=== PATIENT | female | born 1950 | race Caucasian/White ===

== ENCOUNTER 2020-04-15 15:25 | Inpatient (IN) | payer MEDICARE, BC ==
[2020-04-15] MEDS ORDERED: ALBUTEROL HFA INHALER INHALATION STA (15:51)
[2020-04-15 16:54] LABS: Basophils % (A) 0 %; Eosinophils # (A) 0.2 k/uL (0-0.7); Eosinophils % (A) 1 %; HCT 35.6 % (34.0-46.0); HGB 11.3 gm/dL (11.4-16.0); Lymphocytes % (A) 7 %; MCH 32.8 pg (25.0-35.0); MCHC 31.8 g/dL (31.0-37.0); MCV 103.4 fL (80.0-100.0); Macrocytosis Slight; Mean Platelet Volume 8.4; Monocytes # (A) 1.4 k/uL (0-1.0); Monocytes % (A) 9 %; Neutrophils # (A) 12.1 k/uL (1.3-7.7); Neutrophils % (A) 81 %; Platelet Count 324 k/uL (150-450); RBC 3.44 m/uL (3.80-5.40); RDW 13.5 % (11.5-15.5); WBC 14.9 k/uL (3.8-10.6)
--- NOTE | 2020-04-15 16:56 | ED ---
General Adult HPI - General Chief complaint: Shortness of Breath Stated complaint: SOB Time Seen by Provider: 04/15/20 15:41 Source: patient, EMS, RN notes reviewed Mode of arrival: EMS Limitations: no limitations - History of Present Illness Initial comments: Patient is a pleasant 69-year-old female presenting to the emergency department with difficulty breathing. Onset of symptoms was a week or so ago. Symptoms do worsen with exertion. No history of similar symptoms previously. 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 Occasional mild cough. No fevers. No chest pain. Patient does have right foot erythema and swelling. No calf pain or swelling. - Related Data Allergies Allergy/AdvReac Type Severity Reaction Status Date / Time codeine Allergy Unknown Verified 04/15/20 15:53 Review of Systems ROS Statement: Those systems with pertinent positive or pertinent negative responses have been documented in the HPI. ROS Other: All systems not noted in ROS Statement are negative. Constitutional: Denies: fever, chills Eyes: Denies: eye pain ENT: Denies: ear pain Respiratory: Reports: as per HPI, dyspnea Cardiovascular: Denies: chest pain Endocrine: Denies: fatigue Gastrointestinal: Denies: abdominal pain Genitourinary: Denies: dysuria Musculoskeletal: Denies: back pain Skin: Reports: as per HPI, rash Neurological: Denies: weakness Past Medical History Past Medical History: Diabetes Mellitus, Hyperlipidemia, Hypertension History of Any Multi-Drug Resistant Organisms: None Reported Past Surgical History: Cholecystectomy, Coronary Bypass/CABG, Heart Catheterization With Stent Past Psychological History: Anxiety Smoking Status: Never smoker Past Alcohol Use History: None Reported Past Drug Use History: None Reported General Exam Limitations: no limitations General appearance: alert, in no apparent distress Head exam: Present: normocephalic Eye exam: Present: normal appearance Neck exam: Present: normal inspection Respiratory exam: Present: normal lung sounds bilaterally Cardiovascular Exam: Present: regular rate, normal rhythm GI/Abdominal exam: Present: soft. Absent: tenderness Extremities exam: Present: other (Right dorsal foot with erythema and swelling and mild tenderness). Absent: calf tenderness Neurological exam: Present: alert Psychiatric exam: Present: normal affect, normal mood Skin exam: Present: erythema (Right dorsal foot) Course Vital Signs 04/15/20 04/15/20 04/15/20 15:53 15:55 18:00 Temperature 98.4 F Pulse Rate 81 78 Respiratory 22 20 Rate Blood Pressure 124/84 119/58 O2 Sat by Pulse 89 L 98 97 Oximetry EKG Findings - EKG Comments: EKG Findings:: Normal sinus rhythm 77. NC 164. QRS 92. QT 396. QTc 440. Normal axis. Normal QRS. No acute ST change. Medical Decision Making - Medical Decision Making Patient reevaluated. Patient updated on results and plan. Case was discussed with Dr. Figueredo, who will admit covering Dr. Richmond - Lab Data Result diagrams: 04/15/20 16:20 04/15/20 16:20 Lab Results 04/15/20 04/15/20 04/15/20 Range/Units 16:14 16:20 16:20 WBC 14.9 H (3.8-10.6) k/uL RBC 3.44 L (3.80-5.40) m/uL Hgb 11.3 L (11.4-16.0) gm/dL Hct 35.6 (34.0-46.0) % MCV 103.4 H (80.0-100.0) fL MCH 32.8 (25.0-35.0) pg MCHC 31.8 (31.0-37.0) g/dL RDW 13.5 (11.5-15.5) % Plt Count 324 (150-450) k/uL MPV 8.4 Neutrophils % 81 % Lymphocytes % 7 % Monocytes % 9 % Eosinophils % 1 % Basophils % 0 % Neutrophils # 12.1 H (1.3-7.7) k/uL Lymphocytes # 1.0 (1.0-4.8) k/uL Monocytes # 1.4 H (0-1.0) k/uL Eosinophils # 0.2 (0-0.7) k/uL Basophils # 0.0 (0-0.2) k/uL Macrocytosis Slight PT 9.5 (9.0-12.0) sec INR 0.9 (<1.2) APTT 26.0 (22.0-30.0) sec D-Dimer 1.61 H (<0.60) mg/L FEU Sodium (137-145) mmol/L Potassium (3.5-5.1) mmol/L Chloride (98-107) mmol/L Carbon Dioxide (22-30) mmol/L Anion Gap mmol/L BUN (7-17) mg/dL Creatinine (0.52-1.04) mg/dL Est GFR (CKD-EPI)AfAm (>60 ml/min/1.73 sqM) Est GFR (CKD-EPI)NonAf (>60 ml/min/1.73 sqM) Glucose (74-99) mg/dL Plasma Lactic Acid Jordy (0.7-2.0) mmol/L Calcium (8.4-10.2) mg/dL Total Bilirubin (0.2-1.3) mg/dL AST (14-36) U/L ALT (4-34) U/L Alkaline Phosphatase (38-126) U/L Troponin I (0.000-0.034) ng/mL NT-Pro-B Natriuret Pep pg/mL Total Protein (6.3-8.2) g/dL Albumin (3.5-5.0) g/dL Coronavirus (PCR) Not Detected (Not Detectd) 04/15/20 04/15/20 04/15/20 Range/Units 16:20 16:20 16:20 WBC (3.8-10.6) k/uL RBC (3.80-5.40) m/uL Hgb (11.4-16.0) gm/dL Hct (34.0-46.0) % MCV (80.0-100.0) fL MCH (25.0-35.0) pg MCHC (31.0-37.0) g/dL RDW (11.5-15.5) % Plt Count (150-450) k/uL MPV Neutrophils % % Lymphocytes % % Monocytes % % Eosinophils % % Basophils % % Neutrophils # (1.3-7.7) k/uL Lymphocytes # (1.0-4.8) k/uL Monocytes # (0-1.0) k/uL Eosinophils # (0-0.7) k/uL Basophils # (0-0.2) k/uL Macrocytosis PT (9.0-12.0) sec INR (<1.2) APTT (22.0-30.0) sec D-Dimer (<0.60) mg/L FEU Sodium 128 L (137-145) mmol/L Potassium 5.8 H (3.5-5.1) mmol/L Chloride 94 L (98-107) mmol/L Carbon Dioxide 25 (22-30) mmol/L Anion Gap 9 mmol/L BUN 31 H (7-17) mg/dL Creatinine 1.27 H (0.52-1.04) mg/dL Est GFR (CKD-EPI)AfAm 50 (>60 ml/min/1.73 sqM) Est GFR (CKD-EPI)NonAf 43 (>60 ml/min/1.73 sqM) Glucose 127 H (74-99) mg/dL Plasma Lactic Acid Jordy 2.1 H* (0.7-2.0) mmol/L Calcium 9.1 (8.4-10.2) mg/dL Total Bilirubin 0.4 (0.2-1.3) mg/dL AST 37 H (14-36) U/L ALT 32 (4-34) U/L Alkaline Phosphatase 68 (38-126) U/L Troponin I 0.094 H* (0.000-0.034) ng/mL NT-Pro-B Natriuret Pep pg/mL Total Protein 7.1 (6.3-8.2) g/dL Albumin 3.9 (3.5-5.0) g/dL Coronavirus (PCR) (Not Detectd) 04/15/20 Range/Units 16:20 WBC (3.8-10.6) k/uL RBC (3.80-5.40) m/uL Hgb (11.4-16.0) gm/dL Hct (34.0-46.0) % MCV (80.0-100.0) fL MCH (25.0-35.0) pg MCHC (31.0-37.0) g/dL RDW (11.5-15.5) % Plt Count (150-450) k/uL MPV Neutrophils % % Lymphocytes % % Monocytes % % Eosinophils % % Basophils % % Neutrophils # (1.3-7.7) k/uL Lymphocytes # (1.0-4.8) k/uL Monocytes # (0-1.0) k/uL Eosinophils # (0-0.7) k/uL Basophils # (0-0.2) k/uL Macrocytosis PT (9.0-12.0) sec INR (<1.2) APTT (22.0-30.0) sec D-Dimer (<0.60) mg/L FEU Sodium (137-145) mmol/L Potassium (3.5-5.1) mmol/L Chloride (98-107) mmol/L Carbon Dioxide (22-30) mmol/L Anion Gap mmol/L BUN (7-17) mg/dL Creatinine (0.52-1.04) mg/dL Est GFR (CKD-EPI)AfAm (>60 ml/min/1.73 sqM) Est GFR (CKD-EPI)NonAf (>60 ml/min/1.73 sqM) Glucose (74-99) mg/dL Plasma Lactic Acid Jordy (0.7-2.0) mmol/L Calcium (8.4-10.2) mg/dL Total Bilirubin (0.2-1.3) mg/dL AST (14-36) U/L ALT (4-34) U/L Alkaline Phosphatase (38-126) U/L Troponin I (0.000-0.034) ng/mL NT-Pro-B Natriuret Pep 1950 pg/mL Total Protein (6.3-8.2) g/dL Albumin (3.5-5.0) g/dL Coronavirus (PCR) (Not Detectd) - Radiology Data Radiology results: report reviewed (Computed tomography scan of the chest shows no pulmonary embolism. Bilateral hazy opacity, likely pulmonary edema. No airspace opacity or consolidation.), image reviewed (Chest x-ray shows c ardiomegaly and concern for CHF. X-ray of the right foot shows chronic changes. No Ostermann myelitis. Probable Projectional changes.) Disposition Clinical Impression: Congestive heart failure Disposition: ADMITTED IP TO THIS HOSP Condition: Serious Is patient prescribed a controlled substance at d/c from ED?: No Referrals: Everardo Richmond MD [Primary Care Provider] - 1-2 days Decision Time: 19:02
--- NOTE | 2020-04-15 17:11 | XR ---
EXAMINATION TYPE: XR chest 2V DATE OF EXAM: 04/15/2020 COMPARISON: 04/24/2019 HISTORY: Shortness of breath. TECHNIQUE: Frontal and lateral views of the chest are obtained. FINDINGS: There is moderate interstitial edema with superimposed hazy opacities. No significant pleu ral effusion or pneumothorax. Cardiomegaly and CABG is noted. The osseous structures are intact. IMPRESSION: Moderate CHF.
--- NOTE | 2020-04-15 17:16 | XR ---
Result: History: Pain. Comparison: None available. Technique: 3 views of the right foot. Findings: The bone mineralization is appropriate for age. There is no acute fracture or dislocation. There is medial deviation of the MTP joints, most notable of the first and second. 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 No radiographic evidence for osteomyelitis. There are scattered mild degenerative changes. There is soft tissue lucency about the lateral aspect of the hindfoot. Impression: No acute osseous abnormality or radiographic evidence for osteomyelitis. Soft tissue lucency about the lateral aspect of the hindfoot, appears to be projectional. However rec ommended clinical correlation. If there is continued clinical concern, consider contrast enhanced microcomputer support specialist ss-sectional imaging for further evaluation. Chronic findings as above. No acute osseous abnormality.
[2020-04-15 17:30] LABS: INR 0.9 (<1.2); Prothrombin Time 9.5 sec (9.0-12.0)
[2020-04-15 17:32] LABS: Albumin 3.9 g/dL (3.5-5.0); Calcium 9.1 mg/dL (8.4-10.2); Potassium 5.8 mmol/L (3.5-5.1); Total Bilirubin 0.4 mg/dL (0.2-1.3); Total Protein 7.1 g/dL (6.3-8.2)
[2020-04-15 17:37] LABS: D-Dimer 1.61 mg/L FEU (<0.60)
--- NOTE | 2020-04-15 18:58 | CT ---
EXAMINATION TYPE: CT angio chest DATE OF EXAM: 04/15/2020 6:45 PM COMPARISON: Same day radiographs. HISTORY: Shortness of breath. CT DLP: 672.8 mGycm Automated exposure control for dose reduction was used. CONTRAST: CTA scan of the thorax is performed following intravenous contrast adminstration per pulmonary emboli sm protocol. MIP images are created and reviewed. FINDINGS: LUNGS: There is bilateral moderate hazy opacity, most compatible with pulmonary edema. Otherwise no s ignificant consolidation, pleural effusion or pneumothorax. No suspicious pulmonary nodules. MEDIASTINUM: There is satisfactory enhancement of the pulmonary artery and its branches, there is no CT evidence for pulmonary embolism. There are no greater than 1 cm hilar or mediastinal lymph nodes. No megaly is noted. No pericardial effusion is seen. OTHER: No additional significant abnormality is seen. IMPRESSION: NO EVIDENCE OF PULMONARY EMBOLUS. BILATERAL HAZY OPACITY, MOST COMPATIBLE WITH PULMONARY EDEMA. NO SIGNIFICANT PATCHY AIRSPACE OPACITY OR CONSOLIDATION SEEN.
[2020-04-15] MEDS ORDERED: ASPIRIN 325 MG TAB PO STA (19:03)
[2020-04-15] MEDS ORDERED: HEPARIN SODIUM,PORCINE 5,000 UNIT/ML 1 ML VIAL IV PRN (19:05)
[2020-04-15] MEDS ORDERED: HEPARIN SODIUM,PORCINE 5,000 UNIT/ML 1 ML VIAL IV ONE (19:05)
[2020-04-15] MEDS ORDERED: AMPICILLIN-SULBACTAM 1.5 GM in SODIUM CHLORIDE 0.9% 50 ML IVPB ONE (19:15)
--- NOTE | 2020-04-15 19:29 | US ---
EXAMINATION TYPE: US venous doppler duplex LE RT DATE OF EXAM: 04/15/2020 7:13 PM COMPARISON: NONE CLINICAL HISTORY: swelling. Swelling right leg x 1 week. No hx of DVT. Patient takes aspirin. SIDE PERFORMED: Right TECHNIQUE: The lower extremity deep venous system is examined utilizing real time linear array sonog klaudia with graded compression, doppler sonography and color-flow sonography. VESSELS IMAGED: Common Femoral Vein Deep Femoral Vein Greater Saphenous Vein * Femoral Vein Popliteal Vein Small Saphenous Vein * Proximal Calf Veins (* superficial vessels) Right Leg: Limited due to patient body habitus and swelling. No evidence of DVT in veins imaged at this time from popliteal vein to CFV/GSV. Limited visibility of prox calf veins. IMPRESSION: No evidence of DVT in the right lower extremity.
[2020-04-15] MEDS: AMPICILLIN-SULBACTAM 1.5 GM in SODIUM CHLORIDE 0.9% 50 ML IVPB SCH (20:42)
[2020-04-15] MEDS: HEPARIN SOD,PORK IN 0.45% NACL 25,000 UNIT in 0.45% NACL 1 250ML.BAG IV SCH (20:43)
[2020-04-15] MEDS ORDERED: NITROGLYCERIN SL TABS 0.4 MG TAB SUBLINGUAL PRN (20:59)
[2020-04-15 22:47] LABS: Glucose,Whole Blood 199 mg/dL (75-99)
[2020-04-15] MEDS: INSULIN DETEMIR (LEVEMIR) 100 UNIT/ML SYR SQ SCH (22:55)
[2020-04-15] MEDS: ASCORBIC ACID 500 MG TAB PO SCH (22:55)
[2020-04-15] MEDS: BACLOFEN 10 MG TAB PO SCH (22:55)
[2020-04-15] MEDS: METOPROLOL TARTRATE 50 MG TAB PO SCH (22:55)
[2020-04-15] MEDS: RANOLAZINE 500 MG TAB.ER.12H PO SCH (22:56)
[2020-04-15] MEDS: METOCLOPRAMIDE 10 MG TAB PO SCH (22:56)
[2020-04-15] MEDS: PANTOPRAZOLE 40 MG TABLET PO SCH (22:56)
[2020-04-15] MEDS: FUROSEMIDE 10 MG/ML 4 ML VIAL IV SCH (22:56)
[2020-04-15] MEDS: NITROGLYCERIN OINT 1 INCH/GM PACKET TOPICAL SCH (22:56)
[2020-04-16] MEDS: AMPICILLIN-SULBACTAM 1.5 GM in SODIUM CHLORIDE 0.9% 50 ML IVPB SCH ×4 (02:04→22:19)
[2020-04-16 02:46] LABS: Basophils % (A) 0 %; Eosinophils # (A) 0.2 k/uL (0-0.7); Eosinophils % (A) 2 %; HCT 32.8 % (34.0-46.0); HGB 10.5 gm/dL (11.4-16.0); Lymphocytes # (A) 1.3 k/uL (1.0-4.8); Lymphocytes % (A) 12 %; MCH 33.9 pg (25.0-35.0); MCV 105.8 fL (80.0-100.0); Macrocytosis Moderate; Mean Platelet Volume 8.9; Monocytes # (A) 1.2 k/uL (0-1.0); Monocytes % (A) 12 %; Neutrophils # (A) 7.7 k/uL (1.3-7.7); Neutrophils % (A) 73 %; Platelet Count 276 k/uL (150-450); RDW 13.3 % (11.5-15.5); WBC 10.6 k/uL (3.8-10.6)
[2020-04-16 03:00] LABS: INR 0.9 (<1.2); Partial Thromboplastin Time 38.2 sec (22.0-30.0); Prothrombin Time 9.7 sec (9.0-12.0)
[2020-04-16] MEDS: LEVOTHYROXINE 100 MCG TAB PO SCH (06:05)
[2020-04-16 06:46] LABS: Glucose,Whole Blood 152 mg/dL (75-99)
[2020-04-16] MEDS: INSULIN ASPART (NovoLOG) 100 UNIT/ML VIAL SQ SCH ×9 (08:28→20:40)
[2020-04-16 08:53] LABS: Glucose,Whole Blood 139 mg/dL (75-99)
[2020-04-16] MEDS ORDERED: NON FORMULARY DRUG (Niacin [Niacin] 500 MG Tablet) PO SCH (09:00)
[2020-04-16] MEDS ORDERED: ASPIRIN 325 MG TAB PO SCH (09:00)
[2020-04-16] MEDS: ASPIRIN 81 MG PO SCH (09:01)
[2020-04-16] MEDS: EZETIMIBE 10 MG TAB PO SCH (09:01)
[2020-04-16] MEDS: PANTOPRAZOLE 40 MG TABLET PO SCH ×2 (09:01→21:04)
[2020-04-16] MEDS: PRAVASTATIN SODIUM 40 MG TAB PO SCH (09:02)
[2020-04-16] MEDS: CHOLECALCIFEROL 1,000 UNIT TAB PO SCH (09:02)
[2020-04-16] MEDS: NITROGLYCERIN OINT 1 INCH/GM PACKET TOPICAL SCH ×4 (09:02→21:03)
[2020-04-16] MEDS: FUROSEMIDE 10 MG/ML 4 ML VIAL IV SCH ×3 (09:02→22:15)
[2020-04-16] MEDS: RANOLAZINE 500 MG TAB.ER.12H PO SCH ×2 (09:02→21:04)
[2020-04-16] MEDS: METOPROLOL TARTRATE 50 MG TAB PO SCH ×2 (09:02→21:03)
[2020-04-16] MEDS: ASCORBIC ACID 500 MG TAB PO SCH ×2 (09:02→21:04)
[2020-04-16] MEDS: CLOPIDOGREL 75 MG TAB PO SCH (09:02)
[2020-04-16] MEDS: METOCLOPRAMIDE 10 MG TAB PO SCH ×4 (09:03→21:03)
[2020-04-16] MEDS: INSULIN DETEMIR (LEVEMIR) 100 UNIT/ML SYR SQ SCH ×2 (09:03→20:41)
[2020-04-16] MEDS ORDERED: SODIUM POLYSTYRENE SULFONATE 15 GM/60 ML BOTTLE PO STA (09:33)
--- NOTE | 2020-04-16 09:54 | ECHOF ---
Referral Reason:Heart Failure MEASUREMENTS -------- HEIGHT: 152.4 cm WEIGHT: 109.3 kg BP: 144/69 IVSd: 1.3 cm (0.6 - 1.1) LVIDd: 4.2 cm (3.9 - 5.3) LVPWd: 0.9 cm (0.6 - 1.1) IVSs: 1.3 cm LVIDs: 2.8 cm LVPWs: 1.7 cm Ao Diam: 3.0 cm (2.0 - 3.7) AV Cusp: 1.8 cm (1.5 - 2.6) LA Diam: 2.6 cm (2.7 - 3.8) MV EXCURSION: 14.230 mm (> 18.000) MV EF SLOPE: 103 mm/s (70 - 150) EPSS: 1.3 cm MV E Herbie: 0.76 m/s MV DecT: 208 ms MV A Herbie: 0.92 m/s MV E/A Ratio: 0.83 RAP: 5.00 mmHg RVSP: 9.27 mmHg FINDINGS -------- This was a technically difficult study with suboptimal views. The left ventricular size is normal. There is mild concentric left ventricular hypertrophy. Overa ll left ventricular systolic function is normal with, an EF between 55 - 60 %. The RV was not well visualized. The left atrial size is normal. The right atrial size is normal. Lumason used The aortic valve was not well visualized. The mitral valve was not well visualized. There is trace mitral regurgitation. The tricuspid valve was not well visualized. Trace tricuspid regurgitation present. Right ventric ular systolic pressure is normal at < 35 mmHg. The pulmonic valve was not well visualized. The aortic root size is normal. IVC Not well visulized. There is no pericardial effusion. CONCLUSIONS -------- 1. The left ventricular size is normal. 2. There is mild concentric left ventricular hypertrophy. 3. Overall left ventricular systolic function is normal with, an EF between 55 - 60 %. 4. There is trace mitral regurgitation. 5. Trace tricuspid regurgitation present. 6. There is no pericardial effusion. HELPER ELECTRICAL: Kelly Bocanegra RDCS
--- NOTE | 2020-04-16 10:29 | P.CRDCN ---
History of Present Illness History of present illness: HISTORY OF PRESENTING ILLNESS This is a pleasant 69-year-old female past medical history significant for coronary artery disease status post PCI one year ago exact details unavailable, coronary artery bypass grafting, hypertension, diabetes mellitus, dyslipidemia and hypothyroidism. She follows in the office with Dr. Machuca. We have been asked to see in consultation for shortness of breath. She states approximately 10 days ago she was diagnosed with right lower extremity cellulitis and started on oral antibiotics. Then about one week ago she started noticing increasing shortness of breath. Over the previous week concerning getting progressively worse. Yesterday when she called EMS she also noticed tightness in the midsternal region of her chest. The tightness in the chest was associated with breathing. She has orthopnea but no PND. She denies any significant cough. She states she underwent stent placement 04/04/2019 at [facility]. Currently maintained on dual antiplatelet therapy. Echocardiogram obtained reveals preserved LV systolic function with ejection fraction 55-60%. DIAGNOSTICS EKG reveals sinus mechanism, inferior Q wave and T wave inversions in the high lateral leads. Chest xray moderate interstitial edema with superimposed hazy opacity is noted. Venous Doppler is negative for DVT in the right lower extremity. Laboratory reviewed, WBC 10.6 down from 14.9 on admission, hemoglobin 10.5, platelets 276, d-dimer 1.61, sodium 128, potassium 5.8, creatinine 1.27, troponin 0.094, 0.132, 0.164 and NT proBNP 1950. Current cardiac medications include Plavix 75 mg daily, aspirin 81 mg daily, losartan 50 mg daily, Lopressor 100 mg twice a day, pravastatin 40 mg daily, Zetia 10 mg daily, Ranexa 500 mg twice a day and Lasix 40 mg daily. REVIEW OF SYSTEMS At the time of my exam: CONSTITUTIONAL: Denies fever or chills. CARDIOVASCULAR: Complains of shortness of breath and orthopnea. Denies chest pain, PND or palpitations. RESPIRATORY: Denies cough. GASTROINTESTINAL: Denies abdominal pain, diarrhea, constipation, nausea or vo miting. MUSCULOSKELETAL: Denies myalgias. NEUROLOGIC: Denies numbness, tingling or weakness. ENDOCRINE: Denies fatigue, weight change, polydipsia or polyurina. GENITOURINARY: Denies burning, hematuria or urgency with micturation. HEMATOLOGIC: Denies history of anemia or bleeding. PHYSICAL EXAMINATION Blood pressure 145/64 heart rate 74 afebrile and maintaining oxygen saturation on nasal cannula. CONSTITUTIONAL: No apparent distress. Morbidly obese. HEENT: Head is normocephalic. Pupils are equal, round. Sclerae anicteric. Mucous membranes of the mouth are moist. No JVD. No carotid bruit. CHEST EXAMINATION: Bibasilar rales. No chest wall tenderness is noted on palpation or with deep breathing. HEART EXAMINATION: Regular rate and rhythm. S1, S2 heard. No murmurs, gallops or rub. ABDOMEN: Soft, nontender. Positive bowel sounds. EXTREMITIES: 2+ peripheral pulses, right lower extremity erythema and 1+ pitting edema bilaterally. No calf tenderness. NEUROLOGIC EXAMINATION: Patient is awake, alert and oriented x3. ASSESSMENT Acute on chronic diastolic heart failure Elevated troponin, likely secondary to hypoxia. We will check another level to trend. Leukocytosis Cellulitis Hyponatremia Hyperkalemia Coronary artery disease status post PCI one year ago maintained on dual antiplatelet therapy, exact details unavailable with previous bypass grafting Hypertension Dyslipidemia Diabetes mellitus Morbid obesity, BMI 47 PLAN Obtain report from her recent PCI and group marketing vp for review. Continue to diurese with IV lasix. Repeat BMP now and follow daily. Document accurate intake and output along with daily weights. Repeat troponin level. Resume aspirin, Plavix, losartan, Lopressor, pravastatin, Zetia and Ranexa as previously ordered. NPO after midnight and further decision will be made regarding possible catheterization. Further recommendations to follow based on clinical course. Thank you kindly for this consultation. Nurse Practitioner note has been reviewed, I agree with a documented findings and plan of care. Patient was seen and examined. Past Medical History Past Medical History: Coronary Artery Disease (CAD), Diabetes Mellitus, Hyperlipidemia, Hypertension Additional Past Medical History / Comment(s): left paralyzed diaphram History of Any Multi-Drug Resistant Organisms: None Reported Past Surgical History: Cholecystectomy, Coronary Bypass/CABG, Heart Catheterization With Stent Additional Past Surgical History / Comment(s): Double bypass October 1999, 2 stents Date of Last Stent Placement:: 03/2019 Past Psychological History: Anxiety Smoking Status: Never smoker Past Alcohol Use History: None Reported Past Drug Use History: None Reported - Past Family History Father Family Medical History: Cancer Mother Family Medical History: Coronary Artery Disease (CAD) Medications and Allergies Home Medications Medication Instructions Recorded Confirmed Type Ascorbic Acid [Vitamin C] 1,000 mg PO BID 04/15/20 04/15/20 History Aspirin EC [Ecotrin Low Dose] 81 mg PO DAILY 04/15/20 04/15/20 History Baclofen [Lioresal] 20 mg PO HS 04/15/20 04/15/20 History Cholecalciferol [Vitamin D3 (25 5,000 unit PO DAILY 04/15/20 04/15/20 History Mcg = 1000 Iu)] Clopidogrel Bisulfate [Plavix] 75 mg PO DAILY 04/15/20 04/15/20 History Ezetimibe [Zetia] 10 mg PO DAILY 04/15/20 04/15/20 History Fish Oil/Dha/Epa [Fish Oil 1,200 1 cap PO HS 04/15/20 04/15/20 History mg Fish Oil] Fluticasone Nasal [place] [Flonase 1 spray EA NOSTRIL DAILY PRN 04/15/20 04/15/20 History Nasal [place]] Furosemide [Lasix] 40 mg PO DAILY 04/15/20 04/15/20 History Glucosam/Chond/Hyalu/Cf Borate 1 tab PO BID 04/15/20 04/15/20 History [Move Free Joint Health Tablet] Insulin Glargine [Lantus] 66 unit SQ BID 04/15/20 04/15/20 History Insulin Lispro [humaLOG] 30 units SQ TID 04/15/20 04/15/20 History Lansoprazole [Prevacid] 30 mg PO BID 04/15/20 04/15/20 History Levothyroxine Sodium [Synthroid] 100 mcg PO DAILY 04/15/20 04/15/20 History Losartan [Cozaar] 50 mg PO DAILY 04/15/20 04/15/20 History Meloxicam 15 mg PO HS 04/15/20 04/15/20 History Metoclopramide [Reglan] 10 mg PO QID 04/15/20 04/15/20 History Metoprolol Tartrate [Lopressor] 100 mg PO BID 04/15/20 04/15/20 History Niacin 500 mg PO DAILY 04/15/20 04/15/20 History Nitroglycerin 0.4MG/Hr Patch 1 patch TRANSDERM DAILY 04/15/20 04/15/20 History [Nitro-Dur 0.4MG/Hr Patch] Nitroglycerin Sl Tabs [Nitrostat] 0.4 mg SUBLINGUAL Q5M PRN 04/15/20 04/15/20 History Pravastatin Sodium [Pravachol] 40 mg PO DAILY 04/15/20 04/15/20 History Ranolazine [Ranexa] 500 mg PO BID 04/15/20 04/15/20 History Sulfamethox-Tmp 800-160Mg [Bactrim 1 tab PO BID 04/15/20 04/15/20 History DS 800-160 mg] rOPINIRole HCL [Requip] 0.5 mg PO HS 04/15/20 04/15/20 History Allergies Allergy/AdvReac Type Severity Reaction Status Date / Time codeine Allergy Unknown Verified 04/15/20 20:02 Physical Exam Vitals: Vital Signs Temp Pulse Pulse Resp BP BP Pulse Ox 04/16/20 08:52 98.2 F 74 22 145/64 96 04/16/20 04:00 98.2 F 76 22 144/69 97 04/16/20 00:00 98.2 F 90 22 131/45 96 04/15/20 20:45 84 20 155/63 98 04/15/20 18:00 78 20 119/58 97 04/15/20 15:55 98 04/15/20 15:53 98.4 F 81 22 124/84 89 L Intake and Output 04/15/20 04/16/20 04/16/20 22:59 06:59 14:59 Intake Total 311.667 260 Output Total 600 700 Balance -288.333 -440 Intake: IV 20 Invasive Line 1 10 Invasive Line 2 10 Intake, IV Titration 71.667 Amount Heparin Sod,Pork in 0.45% 71.667 NaCl 25,000 unit In 0.45 % NaCl 1 250ml.bag @ 9. 302 UNITS/KG/HR 10 mls/hr IV .Q24H [facility] Rx#: [id number] Oral 240 240 Output: Urine 600 700 Other: Weight 107.501 kg 109.5 kg Results 04/16/20 02:30 04/16/20 09:37 Cardiac Enzymes 04/15/20 04/15/20 04/15/20 Range/Units 16:20 16:20 19:30 AST 37 H (14-36) U/L Troponin I 0.094 H* 0.132 H* (0.000-0.034) ng/mL 04/15/20 Range/Units 23:09 AST (14-36) U/L Troponin I 0.164 H* (0.000-0.034) ng/mL Coagulation 04/15/20 04/16/20 Range/Units 16:20 02:30 PT 9.5 9.7 (9.0-12.0) sec APTT 26.0 38.2 H (22.0-30.0) sec CBC 04/15/20 04/16/20 Range/Units 16:20 02:30 WBC 14.9 H 10.6 (3.8-10.6) k/uL RBC 3.44 L 3.10 L (3.80-5.40) m/uL Hgb 11.3 L 10.5 L (11.4-16.0) gm/dL Hct 35.6 32.8 L (34.0-46.0) % Plt Count 324 276 (150-450) k/uL Comprehensive Metabolic Panel 04/15/20 Range/Units 16:20 Sodium 128 L (137-145) mmol/L Potassium 5.8 H (3.5-5.1) mmol/L Chloride 94 L (98-107) mmol/L Carbon Dioxide 25 (22-30) mmol/L BUN 31 H (7-17) mg/dL Creatinine 1.27 H (0.52-1.04) mg/dL Glucose 127 H (74-99) mg/dL Calcium 9.1 (8.4-10.2) mg/dL AST 37 H (14-36) U/L ALT 32 (4-34) U/L Alkaline Phosphatase 68 (38-126) U/L Total Protein 7.1 (6.3-8.2) g/dL Albumin 3.9 (3.5-5.0) g/dL Current Medications Generic Name Dose Route Start Last Admin Trade Name Freq PRN Reason Stop Dose Admin Ascorbic Acid 1,000 mg 04/15/20 21:00 04/16/20 09:02 Ascorbic Acid 500 Mg Tab PO 1,000 mg BID [facility] Administration Aspirin 81 mg 04/16/20 09:00 04/16/20 09:01 Aspirin 81 Mg PO 81 mg DAILY [facility] Administration Baclofen 20 mg 04/15/20 21:00 04/15/20 22:55 Baclofen 10 Mg Tab PO 20 mg HS [facility] Administration Cholecalciferol 5,000 unit 04/16/20 09:00 04/16/20 09:02 Cholecalciferol 1,000 Unit Tab PO 5,000 unit DAILY [facility] Administration Clopidogrel Bisulfate 75 mg 04/16/20 09:00 04/16/20 09:02 Clopidogrel 75 Mg Tab PO 75 mg DAILY [facility] Administration Ezetimibe 10 mg 04/16/20 09:00 04/16/20 09:01 Ezetimibe 10 Mg Tab PO 10 mg DAILY [facility] Administration Furosemide 40 mg 04/16/20 00:00 04/16/20 09:02 Furosemide 10 Mg/Ml 4 Ml Vial IV 40 mg Q8HR [facility] Administration Heparin Sodium (Porcine) 0 unit 04/15/20 19:05 Heparin Sodium,Porcine 5,000 Unit/Ml 1 Ml Vial IV PER PROTOCOL PRN Low PTT Protocol Heparin Sodium/Sodium Chloride 250 mls @ 10 mls/hr 04/15/20 19:15 04/16/20 03:53 25,000 unit/ Sodium Chloride IV 11.302 units/kg/hr .Q24H [facility] 12.15 mls/hr Titration Protocol 9.302 UNITS/KG/HR Ampicillin Sodium/Sulbactam 50 mls @ 100 mls/hr 04/16/20 02:00 04/16/20 02:04 Sodium 1.5 gm/ Sodium Chloride IVPB 100 mls/hr Q6H [facility] Administration Insulin Aspart 20 unit 04/16/20 07:30 04/16/20 09:11 Insulin Aspart (Novolog) 100 Unit/Ml Vial SQ 20 unit AC-TID [facility] Administration Insulin Aspart 0 unit 04/16/20 07:30 04/16/20 09:01 Insulin Aspart (Novolog) 100 Unit/Ml Vial SQ 1 unit ACHS [facility] Administration Protocol Insulin Detemir 50 unit 04/15/20 21:00 04/16/20 09:03 Insulin Detemir (Levemir) 100 Unit/Ml Syr SQ 50 unit BID [facility] Administration Levothyroxine Sodium 100 mcg 04/16/20 06:30 04/16/20 06:05 Levothyroxine 100 Mcg Tab PO 100 mcg DAILY@0630 [facility] Administration Metoclopramide HCl 10 mg 04/15/20 22:00 04/16/20 09:03 Metoclopramide 10 Mg Tab PO 10 mg QID [facility] Administration Metoprolol Tartrate 100 mg 04/15/20 21:00 04/16/20 09:02 Metoprolol Tartrate 50 Mg Tab PO 100 mg BID [facility] Administration Nitroglycerin 1 inch 04/15/20 22:00 04/16/20 09:02 Nitroglycerin Oint 1 Inch/Gm Packet TOPICAL 1 inch QID [facility] Administration Nitroglycerin 0.4 mg 04/15/20 20:59 Nitroglycerin Sl Tabs 0.4 Mg Tab SUBLINGUAL Q5M PRN Chest Pain Pantoprazole Sodium 40 mg 04/15/20 21:00 04/16/20 09:01 Pantoprazole 40 Mg Tablet PO 40 mg BID [facility] Administration Pravastatin Sodium 40 mg 04/16/20 09:00 04/16/20 09:02 Pravastatin Sodium 40 Mg Tab PO 40 mg DAILY [facility] Administration Ranolazine 500 mg 04/15/20 21:00 04/16/20 09:02 Ranolazine 500 Mg Tab.Er.12h PO 500 mg BID [facility]AN[facility] Administration Ropinirole HCl 0.5 mg 04/15/20 21:00 04/15/20 22:56 Ropinirole Hcl 0.25 Mg Tab PO 0.5 mg HS [facility] Administration Sodium Chloride 10 ml 04/15/20 21:00 04/16/20 09:03 Sodium Chloride 0.9% Flush 10 Ml Syringe IV 10 ml BID [facility]AN[facility] Administration Intake and Output 04/15/20 04/16/20 04/16/20 22:59 06:59 14:59 Intake Total 311.667 260 Output Total 600 700 Balance -288.333 -440 Intake: IV 20 Invasive Line 1 10 Invasive Line 2 10 Intake, IV Titration 71.667 Amount Heparin Sod,Pork in 0.45% 71.667 NaCl 25,000 unit In 0.45 % NaCl 1 250ml.bag @ 9. 302 UNITS/KG/HR 10 mls/hr IV .Q24H [facility] Rx#: [id number] Oral 240 240 Output: Urine 600 700 Other: Weight 107.501 kg 109.5 kg 04/16/20 02:30 04/15/20 16:20
[2020-04-16 10:42] LABS: Calcium 8.9 mg/dL (8.4-10.2); Potassium 5.9 mmol/L (3.5-5.1); Total Bilirubin 0.6 mg/dL (0.2-1.3); Total Protein 7.1 g/dL (6.3-8.2)
[2020-04-16] MEDS ORDERED: SODIUM BICARB 8.4% 50 ML SYR (1 MEQ/ML) IV STA (10:48)
[2020-04-16] MEDS ORDERED: CALCIUM GLUCONATE 1 GM in SODIUM CHLORIDE 0.9% 100 ML IVPB ONE (11:00)
[2020-04-16 11:50] LABS: Glucose,Whole Blood 159 mg/dL (75-99)
[2020-04-16 14:20] VITALS: BMI 47.1
[2020-04-16] MEDS: HEPARIN SOD,PORK IN 0.45% NACL 25,000 UNIT in 0.45% NACL 1 250ML.BAG IV SCH (16:31)
[2020-04-16 16:39] LABS: Glucose,Whole Blood 118 mg/dL (75-99)
--- NOTE | 2020-04-16 20:12 | P.HPIM ---
History of Present Illness H&P Date: 04/16/20 Chief Complaint: Short of breath History of presenting complaint: This is a pleasant 69-year-old patient of Dr. Everardo Richmond. Chronic stable medical conditions include coronary artery disease with stent and bypass in October 1999, diabetes, hypertension, hyperlipidemia, left paralyzed diaphragm. Patient presents with 5 days of increasing shortness of breath. Slight cough. No sputum. No fever no chills. Some decrease in appetite. No edema. Bowels are okay. Patient the baseline uses a walker. Review of systems: GEN.: Tired EYES: None HEENT: None NECK: None RESPIRATORY: [As above CARDIOVASCULAR: No chest pain GASTROINTESTINAL: None GENITOURINARY: None MUSCULOSKELETAL: Some joint pains LYMPHATICS: None HEMATOLOGICAL: None PSYCHIATRY: None NEUROLOGICAL: None Past medical history to include: Coronary artery disease with bypass and stent in 1999, diabetes, hypertension, hyperlipidemia, left paralyzed diaphragm, primary osteoarthritis, restless leg syndrome, hypothyroid Social history: Lives with daughter, no smoking or alcohol. Does use a walker. Physical examination: VITAL SIGNS: 98.4, 81, 22, 1 24 x 84, 89% on room air GENERAL: BMI 47.1, sitting up, slightly short of breath. EYES: Pupils equal. Conjunctiva normal. HEENT: External appearance of nose and ears normal, oral cavity grossly normal. NECK: JVD possibly raised masses not palpable. HEART: First and second heart sounds are normal; no edema. LUNGS: Respiratory rate increased; some basal fine crackles. ABDOMEN: Soft, nontender, liver spleen not palpable, no masses palpable. PSYCH: Alert and oriented x3; mood and affect aracelis MUSCULAR skeletal: Evidence of OA l. NEUROLOGICAL: Cranial nerves grossly intact; no facial asymmetry, power and sensation grossly intact. LYMPHATICS: No lymph nodes palpable in the axilla and neck INVESTIGATIONS, reviewed in the clinical context: White count 14.9 hemoglobin 11.3 platelets 324 sodium 128 potassium 5.8 bun 31 and creatinine 1.27 Lactic acid 2.1 Troponin I 0.094, 0.132 ProBNP 1950 COVID 19 PCR not detected EKG tracing personally reviewed by me-no sinus rhythm Chest x-ray film personally reviewed by me-cardiomegaly, interstitial edema CTA due to chest-bilateral moderate hazy obesity suggestive of pulmonary edema Doppler ultrasound negative for DVT in the right leg 2-D echocardiogram EF 55-60% Assessment: -Acute congestive heart exacerbation from diastolic dysfunction EF 55-60% -Coronary artery disease by history of stent and bypass in 1999, -Troponin leak likely due to underlying CHF -Diabetes mellitus type 2 -Essential hypertension -Hyperlipidemia -Paralyzed left diaphragm -Morbid obesity BMI 47.1 -Hypothyroid -Primary osteoarthritis -Restless leg syndrome Plan: Home medications resumed including patient started IV Lasix. Also on IV heparin. Accu-Cheks to be followed with sliding scale insulin. Cardiology was consulted. Past Medical History Past Medical History: Coronary Artery Disease (CAD), Diabetes Mellitus, Hyperlipidemia, Hypertension Additional Past Medical History / Comment(s): left paralyzed diaphram History of Any Multi-Drug Resistant Organisms: None Reported Past Surgical History: Cholecystectomy, Coronary Bypass/CABG, Heart Catheterization With Stent Additional Past Surgical History / Comment(s): Double bypass October 1999, 2 stents Date of Last Stent Placement:: 03/2019 Past Psychological History: Anxiety Smoking Status: Never smoker Past Alcohol Use History: None Reported Past Drug Use History: None Reported - Past Family History Father Family Medical History: Cancer Mother Family Medical History: Coronary Artery Disease (CAD) Medications and Allergies Home Medications Medication Instructions Recorded Confirmed Type Ascorbic Acid [Vitamin C] 1,000 mg PO BID 04/15/20 04/15/20 History Aspirin EC [Ecotrin Low Dose] 81 mg PO DAILY 04/15/20 04/15/20 History Baclofen [Lioresal] 20 mg PO HS 04/15/20 04/15/20 History Cholecalciferol [Vitamin D3 (25 5,000 unit PO DAILY 04/15/20 04/15/20 History Mcg = 1000 Iu)] Clopidogrel Bisulfate [Plavix] 75 mg PO DAILY 04/15/20 04/15/20 History Ezetimibe [Zetia] 10 mg PO DAILY 04/15/20 04/15/20 History Fish Oil/Dha/Epa [Fish Oil 1,200 1 cap PO HS 04/15/20 04/15/20 History mg Fish Oil] Fluticasone Nasal [place] [Flonase 1 spray EA NOSTRIL DAILY PRN 04/15/20 04/15/20 History Nasal [place]] Furosemide [Lasix] 40 mg PO DAILY 04/15/20 04/15/20 History Glucosam/Chond/Hyalu/Cf Borate 1 tab PO BID 04/15/20 04/15/20 History [Move Free Joint Health Tablet] Insulin Glargine [Lantus] 66 unit SQ BID 04/15/20 04/15/20 History Insulin Lispro [humaLOG] 30 units SQ TID 04/15/20 04/15/20 History Lansoprazole [Prevacid] 30 mg PO BID 04/15/20 04/15/20 History Levothyroxine Sodium [Synthroid] 100 mcg PO DAILY 04/15/20 04/15/20 History Losartan [Cozaar] 50 mg PO DAILY 04/15/20 04/15/20 History Meloxicam 15 mg PO HS 04/15/20 04/15/20 History Metoclopramide [Reglan] 10 mg PO QID 04/15/20 04/15/20 History Metoprolol Tartrate [Lopressor] 100 mg PO BID 04/15/20 04/15/20 History Niacin 500 mg PO DAILY 04/15/20 04/15/20 History Nitroglycerin 0.4MG/Hr Patch 1 patch TRANSDERM DAILY 04/15/20 04/15/20 History [Nitro-Dur 0.4MG/Hr Patch] Nitroglycerin Sl Tabs [Nitrostat] 0.4 mg SUBLINGUAL Q5M PRN 04/15/20 04/15/20 History Pravastatin Sodium [Pravachol] 40 mg PO DAILY 04/15/20 04/15/20 History Ranolazine [Ranexa] 500 mg PO BID 04/15/20 04/15/20 History Sulfamethox-Tmp 800-160Mg [Bactrim 1 tab PO BID 04/15/20 04/15/20 History DS 800-160 mg] rOPINIRole HCL [Requip] 0.5 mg PO HS 04/15/20 04/15/20 History Allergies Allergy/AdvReac Type Severity Reaction Status Date / Time codeine Allergy Unknown Verified 04/15/20 20:02 Physical Exam Vitals: Vital Signs Temp Pulse Pulse Resp BP BP Pulse Ox 04/16/20 08:52 98.2 F 74 22 145/64 96 04/16/20 04:00 98.2 F 76 22 144/69 97 04/16/20 00:00 98.2 F 90 22 131/45 96 11/16/20 20:45 84 20 155/63 98 04/15/20 18:00 78 20 119/58 97 04/15/20 15:55 98 04/15/20 15:53 98.4 F 81 22 124/84 89 L Intake and Output 04/15/20 04/16/20 04/16/20 22:59 06:59 14:59 Intake Total 311.667 20 Output Total 600 700 Balance -288.333 -680 Intake: IV 20 Invasive Line 1 10 Invasive Line 2 10 Intake, IV Titration 71.667 Amount Heparin Sod,Pork in 0.45% 71.667 NaCl 25,000 unit In 0.45 % NaCl 1 250ml.bag @ 9. 302 UNITS/KG/HR 10 mls/hr IV .Q24H [facility] Rx#: [id number] Oral 240 Output: Urine 600 700 Other: Weight 107.501 kg 109.5 kg Results CBC & Chem 7: 04/16/20 02:30 04/16/20 15:12 Labs: Abnormal Lab Results - Last 24 Hours (Table) 04/15/20 04/15/20 04/15/20 Range/Units 16:20 16:20 16:20 WBC 14.9 H (3.8-10.6) k/uL RBC 3.44 L (3.80-5.40) m/uL Hgb 11.3 L (11.4-16.0) gm/dL Hct (34.0-46.0) % MCV 103.4 H (80.0-100.0) fL Neutrophils # 12.1 H (1.3-7.7) k/uL Monocytes # 1.4 H (0-1.0) k/uL APTT (22.0-30.0) sec D-Dimer 1.61 H (<0.60) mg/L FEU Sodium 128 L (137-145) mmol/L Potassium 5.8 H (3.5-5.1) mmol/L Chloride 94 L (98-107) mmol/L BUN 31 H (7-17) mg/dL Creatinine 1.27 H (0.52-1.04) mg/dL Glucose 127 H (74-99) mg/dL POC Glucose (mg/dL) (75-99) mg/dL Plasma Lactic Acid Jordy (0.7-2.0) mmol/L AST 37 H (14-36) U/L Troponin I (0.000-0.034) ng/mL 04/15/20 04/15/20 04/15/20 Range/Units 16:20 16:20 19:30 WBC (3.8-10.6) k/uL RBC (3.80-5.40) m/uL Hgb (11.4-16.0) gm/dL Hct (34.0-46.0) % MCV (80.0-100.0) fL Neutrophils # (1.3-7.7) k/uL Monocytes # (0-1.0) k/uL APTT (22.0-30.0) sec D-Dimer (<0.60) mg/L FEU Sodium (137-145) mmol/L Potassium (3.5-5.1) mmol/L Chloride (98-107) mmol/L BUN (7-17) mg/dL Creatinine (0.52-1.04) mg/dL Glucose (74-99) mg/dL POC Glucose (mg/dL) (75-99) mg/dL Plasma Lactic Acid Jordy 2.1 H* (0.7-2.0) mmol/L AST (14-36) U/L Troponin I 0.094 H* 0.132 H* (0.000-0.034) ng/mL 04/15/20 04/15/20 04/16/20 Range/Units 22:46 23:09 02:30 WBC (3.8-10.6) k/uL RBC (3.80-5.40) m/uL Hgb (11.4-16.0) gm/dL Hct (34.0-46.0) % MCV (80.0-100.0) fL Neutrophils # (1.3-7.7) k/uL Monocytes # (0-1.0) k/uL APTT 38.2 H (22.0-30.0) sec D-Dimer (<0.60) mg/L FEU Sodium (137-145) mmol/L Potassium (3.5-5.1) mmol/L Chloride (98-107) mmol/L BUN (7-17) mg/dL Creatinine (0.52-1.04) mg/dL Glucose (74-99) mg/dL POC Glucose (mg/dL) 199 H (75-99) mg/dL Plasma Lactic Acid Jordy (0.7-2.0) mmol/L AST (14-36) U/L Troponin I 0.164 H* (0.000-0.034) ng/mL 04/16/20 04/16/20 04/16/20 Range/Units 02:30 06:44 08:49 WBC (3.8-10.6) k/uL RBC 3.10 L (3.80-5.40) m/uL Hgb 10.5 L (11.4-16.0) gm/dL Hct 32.8 L (34.0-46.0) % MCV 105.8 H (80.0-100.0) fL Neutrophils # (1.3-7.7) k/uL Monocytes # 1.2 H (0-1.0) k/uL APTT (22.0-30.0) sec D-Dimer (<0.60) mg/L FEU Sodium (137-145) mmol/L Potassium (3.5-5.1) mmol/L Chloride (98-107) mmol/L BUN (7-17) mg/dL Creatinine (0.52-1.04) mg/dL Glucose (74-99) mg/dL POC Glucose (mg/dL) 152 H 139 H (75-99) mg/dL Plasma Lactic Acid Jordy (0.7-2.0) mmol/L AST (14-36) U/L Troponin I (0.000-0.034) ng/mL Thrombosis Risk Factor Assmnt - Choose All That Apply Each Factor Represents 1 point: Obesity (BMI >25) Each Risk Factor Represents 2 Points: Age 61-74 years Thrombosis Risk Factor Assessment Total Risk Factor Score: 3 Thrombosis Risk Factor Assessment Level: Moderate Risk
[2020-04-16 20:17] LABS: Glucose,Whole Blood 73 mg/dL (75-99)
[2020-04-16] MEDS: BACLOFEN 10 MG TAB PO SCH (21:04)
[2020-04-17] MEDS: LEVOTHYROXINE 100 MCG TAB PO SCH (06:04)
[2020-04-17] MEDS: INSULIN ASPART (NovoLOG) 100 UNIT/ML VIAL SQ SCH ×7 (06:22→21:41)
[2020-04-17 06:23] LABS: Glucose,Whole Blood 75 mg/dL (75-99)
[2020-04-17 08:11] LABS: Basophils # (A) 0.1 k/uL (0-0.2); Basophils % (A) 1 %; Eosinophils # (A) 0.2 k/uL (0-0.7); Eosinophils % (A) 2 %; HCT 35.2 % (34.0-46.0); HGB 11.2 gm/dL (11.4-16.0); Lymphocytes # (A) 1.8 k/uL (1.0-4.8); Lymphocytes % (A) 16 %; MCH 33.3 pg (25.0-35.0); MCHC 31.7 g/dL (31.0-37.0); MCV 104.9 fL (80.0-100.0); Macrocytosis Slight; Monocytes # (A) 1.4 k/uL (0-1.0); Monocytes % (A) 12 %; Neutrophils # (A) 7.7 k/uL (1.3-7.7); Neutrophils % (A) 67 %; Platelet Count 306 k/uL (150-450); RBC 3.35 m/uL (3.80-5.40); RDW 13.2 % (11.5-15.5); WBC 11.5 k/uL (3.8-10.6)
[2020-04-17] MEDS: PRAVASTATIN SODIUM 40 MG TAB PO SCH (08:21)
[2020-04-17] MEDS: ASPIRIN 81 MG PO SCH (08:21)
[2020-04-17] MEDS: METOCLOPRAMIDE 10 MG TAB PO SCH ×4 (08:21→21:40)
[2020-04-17] MEDS: PANTOPRAZOLE 40 MG TABLET PO SCH ×2 (08:21→21:41)
[2020-04-17] MEDS: METOPROLOL TARTRATE 50 MG TAB PO SCH ×2 (08:21→21:40)
[2020-04-17] MEDS: RANOLAZINE 500 MG TAB.ER.12H PO SCH ×2 (08:21→21:40)
[2020-04-17] MEDS: CHOLECALCIFEROL 1,000 UNIT TAB PO SCH (08:21)
[2020-04-17] MEDS: NITROGLYCERIN OINT 1 INCH/GM PACKET TOPICAL SCH ×3 (08:21→18:17)
[2020-04-17] MEDS: CLOPIDOGREL 75 MG TAB PO SCH (08:21)
[2020-04-17] MEDS: ASCORBIC ACID 500 MG TAB PO SCH ×2 (08:21→21:39)
[2020-04-17] MEDS: EZETIMIBE 10 MG TAB PO SCH (08:22)
[2020-04-17] MEDS: FUROSEMIDE 10 MG/ML 4 ML VIAL IV SCH ×2 (08:22→21:40)
[2020-04-17 08:23] LABS: INR 0.9 (<1.2); Prothrombin Time 9.6 sec (9.0-12.0)
[2020-04-17 08:47] LABS: Calcium 8.5 mg/dL (8.4-10.2); Potassium 5.3 mmol/L (3.5-5.1)
--- NOTE | 2020-04-17 09:43 | XR ---
EXAMINATION TYPE: XR chest 2V DATE OF EXAM: 04/17/2020 COMPARISON: 04/15/2020 INDICATION: Short of breath TECHNIQUE: Frontal and lateral views of the chest are obtained. FINDINGS: The heart size is mildly prominent but stable. The pulmonary vasculature is normal. Sternotomy wires are in the midline. There is improving infiltrates. Continued monitoring is recommended.. IMPRESSION: 1. Improving lung infiltrates. Continued follow-up is recommended.
[2020-04-17] MEDS ORDERED: ALPRAZolam 0.5 MG TAB PO PRN (09:57)
--- NOTE | 2020-04-17 10:32 | P.PN ---
Subjective HISTORY OF PRESENTING ILLNESS This is a pleasant 69-year-old female past medical history significant for coronary artery disease status post PCI one year ago exact details unavailable, coronary artery bypass grafting, hypertension, diabetes mellitus, dyslipidemia and hypothyroidism. She follows in the office with Dr. Machuca. Records were received from her previous cardiac catheterization 04/06/2019. At that time ejection fraction was estimated to be 45%, left main was patent with no significant disease, LAD had a prior proximal stent with a long 60-70% in-stent restenosis at [place] anastomosis with competitive flow, first diagonal branch with mild diffuse disease, circumflex moderate to severe disease in the ostial portion approximately 50% proximally to that 80%, first OM with a mid vessel occlusion and a patent mid SVG anastomosis, mid vessel lesion is approximately 100%, second OM very small with no significant disease, RCA moderate diffuse disease with a proximal lesion of 60%, FERGUSON to LAD is patent, SVG to OM is patent. At that time she underwent PCI at the distal anastomosis of the FERGUSON to the mid LAD. Echocardiogram reveals preserved LV systolic function with ejection fraction 55-60%. Laboratory data reviewed, WBC 11.5, hemoglobin 11.2, platelets 306, sodium 133, potassium 5.3, creatinine 1.86. Repeat chest x-ray this morning reveals improving lung infiltrates. 24 hour output indicates a positive fluid balance. Currently maintained on Lasix IV 3 times a day. She is seen and examined sitting up in bed in mild respiratory distress. She states she was up all night and did not get any rest secondary to shortness of breath. She is coughing but not bringing up any significant sputum. She denies any s ymptoms of chest discomfort. Overall she does not feel much improvement since admission. PHYSICAL EXAMINATION CONSTITUTIONAL: No apparent distress. Morbidly obese. HEENT: Head is normocephalic. Pupils are equal, round. Sclerae anicteric. Mucous membranes of the mouth are moist. No JVD. No carotid bruit. CHEST EXAMINATION: Clear to auscultation bilaterally. No chest wall tenderness is noted on palpation or with deep breathing. HEART EXAMINATION: Regular rate and rhythm. S1, S2 heard. No murmurs, gallops or rub. EXTREMITIES: 2+ peripheral pulses, right lower extremity erythema and 1+ pitting edema bilaterally. No calf tenderness. ASSESSMENT Acute on chronic diastolic heart failure Elevated troponin, likely secondary to hypoxia. We will check another level to trend. Leukocytosis Cellulitis Hyponatremia, improved Hyperkalemia Coronary artery disease status post PCI one year ago maintained on dual antiplatelet therapy, exact details unavailable with previous bypass grafting Hypertension Dyslipidemia Diabetes mellitus Morbid obesity, BMI 47 PLAN Decrease IV lasix to BID secondary to worsening renal function. Her lungs don't sound congested and she did have a white count on admission. Consider possible underlying pulmonary etiology for her ongoing worsening shortness of breath. We will postpone her heart cath for today and tentatively plan for tomorrow if her breathing status has improved. Repeat BMP in the morning. Further recommendations to follow based on clinical course. Nurse Practitioner note has been reviewed, I agree with a documented findings and plan of care. Patient was seen and examined. Objective - Vital Signs Vital signs: Vital Signs Temp 97.8 F 04/17/20 08:00 Pulse 71 04/17/20 08:00 Resp 24 04/17/20 08:00 BP 126/59 04/17/20 08:00 Pulse Ox 91 L 04/17/20 08:00 Intake & Output 04/16/20 04/17/20 04/17/20 18:59 06:59 18:59 Intake Total 1282.597 81.49 Output Total 700 Balance 582.597 81.49 Weight 109.5 kg Intake: IV 60 20 Invasive Line 1 30 10 Invasive Line 2 30 10 Intake, IV Titration 162.597 61.49 Amount Heparin Sod,Pork in 0.45% 162.597 61.49 NaCl 25,000 unit In 0.45 % NaCl 1 250ml.bag @ 9. 302 UNITS/KG/HR 10 mls/hr IV .Q24H [facility] Rx#: [id number] Oral 1060 Output: Urine 700 Other: # Voids 1 - Labs CBC & Chem 7: 04/17/20 07:37 04/17/20 07:37 Labs: Abnormal Lab Results - Last 24 Hours (Table) 04/16/20 04/16/20 04/16/20 Range/Units 09:37 09:37 09:37 WBC (3.8-10.6) k/uL RBC (3.80-5.40) m/uL Hgb (11.4-16.0) gm/dL MCV (80.0-100.0) fL Monocytes # (0-1.0) k/uL APTT 40.1 H (22.0-30.0) sec Sodium 130 L (137-145) mmol/L Potassium 5.9 H (3.5-5.1) mmol/L Chloride 97 L (98-107) mmol/L Carbon Dioxide (22-30) mmol/L BUN 35 H (7-17) mg/dL Creatinine 1.50 H (0.52-1.04) mg/dL Glucose 137 H (74-99) mg/dL POC Glucose (mg/dL) (75-99) mg/dL AST 37 H (14-36) U/L Troponin I 0.146 H* (0.000-0.034) ng/mL 04/16/20 04/16/20 04/16/20 Range/Units 11:49 16:38 18:43 WBC (3.8-10.6) k/uL RBC (3.80-5.40) m/uL Hgb (11.4-16.0) gm/dL MCV (80.0-100.0) fL Monocytes # (0-1.0) k/uL APTT 68.6 H (22.0-30.0) sec Sodium (137-145) mmol/L Potassium (3.5-5.1) mmol/L Chloride (98-107) mmol/L Carbon Dioxide (22-30) mmol/L BUN (7-17) mg/dL Creatinine (0.52-1.04) mg/dL Glucose (74-99) mg/dL POC Glucose (mg/dL) 159 H 118 H (75-99) mg/dL AST (14-36) U/L Troponin I (0.000-0.034) ng/mL 04/16/20 04/17/20 04/17/20 Range/Units 20:16 01:36 07:37 WBC 11.5 H (3.8-10.6) k/uL RBC 3.35 L (3.80-5.40) m/uL Hgb 11.2 L (11.4-16.0) gm/dL MCV 104.9 H (80.0-100.0) fL Monocytes # 1.4 H (0-1.0) k/uL APTT 46.5 H (22.0-30.0) sec Sodium (137-145) mmol/L Potassium (3.5-5.1) mmol/L Chloride (98-107) mmol/L Carbon Dioxide (22-30) mmol/L BUN (7-17) mg/dL Creatinine (0.52-1.04) mg/dL Glucose (74-99) mg/dL POC Glucose (mg/dL) 73 L (75-99) mg/dL AST (14-36) U/L Troponin I (0.000-0.034) ng/mL 04/17/20 Range/Units 07:37 WBC (3.8-10.6) k/uL RBC (3.80-5.40) m/uL Hgb (11.4-16.0) gm/dL MCV (80.0-100.0) fL Monocytes # (0-1.0) k/uL APTT (22.0-30.0) sec Sodium 133 L (137-145) mmol/L Potassium 5.3 H (3.5-5.1) mmol/L Chloride 92 L (98-107) mmol/L Carbon Dioxide 32 H (22-30) mmol/L BUN 46 H (7-17) mg/dL Creatinine 1.86 H (0.52-1.04) mg/dL Glucose 62 L (74-99) mg/dL POC Glucose (mg/dL) (75-99) mg/dL AST (14-36) U/L Troponin I (0.000-0.034) ng/mL Microbiology - Last 24 Hours (Table) 04/15/20 16:20 Blood Culture - Preliminary Blood No Growth after 24 hours
[2020-04-17 11:40] LABS: Glucose,Whole Blood 241 mg/dL (75-99)
[2020-04-17] MEDS: AMPICILLIN-SULBACTAM 1.5 GM in SODIUM CHLORIDE 0.9% 50 ML IVPB SCH (12:12)
[2020-04-17] MEDS: INSULIN DETEMIR (LEVEMIR) 100 UNIT/ML SYR SQ SCH ×2 (12:13→21:46)
[2020-04-17 16:52] LABS: Glucose,Whole Blood 131 mg/dL (75-99)
[2020-04-17] MEDS: HEPARIN SOD,PORK IN 0.45% NACL 25,000 UNIT in 0.45% NACL 1 250ML.BAG IV SCH (16:55)
--- NOTE | 2020-04-17 18:37 | P.CNPUL ---
History of Present Illness Consult date: 04/17/20 Reason for consult: dyspnea History of present illness: 6 this is a 69-year-old female patient with known history of coronary artery disease, previous bypass surgery in addition to history of hypertension diabetes mellitus and hyperlipidemia and hypothyroidism. The patient came into the hospital on 04/15/2020 for worsening shortness of breath. Apparently she was being treated for right lower extremity cellulitis and she was being given out patient antibiotics for the past 10 days. Around a week ago, she started having increased shortness of breath. Pulmonary of admission, she also noticed some chest tightness in the midsternal area for that reason the patient contacted EMS and she was brought into the hospital. She has orthopnea. No paroxysmal nocturnal dyspnea. No significant cough or sputum production. Her last cardiac intervention was done on 04/04/2019 at [facility] in [place] and the patient had a coronary stent placed back then. She has been maintained on dual antiplatelet agents. Her echocardiogram showed a preserved LV function with an ejection fraction of 55-60%. During this current admission, the patient had an EKG that showed some inferior Q waves, the chest x-ray showed interstitial edema and the Doppler of the lower extremity was essentially negative. White cell count is at 10.6 with a hemoglobin of 10.5. The d-dimer was at 1.6. Initial creatinine was 1.27 with a troponin of 0.09 and a proBNP level of 1950. The patient was diagnosed having CHF with diastolic heart failure. The patient also had some elevated troponins that was attributed to underlying hypoxemia. CT angios done that was done on 04/15/2020 showed no evidence of any pulmonary embolism and there was hazy pulmonary infiltrates consistent with pulmonary edema. The hawkins virus Covid 19 screening was negative. The patient was placed on IV heparin. The patient was placed on IV Lasix 40 mg every 12 hours. The patient was also placed on IV Unasyn is a empiric antibiotic coverage. She is on a combination of aspirin. She is also on Plavix. She is taking Ranexa. She is on Levemir insulin 50 units twice a day regarding her blood sugar control in addition to 20 units of NovoLog with meals. At this point in time, the patient is on 6 L of oxygen by nasal cannula with a pulse ox of 97%. Review of Systems CONSTITUTIONAL: Denies fever or chills. CARDIOVASCULAR: Complains of shortness of breath and orthopnea. Denies chest pain, PND or palpitations. RESPIRATORY: Denies cough. There is increased shortness of breath GASTROINTESTINAL: Denies abdominal pain, diarrhea, constipation, nausea or vomiting. MUSCULOSKELETAL: Denies myalgias. NEUROLOGIC: Denies numbness, tingling or weakness. ENDOCRINE: Denies fatigue, weight change, polydipsia or polyurina. GENITOURINARY: Denies burning, hematuria or urgency with micturation. HEMATOLOGIC: Denies history of anemia or bleeding. Past Medical History Past Medical History: Coronary Artery Disease (CAD), Diabetes Mellitus, Hyperlipidemia, Hypertension Additional Past Medical History / Comment(s): Obesity, coronary artery disease, previous PCI and coronary stenting, hypertension, hyperlipidemia, diabetes mellitus, history of cellulitis of the lower extremity, diastolic heart failure, left paralyzed diaphram, KIM History of Any Multi-Drug Resistant Organisms: None Reported Past Surgical History: Cholecystectomy, Coronary Bypass/CABG, Heart Catheterization With Stent Additional Past Surgical History / Comment(s): Double bypass October 1999, 2 stents Date of Last Stent Placement:: 03/2019 Past Psychological History: Anxiety Smoking Status: Never smoker Past Alcohol Use History: None Reported Past Drug Use History: None Reported - Past Family History Father Family Medical History: Cancer Mother Family Medical History: Coronary Artery Disease (CAD) Medications and Allergies Home Medications Medication Instructions Recorded Confirmed Type Ascorbic Acid [Vitamin C] 1,000 mg PO BID 04/15/20 04/15/20 History Aspirin EC [Ecotrin Low Dose] 81 mg PO DAILY 04/15/20 04/15/20 History Baclofen [Lioresal] 20 mg PO HS 04/15/20 04/15/20 History Cholecalciferol [Vitamin D3 (25 5,000 unit PO DAILY 04/15/20 04/15/20 History Mcg = 1000 Iu)] Clopidogrel Bisulfate [Plavix] 75 mg PO DAILY 04/15/20 04/15/20 History Ezetimibe [Zetia] 10 mg PO DAILY 04/15/20 04/15/20 History Fish Oil/Dha/Epa [Fish Oil 1,200 1 cap PO HS 04/15/20 04/15/20 History mg Fish Oil] Fluticasone Nasal [place] [Flonase 1 spray EA NOSTRIL DAILY PRN 04/15/20 04/15/20 History Nasal [place]] Furosemide [Lasix] 40 mg PO DAILY 04/15/20 04/15/20 History Glucosam/Chond/Hyalu/Cf Borate 1 tab PO BID 04/15/20 04/15/20 History [Move Free Joint Health Tablet] Insulin Glargine [Lantus] 66 unit SQ BID 04/15/20 04/15/20 History Insulin Lispro [humaLOG] 30 units SQ TID 04/15/20 04/15/20 History Lansoprazole [Prevacid] 30 mg PO BID 04/15/20 04/15/20 History Levothyroxine Sodium [Synthroid] 100 mcg PO DAILY 04/15/20 04/15/20 History Losartan [Cozaar] 50 mg PO DAILY 04/15/20 04/15/20 History Meloxicam 15 mg PO HS 04/15/20 04/15/20 History Metoclopramide [Reglan] 10 mg PO QID 04/15/20 04/15/20 History Metoprolol Tartrate [Lopressor] 100 mg PO BID 04/15/20 04/15/20 History Niacin 500 mg PO DAILY 04/15/20 04/15/20 History Nitroglycerin 0.4MG/Hr Patch 1 patch TRANSDERM DAILY 04/15/20 04/15/20 History [Nitro-Dur 0.4MG/Hr Patch] Nitroglycerin Sl Tabs [Nitrostat] 0.4 mg SUBLINGUAL Q5M PRN 04/15/20 04/15/20 History Pravastatin Sodium [Pravachol] 40 mg PO DAILY 04/15/20 04/15/20 History Ranolazine [Ranexa] 500 mg PO BID 04/15/20 04/15/20 History Sulfamethox-Tmp 800-160Mg [Bactrim 1 tab PO BID 04/15/20 04/15/20 History DS 800-160 mg] rOPINIRole HCL [Requip] 0.5 mg PO HS 04/15/20 04/15/20 History Allergies Allergy/AdvReac Type Severity Reaction Status Date / Time codeine Allergy Unknown Verified 04/15/20 20:02 Physical Exam Vitals: Vital Signs Temp Pulse Resp BP Pulse Ox Pulse Ox Pulse Ox 04/17/20 15:46 97.8 F 68 20 179/79 97 04/17/20 11:29 96.9 F L 67 20 172/84 98 04/17/20 10:45 99 99 04/17/20 08:00 97.8 F 71 24 126/59 91 L 04/17/20 03:19 98.2 F 75 20 158/86 97 04/17/20 03:18 68 20 04/17/20 00:00 68 20 166/84 98 04/16/20 20:00 98.4 F 75 21 189/90 99 Intake and Output 04/17/20 04/17/20 04/17/20 06:59 14:59 22:59 Intake Total 608.51 184.4 Balance 608.51 184.4 Intake: IV 94.4 Heparin Sod,Pork in 0.45% 94.4 NaCl 25,000 unit In 0.45 % NaCl 1 250ml.bag @ 9. 302 UNITS/KG/HR 10 mls/hr IV .Q24H [facility] Rx#: [id number] Intake, IV Titration 188.51 90 Amount Ampicillin-Sulbactam 1.5 50 gm In Sodium Chloride 0.9 % 50 ml @ 100 mls/hr IVPB Q12H [facility] Rx#:[id number] Heparin Sod,Pork in 0.45% 188.51 NaCl 25,000 unit In 0.45 % NaCl 1 250ml.bag @ 9. 302 UNITS/KG/HR 10 mls/hr IV .Q24H [facility] Rx#: [id number] Sodium Chloride 0.9% 1, 40 000 ml In Empty Bag 1 bag @ 50 mls/hr IV .Q20H [facility] Rx#:[id number] Oral 420 Other: # Voids 2 2 Gen. appearance the patient's, comfortable and currently is in 60s of oxygen by nasal cannula CONSTITUTIONAL: No apparent distress. Morbidly obese. Head exam was generally normal. There was no scleral icterus or corneal arcus. Mucous membranes were moist. HEENT: Head is normocephalic. Pupils are equal, round. Sclerae anicteric. Mucous membranes of the mouth are moist. No JVD. No carotid bruit. CHEST EXAMINATION: Bibasilar rales. No chest wall tenderness is noted on palpation or with deep breathing. HEART EXAMINATION: Regular rate and rhythm. S1, S2 heard. No murmurs, gallops or rub. ABDOMEN: Soft, nontender. Positive bowel sounds. EXTREMITIES: 2+ peripheral pulses, right lower extremity erythema and 1+ pitting edema bilaterally. No calf tenderness. NEUROLOGIC EXAMINATION: Patient is awake, alert and oriented x3. Results - Laboratory Findings CBC and BMP: 04/17/20 07:37 04/17/20 07:37 PT/INR, D-dimer PT 9.6 sec (9.0-12.0) 04/17/20 07:37 INR 0.9 (<1.2) 04/17/20 07:37 D-Dimer 1.61 mg/L FEU (<0.60) H 04/15/20 16:20 Abnormal lab findings: Abnormal Labs 04/15/20 04/15/20 04/15/20 16:20 16:20 16:20 WBC 14.9 H RBC 3.44 L Hgb 11.3 L Hct MCV 103.4 H Neutrophils # 12.1 H Monocytes # 1.4 H APTT D-Dimer 1.61 H Sodium 128 L Potassium 5.8 H Chloride 94 L Carbon Dioxide BUN 31 H Creatinine 1.27 H Glucose 127 H POC Glucose (mg/dL) Plasma Lactic Acid Jordy AST 37 H Troponin I 04/15/20 04/15/20 04/15/20 16:20 16:20 19:30 WBC RBC Hgb Hct MCV Neutrophils # Monocytes # APTT D-Dimer Sodium Potassium Chloride Carbon Dioxide BUN Creatinine Glucose POC Glucose (mg/dL) Plasma Lactic Acid Jordy 2.1 H* AST Troponin I 0.094 H* 0.132 H* 04/15/20 04/15/20 04/16/20 22:46 23:09 02:30 WBC RBC Hgb Hct MCV Neutrophils # Monocytes # APTT 38.2 H D-Dimer Sodium Potassium Chloride Carbon Dioxide BUN Creatinine Glucose POC Glucose (mg/dL) 199 H Plasma Lactic Acid Jordy AST Troponin I 0.164 H* 04/16/20 04/16/20 04/16/20 02:30 06:44 08:49 WBC RBC 3.10 L Hgb 10.5 L Hct 32.8 L MCV 105.8 H Neutrophils # Monocytes # 1.2 H APTT D-Dimer Sodium Potassium Chloride Carbon Dioxide BUN Creatinine Glucose POC Glucose (mg/dL) 152 H 139 H Plasma Lactic Acid Jordy AST Troponin I 04/16/20 04/16/20 04/16/20 09:37 09:37 09:37 WBC RBC Hgb Hct MCV Neutrophils # Monocytes # APTT 40.1 H D-Dimer Sodium 130 L Potassium 5.9 H Chloride 97 L Carbon Dioxide BUN 35 H Creatinine 1.50 H Glucose 137 H POC Glucose (mg/dL) Plasma Lactic Acid Jordy AST 37 H Troponin I 0.146 H* 04/16/20 04/16/20 04/16/20 11:49 16:38 18:43 WBC RBC Hgb Hct MCV Neutrophils # Monocytes # APTT 68.6 H D-Dimer Sodium Potassium Chloride Carbon Dioxide BUN Creatinine Glucose POC Glucose (mg/dL) 159 H 118 H Plasma Lactic Acid Jordy AST Troponin I 04/16/20 04/17/20 04/17/20 20:16 01:36 07:37 WBC 11.5 H RBC 3.35 L Hgb 11.2 L Hct MCV 104.9 H Neutrophils # Monocytes # 1.4 H APTT 46.5 H D-Dimer Sodium Potassium Chloride Carbon Dioxide BUN Creatinine Glucose POC Glucose (mg/dL) 73 L Plasma Lactic Acid Jordy AST Troponin I 04/17/20 04/17/20 04/17/20 07:37 11:37 16:51 WBC RBC Hgb Hct MCV Neutrophils # Monocytes # APTT D-Dimer Sodium 133 L Potassium 5.3 H Chloride 92 L Carbon Dioxide 32 H BUN 46 H Creatinine 1.86 H Glucose 62 L POC Glucose (mg/dL) 241 H 131 H Plasma Lactic Acid Jordy AST Troponin I - Diagnostic Findings Chest x-ray: image reviewed CT scan - chest: image reviewed Assessment and Plan Plan: 1 acute on chronic diastolic heart failure with secondary pulmonary edema. CT angiogram of the chest was reviewed and the patient has interstitial edema most likely secondary to CHF. Hawkins virus Covid 19 testing was negative. No clear evidence of any acute pneumonia at this point in time.. The patient is a preserved LV function with an ejection fraction of 55-60% 2 acute kidney injury, rule out contrast nephropathy 3 coronary artery disease with previous two-vessel bypass surgery. The patient is also undergone previous PCI and stenting 4 troponin leak, considering an acute non-STEMI Versus secondary to hypoxemia 5 cellulitis of the right lower extremity currently on IV Unasyn, improving clinically 6 hypertension 7 hyperlipidemia 8 diabetes mellitus 9 morbid obesity with a BMI of 47 8 hypothyroidism 10 obstructive sleep apnea maintained on CPAP therapy on outpatient basis 11 chronic left hemidiaphragmatic elevation, possible pleurodesis post-bypass surgery plan Chest x-rays revealing improvement infiltration Wean down FiO2 to maintain a saturation above 90% Monitor renal function May need to discontinue the diuretics and there is any further worsening the renal function Cardiac catheterization at a later stage once the renal function is quite stabil ized. asked the patient to bring it on CPAP machine from home Started patient on DuoNeb nebulized treatments around the clock as the patient was found to be somewhat bronchospastic and wheezy.
[2020-04-17] MEDS ORDERED: IPRATROPIUM-ALBUTEROL 3 ML NEB INHALATION PRN (18:53)
[2020-04-17 20:13] LABS: Glucose,Whole Blood 171 mg/dL (75-99)
[2020-04-17] MEDS: IPRATROPIUM-ALBUTEROL 3 ML NEB INHALATION SCH (20:23)
--- NOTE | 2020-04-17 20:23 | P.PN ---
Progress Note - Text Progress Note Date: 04/17/20 Chief Complaint: Short of breath History of presenting complaint: This is a pleasant 69-year-old patient of Dr. Everardo Richmond. Chronic stable medical conditions include coronary artery disease with stent and bypass in October 1999, diabetes, hypertension, hyperlipidemia, left paralyzed diaphragm. Patient presents with 5 days of increasing shortness of breath. Slight cough. No sputum. No fever no chills. Some decrease in appetite. No edema. Bowels are okay. baseline uses a walker. Admitted with CHF exacerbation from diastolic dysfunction. Patient IV heparin. Troponin leak felt to be from CHF. Today-patient short of breath. Has not brought her CPAP from home. Has been on IV Lasix. Renal function worsening. Review of systems: Was done for constitutional, cardiovascular, GI, pulmonary. relevant finding as above Active Medications Albuterol/Ipratropium (Ipratropium-Albuterol 3 Ml Neb) 3 ml INHALATION RT-QID [facility] Albuterol/Ipratropium (Ipratropium-Albuterol 3 Ml Neb) 3 ml INHALATION RT-Q1H PRN PRN Reason: Shortness Of Breath Or Wheezing Alprazolam (Alprazolam 0.25 Mg Tab) 0.25 mg PO Q6HR PRN PRN Reason: Mild Anxiety Alprazolam (Alprazolam 0.5 Mg Tab) 0.5 mg PO Q6HR PRN PRN Reason: Moderate Anxiety Ascorbic Acid (Ascorbic Acid 500 Mg Tab) 1,000 mg PO BID [facility] Last Admin: 04/17/20 08:21 Dose: 1,000 mg Documented by: Aspirin (Aspirin 81 Mg) 81 mg PO DAILY [facility] Last Admin: 04/17/20 08:21 Dose: 81 mg Documented by: Aspirin (Aspirin 325 Mg Tab) 325 mg PO ONCE ONE Stop: 04/18/20 09:01 Baclofen (Baclofen 10 Mg Tab) 20 mg PO HS [facility] Last Admin: 04/16/20 21:04 Dose: 20 mg Documented by: Cholecalciferol (Cholecalciferol 1,000 Unit Tab) 5,000 unit PO DAILY [facility] Last Admin: 04/17/20 08:21 Dose: 5,000 unit Documented by: Clopidogrel Bisulfate (Clopidogrel 75 Mg Tab) 75 mg PO DAILY [facility] Last Admin: 04/17/20 08:21 Dose: 75 mg Documented by: Ezetimibe (Ezetimibe 10 Mg Tab) 10 mg PO DAILY [facility] Last Admin: 04/17/20 08:22 Dose: 10 mg Documented by: Furosemide (Furosemide 10 Mg/Ml 4 Ml Vial) 40 mg IV Q12HR [facility] Heparin Sodium (Porcine) (Heparin Sodium,Porcine 5,000 Unit/Ml 1 Ml Vial) 0 unit IV PER PROTOCOL PRN; Protocol PRN Reason: Low PTT Last Admin: 04/16/20 12:24 Dose: 2,737.5 unit Documented by: Heparin Sodium/Sodium Chloride (25,000 unit/ Sodium Chloride) 250 mls @ 10 mls/hr IV .Q24H [facility]; Protocol Last Admin: 04/17/20 16:55 Dose: 11 units/kg/hr, 11.825 mls/hr Documented by: Ampicillin Sodium/Sulbactam (Sodium 1.5 gm/ Sodium Chloride) 50 mls @ 100 mls/hr IVPB Q12H [facility] Last Admin: 04/17/20 12:12 Dose: 100 mls/hr Documented by: Sodium Chloride 1,000 ml/ IV (Solution) 1,000 mls @ 50 mls/hr IV .Q20H [facility] Stop: 04/19/20 01:59 Insulin Aspart (Insulin Aspart (Novolog) 100 Unit/Ml Vial) 20 unit SQ AC-TID [facility] Last Admin: 04/17/20 17:58 Dose: 20 unit Documented by: Insulin Aspart (Insulin Aspart (Novolog) 100 Unit/Ml Vial) 0 unit SQ ACHS [facility]; Protocol Last Admin: 04/17/20 17:59 Dose: 1 unit Documented by: Insulin Detemir (Insulin Detemir (Levemir) 100 Unit/Ml Syr) 50 unit SQ BID [facility] Last Admin: 04/17/20 12:13 Dose: Not Given Documented by: Levothyroxine Sodium (Levothyroxine 100 Mcg Tab) 100 mcg PO DAILY@0630 [facility] Last Admin: 04/17/20 06:04 Dose: Not Given Documented by: Metoclopramide HCl (Metoclopramide 10 Mg Tab) 10 mg PO QID [facility] Last Admin: 04/17/20 18:17 Dose: 10 mg Documented by: Metoprolol Tartrate (Metoprolol Tartrate 50 Mg Tab) 100 mg PO BID [facility] Last Admin: 04/17/20 08:21 Dose: 100 mg Documented by: Nitroglycerin (Nitroglycerin Oint 1 Inch/Gm Packet) 1 inch TOPICAL QID [facility] Last Admin: 04/17/20 18:17 Dose: 1 inch Documented by: Nitroglycerin (Nitroglycerin Sl Tabs 0.4 Mg Tab) 0.4 mg SUBLINGUAL Q5M PRN PRN Reason: Chest Pain Pantoprazole Sodium (Pantoprazole 40 Mg Tablet) 40 mg PO BID [facility] Last Admin: 04/17/20 08:21 Dose: 40 mg Documented by: Pravastatin Sodium (Pravastatin Sodium 40 Mg Tab) 40 mg PO DAILY [facility] Last Admin: 04/17/20 08:21 Dose: 40 mg Documented by: Ranolazine (Ranolazine 500 Mg Tab.Er.12h) 500 mg PO BID [facility] Last Admin: 04/17/20 08:21 Dose: 500 mg Documented by: Ropinirole HCl (Ropinirole Hcl 0.25 Mg Tab) 0.5 mg PO HS [facility] Last Admin: 04/16/20 21:04 Dose: 0.5 mg Documented by: Sodium Chloride (Sodium Chloride 0.9% Flush 10 Ml Syringe) 10 ml IV BID [facility] Last Admin: 04/17/20 09:00 Dose: 10 ml Documented by: Physical examination: VITAL SIGNS: 96.9, 67, 20, 172/84, 98% on 6 L GENERAL: Propped up in bed, slightly short of breath. EYES: Pupils equal. Conjunctiva normal. NECK: JVD possibly raised masses not palpable. HEART: First and second heart sounds are normal; no edema. LUNGS: Respiratory rate increased; some basal fine crackles. ABDOMEN: Soft, nontender, liver spleen not palpable, no masses palpable. PSYCH: Alert and oriented x3; mood and affect aracelis MUSCULAR skeletal: Evidence of OA l. INVESTIGATIONS, reviewed in the clinical context: White count 11.5 hemoglobin 11.2 potassium 5.3 bun 46 creatinine 1.86 Previous testing White count 14.9 hemoglobin 11.3 platelets 324 sodium 128 potassium 5.8 bun 31 and creatinine 1.27 Lactic acid 2.1 Troponin I 0.094, 0.132 ProBNP 1950 COVID 19 PCR not detected EKG tracing personally reviewed by me-no sinus rhythm Chest x-ray film personally reviewed by me-cardiomegaly, interstitial edema CTA due to chest-bilateral moderate hazy obesity suggestive of pulmonary edema Doppler ultrasound negative for DVT in the right leg 2-D echocardiogram EF 55-60% Assessment: -Acute congestive heart exacerbation from diastolic dysfunction EF 55-60%-clinically improved -Acute kidney injury with creatinine going from 1.27 up to 1.86, likely prerenal from diuresis -Shortness of breath at combination of restrictive lung disease and paralyzed left diaphragm, patient is not using her CPAP here -Coronary artery disease by history of stent and bypass in 1999, -Troponin leak likely due to underlying CHF -Diabetes mellitus type 2 -Essential hypertension -Hyperlipidemia -Paralyzed left diaphragm -Morbid obesity BMI 47.1 -Hypothyroid -Primary osteoarthritis -Restless leg syndrome Plan: Patient and nurse informed to have the patient's family bring in the CPAP later today. Diuretics to be backed off. Repeat labs in the morning. Cut back the dose of Levemir as Accu-Cheks running low. Consult pulmonary.
[2020-04-17] MEDS: BACLOFEN 10 MG TAB PO SCH (21:39)
[2020-04-18] MEDS: AMPICILLIN-SULBACTAM 1.5 GM in SODIUM CHLORIDE 0.9% 50 ML IVPB SCH ×2 (01:13→12:02)
[2020-04-18] MEDS ORDERED: SODIUM CHLORIDE 0.9% 1,000 ML in EMPTY BAG 1 BAG IV ONE ×2 (06:00→08:08)
[2020-04-18 06:26] LABS: Glucose,Whole Blood 189 mg/dL (75-99)
[2020-04-18] MEDS: INSULIN DETEMIR (LEVEMIR) 100 UNIT/ML SYR SQ SCH ×2 (06:29→20:20)
[2020-04-18] MEDS: INSULIN ASPART (NovoLOG) 100 UNIT/ML VIAL SQ SCH ×7 (06:29→20:20)
[2020-04-18] MEDS: LEVOTHYROXINE 100 MCG TAB PO SCH (06:29)
[2020-04-18 06:48] LABS: Basophils % (A) 1 %; Eosinophils # (A) 0.2 k/uL (0-0.7); Eosinophils % (A) 2 %; HCT 32.9 % (34.0-46.0); HGB 10.5 gm/dL (11.4-16.0); Lymphocytes # (A) 1.5 k/uL (1.0-4.8); Lymphocytes % (A) 17 %; MCH 33.6 pg (25.0-35.0); MCHC 31.9 g/dL (31.0-37.0); MCV 105.4 fL (80.0-100.0); Macrocytosis Slight; Mean Platelet Volume 8.1; Monocytes # (A) 1.1 k/uL (0-1.0); Monocytes % (A) 12 %; Neutrophils # (A) 5.8 k/uL (1.3-7.7); Neutrophils % (A) 66 %; Platelet Count 274 k/uL (150-450); RBC 3.12 m/uL (3.80-5.40); RDW 12.7 % (11.5-15.5); WBC 8.8 k/uL (3.8-10.6)
[2020-04-18 06:55] LABS: INR 0.9 (<1.2); Partial Thromboplastin Time 44.8 sec (22.0-30.0); Prothrombin Time 9.8 sec (9.0-12.0)
[2020-04-18 07:07] LABS: Potassium 5.2 mmol/L (3.5-5.1)
[2020-04-18] MEDS ORDERED: ALPRAZolam 0.5 MG TAB PO PRN (08:08)
[2020-04-18] MEDS: FUROSEMIDE 10 MG/ML 4 ML VIAL IV SCH (08:08)
[2020-04-18] MEDS ORDERED: ALPRAZolam 0.25 MG TAB PO PRN (08:08)
[2020-04-18] MEDS ORDERED: NITROGLYCERIN SL TABS 0.4 MG TAB SUBLINGUAL PRN (08:08)
[2020-04-18] MEDS: ASPIRIN 81 MG PO SCH (08:08)
[2020-04-18] MEDS: ASCORBIC ACID 500 MG TAB PO SCH ×2 (08:08→20:18)
[2020-04-18] MEDS: CLOPIDOGREL 75 MG TAB PO SCH (08:08)
[2020-04-18] MEDS ORDERED: ASPIRIN 325 MG TAB PO STA (08:08)
[2020-04-18] MEDS: EZETIMIBE 10 MG TAB PO SCH (08:08)
[2020-04-18] MEDS ORDERED: ATORVASTATIN 80 MG TAB PO STA (08:08)
[2020-04-18] MEDS: CHOLECALCIFEROL 1,000 UNIT TAB PO SCH (08:08)
[2020-04-18] MEDS: RANOLAZINE 500 MG TAB.ER.12H PO SCH ×2 (08:12→20:19)
[2020-04-18] MEDS: PRAVASTATIN SODIUM 40 MG TAB PO SCH (08:12)
[2020-04-18] MEDS: METOCLOPRAMIDE 10 MG TAB PO SCH ×4 (08:12→20:19)
[2020-04-18] MEDS: PANTOPRAZOLE 40 MG TABLET PO SCH ×2 (08:12→20:19)
[2020-04-18] MEDS: METOPROLOL TARTRATE 50 MG TAB PO SCH ×2 (08:15→20:19)
[2020-04-18] MEDS: IPRATROPIUM-ALBUTEROL 3 ML NEB INHALATION SCH ×4 (08:33→22:13)
[2020-04-18] MEDS ORDERED: ASPIRIN 325 MG TAB PO ONE (09:00)
--- NOTE | 2020-04-18 10:05 | PN ---
PROGRESS NOTE Ms. Cavanaugh is a 69-year-old female with known history of coronary artery disease who presented with symptoms of progressive dyspnea. No clear symptoms of chest pain. She is feeling better this morning, her breathing is better according to her, although she continued to be dyspneic. She has still difficulty lying supine. She denies any dizziness or palpitation. She has no chest discomfort. She continues to be at this time on aspirin once a day, Plavix 75 mg daily, Zetia 10 mg daily, Lasix 40 mg IV q.12 hours, IV heparin, metoprolol tartrate 100 mg twice a day, and Ranexa 500 mg twice a day. PHYSICAL EXAMINATION: Blood pressure 149/80 with a heart rate in the 60s. LUNGS: With a few crackles at the bases, no wheezes. HEART: Regular rate and rhythm, S1, S2. No S3. No rub. ABDOMEN: Soft, nontender, obese. EXTREMITIES: No edema. LAB DATA: Revealed BUN and creatinine of 48 and 1.58, potassium 5.2, sodium 127, hemoglobin of 10.5. IMPRESSION: 1. Symptoms of congestive heart failure with preserved systolic function. 2. Mild troponin elevation, rule out any ischemic event. 3. History of coronary artery disease and prior percutaneous revascularization. 4. Renal failure, stabilizing. 5. History of hypertension. 6. Diabetes. 7. Hyperlipidemia. 8. Cellulitis of the right lower extremity. 9. Morbid obesity. RECOMMENDATION: I will recommend to switch her to oral diuretic. Will hold on cardiac catheterization for today. Re-evaluate her tomorrow and depending on her progress, further recommendation will be made. MMODL / IJN: [id number] /
[2020-04-18 11:55] LABS: Glucose,Whole Blood 216 mg/dL (75-99)
--- NOTE | 2020-04-18 13:03 | P.NPCON ---
History of Present Illness - Reason for Consult acute renal failure - History of Present Illness Reason for consultation: Acute kidney injury History of present illness: Patient is a 69-year-old female seen in renal consultation for acute kidney injury. Patient came to the hospital in 04/15/2020 with shortness of breath. Her creatinine at that time was 1.27. She was started on IV Lasix 40 mg 3 times daily which was decreased to 40 mg IV twice daily and subsequently to oral Lasix 40 mg twice daily this morning. His creatinine peaked at 1.86 yesterday and is 1.58 today. Patient states her edema has improved. She has been voiding. No hematuria or dysuria. No chest pain or shortness of breath at this time. Chest x-ray from April 17 revealed improving lung infiltrates. No significant vas cular congestion or pulmonary edema noted. Echocardiogram revealed ejection fraction of 55-60% she also received IV contrast dye on April 15 for CTA which revealed no evidence of pulmonary embolus but there was evidence of pulmonary edema. Blood pressure stable. No evidence of hypotension. She does have long-standing history of diabetes mellitus. Denies family history of renal disease. No fever or chills. No cough. Oral intake fair. I do see Bactrim and meloxicam and her home medications but patient is unclear of the medication she was taking. Currently on 6 L nasal cannula. Vital signs are stable. General: The patient appeared well nourished and normally developed. HEENT: Head exam is unremarkable. Neck is without jugular venous distension. LUNGS: Breath sounds decreased. HEART: Rate and Rhythm are regular. ABDOMEN: Soft, nontender. Obese. EXTREMITITES: 1+ edema. Past Medical History Past Medical History: Coronary Artery Disease (CAD), Diabetes Mellitus, Hyperlipidemia, Hypertension Additional Past Medical History / Comment(s): Obesity, coronary artery disease, previous PCI and coronary stenting, hypertension, hyperlipidemia, diabetes mellitus, history of cellulitis of the lower extremity, diastolic heart failure, left paralyzed diaphram, KIM History of Any Multi-Drug Resistant Organisms: None Reported Past Surgical History: Cholecystectomy, Coronary Bypass/CABG, Heart Catheterization With Stent Additional Past Surgical History / Comment(s): Double bypass October 1999, 2 stents Date of Last Stent Placement:: 03/2019 Past Psychological History: Anxiety Smoking Status: Never smoker Past Alcohol Use History: None Reported Past Drug Use History: None Reported - Past Family History Father Family Medical History: Cancer Mother Family Medical History: Coronary Artery Disease (CAD) Medications and Allergies Home Medications Medication Instructions Recorded Confirmed Type Ascorbic Acid [Vitamin C] 1,000 mg PO BID 04/15/20 04/15/20 History Aspirin EC [Ecotrin Low Dose] 81 mg PO DAILY 04/15/20 04/15/20 History Baclofen [Lioresal] 20 mg PO HS 04/15/20 04/15/20 History Cholecalciferol [Vitamin D3 (25 5,000 unit PO DAILY 04/15/20 04/15/20 History Mcg = 1000 Iu)] Clopidogrel Bisulfate [Plavix] 75 mg PO DAILY 04/15/20 04/15/20 History Ezetimibe [Zetia] 10 mg PO DAILY 04/15/20 04/15/20 History Fish Oil/Dha/Epa [Fish Oil 1,200 1 cap PO HS 04/15/20 04/15/20 History mg Fish Oil] Fluticasone Nasal [place] [Flonase 1 spray EA NOSTRIL DAILY PRN 04/15/20 04/15/20 History Nasal [place]] Furosemide [Lasix] 40 mg PO DAILY 04/15/20 04/15/20 History Glucosam/Chond/Hyalu/Cf Borate 1 tab PO BID 04/15/20 04/15/20 History [Move Free Joint Health Tablet] Insulin Glargine [Lantus] 66 unit SQ BID 04/15/20 04/15/20 History Insulin Lispro [humaLOG] 30 units SQ TID 04/15/20 04/15/20 History Lansoprazole [Prevacid] 30 mg PO BID 04/15/20 04/15/20 History Levothyroxine Sodium [Synthroid] 100 mcg PO DAILY 04/15/20 04/15/20 History Losartan [Cozaar] 50 mg PO DAILY 04/15/20 04/15/20 History Meloxicam 15 mg PO HS 04/15/20 04/15/20 History Metoclopramide [Reglan] 10 mg PO QID 04/15/20 04/15/20 History Metoprolol Tartrate [Lopressor] 100 mg PO BID 04/15/20 04/15/20 History Niacin 500 mg PO DAILY 04/15/20 04/15/20 History Nitroglycerin 0.4MG/Hr Patch 1 patch TRANSDERM DAILY 04/15/20 04/15/20 History [Nitro-Dur 0.4MG/Hr Patch] Nitroglycerin Sl Tabs [Nitrostat] 0.4 mg SUBLINGUAL Q5M PRN 04/15/20 04/15/20 History Pravastatin Sodium [Pravachol] 40 mg PO DAILY 04/15/20 04/15/20 History Ranolazine [Ranexa] 500 mg PO BID 04/15/20 04/15/20 History Sulfamethox-Tmp 800-160Mg [Bactrim 1 tab PO BID 04/15/20 04/15/20 History DS 800-160 mg] rOPINIRole HCL [Requip] 0.5 mg PO HS 04/15/20 04/15/20 History Allergies Allergy/AdvReac Type Severity Reaction Status Date / Time codeine Allergy Unknown Verified 04/15/20 20:02 Physical Exam Vitals: Vital Signs Temp Pulse Pulse Resp BP Pulse Ox 04/18/20 12:45 64 04/18/20 12:37 63 04/18/20 11:39 98.2 F 71 24 166/83 97 04/18/20 08:43 72 04/18/20 08:35 70 04/18/20 08:00 98 F 69 20 149/83 97 04/18/20 04:00 98.2 F 58 L 20 155/88 95 04/18/20 00:00 98.1 F 70 20 142/70 97 04/17/20 23:58 74 20 04/17/20 20:36 72 04/17/20 20:25 98.4 F 74 20 149/75 04/17/20 20:24 70 04/17/20 20:00 74 20 04/17/20 15:46 97.8 F 68 20 179/79 97 Intake and Output 04/17/20 04/18/20 04/18/20 22:59 06:59 14:59 Intake Total 364.4 420 Balance 364.4 420 Intake: IV 94.4 Heparin Sod,Pork in 0.45% 94.4 NaCl 25,000 unit In 0.45 % NaCl 1 250ml.bag @ 9. 302 UNITS/KG/HR 10 mls/hr IV .Q24H [facility] Rx#: [id number] Intake, IV Titration 90 Amount Ampicillin-Sulbactam 1.5 50 gm In Sodium Chloride 0.9 % 50 ml @ 100 mls/hr IVPB Q12H [facility] Rx#:[id number] Sodium Chloride 0.9% 1, 40 000 ml In Empty Bag 1 bag @ 50 mls/hr IV .Q20H [facility] Rx#:[id number] Oral 180 420 Other: # Voids 2 Weight 110.8 kg Results - Lab Results Most recent lab results Calcium 8.0 mg/dL (8.4-10.2) L 04/18/20 06:13 04/18/20 06:13 04/18/20 06:13 Assessment and Plan Plan: Assessment: 1. Acute kidney injury mostly prerenal secondary to cardiorenal syndrome as well as component of contrast-induced acute kidney injury. Patient received IV contrast on April 15. Creatinine peaked at 1.86 this admission and is 1.58 today. Unknown baseline renal function. 2. Hypervolemic hyponatremia. 3. Acute on chronic diastolic CHF. 4. Insulin-dependent diabetes mellitus. 5. History of coronary artery disease. 6. Elevated troponin. Cardiology following. Currently on heparin drip. Cardiac catheterization being considered. 7. Volume overload. Improved with diuresis. Plan: Maintain oral Lasix 40 mg twice daily. 1200 mL fluid restriction. Encourage oral intake, particularly protein. Repeat electrolytes in the morning. Would recommend holding diuretics the night before cardiac catheterization along with gentle IV hydration. Avoid aggressive hydration in the setting of CHF. Continue to monitor renal function and urine output. Check urinalysis. Check renal ultrasound. Thank you for the consultation. I will continue to follow the patient with you during her hospital stay.
--- NOTE | 2020-04-18 14:37 | P.PN ---
Subjective Progress Note Date: 04/18/20 Principal diagnosis: This is a 69-year-old female patient with known history of coronary artery disease, previous bypass surgery in addition to history of hypertension diabetes mellitus and hyperlipidemia and hypothyroidism. The patient came into the hospital on 04/15/2020 for worsening shortness of breath. Apparently she was being treated for right lower extremity cellulitis and she was being given outpatient antibiotics for the past 10 days. Around a week ago, she started having increased shortness of breath. Pulmonary of admission, she also noticed some chest tightness in the midsternal area for that reason the patient contacted EMS and she was brought into the hospital. She has orthopnea. No paroxysmal nocturnal dyspnea. No significant cough or sputum production. Her last cardiac intervention was done on 04/04/2019 at [facility] in [place] and the patient had a coronary stent placed back then. She has been maintained on dual antiplatelet agents. Her echocardiogram showed a preserved LV function with an ejection fraction of 55-60%. During this current admission, the patient had an EKG that showed some inferior Q waves, the chest x-ray showed interstitial edema and the Doppler of the lower extremity was essentially negative. White cell count is at 10.6 with a hemoglobin of 10.5. The d-dimer was at 1.6. Initial creatinine was 1.27 with a troponin of 0.09 and a proBNP level of 1950. The patient was diagnosed having CHF with diastolic heart failure. The patient also had some elevated troponins that was attributed to underlying hypoxemia. CT angios done that was done on 04/15/2020 showed no evidence of any pulmonary embolism and there was hazy pulmonary infiltrates consistent with pulmonary edema. The hawkins virus Covid 19 screening was negative. The patient was placed on IV heparin. The patient was placed on IV Lasix 40 mg every 12 hours. The patient was also placed on IV Unasyn is a empiric antibiotic coverage. She is on a combination of aspirin. She is also on Plavix. She is taking Ranexa. She is on Levemir insulin 50 units twice a day regarding her blood sugar control in addition to 20 units of NovoLog with me als. At this point in time, the patient is on 6 L of oxygen by nasal cannula with a pulse ox of 97%. The patient is seen today 04/18/2020 and follow-up on the selective care unit. She is currently sitting up in bed. Awake and alert in no acute distress. She is breathing a bit easier today compared to yesterday. Still with crackles in the posterior bases. Still with some end expiratory wheeze bilaterally. Currently maintaining O2 saturations in the 90s on 6 L high flow nasal cannula. She's afebrile. Blood cultures reveal no growth. White count 8.8. Hemoglobin 10.5. INR 0.9. Sodium 127. Potassium 5.2. Bicarb 31. BUN 48. Creatinine 1.58. She remains on oral diuretics. Remains on bronchodilators. Antibiotics in the form of Unasyn. Remains on a heparin drip. Objective - Vital Signs Vital signs: Vital Signs Temp 98.2 F 04/18/20 11:39 Pulse 64 04/18/20 12:45 Resp 24 04/18/20 11:39 BP 166/83 04/18/20 11:39 Pulse Ox 97 04/18/20 11:39 Intake & Output 04/17/20 04/18/20 04/18/20 18:59 06:59 18:59 Intake Total 972.91 600 Balance 972.91 600 Weight 110.8 kg Intake: IV 94.4 Heparin Sod,Pork in 0.45% 94.4 NaCl 25,000 unit In 0.45 % NaCl 1 250ml.bag @ 9. 302 UNITS/KG/HR 10 mls/hr IV .Q24H [facility] Rx#: [id number] Intake, IV Titration 278.51 Amount Ampicillin-Sulbactam 1.5 50 gm In Sodium Chloride 0.9 % 50 ml @ 100 mls/hr IVPB Q12H [facility] Rx#:[id number] Heparin Sod,Pork in 0.45% 188.51 NaCl 25,000 unit In 0.45 % NaCl 1 250ml.bag @ 9. 302 UNITS/KG/HR 10 mls/hr IV .Q24H [facility] Rx#: [id number] Sodium Chloride 0.9% 1, 40 000 ml In Empty Bag 1 bag @ 50 mls/hr IV .Q20H [facility] Rx#:[id number] Oral 600 600 Other: # Voids 2 - Exam Gen. appearance this is a very pleasant 69-year-old female patient, on 6 L nasal cannula, comfortable in no acute distress CONSTITUTIONAL: No apparent distress. Morbidly obese. Head exam was generally normal. There was no scleral icterus or corneal arcus. Mucous membranes were moist. HEENT: Head is normocephalic. Pupils are equal, round. Sclerae anicteric. Mucous membranes of the mouth are moist. No JVD. No carotid bruit. CHEST EXAMINATION: Bibasilar rales. No chest wall tenderness is noted on palpation or with deep breathing. HEART EXAMINATION: Regular rate and rhythm. S1, S2 heard. No murmurs, gallops or rub. ABDOMEN: Soft, nontender. Positive bowel sounds. EXTREMITIES: 2+ peripheral pulses, right lower extremity erythema and 1+ pitting edema bilaterally. No calf tenderness. NEUROLOGIC EXAMINATION: Patient is awake, alert and oriented x3. - Labs CBC & Chem 7: 04/18/20 06:13 04/18/20 06:13 Labs: Abnormal Lab Results - Last 24 Hours (Table) 04/17/20 04/17/20 04/18/20 Range/Units 16:51 20:06 06:13 RBC 3.12 L (3.80-5.40) m/uL Hgb 10.5 L (11.4-16.0) gm/dL Hct 32.9 L (34.0-46.0) % MCV 105.4 H (80.0-100.0) fL Monocytes # 1.1 H (0-1.0) k/uL APTT (22.0-30.0) sec Sodium (137-145) mmol/L Potassium (3.5-5.1) mmol/L Chloride (98-107) mmol/L Carbon Dioxide (22-30) mmol/L BUN (7-17) mg/dL Creatinine (0.52-1.04) mg/dL Glucose (74-99) mg/dL POC Glucose (mg/dL) 131 H 171 H (75-99) mg/dL Calcium (8.4-10.2) mg/dL 04/18/20 04/18/20 04/18/20 Range/Units 06:13 06:13 06:23 RBC (3.80-5.40) m/uL Hgb (11.4-16.0) gm/dL Hct (34.0-46.0) % MCV (80.0-100.0) fL Monocytes # (0-1.0) k/uL APTT 44.8 H (22.0-30.0) sec Sodium 127 L (137-145) mmol/L Potassium 5.2 H (3.5-5.1) mmol/L Chloride 89 L (98-107) mmol/L Carbon Dioxide 31 H (22-30) mmol/L BUN 48 H (7-17) mg/dL Creatinine 1.58 H (0.52-1.04) mg/dL Glucose 149 H (74-99) mg/dL POC Glucose (mg/dL) 189 H (75-99) mg/dL Calcium 8.0 L (8.4-10.2) mg/dL 04/18/20 Range/Units 11:53 RBC (3.80-5.40) m/uL Hgb (11.4-16.0) gm/dL Hct (34.0-46.0) % MCV (80.0-100.0) fL Monocytes # (0-1.0) k/uL APTT (22.0-30.0) sec Sodium (137-145) mmol/L Potassium (3.5-5.1) mmol/L Chloride (98-107) mmol/L Carbon Dioxide (22-30) mmol/L BUN (7-17) mg/dL Creatinine (0.52-1.04) mg/dL Glucose (74-99) mg/dL POC Glucose (mg/dL) 216 H (75-99) mg/dL Calcium (8.4-10.2) mg/dL Microbiology - Last 24 Hours (Table) 04/15/20 16:20 Blood Culture - Preliminary Blood No Growth after 48 hours Assessment and Plan Assessment: 1 acute on chronic diastolic heart failure with secondary pulmonary edema. CT angiogram of the chest was reviewed and the patient has interstitial edema most likely secondary to CHF. Hawkins virus Covid 19 testing was negative. No clear evidence of any acute pneumonia at this point in time.. The patient is a preserved LV function with an ejection fraction of 55-60% 2 acute kidney injury, rule out contrast nephropathy 3 coronary artery disease with previous two-vessel bypass surgery. The patient is also undergone previous PCI and stenting 4 troponin leak, considering an acute non-STEMI Versus secondary to hypoxemia 5 cellulitis of the right lower extremity currently on IV Unasyn, improving clinically 6 hypertension 7 hyperlipidemia 8 diabetes mellitus 9 morbid obesity with a BMI of 47 8 hypothyroidism 10 obstructive sleep apnea maintained on CPAP therapy on outpatient basis 11 chronic left hemidiaphragmatic elevation, possible pleurodesis post-bypass surgery plan The patient was seen and evaluated by Dr. Downs She is improved today compared to yesterday. Still somewhat bronchospastic and wheezy Continue bronchodilators Continue diuretics Titrate down the FiO2 as tolerated Remains on Unasyn for lower extremity cellulitis We'll continue to follow I, the cosigning physician, performed a history & physical examination of the patient. Lungs sounds with basilar rales. Maintaining good O2 saturations in the 90s on 6 L high flow nasal cannula. I discussed the assessment and plan of care with my nurse practitioner, Torie Shi. I attest to the above note as dic tated by her.
--- NOTE | 2020-04-18 15:27 | US ---
EXAMINATION TYPE: US kidneys/renal and bladder DATE OF EXAM: 04/18/2020 COMPARISON: NONE CLINICAL HISTORY: delia. DELIA, exam done portable. EXAM MEASUREMENTS: Right Kidney: 10.9 x 4.7 x 4.4 cm Left Kidney: 11.0 x 5.7 x 4.9 cm Difficult and limited study due to morbidly obese patient sitting up during exam. Right Kidney: no hydronephrosis or masses seen Left Kidney: no hydronephrosis or masses seen Bladder: not imaged due to above limitations IMPRESSION: 1. Limited exam. 2. Visualized kidneys appear unremarkable
[2020-04-18 16:48] LABS: Glucose,Whole Blood 261 mg/dL (75-99)
[2020-04-18] MEDS: FUROSEMIDE 40 MG TAB PO SCH (16:56)
[2020-04-18 17:59] LABS: Appearance,Urine Clear (Clear); Bilirubin,Urine Negative (Negative); Blood,Urine Negative (Negative); Color,Urine Yellow; Glucose,Urine (UA) Negative (Negative); Ketones,Urine Negative (Negative); Leukocyte Esterase,Urine Negative (Negative); Nitrite,Urine Negative (Negative); Protein,Urine Negative (Negative); Specific Gravity,Urine 1.013 (1.001-1.035); Urobilinogen,Urine <2.0 mg/dL (<2.0)
--- NOTE | 2020-04-18 20:04 | P.PN ---
Progress Note - Text Progress Note Date: 04/18/20 Chief Complaint: Short of breath History of presenting complaint: This is a pleasant 69-year-old patient of Dr. Everardo Richmond. Chronic stable medical conditions include coronary artery disease with stent and bypass in October 1999, diabetes, hypertension, hyperlipidemia, left paralyzed diaphragm. Patient presents with 5 days of increasing shortness of breath. Slight cough. No sputum. No fever no chills. Some decrease in appetite. No edema. Bowels are okay. baseline uses a walker. Admitted with CHF exacerbation from diastolic dysfunction. Patient IV heparin. Troponin leak felt to be from CHF. Acute kidney injury from diuresis. Today-patient short of breath. Patient scored a CPAP from home but not started using it. IV Lasix held. Cardiac catheterization postponed because of renal function. Review of systems: Was done for constitutional, cardiovascular, GI, pulmonary. relevant finding as above Active Medications Albuterol/Ipratropium (Ipratropium-Albuterol 3 Ml Neb) 3 ml INHALATION RT-QID [facility] Last Admin: 04/18/20 17:06 Dose: Not Given Documented by: Albuterol/Ipratropium (Ipratropium-Albuterol 3 Ml Neb) 3 ml INHALATION RT-Q1H PRN PRN Reason: Shortness Of Breath Or Wheezing Alprazolam (Alprazolam 0.25 Mg Tab) 0.25 mg PO Q6HR PRN PRN Reason: Mild Anxiety Alprazolam (Alprazolam 0.5 Mg Tab) 0.5 mg PO Q6HR PRN PRN Reason: Moderate Anxiety Ascorbic Acid (Ascorbic Acid 500 Mg Tab) 1,000 mg PO BID [facility] Last Admin: 04/18/20 08:08 Dose: 1,000 mg Documented by: Aspirin (Aspirin 81 Mg) 81 mg PO DAILY [facility] Last Admin: 04/18/20 08:08 Dose: Not Given Documented by: Baclofen (Baclofen 10 Mg Tab) 20 mg PO HS [facility] Last Admin: 04/17/20 21:39 Dose: 20 mg Documented by: Cholecalciferol (Cholecalciferol 1,000 Unit Tab) 5,000 unit PO DAILY [facility] Last Admin: 04/18/20 08:08 Dose: 5,000 unit Documented by: Clopidogrel Bisulfate (Clopidogrel 75 Mg Tab) 75 mg PO DAILY [facility] Last Admin: 04/18/20 08:08 Dose: 75 mg Documented by: Ezetimibe (Ezetimibe 10 Mg Tab) 10 mg PO DAILY [facility] Last Admin: 04/18/20 08:08 Dose: 10 mg Documented by: Furosemide (Furosemide 40 Mg Tab) 40 mg PO BID@0900,1600 [facility] Last Admin: 04/18/20 16:56 Dose: 40 mg Documented by: Heparin Sodium (Porcine) (Heparin Sodium,Porcine 5,000 Unit/Ml 1 Ml Vial) 0 unit IV PER PROTOCOL PRN; Protocol PRN Reason: Low PTT Last Admin: 04/16/20 12:24 Dose: 2,737.5 unit Documented by: Heparin Sodium/Sodium Chloride (25,000 unit/ Sodium Chloride) 250 mls @ 10 mls/hr IV .Q24H [facility]; Protocol Last Admin: 04/17/20 16:55 Dose: 11 units/kg/hr, 11.825 mls/hr Documented by: Ampicillin Sodium/Sulbactam (Sodium 1.5 gm/ Sodium Chloride) 50 mls @ 100 mls/hr IVPB Q12H [facility] Last Admin: 04/18/20 12:02 Dose: 100 mls/hr Documented by: Sodium Chloride 1,000 ml/ IV (Solution) 1,000 mls @ 50 mls/hr IV .Q20H ONE Stop: 04/19/20 01:59 Insulin Aspart (Insulin Aspart (Novolog) 100 Unit/Ml Vial) 20 unit SQ AC-TID [facility] Last Admin: 04/18/20 16:56 Dose: 20 unit Documented by: Insulin Aspart (Insulin Aspart (Novolog) 100 Unit/Ml Vial) 0 unit SQ ACHS [facility]; Protocol Last Admin: 04/18/20 16:57 Dose: 6 unit Documented by: Insulin Detemir (Insulin Detemir (Levemir) 100 Unit/Ml Syr) 45 unit SQ BID@0700,2100 [facility] Last Admin: 04/18/20 06:29 Dose: Not Given Documented by: Levothyroxine Sodium (Levothyroxine 100 Mcg Tab) 100 mcg PO DAILY@0630 [facility] Last Admin: 04/18/20 06:29 Dose: Not Given Documented by: Metoclopramide HCl (Metoclopramide 10 Mg Tab) 10 mg PO QID [facility] Last Admin: 04/18/20 16:56 Dose: 10 mg Documented by: Metoprolol Tartrate (Metoprolol Tartrate 50 Mg Tab) 100 mg PO BID [facility] Last Admin: 04/18/20 08:15 Dose: 100 mg Documented by: Nitroglycerin (Nitroglycerin Sl Tabs 0.4 Mg Tab) 0.4 mg SUBLINGUAL Q5M PRN PRN Reason: Chest Pain Nitroglycerin (Nitroglycerin Sl Tabs 0.4 Mg Tab) 0.4 mg SUBLINGUAL Q5M PRN PRN Reason: Chest Pain Pantoprazole Sodium (Pantoprazole 40 Mg Tablet) 40 mg PO BID [facility] Last Admin: 04/18/20 08:12 Dose: 40 mg Documented by: Pravastatin Sodium (Pravastatin Sodium 40 Mg Tab) 40 mg PO DAILY [facility] Last Admin: 04/18/20 08:12 Dose: 40 mg Documented by: Ranolazine (Ranolazine 500 Mg Tab.Er.12h) 500 mg PO BID [facility] Last Admin: 04/18/20 08:12 Dose: 500 mg Documented by: Ropinirole HCl (Ropinirole Hcl 0.25 Mg Tab) 0.5 mg PO HS [facility] Last Admin: 04/17/20 21:41 Dose: 0.5 mg Documented by: Sodium Chloride (Sodium Chloride 0.9% Flush 10 Ml Syringe) 10 ml IV BID [facility] Last Admin: 04/18/20 08:15 Dose: Not Given Documented by: Physical examination: VITAL SIGNS: 98.2, 71, 24, 166/83, 97% on 6 L GENERAL: Propped up in bed, slightly short of breath. EYES: Pupils equal. Conjunctiva normal. NECK: JVD possibly raised masses not palpable. HEART: First and second heart sounds are normal; no edema. LUNGS: Respiratory rate increased; some basal fine crackles. ABDOMEN: Soft, nontender, liver spleen not palpable, no masses palpable. PSYCH: Alert and oriented x3; mood and affect aracelis MUSCULAR skeletal: Evidence of OA l. Evidence of cellulitis on the right foot dorsum. INVESTIGATIONS, reviewed in the clinical context: White count 8.8 hemoglobin 10.5 potassium 5.2 sodium 127 bun 48 creatinine 1.58 Previous testing White count 14.9 hemoglobin 11.3 platelets 324 sodium 128 potassium 5.8 bun 31 and creatinine 1.27 Lactic acid 2.1 Troponin I 0.094, 0.132 ProBNP 1950 COVID 19 PCR not detected EKG tracing personally reviewed by me-no sinus rhythm Chest x-ray film personally reviewed by me-cardiomegaly, interstitial edema CTA due to chest-bilateral moderate hazy obesity suggestive of pulmonary edema Doppler ultrasound negative for DVT in the right leg 2-D echocardiogram EF 55-60% Assessment: -Acute congestive heart exacerbation from diastolic dysfunction EF 55-60%-clinically improved -Acute kidney injury with creatinine going from 1.27 up to 1.86, likely prerenal from diuresis-IV Lasix discontinued today -Shortness of breath at combination of restrictive lung disease and paralyzed left diaphragm, patient is not using her CPAP here -Coronary artery disease by history of stent and bypass in 1999, -Troponin leak likely due to underlying CHF -Diabetes mellitus type 2 -Essential hypertension -Hyperlipidemia -Paralyzed left diaphragm -Morbid obesity BMI 47.1 -Hypothyroid -Primary osteoarthritis -Restless leg syndrome -Acute cellulitis right foot-IV Unasyn Plan: Lab respiratory therapy helped the patient set up a CPAP. Patient swished over to by mouth Lasix. Other medications to continue. Cardiac catheterization postponed for now. Patient started on normal saline 50 mL an hour by cardiology. No evidence of pneumonia.
[2020-04-18 20:13] LABS: Glucose,Whole Blood 199 mg/dL (75-99)
[2020-04-18] MEDS: BACLOFEN 10 MG TAB PO SCH (20:19)
[2020-04-18] MEDS: HEPARIN SOD,PORK IN 0.45% NACL 25,000 UNIT in 0.45% NACL 1 250ML.BAG IV SCH (20:24)
[2020-04-19] MEDS: AMPICILLIN-SULBACTAM 1.5 GM in SODIUM CHLORIDE 0.9% 50 ML IVPB SCH ×2 (01:04→13:35)
[2020-04-19 06:24] LABS: Glucose,Whole Blood 152 mg/dL (75-99)
[2020-04-19] MEDS: INSULIN DETEMIR (LEVEMIR) 100 UNIT/ML SYR SQ SCH ×2 (06:35→21:32)
[2020-04-19] MEDS: INSULIN ASPART (NovoLOG) 100 UNIT/ML VIAL SQ SCH ×7 (06:35→21:32)
[2020-04-19] MEDS: RANOLAZINE 500 MG TAB.ER.12H PO SCH ×2 (06:41→21:31)
[2020-04-19] MEDS: ASCORBIC ACID 500 MG TAB PO SCH ×2 (06:41→21:31)
[2020-04-19] MEDS: METOCLOPRAMIDE 10 MG TAB PO SCH ×4 (06:41→21:30)
[2020-04-19] MEDS: CLOPIDOGREL 75 MG TAB PO SCH (06:41)
[2020-04-19] MEDS: EZETIMIBE 10 MG TAB PO SCH (06:42)
[2020-04-19] MEDS: CHOLECALCIFEROL 1,000 UNIT TAB PO SCH (06:42)
[2020-04-19] MEDS: METOPROLOL TARTRATE 50 MG TAB PO SCH ×2 (06:42→21:31)
[2020-04-19] MEDS: PANTOPRAZOLE 40 MG TABLET PO SCH ×2 (06:42→21:31)
[2020-04-19] MEDS: ASPIRIN 81 MG PO SCH (06:42)
[2020-04-19] MEDS: PRAVASTATIN SODIUM 40 MG TAB PO SCH (06:42)
[2020-04-19] MEDS: FUROSEMIDE 40 MG TAB PO SCH (06:42)
[2020-04-19] MEDS: LEVOTHYROXINE 100 MCG TAB PO SCH (06:42)
[2020-04-19 07:20] LABS: Calcium 8.3 mg/dL (8.4-10.2); Potassium 5.9 mmol/L (3.5-5.1)
[2020-04-19] MEDS: IPRATROPIUM-ALBUTEROL 3 ML NEB INHALATION SCH ×4 (08:52→20:09)
[2020-04-19] MEDS ORDERED: hydrALAZINE HCL 25 MG TAB PO SCH (09:45)
--- NOTE | 2020-04-19 09:55 | PN ---
PROGRESS NOTE Mrs. Cavanaugh is a 69-year-old female with known history of coronary artery disease, status post coronary artery bypass grafting, history of percutaneous revascularization, who presented predominantly with symptoms of progressive dyspnea as well as worsening peripheral edema. She is more dyspneic this morning. She has difficulty lying flat. She denies any chest pain. She denies any dizziness or palpitation. She denies any nausea. She has no discomfort in the chest. She was scheduled to undergo cardiac catheterization today to evaluate her status. She continues to be on aspirin once a day, Plavix 75 mg daily, Zetia 10 mg daily, furosemide 40 mg orally twice a day, IV heparin, insulin, metoprolol 100 mg twice a day, Ranexa 500 mg twice a day, pravastatin 40 mg daily, Protonix. PHYSICAL EXAMINATION: Blood pressure running in the 130s to 160s with a heart rate in 70s. LUNGS: With scattered rhonchi and wheezes noted bilaterally. HEART: Regular rate and rhythm, S1, S2. No S3 with a systolic murmur no diastolic murmur. ABDOMEN: Soft and nontender, obese. EXTREMITIES: +1 edema. Her echocardiogram revealed a preserved systolic function. . LAB DATA: Today revealed BUN and creatinine 41 and 1.39. Her potassium is 5.9. Her sodium is 128. IMPRESSION: 1. Symptoms of progressive dyspnea with evidence consistent with congestive heart failure with preserved systolic function. 2. Mild troponin elevation that could be related to her congestive heart failure. 3. History of coronary artery disease status post coronary bypass grafting and percutaneous revascularization. 4. Renal failure. 5. Hypertension. 6. Diabetes. 7. Hyperlipidemia. 8. Cellulitis of right lower extremity. 9. Obesity. RECOMMENDATION: In view of her progressive dyspnea, I will hold cardiac catheterization today. Will switch her back to intravenous diuretics. I will adjust her antihypertensive regimen. Will continue observation, stabilize her and if needed cardiac catheterization can be done as an outpatient. MMODL / IJN: [id number] /
[2020-04-19] MEDS ORDERED: INSULIN REGULAR 100 UNIT/ML VIAL IV ONE (12:13)
[2020-04-19] MEDS ORDERED: DEXTROSE 50% SYRINGE 50 ML IVP STA (12:13)
[2020-04-19 12:18] LABS: Glucose,Whole Blood 209 mg/dL (75-99)
[2020-04-19] MEDS: FUROSEMIDE 10 MG/ML 4 ML VIAL IV SCH ×2 (13:16→21:32)
--- NOTE | 2020-04-19 13:18 | P.PN ---
Subjective Patient is seen in follow-up for acute kidney injury. Patient was more short of breath this morning and IV Lasix was resumed. Cardiac catheterization is currently on hold. She is currently having lunch. No active chest pain or shortness of breath. She is on 4 L nasal cannula. Urine output over 600 mL overnight. Vital signs are stable. General: The patient appeared well nourished and normally developed. HEENT: Head exam is unremarkable. Neck is without jugular venous distension. LUNGS: Breath sounds decreased. HEART: Rate and Rhythm are regular. ABDOMEN: Soft, nontender. Obese. EXTREMITITES: 1+ edema. Objective - Vital Signs Vital signs: Vital Signs Temp 97.6 F 04/19/20 07:58 Pulse 70 04/19/20 11:50 Resp 20 04/19/20 07:58 BP 160/66 04/19/20 07:58 Pulse Ox 98 04/19/20 07:58 Intake & Output 04/18/20 04/19/20 04/19/20 18:59 06:59 18:59 Intake Total 1274.4 Output Total 300 640 Balance 974.4 -640 Weight 112.4 kg Intake: IV 94.4 Heparin Sod,Pork in 0.45% 94.4 NaCl 25,000 unit In 0.45 % NaCl 1 250ml.bag @ 9. 302 UNITS/KG/HR 10 mls/hr IV .Q24H [facility] Rx#: [id number] Intake, IV Titration 340 Amount Ampicillin-Sulbactam 1.5 50 gm In Sodium Chloride 0.9 % 50 ml @ 100 mls/hr IVPB Q12H [facility] Rx#:[id number] Heparin Sod,Pork in 0.45% 250 NaCl 25,000 unit In 0.45 % NaCl 1 250ml.bag @ 9. 302 UNITS/KG/HR 10 mls/hr IV .Q24H [facility] Rx#: [id number] Sodium Chloride 0.9% 1, 40 000 ml In Empty Bag 1 bag @ 1 ML/KG/HR 110.8 mls/ hr IV .Q9H2M [facility] Rx#: [id number] Oral 840 Output: Urine 300 640 Other: # Voids 850 # Bowel Movements 1 - Labs CBC & Chem 7: 04/18/20 06:13 04/19/20 06:08 Labs: Abnormal Lab Results - Last 24 Hours (Table) 04/18/20 04/18/20 04/19/20 Range/Units 16:46 20:12 06:08 APTT (22.0-30.0) sec Sodium 128 L (137-145) mmol/L Potassium 5.9 H (3.5-5.1) mmol/L Chloride 88 L (98-107) mmol/L Carbon Dioxide 37 H (22-30) mmol/L BUN 41 H (7-17) mg/dL Creatinine 1.39 H (0.52-1.04) mg/dL Glucose 148 H (74-99) mg/dL POC Glucose (mg/dL) 261 H 199 H (75-99) mg/dL Calcium 8.3 L (8.4-10.2) mg/dL 04/19/20 04/19/20 04/19/20 Range/Units 06:08 06:23 12:05 APTT 42.7 H (22.0-30.0) sec Sodium (137-145) mmol/L Potassium (3.5-5.1) mmol/L Chloride (98-107) mmol/L Carbon Dioxide (22-30) mmol/L BUN (7-17) mg/dL Creatinine (0.52-1.04) mg/dL Glucose (74-99) mg/dL POC Glucose (mg/dL) 152 H 209 H (75-99) mg/dL Calcium (8.4-10.2) mg/dL Microbiology - Last 24 Hours (Table) 04/15/20 16:20 Blood Culture - Preliminary Blood No Growth after 72 hours Assessment and Plan Plan: Assessment: 1. Acute kidney injury mostly prerenal secondary to cardiorenal syndrome as well as component of contrast-induced acute kidney injury. Patient received IV contrast on April 15. Creatinine peaked at 1.86 this admission and is 1.39 today. Unknown baseline renal function. UA benign. No hydronephrosis noted on kidney ultrasound. 2. Hypervolemic hyponatremia. 3. Acute on chronic diastolic CHF. 4. Insulin-dependent diabetes mellitus. 5. History of coronary artery disease. 6. Elevated troponin. Cardiology following. Currently on heparin drip. Cardiac catheterization pending. 7. Volume overload. 8. Hyperkalemia secondary to acute kidney injury no evidence of metabolic acidosis or significant hyperglycemia.. Plan: Maintain IV Lasix 40 mg twice daily. 10 units IV insulin with an amp of D50 now. Repeat potassium level this evening. 1200 mL fluid restriction. Encourage oral intake, particularly protein. Repeat electrolytes in the morning. Would recommend holding diuretics the night before cardiac catheterization. Avoid aggressive IV hydration in the setting of CHF. Continue to monitor renal function and urine output.
[2020-04-19] MEDS: hydrALAZINE HCL 25 MG TAB PO SCH ×2 (13:35→21:31)
--- NOTE | 2020-04-19 14:35 | P.PN ---
Subjective Progress Note Date: 04/19/20 Principal diagnosis: This is a 69-year-old female patient with known history of coronary artery disease, previous bypass surgery in addition to history of hypertension diabetes mellitus and hyperlipidemia and hypothyroidism. The patient came into the hospital on 04/15/2020 for worsening shortness of breath. Apparently she was being treated for right lower extremity cellulitis and she was being given outpatient antibiotics for the past 10 days. Around a week ago, she started having increased shortness of breath. Pulmonary of admission, she also noticed some chest tightness in the midsternal area for that reason the patient contacted EMS and she was brought into the hospital. She has orthopnea. No paroxysmal nocturnal dyspnea. No significant cough or sputum production. Her last cardiac intervention was done on 04/04/2019 at [facility] in [place] and the patient had a coronary stent placed back then. She has been maintained on dual antiplatelet agents. Her echocardiogram showed a preserved LV function with an ejection fraction of 55-60%. During this current admission, the patient had an EKG that showed some inferior Q waves, the chest x-ray showed interstitial edema and the Doppler of the lower extremity was essentially negative. White cell count is at 10.6 with a hemoglobin of 10.5. The d-dimer was at 1.6. Initial creatinine was 1.27 with a troponin of 0.09 and a proBNP level of 1950. The patient was diagnosed having CHF with diastolic heart failure. The patient also had some elevated troponins that was attributed to underlying hypoxemia. CT angios done that was done on 04/15/2020 showed no evidence of any pulmonary embolism and there was hazy pulmonary infiltrates consistent with pulmonary edema. The hawkins virus Covid 19 screening was negative. The patient was placed on IV heparin. The patient was placed on IV Lasix 40 mg every 12 hours. The patient was also placed on IV Unasyn is a empiric antibiotic coverage. She is on a combination of aspirin. She is also on Plavix. She is taking Ranexa. She is on Levemir insulin 50 units twice a day regarding her blood sugar control in addition to 20 units of NovoLog with me als. At this point in time, the patient is on 6 L of oxygen by nasal cannula with a pulse ox of 97%. The patient is seen today 04/18/2020 and follow-up on the selective care unit. She is currently sitting up in bed. Awake and alert in no acute distress. She is breathing a bit easier today compared to yesterday. Still with crackles in the posterior bases. Still with some end expiratory wheeze bilaterally. Currently maintaining O2 saturations in the 90s on 6 L high flow nasal cannula. She's afebrile. Blood cultures reveal no growth. White count 8.8. Hemoglobin 10.5. INR 0.9. Sodium 127. Potassium 5.2. Bicarb 31. BUN 48. Creatinine 1.58. She remains on oral diuretics. Remains on bronchodilators. Antibiotics in the form of Unasyn. Remains on a heparin drip. The patient is seen today 04/19/2020 follow-up selective care unit. She is currently sitting up in a chair at the bedside. Awake and alert in no acute distress. Still quite is still quite short of breath with minimal exertion. Some end expiratory wheeze continues. Cardiac catheterization canceled for today. Blood culture reveals no growth. Sodium 128. Potassium 5.9. Chloride 88. Bicarb 37. Creatinine 1.39. She remains on DuoNeb inhalations. Lasix 40 mg IV every 12 hours. Antibiotics in the form of Unasyn for her lower extremity cellulitis. Objective - Vital Signs Vital signs: Vital Signs Temp 97.6 F 04/19/20 07:58 Pulse 70 04/19/20 11:50 Resp 20 04/19/20 07:58 BP 160/66 04/19/20 07:58 Pulse Ox 98 04/19/20 07:58 Intake & Output 04/18/20 04/19/20 04/19/20 18:59 06:59 18:59 Intake Total 1274.4 Output Total 300 640 Balance 974.4 -640 Weight 112.4 kg Intake: IV 94.4 Heparin Sod,Pork in 0.45% 94.4 NaCl 25,000 unit In 0.45 % NaCl 1 250ml.bag @ 9. 302 UNITS/KG/HR 10 mls/hr IV .Q24H [facility] Rx#: [id number] Intake, IV Titration 340 Amount Ampicillin-Sulbactam 1.5 50 gm In Sodium Chloride 0.9 % 50 ml @ 100 mls/hr IVPB Q12H [facility] Rx#:[id number] Heparin Sod,Pork in 0.45% 250 NaCl 25,000 unit In 0.45 % NaCl 1 250ml.bag @ 9. 302 UNITS/KG/HR 10 mls/hr IV .Q24H [facility] Rx#: [id number] Sodium Chloride 0.9% 1, 40 000 ml In Empty Bag 1 bag @ 1 ML/KG/HR 110.8 mls/ hr IV .Q9H2M [facility] Rx#: [id number] Oral 840 Output: Urine 300 640 Other: # Voids 850 # Bowel Movements 1 - Exam Gen. appearance this is a very pleasant obese 69-year-old female patient, on 4 L nasal cannula, comfortable in no acute distress CONSTITUTIONAL: No apparent distress. Morbidly obese. Head exam was generally normal. There was no scleral icterus or corneal arcus. Mucous membranes were moist. HEENT: Head is normocephalic. Pupils are equal, round. Sclerae anicteric. Mucous membranes of the mouth are moist. No JVD. No carotid bruit. CHEST EXAMINATION: Bibasilar rales. End expiratory wheeze. No chest wall tenderness is noted on palpation or with deep breathing. HEART EXAMINATION: Regular rate and rhythm. S1, S2 heard. No murmurs, gallops or rub. ABDOMEN: Soft, nontender. Positive bowel sounds. EXTREMITIES: 2+ peripheral pulses, right lower extremity erythema and 1+ pitting edema bilaterally. No calf tenderness. NEUROLOGIC EXAMINATION: Patient is awake, alert and oriented x3. - Labs CBC & Chem 7: 04/18/20 06:13 04/19/20 06:08 Labs: Abnormal Lab Results - Last 24 Hours (Table) 04/18/20 04/18/20 04/19/20 Range/Units 16:46 20:12 06:08 APTT (22.0-30.0) sec Sodium 128 L (137-145) mmol/L Potassium 5.9 H (3.5-5.1) mmol/L Chloride 88 L (98-107) mmol/L Carbon Dioxide 37 H (22-30) mmol/L BUN 41 H (7-17) mg/dL Creatinine 1.39 H (0.52-1.04) mg/dL Glucose 148 H (74-99) mg/dL POC Glucose (mg/dL) 261 H 199 H (75-99) mg/dL Calcium 8.3 L (8.4-10.2) mg/dL 04/19/20 04/19/20 04/19/20 Range/Units 06:08 06:23 12:05 APTT 42.7 H (22.0-30.0) sec Sodium (137-145) mmol/L Potassium (3.5-5.1) mmol/L Chloride (98-107) mmol/L Carbon Dioxide (22-30) mmol/L BUN (7-17) mg/dL Creatinine (0.52-1.04) mg/dL Glucose (74-99) mg/dL POC Glucose (mg/dL) 152 H 209 H (75-99) mg/dL Calcium (8.4-10.2) mg/dL Microbiology - Last 24 Hours (Table) 04/15/20 16:20 Blood Culture - Preliminary Blood No Growth after 72 hours Assessment and Plan Assessment: 1 acute on chronic hypoxemic respiratory failure secondary to acute on chronic diastolic heart failure with secondary pulmonary edema. CT angiogram of the chest was reviewed and the patient has interstitial edema most likely secondary to CHF. Hawkins virus Covid 19 testing was negative. No clear evidence of any acute pneumonia at this point in time. The patient is a preserved LV function with an ejection fraction of 55-60% 2 acute kidney injury, rule out contrast nephropathy 3 coronary artery disease with previous two-vessel bypass surgery. The patient has also undergone previous PCI and stenting 4 troponin leak, considering an acute non-STEMI Versus secondary to hypoxemia 5 cellulitis of the right lower extremity currently on IV Unasyn, improving clinically 6 hypertension 7 hyperlipidemia 8 diabetes mellitus 9 morbid obesity with a BMI of 47 8 hypothyroidism 10 obstructive sleep apnea maintained on CPAP therapy on outpatient basis 11 chronic left hemidiaphragmatic elevation, possible pleurodesis post-bypass surgery plan The patient was seen and evaluated by Dr. Downs Still somewhat bronchospastic and wheezy Cardiac catheterization on hold Continue bronchodilators Continue diuretics Titrate down the FiO2 as tolerated Remains on Unasyn for lower extremity cellulitis We'll continue to follow I, the cosigning physician, performed a history & physical examination of the patient. Lungs sounds with basilar rales faint end expiratory wheeze. Maintaining good O2 saturations in the 90s on 4 L high flow nasal cannula. I discussed the assessment and plan of care with my nurse practitioner, Torie Shi. I attest to the above note as dictated by her.
[2020-04-19 17:22] LABS: Glucose,Whole Blood 178 mg/dL (75-99)
[2020-04-19] MEDS ORDERED: SODIUM POLYSTYRENE SULFONATE 15 GM/60 ML BOTTLE PO STA (18:47)
--- NOTE | 2020-04-19 18:47 | P.PN ---
Progress Note - Text Progress Note Date: 04/19/20 Chief Complaint: Short of breath History of presenting complaint: This is a pleasant 69-year-old patient of Dr. Everardo Richmond. Chronic stable medical conditions include coronary artery disease with stent and bypass in October 1999, diabetes, hypertension, hyperlipidemia, left paralyzed diaphragm. Patient presents with 5 days of increasing shortness of breath. Slight cough. No sputum. No fever no chills. Some decrease in appetite. No edema. Bowels are okay. baseline uses a walker. Admitted with CHF exacerbation from diastolic dysfunction. Patient IV heparin. Troponin leak felt to be from CHF. Acute kidney injury from diuresis. Today-some shortness of breath present. CPAP from home has been a right but not been set up. Nurse was informed yesterday. Cardiology has put the patient back on IV Lasix. Review of systems: Was done for constitutional, cardiovascular, GI, pulmonary. relevant finding as above Active Medications Albuterol/Ipratropium (Ipratropium-Albuterol 3 Ml Neb) 3 ml INHALATION RT-QID [facility] Last Admin: 04/19/20 15:31 Dose: 3 ml Documented by: Albuterol/Ipratropium (Ipratropium-Albuterol 3 Ml Neb) 3 ml INHALATION RT-Q1H PRN PRN Reason: Shortness Of Breath Or Wheezing Alprazolam (Alprazolam 0.25 Mg Tab) 0.25 mg PO Q6HR PRN PRN Reason: Mild Anxiety Alprazolam (Alprazolam 0.5 Mg Tab) 0.5 mg PO Q6HR PRN PRN Reason: Moderate Anxiety Ascorbic Acid (Ascorbic Acid 500 Mg Tab) 1,000 mg PO BID [facility] Last Admin: 04/19/20 06:41 Dose: 1,000 mg Documented by: Aspirin (Aspirin 81 Mg) 81 mg PO DAILY [facility] Last Admin: 04/19/20 06:42 Dose: 81 mg Documented by: Baclofen (Baclofen 10 Mg Tab) 20 mg PO HS [facility] Last Admin: 04/18/20 20:19 Dose: 20 mg Documented by: Cholecalciferol (Cholecalciferol 1,000 Unit Tab) 5,000 unit PO DAILY [facility] Last Admin: 04/19/20 06:42 Dose: 5,000 unit Documented by: Clopidogrel Bisulfate (Clopidogrel 75 Mg Tab) 75 mg PO DAILY [facility] Last Admin: 04/19/20 06:41 Dose: 75 mg Documented by: Ezetimibe (Ezetimibe 10 Mg Tab) 10 mg PO DAILY [facility] Last Admin: 04/19/20 06:42 Dose: 10 mg Documented by: Furosemide (Furosemide 10 Mg/Ml 4 Ml Vial) 40 mg IV Q12HR [facility] Last Admin: 04/19/20 13:16 Dose: 40 mg Documented by: Hydralazine HCl (Hydralazine Hcl 25 Mg Tab) 25 mg PO TID [facility] Last Admin: 04/19/20 13:35 Dose: 25 mg Documented by: Ampicillin Sodium/Sulbactam (Sodium 1.5 gm/ Sodium Chloride) 50 mls @ 100 mls/hr IVPB Q12H [facility] Last Admin: 04/19/20 13:35 Dose: 100 mls/hr Documented by: Insulin Aspart (Insulin Aspart (Novolog) 100 Unit/Ml Vial) 20 unit SQ AC-TID [facility] Last Admin: 04/19/20 17:26 Dose: 20 unit Documented by: Insulin Aspart (Insulin Aspart (Novolog) 100 Unit/Ml Vial) 0 unit SQ ACHS [facility]; Protocol Last Admin: 04/19/20 17:26 Dose: 2 unit Documented by: Insulin Detemir (Insulin Detemir (Levemir) 100 Unit/Ml Syr) 45 unit SQ BID@0700,2100 [facility] Last Admin: 04/19/20 06:35 Dose: Not Given Documented by: Levothyroxine Sodium (Levothyroxine 100 Mcg Tab) 100 mcg PO DAILY@0630 [facility] Last Admin: 04/19/20 06:42 Dose: 100 mcg Documented by: Metoclopramide HCl (Metoclopramide 10 Mg Tab) 10 mg PO QID [facility] Last Admin: 04/19/20 17:26 Dose: 10 mg Documented by: Metoprolol Tartrate (Metoprolol Tartrate 50 Mg Tab) 100 mg PO BID [facility] Last Admin: 04/19/20 06:42 Dose: 100 mg Documented by: Nitroglycerin (Nitroglycerin Sl Tabs 0.4 Mg Tab) 0.4 mg SUBLINGUAL Q5M PRN PRN Reason: Chest Pain Pantoprazole Sodium (Pantoprazole 40 Mg Tablet) 40 mg PO BID [facility] Last Admin: 04/19/20 06:42 Dose: 40 mg Documented by: Pravastatin Sodium (Pravastatin Sodium 40 Mg Tab) 40 mg PO DAILY [facility] Last Admin: 04/19/20 06:42 Dose: 40 mg Documented by: Ranolazine (Ranolazine 500 Mg Tab.Er.12h) 500 mg PO BID [facility] Last Admin: 04/19/20 06:41 Dose: 500 mg Documented by: Ropinirole HCl (Ropinirole Hcl 0.25 Mg Tab) 0.5 mg PO HS [facility] Last Admin: 04/18/20 20:19 Dose: 0.5 mg Documented by: Sodium Chloride (Sodium Chloride 0.9% Flush 10 Ml Syringe) 10 ml IV BID [facility] Last Admin: 04/19/20 13:55 Dose: Not Given Documented by: Physical examination: VITAL SIGNS: 98, 66, 18, 150/65, 97% on 4 L GENERAL: Propped up in bed, slightly short of breath. EYES: Pupils equal. Conjunctiva normal. NECK: JVD possibly raised masses not palpable. HEART: First and second heart sounds are normal; no edema. LUNGS: Respiratory rate increased; mild wheezing. ABDOMEN: Soft, nontender, liver spleen not palpable, no masses palpable. PSYCH: Alert and oriented x3; mood and affect aracelis MUSCULAR skeletal: Evidence of OA l. Evidence of cellulitis on the right foot dorsum. INVESTIGATIONS, reviewed in the clinical context: Sodium 128 potassium 5.9 bun 41 and creatinine 1.39 Previous testing White count 14.9 hemoglobin 11.3 platelets 324 sodium 128 potassium 5.8 bun 31 and creatinine 1.27 Lactic acid 2.1 Troponin I 0.094, 0.132 ProBNP 1950 COVID 19 PCR not detected EKG tracing personally reviewed by me-no sinus rhythm Chest x-ray film personally reviewed by me-cardiomegaly, interstitial edema CTA due to chest-bilateral moderate hazy obesity suggestive of pulmonary edema Doppler ultrasound negative for DVT in the right leg 2-D echocardiogram EF 55-60% Assessment: -Acute congestive heart exacerbation from diastolic dysfunction EF 55-60%-clinically improved-IV Lasix resumed by cartilage each day -Acute kidney injury with creatinine going from 1.27 up to 1.86, likely prerenal from diuresis- -Shortness of breath at combination of restrictive lung disease and paralyzed left diaphragm, patient is not using her CPAP as yet -Coronary artery disease by history of stent and bypass in 1999, -Troponin leak likely due to underlying CHF -Diabetes mellitus type 2 -Essential hypertension -Hyperlipidemia -Paralyzed left diaphragm -Morbid obesity BMI 47.1 -Hypothyroid -Primary osteoarthritis -Restless leg syndrome -Acute cellulitis right foot-IV Unasyn Plan: Nursing informed again to resume patient's CPAP. Follow electrolytes. Other medications to continue. Discussed with patient.
[2020-04-19 19:39] LABS: Potassium 5.6 mmol/L (3.5-5.1)
[2020-04-19 20:33] LABS: Glucose,Whole Blood 176 mg/dL (75-99)
[2020-04-19] MEDS: BACLOFEN 10 MG TAB PO SCH (21:31)
[2020-04-20] MEDS: AMPICILLIN-SULBACTAM 1.5 GM in SODIUM CHLORIDE 0.9% 50 ML IVPB SCH ×2 (01:25→12:25)
[2020-04-20] MEDS: ALPRAZolam 0.25 MG TAB PO PRN ×2 (01:28→09:22)
[2020-04-20] MEDS: LEVOTHYROXINE 100 MCG TAB PO SCH (06:28)
[2020-04-20 06:33] LABS: Glucose,Whole Blood 148 mg/dL (75-99)
[2020-04-20 06:56] LABS: Glucose,Whole Blood 156 mg/dL (75-99)
[2020-04-20] MEDS: INSULIN ASPART (NovoLOG) 100 UNIT/ML VIAL SQ SCH ×7 (07:01→23:04)
[2020-04-20] MEDS: INSULIN DETEMIR (LEVEMIR) 100 UNIT/ML SYR SQ SCH ×2 (07:01→21:08)
[2020-04-20] MEDS: IPRATROPIUM-ALBUTEROL 3 ML NEB INHALATION SCH ×4 (08:04→19:37)
[2020-04-20 08:11] LABS: Calcium 8.5 mg/dL (8.4-10.2); Magnesium 1.7 mg/dL (1.6-2.3); Potassium 4.8 mmol/L (3.5-5.1)
[2020-04-20] MEDS: ASPIRIN 81 MG PO SCH (09:22)
[2020-04-20] MEDS: CHOLECALCIFEROL 1,000 UNIT TAB PO SCH (09:22)
[2020-04-20] MEDS: PRAVASTATIN SODIUM 40 MG TAB PO SCH (09:22)
[2020-04-20] MEDS: CLOPIDOGREL 75 MG TAB PO SCH (09:22)
[2020-04-20] MEDS: RANOLAZINE 500 MG TAB.ER.12H PO SCH ×2 (09:22→21:07)
[2020-04-20] MEDS: hydrALAZINE HCL 25 MG TAB PO SCH ×3 (09:22→21:07)
[2020-04-20] MEDS: PANTOPRAZOLE 40 MG TABLET PO SCH ×2 (09:22→21:07)
[2020-04-20] MEDS: METOCLOPRAMIDE 10 MG TAB PO SCH ×4 (09:22→21:07)
[2020-04-20] MEDS: EZETIMIBE 10 MG TAB PO SCH (09:22)
[2020-04-20] MEDS: METOPROLOL TARTRATE 50 MG TAB PO SCH ×2 (09:23→21:07)
[2020-04-20] MEDS: ASCORBIC ACID 500 MG TAB PO SCH ×2 (09:23→21:07)
[2020-04-20] MEDS: FUROSEMIDE 10 MG/ML 4 ML VIAL IV SCH ×2 (09:23→21:06)
[2020-04-20 12:05] LABS: Glucose,Whole Blood 215 mg/dL (75-99)
--- NOTE | 2020-04-20 12:36 | P.PN ---
Subjective HISTORY OF PRESENTING ILLNESS This is a pleasant 69-year-old female past medical history significant for coronary artery disease status post PCI one year ago exact details unavailable, coronary artery bypass grafting, hypertension, diabetes mellitus, dyslipidemia and hypothyroidism. She follows in the office with Dr. Machuca. She is seen and examined resting comfortably in bed in no acute distress. She feels like her breathing is improving, but not back to normal. She is coughing and complaining of difficulty swallowing liquids. They cause her to cough and she feels they are getting caught in her throat. Blood pressure 138/70 heart rate 69 afebrile maintaining oxygen saturation on nasal cannula. Laboratory data reviewed, sodium 1:30, potassium 4.8, creatinine 1.18 and magnesium 1.7. Currently maintained on aspirin 81 mg daily, Plavix 75 mg daily, Zetia 10 mg daily, Lasix 40 mg IV twice a day, hydralazine 25 mg 3 times a day, pravastatin 40 mg daily and Ranexa 500 mg twice a day. PHYSICAL EXAMINATION CONSTITUTIONAL: No apparent distress. Morbidly obese. HEENT: Head is normocephalic. Pupils are equal, round. Sclerae anicteric. Mucous membranes of the mouth are moist. No JVD. No carotid bruit. CHEST EXAMINATION: Expiratory wheezes. No rales or rhonchi. No chest wall tenderness is noted on palpation or with deep breathing. HEART EXAMINATION: Regular rate and rhythm. S1, S2 heard. No murmurs, gallops or rub. EXTREMITIES: 2+ peripheral pulses, right lower extremity erythema and no edema bilaterally. No calf tenderness. ASSESSMENT Acute on chronic diastolic heart failure Elevated troponin, likely secondary to hypoxia. We will check another level to trend. Leukocytosis Cellulitis Hyponatremia, improved Hyperkalemia Coronary artery disease status post PCI one year ago maintained on dual antiplatelet therapy, exact details unavailable with previous bypass grafting Hypertension Dyslipidemia Diabetes mellitus Morbid obesity, BMI 47 PLAN Continue IV diuresis. Repeat BMP in the morning. Bedside swallow evaluation. Further recommendations to follow based on clinical course. Nurse Practitioner note has been reviewed, I agree with a documented findings and plan of care. Patient was seen and examined. Objective - Vital Signs Vital signs: Vital Signs Temp 97.8 F 04/20/20 08:30 Pulse 69 04/20/20 08:30 Resp 18 04/20/20 08:30 BP 138/70 04/20/20 08:30 Pulse Ox 97 04/20/20 08:30 Intake & Output 04/19/20 04/20/20 04/20/20 18:59 06:59 18:59 Intake Total 490 240 Output Total 1600 Balance -1110 240 Weight 105.7 kg Intake: Oral 490 240 Output: Urine 1600 Other: # Voids 850 # Bowel Movements 1 - Labs CBC & Chem 7: 04/18/20 06:13 04/20/20 07:28 Labs: Abnormal Lab Results - Last 24 Hours (Table) 04/19/20 04/19/20 04/19/20 Range/Units 17:20 17:54 17:58 Sodium 127 L (137-145) mmol/L Potassium 5.6 H 5.6 H (3.5-5.1) mmol/L Chloride 87 L (98-107) mmol/L Carbon Dioxide 31 H (22-30) mmol/L BUN 42 H (7-17) mg/dL Creatinine 1.36 H (0.52-1.04) mg/dL Glucose 170 H (74-99) mg/dL POC Glucose (mg/dL) 178 H (75-99) mg/dL 04/19/20 04/19/20 04/20/20 Range/Units 20:32 23:53 06:22 Sodium (137-145) mmol/L Potassium 5.3 H (3.5-5.1) mmol/L Chloride (98-107) mmol/L Carbon Dioxide (22-30) mmol/L BUN (7-17) mg/dL Creatinine (0.52-1.04) mg/dL Glucose (74-99) mg/dL POC Glucose (mg/dL) 176 H 148 H (75-99) mg/dL 04/20/20 04/20/20 04/20/20 Range/Units 06:53 07:28 12:04 Sodium 130 L (137-145) mmol/L Potassium (3.5-5.1) mmol/L Chloride 88 L (98-107) mmol/L Carbon Dioxide 35 H (22-30) mmol/L BUN 36 H (7-17) mg/dL Creatinine 1.18 H (0.52-1.04) mg/dL Glucose 184 H (74-99) mg/dL POC Glucose (mg/dL) 156 H 215 H (75-99) mg/dL Microbiology - Last 24 Hours (Table) 04/15/20 16:20 Blood Culture - Preliminary Blood No Growth after 96 hours
--- NOTE | 2020-04-20 14:19 | P.PN ---
Subjective Patient is seen in follow-up for acute kidney injury. Feels better today. No active chest pain or shortness or breath. Cardiac catheterization is currently on hold. Nonoliguric. Maintaned on IV lasix. Vital signs are stable. General: The patient appeared well nourished and normally developed. HEENT: Head exam is unremarkable. Neck is without jugular venous distension. LUNGS: Breath sounds decreased. HEART: Rate and Rhythm are regular. ABDOMEN: Soft, nontender. Obese. EXTREMITITES: 1+ edema. Objective - Vital Signs Vital signs: Vital Signs Temp 97.8 F 04/20/20 08:30 Pulse 69 04/20/20 08:30 Resp 18 04/20/20 08:30 BP 138/70 04/20/20 08:30 Pulse Ox 97 04/20/20 08:30 Intake & Output 04/19/20 04/20/20 04/20/20 18:59 06:59 18:59 Intake Total 490 240 Output Total 1600 Balance -1110 240 Weight 105.7 kg Intake: Oral 490 240 Output: Urine 1600 Other: Voiding Method Incontinent # Voids 850 # Bowel Movements 1 - Labs CBC & Chem 7: 04/18/20 06:13 04/20/20 07:28 Labs: Abnormal Lab Results - Last 24 Hours (Table) 04/19/20 04/19/20 04/19/20 Range/Units 17:20 17:54 17:58 Sodium 127 L (137-145) mmol/L Potassium 5.6 H 5.6 H (3.5-5.1) mmol/L Chloride 87 L (98-107) mmol/L Carbon Dioxide 31 H (22-30) mmol/L BUN 42 H (7-17) mg/dL Creatinine 1.36 H (0.52-1.04) mg/dL Glucose 170 H (74-99) mg/dL POC Glucose (mg/dL) 178 H (75-99) mg/dL 04/19/20 04/19/20 04/20/20 Range/Units 20:32 23:53 06:22 Sodium (137-145) mmol/L Potassium 5.3 H (3.5-5.1) mmol/L Chloride (98-107) mmol/L Carbon Dioxide (22-30) mmol/L BUN (7-17) mg/dL Creatinine (0.52-1.04) mg/dL Glucose (74-99) mg/dL POC Glucose (mg/dL) 176 H 148 H (75-99) mg/dL 04/20/20 04/20/20 04/20/20 Range/Units 06:53 07:28 12:04 Sodium 130 L (137-145) mmol/L Potassium (3.5-5.1) mmol/L Chloride 88 L (98-107) mmol/L Carbon Dioxide 35 H (22-30) mmol/L BUN 36 H (7-17) mg/dL Creatinine 1.18 H (0.52-1.04) mg/dL Glucose 184 H (74-99) mg/dL POC Glucose (mg/dL) 156 H 215 H (75-99) mg/dL Microbiology - Last 24 Hours (Table) 04/15/20 16:20 Blood Culture - Preliminary Blood No Growth after 96 hours Assessment and Plan Plan: Assessment: 1. Acute kidney injury mostly prerenal secondary to cardiorenal syndrome as well as component of contrast-induced acute kidney injury. Patient received IV contrast on April 15. Creatinine peaked at 1.86 this admission and is 1.18 today. Unknown baseline renal function. UA benign. No hydronephrosis noted on kidney ultrasound. 2. Hypervolemic hyponatremia. Better. 3. Acute on chronic diastolic CHF. 4. Insulin-dependent diabetes mellitus. 5. History of coronary artery disease. 6. Elevated troponin. Cardiology following. s/p heparin drip. Cardiac catheterization pending. 7. Volume overload. 8. Hyperkalemia secondary to acute kidney injury no evidence of metabolic acidosis or significant hyperglycemia. Better with medical management. Plan: Maintain IV Lasix 40 mg twice daily. 1200 mL fluid restriction. Encourage oral intake, particularly protein. Continue to monitor renal function and urine output.
--- NOTE | 2020-04-20 14:29 | P.PN ---
Subjective Progress Note Date: 04/20/20 Principal diagnosis: This is a 69-year-old female patient with known history of coronary artery disease, previous bypass surgery in addition to history of hypertension diabetes mellitus and hyperlipidemia and hypothyroidism. The patient came into the hospital on 04/15/2020 for worsening shortness of breath. Apparently she was being treated for right lower extremity cellulitis and she was being given outpatient antibiotics for the past 10 days. Around a week ago, she started having increased shortness of breath. Pulmonary of admission, she also noticed some chest tightness in the midsternal area for that reason the patient contacted EMS and she was brought into the hospital. She has orthopnea. No paroxysmal nocturnal dyspnea. No significant cough or sputum production. Her last cardiac intervention was done on 04/04/2019 at [facility] in [place] and the patient had a coronary stent placed back then. She has been maintained on dual antiplatelet agents. Her echocardiogram showed a preserved LV function with an ejection fraction of 55-60%. During this current admission, the patient had an EKG that showed some inferior Q waves, the chest x-ray showed interstitial edema and the Doppler of the lower extremity was essentially negative. White cell count is at 10.6 with a hemoglobin of 10.5. The d-dimer was at 1.6. Initial creatinine was 1.27 with a troponin of 0.09 and a proBNP level of 1950. The patient was diagnosed having CHF with diastolic heart failure. The patient also had some elevated troponins that was attributed to underlying hypoxemia. CT angios done that was done on 04/15/2020 showed no evidence of any pulmonary embolism and there was hazy pulmonary infiltrates consistent with pulmonary edema. The hawkins virus Covid 19 screening was negative. The patient was placed on IV heparin. The patient was placed on IV Lasix 40 mg every 12 hours. The patient was also placed on IV Unasyn is a empiric antibiotic coverage. She is on a combination of aspirin. She is also on Plavix. She is taking Ranexa. She is on Levemir insulin 50 units twice a day regarding her blood sugar control in addition to 20 units of NovoLog with me als. At this point in time, the patient is on 6 L of oxygen by nasal cannula with a pulse ox of 97%. The patient is seen today 04/18/2020 and follow-up on the selective care unit. She is currently sitting up in bed. Awake and alert in no acute distress. She is breathing a bit easier today compared to yesterday. Still with crackles in the posterior bases. Still with some end expiratory wheeze bilaterally. Currently maintaining O2 saturations in the 90s on 6 L high flow nasal cannula. She's afebrile. Blood cultures reveal no growth. White count 8.8. Hemoglobin 10.5. INR 0.9. Sodium 127. Potassium 5.2. Bicarb 31. BUN 48. Creatinine 1.58. She remains on oral diuretics. Remains on bronchodilators. Antibiotics in the form of Unasyn. Remains on a heparin drip. The patient is seen today 04/19/2020 follow-up selective care unit. She is currently sitting up in a chair at the bedside. Awake and alert in no acute distress. Still quite is still quite short of breath with minimal exertion. Some end expiratory wheeze continues. Cardiac catheterization canceled for today. Blood culture reveals no growth. Sodium 128. Potassium 5.9. Chloride 88. Bicarb 37. Creatinine 1.39. She remains on DuoNeb inhalations. Lasix 40 mg IV every 12 hours. Antibiotics in the form of Unasyn for her lower extremity cellulitis. Patient is seen today 04/20/2020 in follow-up on the selective care unit. She is currently resting quite flat in bed. She is on 2 L/m per nasal cannula. She is using her home CPAP at 10 cm of water. She's been quite compliant. No worsening shortness of breath, cough or congestion. She's been afebrile. Sodium 130. Potassium 4.8. Creatinine 1.18. She remains on Lasix 40 mg IV every 12 hours. Continued on bronchodilators. Less bronchospastic and wheezy today. Objective - Vital Signs Vital signs: Vital Signs Temp 97.8 F 04/20/20 08:30 Pulse 69 04/20/20 08:30 Resp 18 04/20/20 08:30 BP 138/70 04/20/20 08:30 Pulse Ox 97 04/20/20 08:30 Intake & Output 04/19/20 04/20/20 04/20/20 18:59 06:59 18:59 Intake Total 490 240 Output Total 1600 Balance -1110 240 Weight 105.7 kg Intake: Oral 490 240 Output: Urine 1600 Other: Voiding Method Incontinent # Voids 850 # Bowel Movements 1 - Exam Gen. appearance this is a very pleasant obese 69-year-old female patient, resting flat in bed, on 2 L nasal cannula, comfortable in no acute distress CONSTITUTIONAL: No apparent distress. Morbidly obese. Head exam was generally normal. There was no scleral icterus or corneal arcus. Mucous membranes were moist. HEENT: Head is normocephalic. Pupils are equal, round. Sclerae anicteric. Mucous membranes of the mouth are moist. No JVD. No carotid bruit. CHEST EXAMINATION: Bibasilar rales. End expiratory wheeze. No chest wall tenderness is noted on palpation or with deep breathing. HEART EXAMINATION: Regular rate and rhythm. S1, S2 heard. No murmurs, gallops or rub. ABDOMEN: Soft, nontender. Positive bowel sounds. EXTREMITIES: 2+ peripheral pulses, right lower extremity erythema and 1+ pitting edema bilaterally. No calf tenderness. NEUROLOGIC EXAMINATION: Patient is awake, alert and oriented x3. - Labs CBC & Chem 7: 04/18/20 06:13 04/20/20 07:28 Labs: Abnormal Lab Results - Last 24 Hours (Table) 04/19/20 04/19/20 04/19/20 Range/Units 17:20 17:54 17:58 Sodium 127 L (137-145) mmol/L Potassium 5.6 H 5.6 H (3.5-5.1) mmol/L Chloride 87 L (98-107) mmol/L Carbon Dioxide 31 H (22-30) mmol/L BUN 42 H (7-17) mg/dL Creatinine 1.36 H (0.52-1.04) mg/dL Glucose 170 H (74-99) mg/dL POC Glucose (mg/dL) 178 H (75-99) mg/dL 04/19/20 04/19/20 04/20/20 Range/Units 20:32 23:53 06:22 Sodium (137-145) mmol/L Potassium 5.3 H (3.5-5.1) mmol/L Chloride (98-107) mmol/L Carbon Dioxide (22-30) mmol/L BUN (7-17) mg/dL Creatinine (0.52-1.04) mg/dL Glucose (74-99) mg/dL POC Glucose (mg/dL) 176 H 148 H (75-99) mg/dL 04/20/20 04/20/20 04/20/20 Range/Units 06:53 07:28 12:04 Sodium 130 L (137-145) mmol/L Potassium (3.5-5.1) mmol/L Chloride 88 L (98-107) mmol/L Carbon Dioxide 35 H (22-30) mmol/L BUN 36 H (7-17) mg/dL Creatinine 1.18 H (0.52-1.04) mg/dL Glucose 184 H (74-99) mg/dL POC Glucose (mg/dL) 156 H 215 H (75-99) mg/dL Microbiology - Last 24 Hours (Table) 04/15/20 16:20 Blood Culture - Preliminary Blood No Growth after 96 hours Assessment and Plan Assessment: 1 acute on chronic hypoxemic respiratory failure secondary to acute on chronic diastolic heart failure with secondary pulmonary edema. CT angiogram of the chest was reviewed and the patient has interstitial edema most likely secondary to CHF. Hawkins virus Covid 19 testing was negative. No clear evidence of any acute pneumonia at this point in time. The patient is a preserved LV function with an ejection fraction of 55-60% 2 acute kidney injury, rule out contrast nephropathy 3 coronary artery disease with previous two-vessel bypass surgery. The patient has also undergone previous PCI and stenting 4 troponin leak, considering an acute non-STEMI Versus secondary to hypoxemia 5 cellulitis of the right lower extremity currently on IV Unasyn, improving clinically 6 hypertension 7 hyperlipidemia 8 diabetes mellitus 9 morbid obesity with a BMI of 47 8 hypothyroidism 10 obstructive sleep apnea maintained on CPAP therapy on outpatient basis 11 chronic left hemidiaphragmatic elevation, possible pleurodesis post-bypass surgery plan The patient was seen and evaluated by Dr. Downs Less short of breath today Down to 2 L nasal cannula Continued on IV diuretics Continue bronchodilators Titrate down the FiO2 as tolerated Remains on Unasyn for lower extremity cellulitis We'll continue to follow I, the cosigning physician, performed a history & physical examination of the patient. Lungs sounds with bibasilar rales. Maintaining good O2 saturations in the 90s on 2 L high flow nasal cannula. I discussed the assessment and plan of care with my nurse practitioner, Torie Shi. I attest to the above note as dictated by her.
[2020-04-20 17:03] LABS: Glucose,Whole Blood 134 mg/dL (75-99)
--- NOTE | 2020-04-20 20:13 | P.PN ---
Progress Note - Text Progress Note Date: 04/20/20 Chief Complaint: Short of breath History of presenting complaint: This is a pleasant 69-year-old patient of Dr. Everardo Richmond. Chronic stable medical conditions include coronary artery disease with stent and bypass in October 1999, diabetes, hypertension, hyperlipidemia, left paralyzed diaphragm. Patient presents with 5 days of increasing shortness of breath. Slight cough. No sputum. No fever no chills. Some decrease in appetite. No edema. Bowels are okay. baseline uses a walker. Admitted with CHF exacerbation from diastolic dysfunction. Patient IV heparin. Troponin leak felt to be from CHF. Acute kidney injury from diuresis.- Temperature discontinued. Creatinine improved. Today-breathing better. Oral intake fair. Has been on IV Lasix.. Review of systems: Was done for constitutional, cardiovascular, GI, pulmonary. relevant finding as above Active Medications Acetaminophen (Acetaminophen Tab 500 Mg Tab) 500 mg PO Q4HR PRN PRN Reason: Fever and/ or Pain Albuterol/Ipratropium (Ipratropium-Albuterol 3 Ml Neb) 3 ml INHALATION RT-QID [facility] Last Admin: 04/20/20 19:37 Dose: 3 ml Documented by: Albuterol/Ipratropium (Ipratropium-Albuterol 3 Ml Neb) 3 ml INHALATION RT-Q1H PRN PRN Reason: Shortness Of Breath Or Wheezing Alprazolam (Alprazolam 0.25 Mg Tab) 0.25 mg PO Q6HR PRN PRN Reason: Mild Anxiety Last Admin: 04/20/20 09:22 Dose: 0.25 mg Documented by: Alprazolam (Alprazolam 0.5 Mg Tab) 0.5 mg PO Q6HR PRN PRN Reason: Moderate Anxiety Ascorbic Acid (Ascorbic Acid 500 Mg Tab) 1,000 mg PO BID [facility] Last Admin: 04/20/20 09:23 Dose: 1,000 mg Documented by: Aspirin (Aspirin 81 Mg) 81 mg PO DAILY [facility] Last Admin: 04/20/20 09:22 Dose: 81 mg Documented by: Baclofen (Baclofen 10 Mg Tab) 20 mg PO HS [facility] Last Admin: 04/19/20 21:31 Dose: 20 mg Documented by: Cholecalciferol (Cholecalciferol 1,000 Unit Tab) 5,000 unit PO DAILY [facility] Last Admin: 04/20/20 09:22 Dose: 5,000 unit Documented by: Clopidogrel Bisulfate (Clopidogrel 75 Mg Tab) 75 mg PO DAILY [facility] Last Admin: 04/20/20 09:22 Dose: 75 mg Documented by: Ezetimibe (Ezetimibe 10 Mg Tab) 10 mg PO DAILY [facility] Last Admin: 04/20/20 09:22 Dose: 10 mg Documented by: Furosemide (Furosemide 10 Mg/Ml 4 Ml Vial) 40 mg IV Q12HR [facility] Last Admin: 04/20/20 09:23 Dose: 40 mg Documented by: Hydralazine HCl (Hydralazine Hcl 25 Mg Tab) 25 mg PO TID [facility] Last Admin: 04/20/20 17:01 Dose: 25 mg Documented by: Ampicillin Sodium/Sulbactam (Sodium 1.5 gm/ Sodium Chloride) 50 mls @ 100 mls/hr IVPB Q6HR [facility] Insulin Aspart (Insulin Aspart (Novolog) 100 Unit/Ml Vial) 20 unit SQ AC-TID [facility] Last Admin: 04/20/20 17:01 Dose: 20 unit Documented by: Insulin Aspart (Insulin Aspart (Novolog) 100 Unit/Ml Vial) 0 unit SQ ACHS [facility]; Protocol Last Admin: 04/20/20 17:02 Dose: 1 unit Documented by: Insulin Detemir (Insulin Detemir (Levemir) 100 Unit/Ml Syr) 45 unit SQ BID@0700,2100 [facility] Last Admin: 04/20/20 07:01 Dose: 45 unit Documented by: Levothyroxine Sodium (Levothyroxine 100 Mcg Tab) 100 mcg PO DAILY@0630 [facility] Last Admin: 04/20/20 06:28 Dose: 100 mcg Documented by: Metoclopramide HCl (Metoclopramide 10 Mg Tab) 10 mg PO QID [facility] Last Admin: 04/20/20 17:01 Dose: 10 mg Documented by: Metoprolol Tartrate (Metoprolol Tartrate 50 Mg Tab) 100 mg PO BID [facility] Last Admin: 04/20/20 09:23 Dose: 100 mg Documented by: Nitroglycerin (Nitroglycerin Sl Tabs 0.4 Mg Tab) 0.4 mg SUBLINGUAL Q5M PRN PRN Reason: Chest Pain Pantoprazole Sodium (Pantoprazole 40 Mg Tablet) 40 mg PO BID [facility] Last Admin: 04/20/20 09:22 Dose: 40 mg Documented by: Pravastatin Sodium (Pravastatin Sodium 40 Mg Tab) 40 mg PO DAILY [facility] Last Admin: 04/20/20 09:22 Dose: 40 mg Documented by: Ranolazine (Ranolazine 500 Mg Tab.Er.12h) 500 mg PO BID [facility] Last Admin: 04/20/20 09:22 Dose: 500 mg Documented by: Ropinirole HCl (Ropinirole Hcl 0.25 Mg Tab) 0.5 mg PO HS [facility] Last Admin: 04/19/20 21:30 Dose: 0.5 mg Documented by: Sodium Chloride (Sodium Chloride 0.9% Flush 10 Ml Syringe) 10 ml IV BID [facility] Last Admin: 04/20/20 09:57 Dose: 10 ml Documented by: Physical examination: VITAL SIGNS: 97.8, 69, 18, 138/70, 97% on 2 L GENERAL: Sitting up, less short of breath EYES: Pupils equal. Conjunctiva normal. NECK: JVD possibly raised masses not palpable. HEART: First and second heart sounds are normal; no edema. LUNGS: Respiratory rate increased; few basal crackles. ABDOMEN: Soft, nontender, liver spleen not palpable, no masses palpable. PSYCH: Alert and oriented x3; mood and affect normal MUSCULAR skeletal: Evidence of OA Evidence of cellulitis on the right foot dorsum. INVESTIGATIONS, reviewed in the clinical context: Sodium 1:30 bun 36 creatinine 1.18 bicarbonate 35 Previous testing White count 14.9 hemoglobin 11.3 platelets 324 sodium 128 potassium 5.8 bun 31 and creatinine 1.27 Lactic acid 2.1 Troponin I 0.094, 0.132 ProBNP 1950 COVID 19 PCR not detected EKG tracing personally reviewed by me-no sinus rhythm Chest x-ray film personally reviewed by me-cardiomegaly, interstitial edema CTA due to chest-bilateral moderate hazy obesity suggestive of pulmonary edema Doppler ultrasound negative for DVT in the right leg 2-D echocardiogram EF 55-60% Assessment: -Acute congestive heart exacerbation from diastolic dysfunction EF 55-60%-slowly improving -Acute kidney injury with creatinine going from 1.27 up to 1.86, likely prerenal from diuresis-temporarily held. Creatinine now down to 1.18 -Shortness of breath at combination of restrictive lung disease and paralyzed left diaphragm, -Coronary artery disease by history of stent and bypass in 1999, -Troponin leak likely due to underlying CHF -Diabetes mellitus type 2 -Essential hypertension -Hyperlipidemia -Paralyzed left diaphragm -Morbid obesity BMI 47.1 -Hypothyroid -Primary osteoarthritis -Restless leg syndrome -Acute cellulitis right foot-IV Unasyn Plan: Continue patient IV Lasix. IV Unasyn. Other medications to continue. Close eye on the electrolytes
[2020-04-20 20:24] LABS: Glucose,Whole Blood 100 mg/dL (75-99)
[2020-04-20] MEDS: BACLOFEN 10 MG TAB PO SCH (21:07)
[2020-04-21] MEDS: ALPRAZolam 0.25 MG TAB PO PRN ×2 (00:01→21:58)
[2020-04-21] MEDS: AMPICILLIN-SULBACTAM 1.5 GM in SODIUM CHLORIDE 0.9% 50 ML IVPB SCH ×4 (00:01→17:17)
[2020-04-21] MEDS: ACETAMINOPHEN TAB 500 MG TAB PO PRN ×2 (04:05→21:59)
[2020-04-21] MEDS: LEVOTHYROXINE 100 MCG TAB PO SCH (06:02)
[2020-04-21 07:05] LABS: Glucose,Whole Blood 132 mg/dL (75-99)
[2020-04-21] MEDS: METOPROLOL TARTRATE 50 MG TAB PO SCH ×2 (07:47→22:00)
[2020-04-21] MEDS: PANTOPRAZOLE 40 MG TABLET PO SCH ×2 (07:47→22:00)
[2020-04-21] MEDS: CHOLECALCIFEROL 1,000 UNIT TAB PO SCH (07:47)
[2020-04-21] MEDS: EZETIMIBE 10 MG TAB PO SCH (07:48)
[2020-04-21] MEDS: PRAVASTATIN SODIUM 40 MG TAB PO SCH (07:48)
[2020-04-21] MEDS: ASPIRIN 81 MG PO SCH (07:48)
[2020-04-21] MEDS: hydrALAZINE HCL 25 MG TAB PO SCH ×3 (07:48→21:59)
[2020-04-21] MEDS: RANOLAZINE 500 MG TAB.ER.12H PO SCH ×2 (07:48→21:59)
[2020-04-21] MEDS: CLOPIDOGREL 75 MG TAB PO SCH (07:48)
[2020-04-21] MEDS: METOCLOPRAMIDE 10 MG TAB PO SCH ×4 (07:48→22:00)
[2020-04-21] MEDS: ASCORBIC ACID 500 MG TAB PO SCH ×2 (07:49→21:59)
[2020-04-21] MEDS: INSULIN ASPART (NovoLOG) 100 UNIT/ML VIAL SQ SCH ×7 (07:49→21:58)
[2020-04-21] MEDS: INSULIN DETEMIR (LEVEMIR) 100 UNIT/ML SYR SQ SCH ×2 (07:49→21:58)
[2020-04-21 08:00] LABS: Calcium 8.7 mg/dL (8.4-10.2); Magnesium 1.8 mg/dL (1.6-2.3)
[2020-04-21] MEDS: IPRATROPIUM-ALBUTEROL 3 ML NEB INHALATION SCH ×4 (08:44→19:54)
[2020-04-21] MEDS: FUROSEMIDE 10 MG/ML 4 ML VIAL IV SCH (10:54)
--- NOTE | 2020-04-21 11:47 | P.PN ---
Subjective HISTORY OF PRESENTING ILLNESS This is a pleasant 69-year-old female past medical history significant for coronary artery disease status post PCI one year ago exact details unavailable, coronary artery bypass grafting, hypertension, diabetes mellitus, dyslipidemia and hypothyroidism. She follows in the office with Dr. Machuca. She is seen and examined sleeping comfortably in bed. She states her breathing is improving, but not entirely back to baseline. She denies chest pain, dizziness or palpitations. Blood pressure 177/71 heart rate 82 afebrile maintaining oxygen saturation on nasal cannula. Laboratory data reviewed, sodium 131, potassium 5.0, creatinine 1.2 and magnesium 1.8. She continues to maintain a negative fluid balance and her weight is down 6 kg since admission. PHYSICAL EXAMINATION CONSTITUTIONAL: No apparent distress. Morbidly obese. HEENT: Head is normocephalic. Pupils are equal, round. Sclerae anicteric. Mucous membranes of the mouth are moist. No JVD. No carotid bruit. CHEST EXAMINATION: Expiratory wheezes. No rales or rhonchi. No chest wall tenderness is noted on palpation or with deep breathing. HEART EXAMINATION: Regular rate and rhythm. S1, S2 heard. No murmurs, gallops or rub. EXTREMITIES: 2+ peripheral pulses, right lower extremity erythema and no edema bilaterally. No calf tenderness. ASSESSMENT Acute on chronic diastolic heart failure Elevated troponin, likely secondary to hypoxia. We will check another level to trend. Leukocytosis Cellulitis Hyponatremia, improved Hyperkalemia Coronary artery disease status post PCI one year ago maintained on dual antiplatelet therapy, exact details unavailable with previous bypass grafting Hypertension Dyslipidemia Diabetes mellitus Morbid obesity, BMI 47 PLAN Transition to oral diuretics, lasix 40 mg in the morning and 20 mg in the aftern oon. We recommend outpatient cardiac catheterization with either Dr. Machuca or here in town with Dr. Prieto, whichever the patient would prefer. Nurse Practitioner note has been reviewed, I agree with a documented findings and plan of care. Patient was seen and examined. Objective - Vital Signs Vital signs: Vital Signs Temp 97.8 F 04/21/20 08:00 Pulse 82 04/21/20 08:54 Resp 18 04/21/20 08:00 BP 177/71 04/21/20 08:00 Pulse Ox 99 04/21/20 08:00 Intake & Output 04/20/20 04/21/20 04/21/20 18:59 06:59 18:59 Intake Total 720 360 Output Total 900 1450 200 Balance -180 -1450 160 Weight 103.6 kg Intake: Oral 720 360 Output: Urine 900 1450 200 Other: Voiding Method Diaper Incontinent # Voids 2 - Labs CBC & Chem 7: 04/18/20 06:13 04/21/20 07:08 Labs: Abnormal Lab Results - Last 24 Hours (Table) 04/20/20 04/20/20 04/20/20 Range/Units 12:04 16:58 20:22 Sodium (137-145) mmol/L Chloride (98-107) mmol/L Carbon Dioxide (22-30) mmol/L BUN (7-17) mg/dL Creatinine (0.52-1.04) mg/dL Glucose (74-99) mg/dL POC Glucose (mg/dL) 215 H 134 H 100 H (75-99) mg/dL 04/21/20 04/21/20 Range/Units 07:04 07:08 Sodium 131 L (137-145) mmol/L Chloride 88 L (98-107) mmol/L Carbon Dioxide 37 H (22-30) mmol/L BUN 38 H (7-17) mg/dL Creatinine 1.20 H (0.52-1.04) mg/dL Glucose 132 H (74-99) mg/dL POC Glucose (mg/dL) 132 H (75-99) mg/dL Microbiology - Last 24 Hours (Table) 04/15/20 16:20 Blood Culture - Preliminary Blood No Growth after 120 hours
[2020-04-21 11:56] LABS: Glucose,Whole Blood 186 mg/dL (75-99)
--- NOTE | 2020-04-21 12:58 | P.PN ---
Subjective Patient is seen in follow-up for acute kidney injury. Doing well. No active chest pain or shortness or breath. Cardiac catheterization is currently on hold. Nonoliguric. Maintaned on IV lasix. Vital signs are stable. General: The patient appeared well nourished and normally developed. HEENT: Head exam is unremarkable. Neck is without jugular venous distension. LUNGS: Breath sounds decreased. HEART: Rate and Rhythm are regular. ABDOMEN: Soft, nontender. Obese. EXTREMITITES: 1+ edema. Objective - Vital Signs Vital signs: Vital Signs Temp 97.8 F 04/21/20 08:00 Pulse 82 04/21/20 08:54 Resp 18 04/21/20 08:00 BP 177/71 04/21/20 08:00 Pulse Ox 99 04/21/20 08:00 Intake & Output 04/20/20 04/21/20 04/21/20 18:59 06:59 18:59 Intake Total 720 360 Output Total 900 1450 200 Balance -180 -1450 160 Weight 103.6 kg Intake: Oral 720 360 Output: Urine 900 1450 200 Other: Voiding Method Diaper Incontinent # Voids 2 - Labs CBC & Chem 7: 04/18/20 06:13 04/21/20 07:08 Labs: Abnormal Lab Results - Last 24 Hours (Table) 04/20/20 04/20/20 04/21/20 Range/Units 16:58 20:22 07:04 Sodium (137-145) mmol/L Chloride (98-107) mmol/L Carbon Dioxide (22-30) mmol/L BUN (7-17) mg/dL Creatinine (0.52-1.04) mg/dL Glucose (74-99) mg/dL POC Glucose (mg/dL) 134 H 100 H 132 H (75-99) mg/dL 04/21/20 04/21/20 Range/Units 07:08 11:55 Sodium 131 L (137-145) mmol/L Chloride 88 L (98-107) mmol/L Carbon Dioxide 37 H (22-30) mmol/L BUN 38 H (7-17) mg/dL Creatinine 1.20 H (0.52-1.04) mg/dL Glucose 132 H (74-99) mg/dL POC Glucose (mg/dL) 186 H (75-99) mg/dL Microbiology - Last 24 Hours (Table) 04/15/20 16:20 Blood Culture - Preliminary Blood No Growth after 120 hours Assessment and Plan Plan: Assessment: 1. Acute kidney injury mostly prerenal secondary to cardiorenal syndrome as well as component of contrast-induced acute kidney injury. Patient received IV contrast on April 15. Creatinine peaked at 1.86 this admission and is 1.2 today. Unknown baseline renal function. UA benign. No hydronephrosis noted on kidney ultrasound. 2. Hypervolemic hyponatremia. Better. 3. Acute on chronic diastolic CHF. 4. Insulin-dependent diabetes mellitus. 5. History of coronary artery disease. 6. Elevated troponin. Cardiology following. s/p heparin drip. Cardiac catheterization pending. 7. Volume overload. Improving with diuresis. 8. Hyperkalemia secondary to acute kidney injury; no evidence of metabolic acidosis or significant hyperglycemia. Better with medical management. Plan: Patient changed over to oral Lasix this morning. I advised patient to maintain a fluid restriction of less than 40 ounces per day. Encourage oral intake, particularly protein. Continue to monitor renal function and urine output.
[2020-04-21] MEDS: FUROSEMIDE 20 MG TAB PO SCH (14:08)
[2020-04-21] MEDS: DICLOFENAC SODIUM GEL 100 GM TUBE TOPICAL SCH ×3 (14:09→22:06)
--- NOTE | 2020-04-21 14:18 | P.PN ---
Subjective Progress Note Date: 04/21/20 Principal diagnosis: This is a 69-year-old female patient with known history of coronary artery disease, previous bypass surgery in addition to history of hypertension diabetes mellitus and hyperlipidemia and hypothyroidism. The patient came into the hospital on 04/15/2020 for worsening shortness of breath. Apparently she was being treated for right lower extremity cellulitis and she was being given outpatient antibiotics for the past 10 days. Around a week ago, she started having increased shortness of breath. Pulmonary of admission, she also noticed some chest tightness in the midsternal area for that reason the patient contacted EMS and she was brought into the hospital. She has orthopnea. No paroxysmal nocturnal dyspnea. No significant cough or sputum production. Her last cardiac intervention was done on 04/04/2019 at [facility] in [place] and the patient had a coronary stent placed back then. She has been maintained on dual antiplatelet agents. Her echocardiogram showed a preserved LV function with an ejection fraction of 55-60%. During this current admission, the patient had an EKG that showed some inferior Q waves, the chest x-ray showed interstitial edema and the Doppler of the lower extremity was essentially negative. White cell count is at 10.6 with a hemoglobin of 10.5. The d-dimer was at 1.6. Initial creatinine was 1.27 with a troponin of 0.09 and a proBNP level of 1950. The patient was diagnosed having CHF with diastolic heart failure. The patient also had some elevated troponins that was attributed to underlying hypoxemia. CT angios done that was done on 04/15/2020 showed no evidence of any pulmonary embolism and there was hazy pulmonary infiltrates consistent with pulmonary edema. The hawkins virus Covid 19 screening was negative. The patient was placed on IV heparin. The patient was placed on IV Lasix 40 mg every 12 hours. The patient was also placed on IV Unasyn is a empiric antibiotic coverage. She is on a combination of aspirin. She is also on Plavix. She is taking Ranexa. She is on Levemir insulin 50 units twice a day regarding her blood sugar control in addition to 20 units of NovoLog with me als. At this point in time, the patient is on 6 L of oxygen by nasal cannula with a pulse ox of 97%. The patient is seen today 04/18/2020 and follow-up on the selective care unit. She is currently sitting up in bed. Awake and alert in no acute distress. She is breathing a bit easier today compared to yesterday. Still with crackles in the posterior bases. Still with some end expiratory wheeze bilaterally. Currently maintaining O2 saturations in the 90s on 6 L high flow nasal cannula. She's afebrile. Blood cultures reveal no growth. White count 8.8. Hemoglobin 10.5. INR 0.9. Sodium 127. Potassium 5.2. Bicarb 31. BUN 48. Creatinine 1.58. She remains on oral diuretics. Remains on bronchodilators. Antibiotics in the form of Unasyn. Remains on a heparin drip. The patient is seen today 04/19/2020 follow-up selective care unit. She is currently sitting up in a chair at the bedside. Awake and alert in no acute distress. Still quite is still quite short of breath with minimal exertion. Some end expiratory wheeze continues. Cardiac catheterization canceled for today. Blood culture reveals no growth. Sodium 128. Potassium 5.9. Chloride 88. Bicarb 37. Creatinine 1.39. She remains on DuoNeb inhalations. Lasix 40 mg IV every 12 hours. Antibiotics in the form of Unasyn for her lower extremity cellulitis. Patient is seen today 04/20/2020 in follow-up on the selective care unit. She is currently resting quite flat in bed. She is on 2 L/m per nasal cannula. She is using her home CPAP at 10 cm of water. She's been quite compliant. No worsening shortness of breath, cough or congestion. She's been afebrile. Sodium 130. Potassium 4.8. Creatinine 1.18. She remains on Lasix 40 mg IV every 12 hours. Continued on bronchodilators. Less bronchospastic and wheezy today. The patient is seen today 04/21/2020 in follow-up on the selective care unit. She is currently resting comfortably in bed. Awake and alert in no acute distress. Less wheezing today. Maintaining O2 saturation in the high 90s on 2 L/m per nasal cannula. She's afebrile. Sodium 131. Potassium 5.0. Creatinine 1.20. Continued on Unasyn. Remains on bronchodilators. Converted to oral Lasix. Objective - Vital Signs Vital signs: Vital Signs Temp 97.8 F 04/21/20 08:00 Pulse 68 04/21/20 12:00 Resp 18 04/21/20 12:00 BP 135/73 04/21/20 12:00 Pulse Ox 96 04/21/20 12:00 Intake & Output 04/20/20 04/21/20 04/21/20 18:59 06:59 18:59 Intake Total 720 360 Output Total 900 1450 200 Balance -180 -1450 160 Weight 103.6 kg Intake: Oral 720 360 Output: Urine 900 1450 200 Other: Voiding Method Diaper Incontinent # Voids 2 - Exam Gen. appearance: this is a very pleasant obese 69-year-old female patient, resting in bed, on 2 L nasal cannula, comfortable in no acute distress CONSTITUTIONAL: No apparent distress. Morbidly obese. Head exam was generally normal. There was no scleral icterus or corneal arcus. Mucous membranes were moist. HEENT: Head is normocephalic. Pupils are equal, round. Sclerae anicteric. Mucous membranes of the mouth are moist. No JVD. No carotid bruit. CHEST EXAMINATION: Bibasilar rales. End expiratory wheeze. No chest wall tenderness is noted on palpation or with deep breathing. HEART EXAMINATION: Regular rate and rhythm. S1, S2 heard. No murmurs, gallops or rub. ABDOMEN: Soft, nontender. Positive bowel sounds. EXTREMITIES: 2+ peripheral pulses, right lower extremity erythema and 1+ pitting edema bilaterally. No calf tenderness. NEUROLOGIC EXAMINATION: Patient is awake, alert and oriented x3. - Labs CBC & Chem 7: 04/18/20 06:13 04/21/20 07:08 Labs: Abnormal Lab Results - Last 24 Hours (Table) 04/20/20 04/20/20 04/21/20 Range/Units 16:58 20:22 07:04 Sodium (137-145) mmol/L Chloride (98-107) mmol/L Carbon Dioxide (22-30) mmol/L BUN (7-17) mg/dL Creatinine (0.52-1.04) mg/dL Glucose (74-99) mg/dL POC Glucose (mg/dL) 134 H 100 H 132 H (75-99) mg/dL 04/21/20 04/21/20 Range/Units 07:08 11:55 Sodium 131 L (137-145) mmol/L Chloride 88 L (98-107) mmol/L Carbon Dioxide 37 H (22-30) mmol/L BUN 38 H (7-17) mg/dL Creatinine 1.20 H (0.52-1.04) mg/dL Glucose 132 H (74-99) mg/dL POC Glucose (mg/dL) 186 H (75-99) mg/dL Microbiology - Last 24 Hours (Table) 04/15/20 16:20 Blood Culture - Preliminary Blood No Growth after 120 hours Assessment and Plan Assessment: 1 acute on chronic hypoxemic respiratory failure secondary to acute on chronic diastolic heart failure with secondary pulmonary edema. CT angiogram of the chest was reviewed and the patient has interstitial edema most likely secondary to CHF. Hawkins virus Covid 19 testing was negative. No clear evidence of any acute pneumonia at this point in time. The patient is a preserved LV function with an ejection fraction of 55-60% 2 acute kidney injury, rule out contrast nephropathy 3 coronary artery disease with previous two-vessel bypass surgery. The patient has also undergone previous PCI and stenting 4 troponin leak, considering an acute non-STEMI Versus secondary to hypoxemia 5 cellulitis of the right lower extremity currently on IV Unasyn, improving clinically 6 hypertension 7 hyperlipidemia 8 diabetes mellitus 9 morbid obesity with a BMI of 47 8 hypothyroidism 10 obstructive sleep apnea maintained on CPAP therapy on outpatient basis 11 chronic left hemidiaphragmatic elevation, possible pleurodesis post-bypass surgery plan The patient was seen and evaluated by Dr. Yareli Mckeon from the pulmonary standpoint Titrate down the FiO2 as tolerated Remains on Unasyn for lower extremity cellulitis We will see as needed I, the cosigning physician, performed a history & physical examination of the patient. Lungs sounds with bibasilar rales. Maintaining good O2 saturations in the 90s on 2 L high flow nasal cannula. I discussed the assessment and plan of care with my nurse practitioner, Torie Shi. I attest to the above note as dictated by her.
[2020-04-21 17:05] LABS: Glucose,Whole Blood 145 mg/dL (75-99)
--- NOTE | 2020-04-21 19:04 | P.PN ---
Progress Note - Text Progress Note Date: 04/21/20 Chief Complaint: Short of breath History of presenting complaint: This is a pleasant 69-year-old patient of Dr. Everardo Richmond. Chronic stable medical conditions include coronary artery disease with stent and bypass in October 1999, diabetes, hypertension, hyperlipidemia, left paralyzed diaphragm. Patient presents with 5 days of increasing shortness of breath. Slight cough. No sputum. No fever no chills. Some decrease in appetite. No edema. Bowels are okay. baseline uses a walker. Admitted with CHF exacerbation from diastolic dysfunction. Patient IV heparin. Troponin leak felt to be from CHF. Acute kidney injury from diuresis.- Temperature discontinued. Creatinine improved. Today-some shortness of breath. On nasal cannula. Oral intake fair. Changed over to oral Lasix. Placed on fluid restriction. Having some pain in the cellulitic area in the right foot. Review of systems: Was done for constitutional, cardiovascular, GI, pulmonary. relevant finding as above Active Medications Acetaminophen (Acetaminophen Tab 500 Mg Tab) 500 mg PO Q4HR PRN PRN Reason: Fever and/ or Pain Last Admin: 04/21/20 04:05 Dose: 500 mg Documented by: Albuterol/Ipratropium (Ipratropium-Albuterol 3 Ml Neb) 3 ml INHALATION RT-QID S Last Admin: 04/21/20 16:10 Dose: 3 ml Documented by: Albuterol/Ipratropium (Ipratropium-Albuterol 3 Ml Neb) 3 ml INHALATION RT-Q1H PRN PRN Reason: Shortness Of Breath Or Wheezing Alprazolam (Alprazolam 0.25 Mg Tab) 0.25 mg PO Q6HR PRN PRN Reason: Mild Anxiety Last Admin: 04/21/20 00:01 Dose: 0.25 mg Documented by: Alprazolam (Alprazolam 0.5 Mg Tab) 0.5 mg PO Q6HR PRN PRN Reason: Moderate Anxiety Ascorbic Acid (Ascorbic Acid 500 Mg Tab) 1,000 mg PO BID [facility] Last Admin: 04/21/20 07:49 Dose: 1,000 mg Documented by: Aspirin (Aspirin 81 Mg) 81 mg PO DAILY [facility] Last Admin: 04/21/20 07:48 Dose: 81 mg Documented by: Baclofen (Baclofen 10 Mg Tab) 20 mg PO HS [facility] Last Admin: 04/20/20 21:07 Dose: 20 mg Documented by: Cholecalciferol (Cholecalciferol 1,000 Unit Tab) 5,000 unit PO DAILY [facility] Last Admin: 04/21/20 07:47 Dose: 5,000 unit Documented by: Clopidogrel Bisulfate (Clopidogrel 75 Mg Tab) 75 mg PO DAILY [facility] Last Admin: 04/21/20 07:48 Dose: 75 mg Documented by: Diclofenac Sodium (Diclofenac Sodium Gel 100 Gm Tube) 4 gm TOPICAL QID [facility] Last Admin: 04/21/20 17:18 Dose: 4 gm Documented by: Ezetimibe (Ezetimibe 10 Mg Tab) 10 mg PO DAILY [facility] Last Admin: 04/21/20 07:48 Dose: 10 mg Documented by: Furosemide (Furosemide 40 Mg Tab) 40 mg PO DAILY [facility] Furosemide (Furosemide 20 Mg Tab) 20 mg PO 1600 [facility] Last Admin: 04/21/20 14:08 Dose: 20 mg Documented by: Hydralazine HCl (Hydralazine Hcl 25 Mg Tab) 25 mg PO TID [facility] Last Admin: 04/21/20 17:17 Dose: 25 mg Documented by: Ampicillin Sodium/Sulbactam (Sodium 1.5 gm/ Sodium Chloride) 50 mls @ 100 mls/hr IVPB Q6HR [facility] Last Admin: 04/21/20 17:17 Dose: 100 mls/hr Documented by: Insulin Aspart (Insulin Aspart (Novolog) 100 Unit/Ml Vial) 20 unit SQ AC-TID [facility] Last Admin: 04/21/20 17:17 Dose: 20 unit Documented by: Insulin Aspart (Insulin Aspart (Novolog) 100 Unit/Ml Vial) 0 unit SQ ACHS [facility]; Protocol Last Admin: 04/21/20 17:18 Dose: 1 unit Documented by: Insulin Detemir (Insulin Detemir (Levemir) 100 Unit/Ml Syr) 45 unit SQ BID@0700,2100 [facility] Last Admin: 04/21/20 07:49 Dose: 45 unit Documented by: Levothyroxine Sodium (Levothyroxine 100 Mcg Tab) 100 mcg PO DAILY@0630 [facility] Last Admin: 04/21/20 06:02 Dose: 100 mcg Documented by: Metoclopramide HCl (Metoclopramide 10 Mg Tab) 10 mg PO QID [facility] Last Admin: 04/21/20 17:17 Dose: 10 mg Documented by: Metoprolol Tartrate (Metoprolol Tartrate 50 Mg Tab) 100 mg PO BID [facility] Last Admin: 04/21/20 07:47 Dose: 100 mg Documented by: Nitroglycerin (Nitroglycerin Sl Tabs 0.4 Mg Tab) 0.4 mg SUBLINGUAL Q5M PRN PRN Reason: Chest Pain Pantoprazole Sodium (Pantoprazole 40 Mg Tablet) 40 mg PO BID [facility] Last Admin: 04/21/20 07:47 Dose: 40 mg Documented by: Pravastatin Sodium (Pravastatin Sodium 40 Mg Tab) 40 mg PO DAILY [facility] Last Admin: 04/21/20 07:48 Dose: 40 mg Documented by: Ranolazine (Ranolazine 500 Mg Tab.Er.12h) 500 mg PO BID [facility] Last Admin: 04/21/20 07:48 Dose: 500 mg Documented by: Ropinirole HCl (Ropinirole Hcl 0.25 Mg Tab) 0.5 mg PO HS [facility] Last Admin: 04/20/20 21:07 Dose: 0.5 mg Documented by: Sodium Chloride (Sodium Chloride 0.9% Flush 10 Ml Syringe) 10 ml IV BID [facility] Last Admin: 04/21/20 10:54 Dose: Not Given Documented by: Physical examination: VITAL SIGNS: Afebrile, 68, 18, 135/73, 96% 2 L GENERAL: Sitting up, breathing better EYES: Pupils equal. Conjunctiva normal. NECK: JVD possibly raised masses not palpable. HEART: First and second heart sounds are normal; no edema. LUNGS: Respiratory rate increased; decreased breath sounds ABDOMEN: Soft, nontender, liver spleen not palpable, no masses palpable. PSYCH: Alert and oriented x3; mood and affect normal MUSCULAR skeletal: Evidence of OA Evidence of cellulitis on the right foot dorsum. INVESTIGATIONS, reviewed in the clinical context: Potassium 5 bun 38 creatinine 1.20 Previous testing White count 14.9 hemoglobin 11.3 platelets 324 sodium 128 potassium 5.8 bun 31 and creatinine 1.27 Lactic acid 2.1 Troponin I 0.094, 0.132 ProBNP 1950 COVID 19 PCR not detected EKG tracing personally reviewed by me-no sinus rhythm Chest x-ray film personally reviewed by me-cardiomegaly, interstitial edema CTA due to chest-bilateral moderate hazy obesity suggestive of pulmonary edema Doppler ultrasound negative for DVT in the right leg 2-D echocardiogram EF 55-60% Assessment: -Acute congestive heart exacerbation from diastolic dysfunction EF 55-60%-slowly improving -Acute kidney injury with creatinine going from 1.27 up to 1.86, likely prerenal from diuresis-temporarily held. Creatinine now down to 1.18 -Shortness of breath at combination of restrictive lung disease and paralyzed left diaphragm, -Coronary artery disease by history of stent and bypass in 1999, -Troponin leak likely due to underlying CHF -Diabetes mellitus type 2 -Essential hypertension -Hyperlipidemia -Paralyzed left diaphragm -Morbid obesity BMI 47.1 -Hypothyroid -Primary osteoarthritis -Restless leg syndrome -Acute cellulitis right foot-IV Unasyn Plan: Patient's initial to oral Lasix. Prescribed topical Voltaren gel right dorsal foot. Changed to oral Keflex. DC tomorrow.
[2020-04-21 20:02] LABS: Glucose,Whole Blood 174 mg/dL (75-99)
[2020-04-21] MEDS ORDERED: FUROSEMIDE 20 MG TAB PO SCH (21:00)
[2020-04-21] MEDS: BACLOFEN 10 MG TAB PO SCH (21:59)
[2020-04-21] MEDS: CEPHALEXIN 250 MG CAP PO SCH (22:06)
[2020-04-22 07:03] LABS: Glucose,Whole Blood 113 mg/dL (75-99)
[2020-04-22] MEDS: INSULIN ASPART (NovoLOG) 100 UNIT/ML VIAL SQ SCH ×7 (07:07→20:48)
[2020-04-22] MEDS: INSULIN DETEMIR (LEVEMIR) 100 UNIT/ML SYR SQ SCH ×2 (07:07→20:48)
[2020-04-22] MEDS: LEVOTHYROXINE 100 MCG TAB PO SCH (07:07)
[2020-04-22] MEDS: IPRATROPIUM-ALBUTEROL 3 ML NEB INHALATION SCH ×4 (08:47→21:47)
[2020-04-22] MEDS: ASCORBIC ACID 500 MG TAB PO SCH ×2 (09:50→20:47)
[2020-04-22] MEDS: RANOLAZINE 500 MG TAB.ER.12H PO SCH ×2 (09:50→20:47)
[2020-04-22] MEDS: FUROSEMIDE 40 MG TAB PO SCH (09:50)
[2020-04-22] MEDS: hydrALAZINE HCL 25 MG TAB PO SCH ×3 (09:50→20:47)
[2020-04-22] MEDS: METOPROLOL TARTRATE 50 MG TAB PO SCH ×2 (09:50→20:47)
[2020-04-22] MEDS: ASPIRIN 81 MG PO SCH (09:50)
[2020-04-22] MEDS: CLOPIDOGREL 75 MG TAB PO SCH (09:50)
[2020-04-22] MEDS: METOCLOPRAMIDE 10 MG TAB PO SCH ×4 (09:50→20:47)
[2020-04-22] MEDS: CEPHALEXIN 250 MG CAP PO SCH ×3 (09:50→20:48)
[2020-04-22] MEDS: PRAVASTATIN SODIUM 40 MG TAB PO SCH (09:51)
[2020-04-22] MEDS: EZETIMIBE 10 MG TAB PO SCH (09:51)
[2020-04-22] MEDS: PANTOPRAZOLE 40 MG TABLET PO SCH ×2 (09:51→20:47)
[2020-04-22] MEDS: CHOLECALCIFEROL 1,000 UNIT TAB PO SCH (09:51)
[2020-04-22] MEDS: DICLOFENAC SODIUM GEL 100 GM TUBE TOPICAL SCH ×4 (09:51→23:46)
[2020-04-22] MEDS: ACETAMINOPHEN TAB 500 MG TAB PO PRN ×3 (10:02→23:46)
[2020-04-22 10:46] LABS: Calcium 8.8 mg/dL (8.4-10.2); Magnesium 1.8 mg/dL (1.6-2.3); Potassium 4.7 mmol/L (3.5-5.1)
--- NOTE | 2020-04-22 12:06 | P.PN ---
Subjective HISTORY OF PRESENTING ILLNESS This is a pleasant 69-year-old female past medical history significant for coronary artery disease status post PCI one year ago exact details unavailable, coronary artery bypass grafting, hypertension, diabetes mellitus, dyslipidemia and hypothyroidism. She follows in the office with Dr. Machuca. She is seen and examined laying flat sleeping in bed in no acute distress. She denies chest pain, shortness of breath, dizziness or palpitations. Blood pressure 150/61 heart rate 72 afebrile and maintaining oxygen saturation on nasal cannula. She is complaining of burning pain of the right ankle. Redness on going to the anterior aspect of the foot, but not longer seen on the leg itself. PHYSICAL EXAMINATION CONSTITUTIONAL: No apparent distress. Morbidly obese. HEENT: Head is normocephalic. Pupils are equal, round. Sclerae anicteric. Mucous membranes of the mouth are moist. No JVD. No carotid bruit. CHEST EXAMINATION: Clear to auscultation bilaterally. No wheezes, rales or rhonchi. No chest wall tenderness is noted on palpation or with deep breathing. HEART EXAMINATION: Regular rate and rhythm. S1, S2 heard. No murmurs, gallops or rub. EXTREMITIES: 2+ peripheral pulses, right foot and ankle erythema and no edema bilaterally. No calf tenderness. ASSESSMENT Acute on chronic diastolic heart failure Elevated troponin, likely secondary to hypoxia. We will check another level to trend. Leukocytosis Cellulitis Hyponatremia, improved Hyperkalemia Coronary artery disease status post PCI one year ago maintained on dual antiplatelet therapy, exact details unavailable with previous bypass grafting Hypertension Dyslipidemia Diabetes mellitus Morbid obesity, BMI 47 PLAN Stable on current medical regimen. Can be discharged from a cardiac perspective. We recommend outpatient cardiac catheterization with either Dr. Machuca or here in town with Dr. Prieto, whichever the patient would prefer. Nurse Practitioner note has been reviewed, I agree with a documented findings and plan of care. Patient was seen and examined. Objective - Vital Signs Vital signs: Vital Signs Temp 98.6 F 04/21/20 20:00 Pulse 72 04/22/20 08:48 Resp 18 04/22/20 04:00 BP 157/75 04/22/20 04:00 Pulse Ox 97 04/22/20 04:00 Intake & Output 04/21/20 04/22/20 04/22/20 18:59 06:59 18:59 Intake Total 720 100 360 Output Total 200 900 350 Balance 520 -800 10 Weight 104.6 kg Intake: Oral 720 100 360 Output: Urine 200 900 350 Other: Voiding Method Toilet Bedside Commode # Voids 1 - Labs CBC & Chem 7: 04/18/20 06:13 04/22/20 08:06 Labs: Abnormal Lab Results - Last 24 Hours (Table) 04/21/20 04/21/20 04/21/20 Range/Units 11:55 17:04 20:01 Sodium (137-145) mmol/L Chloride (98-107) mmol/L Carbon Dioxide (22-30) mmol/L BUN (7-17) mg/dL Creatinine (0.52-1.04) mg/dL Glucose (74-99) mg/dL POC Glucose (mg/dL) 186 H 145 H 174 H (75-99) mg/dL 04/22/20 04/22/20 Range/Units 06:59 08:06 Sodium 132 L (137-145) mmol/L Chloride 91 L (98-107) mmol/L Carbon Dioxide 36 H (22-30) mmol/L BUN 32 H (7-17) mg/dL Creatinine 1.05 H (0.52-1.04) mg/dL Glucose 138 H (74-99) mg/dL POC Glucose (mg/dL) 113 H (75-99) mg/dL Microbiology - Last 24 Hours (Table) 04/15/20 16:20 Blood Culture - Final Blood No Growth after 144 hours
--- NOTE | 2020-04-22 12:18 | P.PN ---
Subjective Patient is seen in follow-up for acute kidney injury. Doing well. No active chest pain or shortness or breath. Cardiac catheterization is currently on hold. Nonoliguric. Now on oral Lasix. Renal function improving. Vital signs are stable. General: The patient appeared well nourished and normally developed. HEENT: Head exam is unremarkable. Neck is without jugular venous distension. LUNGS: Breath sounds decreased. HEART: Rate and Rhythm are regular. ABDOMEN: Soft, nontender. Obese. EXTREMITITES: Trace edema. Objective - Vital Signs Vital signs: Vital Signs Temp 97.9 F 04/22/20 08:00 Pulse 72 04/22/20 08:48 Resp 20 04/22/20 08:00 BP 150/61 04/22/20 08:00 Pulse Ox 90 L 04/22/20 08:00 Intake & Output 04/21/20 04/22/20 04/22/20 18:59 06:59 18:59 Intake Total 720 100 360 Output Total 200 900 350 Balance 520 -800 10 Weight 104.6 kg Intake: Oral 720 100 360 Output: Urine 200 900 350 Other: Voiding Method Toilet Bedside Commode # Voids 1 - Labs CBC & Chem 7: 04/18/20 06:13 04/22/20 08:06 Labs: Abnormal Lab Results - Last 24 Hours (Table) 04/21/20 04/21/20 04/22/20 Range/Units 17:04 20:01 06:59 Sodium (137-145) mmol/L Chloride (98-107) mmol/L Carbon Dioxide (22-30) mmol/L BUN (7-17) mg/dL Creatinine (0.52-1.04) mg/dL Glucose (74-99) mg/dL POC Glucose (mg/dL) 145 H 174 H 113 H (75-99) mg/dL 04/22/20 Range/Units 08:06 Sodium 132 L (137-145) mmol/L Chloride 91 L (98-107) mmol/L Carbon Dioxide 36 H (22-30) mmol/L BUN 32 H (7-17) mg/dL Creatinine 1.05 H (0.52-1.04) mg/dL Glucose 138 H (74-99) mg/dL POC Glucose (mg/dL) (75-99) mg/dL Microbiology - Last 24 Hours (Table) 04/15/20 16:20 Blood Culture - Final Blood No Growth after 144 hours Assessment and Plan Plan: Assessment: 1. Acute kidney injury mostly prerenal secondary to cardiorenal syndrome as well as component of contrast-induced acute kidney injury. Patient received IV contrast on April 15. Creatinine peaked at 1.86 this admission and is 1.05 today. Unknown baseline renal function. UA benign. No hydronephrosis noted on kidney ultrasound. 2. Hypervolemic hyponatremia. Better. 3. Acute on chronic diastolic CHF. 4. Insulin-dependent diabetes mellitus. 5. History of coronary artery disease. 6. Elevated troponin. Cardiology following. s/p heparin drip. Cardiac catheterization pending. 7. Volume overload. Improving with diuresis. 8. Hyperkalemia secondary to acute kidney injury; no evidence of metabolic acidosis or significant hyperglycemia. Better with medical management. Plan: Maintain oral Lasix. I advised patient to maintain a fluid restriction of less than 40 ounces per day. Encourage oral intake, particularly protein. Continue to monitor renal function and urine output. She is also advised to monitor her weight closely and to call if edema worsens or gains more than 2-3 pounds.
[2020-04-22 12:24] LABS: Glucose,Whole Blood 230 mg/dL (75-99)
[2020-04-22] MEDS: FUROSEMIDE 20 MG TAB PO SCH (15:49)
[2020-04-22 17:00] LABS: Glucose,Whole Blood 258 mg/dL (75-99)
[2020-04-22 20:13] LABS: Glucose,Whole Blood 183 mg/dL (75-99)
[2020-04-22] MEDS: BACLOFEN 10 MG TAB PO SCH (20:47)
[2020-04-22] MEDS: ALPRAZolam 0.25 MG TAB PO PRN (20:52)
--- NOTE | 2020-04-22 22:51 | P.PN ---
Progress Note - Text Progress Note Date: 04/22/20 Chief Complaint: Short of breath History of presenting complaint: This is a pleasant 69-year-old patient of Dr. Everardo Richmond. Chronic stable medical conditions include coronary artery disease with stent and bypass in October 1999, diabetes, hypertension, hyperlipidemia, left paralyzed diaphragm. Patient presents with 5 days of increasing shortness of breath. Slight cough. No sputum. No fever no chills. Some decrease in appetite. No edema. Bowels are okay. baseline uses a walker. Admitted with CHF exacerbation from diastolic dysfunction. Patient IV heparin. Troponin leak felt to be from CHF. Acute kidney injury from diuresis.-Lasix discontinued. Creatinine improved.also treated for right foot cellulitis on the dorsum the foot. With IV Unasyn. Also added Voltarene gel. Today-breathing better. Oral intake fair. On nasal cannula. Plan is to go home. Review of systems: Was done for constitutional, cardiovascular, GI, pulmonary. relevant finding as above Active Medications Acetaminophen (Acetaminophen Tab 500 Mg Tab) 500 mg PO Q4HR PRN PRN Reason: Fever and/ or Pain Last Admin: 04/22/20 17:37 Dose: 500 mg Documented by: Albuterol/Ipratropium (Ipratropium-Albuterol 3 Ml Neb) 3 ml INHALATION RT-QID [facility] Last Admin: 04/22/20 21:47 Dose: 3 ml Documented by: Albuterol/Ipratropium (Ipratropium-Albuterol 3 Ml Neb) 3 ml INHALATION RT-Q1H PRN PRN Reason: Shortness Of Breath Or Wheezing Alprazolam (Alprazolam 0.25 Mg Tab) 0.25 mg PO Q6HR PRN PRN Reason: Mild Anxiety Last Admin: 04/22/20 20:52 Dose: 0.25 mg Documented by: Alprazolam (Alprazolam 0.5 Mg Tab) 0.5 mg PO Q6HR PRN PRN Reason: Moderate Anxiety Ascorbic Acid (Ascorbic Acid 500 Mg Tab) 1,000 mg PO BID [facility] Last Admin: 04/22/20 20:47 Dose: 1,000 mg Documented by: Aspirin (Aspirin 81 Mg) 81 mg PO DAILY [facility] Last Admin: 04/22/20 09:50 Dose: 81 mg Documented by: Baclofen (Baclofen 10 Mg Tab) 20 mg PO HS [facility] Last Admin: 04/22/20 20:47 Dose: 20 mg Documented by: Cephalexin (Cephalexin 250 Mg Cap) 250 mg PO TID [facility] Last Admin: 04/22/20 20:48 Dose: 250 mg Documented by: Cholecalciferol (Cholecalciferol 1,000 Unit Tab) 5,000 unit PO DAILY [facility] Last Admin: 04/22/20 09:51 Dose: 5,000 unit Documented by: Clopidogrel Bisulfate (Clopidogrel 75 Mg Tab) 75 mg PO DAILY [facility] Last Admin: 04/22/20 09:50 Dose: 75 mg Documented by: Diclofenac Sodium (Diclofenac Sodium Gel 100 Gm Tube) 4 gm TOPICAL QID [facility] Last Admin: 04/22/20 17:37 Dose: 4 gm Documented by: Ezetimibe (Ezetimibe 10 Mg Tab) 10 mg PO DAILY [facility] Last Admin: 04/22/20 09:51 Dose: 10 mg Documented by: Furosemide (Furosemide 40 Mg Tab) 40 mg PO DAILY [facility] Last Admin: 04/22/20 09:50 Dose: 40 mg Documented by: Furosemide (Furosemide 20 Mg Tab) 20 mg PO 1600 [facility] Last Admin: 04/22/20 15:49 Dose: 20 mg Documented by: Hydralazine HCl (Hydralazine Hcl 25 Mg Tab) 25 mg PO TID [facility] Last Admin: 04/22/20 20:47 Dose: 25 mg Documented by: Insulin Aspart (Insulin Aspart (Novolog) 100 Unit/Ml Vial) 20 unit SQ AC-TID [facility] Last Admin: 04/22/20 17:28 Dose: 20 unit Documented by: Insulin Aspart (Insulin Aspart (Novolog) 100 Unit/Ml Vial) 0 unit SQ ACHS [facility]; Protocol Last Admin: 04/22/20 20:48 Dose: 3 unit Documented by: Insulin Detemir (Insulin Detemir (Levemir) 100 Unit/Ml Syr) 45 unit SQ BID@0700,2100 [facility] Last Admin: 04/22/20 20:48 Dose: 45 unit Documented by: Levothyroxine Sodium (Levothyroxine 100 Mcg Tab) 100 mcg PO DAILY@0630 [facility] Last Admin: 04/22/20 07:07 Dose: 100 mcg Documented by: Metoclopramide HCl (Metoclopramide 10 Mg Tab) 10 mg PO QID [facility] Last Admin: 04/22/20 20:47 Dose: 10 mg Documented by: Metoprolol Tartrate (Metoprolol Tartrate 50 Mg Tab) 100 mg PO BID [facility] Last Admin: 04/22/20 20:47 Dose: 100 mg Documented by: Nitroglycerin (Nitroglycerin Sl Tabs 0.4 Mg Tab) 0.4 mg SUBLINGUAL Q5M PRN PRN Reason: Chest Pain Pantoprazole Sodium (Pantoprazole 40 Mg Tablet) 40 mg PO BID [facility] Last Admin: 04/22/20 20:47 Dose: 40 mg Documented by: Pravastatin Sodium (Pravastatin Sodium 40 Mg Tab) 40 mg PO DAILY [facility] Last Admin: 04/22/20 09:51 Dose: 40 mg Documented by: Ranolazine (Ranolazine 500 Mg Tab.Er.12h) 500 mg PO BID [facility] Last Admin: 04/22/20 20:47 Dose: 500 mg Documented by: Ropinirole HCl (Ropinirole Hcl 0.25 Mg Tab) 0.5 mg PO HS [facility] Last Admin: 04/22/20 20:48 Dose: 0.5 mg Documented by: Sodium Chloride (Sodium Chloride 0.9% Flush 10 Ml Syringe) 10 ml IV BID [facility] Last Admin: 04/22/20 09:51 Dose: 10 ml Documented by: Physical examination: VITAL SIGNS: 97.9, 73, 20, 150 with 61, 97% on 2 L GENERAL: Sitting up, comfortable EYES: Pupils equal. Conjunctiva normal. NECK: JVD possibly raised masses not palpable. HEART: First and second heart sounds are normal; no edema. LUNGS: Respiratory rate increased; decreased breath sounds ABDOMEN: Soft, nontender, liver spleen not palpable, no masses palpable. PSYCH: Alert and oriented x3; mood and affect normal MUSCULAR skeletal: Evidence of OA Evidence of cellulitis on the right foot dorsum. INVESTIGATIONS, reviewed in the clinical context: potassium 4.7 creatinine 1.05 Previous testing White count 14.9 hemoglobin 11.3 platelets 324 sodium 128 potassium 5.8 bun 31 and creatinine 1.27 Lactic acid 2.1 Troponin I 0.094, 0.132 ProBNP 1950 COVID 19 PCR not detected EKG tracing personally reviewed by me-no sinus rhythm Chest x-ray film personally reviewed by me-cardiomegaly, interstitial edema CTA due to chest-bilateral moderate hazy obesity suggestive of pulmonary edema Doppler ultrasound negative for DVT in the right leg 2-D echocardiogram EF 55-60% Assessment: -Acute congestive heart exacerbation from diastolic dysfunction EF 55-60%-improved -Acute kidney injury with creatinine going from 1.27 up to 1.86, likely prerenal from diuresis-temporarily held. Creatinine now down to 1.05 -Shortness of breath at combination of restrictive lung disease and paralyzed left diaphragm, CHF -Coronary artery disease by history of stent and bypass in 1999, -Troponin leak likely due to underlying CHF -Diabetes mellitus type 2 -Essential hypertension -Hyperlipidemia -Paralyzed left diaphragm -Morbid obesity BMI 47.1 -Hypothyroid -Primary osteoarthritis -Restless leg syndrome -Acute cellulitis right foot-IV Unasyn-changed to to Keflex -Patient does use a CPAP machine at home Plan: plan was to let the patient go home today. Patient stating the bathroom is not ready,as per the daughter. And she cannot go home today.postpone discharged tomorrow.
[2020-04-23 01:13] VITALS: RESP 18
[2020-04-23] MEDS: LEVOTHYROXINE 100 MCG TAB PO SCH (06:30)
[2020-04-23 07:00] LABS: Glucose,Whole Blood 185 mg/dL (75-99)
[2020-04-23] MEDS: CHOLECALCIFEROL 1,000 UNIT TAB PO SCH (08:46)
[2020-04-23] MEDS: RANOLAZINE 500 MG TAB.ER.12H PO SCH (08:46)
[2020-04-23] MEDS: ASPIRIN 81 MG PO SCH (08:46)
[2020-04-23] MEDS: FUROSEMIDE 40 MG TAB PO SCH (08:47)
[2020-04-23] MEDS: hydrALAZINE HCL 25 MG TAB PO SCH ×2 (08:47→17:03)
[2020-04-23] MEDS: PANTOPRAZOLE 40 MG TABLET PO SCH (08:47)
[2020-04-23] MEDS: CLOPIDOGREL 75 MG TAB PO SCH (08:47)
[2020-04-23] MEDS: METOPROLOL TARTRATE 50 MG TAB PO SCH (08:47)
[2020-04-23] MEDS: DICLOFENAC SODIUM GEL 100 GM TUBE TOPICAL SCH ×2 (08:48→12:49)
[2020-04-23] MEDS: IPRATROPIUM-ALBUTEROL 3 ML NEB INHALATION SCH ×3 (09:28→16:05)
[2020-04-23] MEDS: METOCLOPRAMIDE 10 MG TAB PO SCH ×3 (09:28→17:28)
[2020-04-23] MEDS: ASCORBIC ACID 500 MG TAB PO SCH (09:28)
[2020-04-23] MEDS: CEPHALEXIN 250 MG CAP PO SCH ×2 (09:28→17:02)
[2020-04-23] MEDS: EZETIMIBE 10 MG TAB PO SCH (09:29)
[2020-04-23] MEDS: INSULIN ASPART (NovoLOG) 100 UNIT/ML VIAL SQ SCH ×4 (09:29→12:55)
[2020-04-23] MEDS: INSULIN DETEMIR (LEVEMIR) 100 UNIT/ML SYR SQ SCH (09:29)
[2020-04-23] MEDS: PRAVASTATIN SODIUM 40 MG TAB PO SCH (09:30)
--- NOTE | 2020-04-23 10:57 | P.PN ---
Subjective Patient is seen in follow-up for acute kidney injury. Doing well. No active chest pain or shortness or breath. Cardiac catheterization is currently on hold. Nonoliguric. Now on oral Lasix. Renal function improved. Underwent barium swallow eval this morning. No active complaints. Vital signs are stable. General: The patient appeared well nourished and normally developed. HEENT: Head exam is unremarkable. Neck is without jugular venous distension. LUNGS: Breath sounds decreased. HEART: Rate and Rhythm are regular. ABDOMEN: Soft, nontender. Obese. EXTREMITITES: Trace edema. Objective - Vital Signs Vital signs: Vital Signs Temp 98.3 F 04/22/20 20:40 Pulse 70 04/23/20 10:49 Resp 18 04/23/20 00:00 BP 149/77 04/22/20 23:20 Pulse Ox 85 L 04/23/20 10:49 Intake & Output 04/22/20 04/23/20 04/23/20 18:59 06:59 18:59 Intake Total 1160 100 240 Output Total 550 1300 Balance 610 -1200 240 Weight 108.5 kg Intake: Oral 1160 100 240 Output: Urine 550 1300 Other: Voiding Method Toilet Bedside Commode # Voids 2 2 - Labs CBC & Chem 7: 04/18/20 06:13 04/22/20 08:06 Labs: Abnormal Lab Results - Last 24 Hours (Table) 04/22/20 04/22/20 04/22/20 Range/Units 12:00 16:45 20:11 POC Glucose (mg/dL) 230 H 258 H 183 H (75-99) mg/dL 04/23/20 Range/Units 06:59 POC Glucose (mg/dL) 185 H (75-99) mg/dL Assessment and Plan Plan: Assessment: 1. Acute kidney injury mostly prerenal secondary to cardiorenal syndrome as well as component of contrast-induced acute kidney injury. Patient received IV contrast on April 15. Creatinine peaked at 1.86 this admission and down to 1.05 as of yesterday. Unknown baseline renal function. UA benign. No hydr onephrosis noted on kidney ultrasound. 2. Hypervolemic hyponatremia. Improved. 3. Acute on chronic diastolic CHF. 4. Insulin-dependent diabetes mellitus. 5. History of coronary artery disease. 6. Elevated troponin. Cardiology following. s/p heparin drip. Cardiac catheterization pending. 7. Volume overload. Improving with diuresis. 8. Hyperkalemia secondary to acute kidney injury; no evidence of metabolic acidosis or significant hyperglycemia. Better with medical management. Plan: Maintain oral Lasix. I advised patient to maintain a fluid restriction of less than 40 ounces per day. Encourage oral intake, particularly protein. Continue to monitor renal function and urine output. She is also advised to monitor her weight closely upon discharge and to call if edema worsens or gains more than 2-3 pounds.
[2020-04-23] MEDS ORDERED: COLCHICINE 0.6 MG EACH PO SCH (11:30)
[2020-04-23 11:34] LABS: Glucose,Whole Blood 247 mg/dL (75-99)
--- NOTE | 2020-04-23 11:34 | CDI ---
Documentation Clarification Form Date: 04/23/2020 10:43:48 AM From: Cori Castillo RN, CCDS Admit Date: 04/15/2020 07:03:00 PM Patient Name: Kathi Cavanaugh Visit Number: [id number] Discharge Date: ATTENTION: The Clinical Documentation Specialists (CDI) and [facility] Coding Staff appreciate your assistance in clarifying documentation. Please respond to the clarification below the line at the bottom and electronically sign. The CDI & [facility] Coding staff will review the response and follow-up if needed. Please note: Queries are made part of the Legal Health Record. If you have any questions, please contact the author of this message via ITS. Dr. Moses Roldan The patient presented 04/15 with difficulty breathing, worse with exertion. 04/20 and subsequent progress note has elevated troponin, likely secondary to hypoxia. Can you please further clarify elevated troponin, likely secondary to hypoxia? 04/16-04/22 attending: Troponin leak likely due to underlying CHF 04/17-04/22 Pulmonary: "she also noticed some chest tightness in the medsternal area. She has orthopenia". Troponin leak, considering an acute non-STEMI versus secondary to hypoxemia History/Risk Factors: Coronary artery disease, Hypertension, Diabetes mellitus, Paralyzed diaphragm Clinical Indicators: 69-year-old female who present with difficulty breathing. Labs on admission showing elevated troponin. She was ruled in for acute on chronic diastolic heart failure. 04/15 EKG: Normal sinus rhythm vent rate 77 bpm 04/15 Lab findings: Troponin 0.132, 0.164, 04/16 Troponin 0.146 04/15 BNP 1950 04/15 Chest x-ray: Moderate CHF 04/16 ECHO: Left ventricular size is normal. There is mild concentric left ventricular hypertrophy. EF 55-60 % 04/15 Vital Signs on admission: 124/84 81 22 98.4 89 % ra, 98 % 2/L NC Treatment: Monitor and wean down FIO2 to maintain saturation above 90 % Monitor renal function DuoNeb nebulized treatment around the clock. Lasix 40 mg IV Q8 HRS Lasix 40 mg IV Q12 hrs change to 40 mg PO BID 04/18; change to 40 mg PO daily 04/22 Lopressor 100 mg PO BID In your professional opinion, can you please further clarify elevated troponin, likely secondary to hypoxia and are you treating? Type II PA due to Hypoxia Demand Ischemia without Type II PA Other, please specify Unable to determine (Last Revision: August 2017) Type 2 PA secondary to hypoxia. MTDD
--- NOTE | 2020-04-23 13:52 | FL ---
Modified barium swallow. HISTORY: Dysphagia. Modified barium swallow was performed with the department of speech pathology. The patient was prese nted with various consistencies of barium. There is no evidence for aspiration or penetration. Full report is to follow from the department of speech pathology. Impression: Normal study.
[2020-04-23 14:29] VITALS: BP 129/65; TEMP 97.4
[2020-04-23 16:16] VITALS: PULSE 70
[2020-04-23] MEDS: FUROSEMIDE 20 MG TAB PO SCH (17:03)
--- NOTE | 2020-04-23 21:14 | P.DS ---
Providers Date of admission: 04/15/20 19:03 Expected date of discharge: 04/23/20 Attending physician: Ashish Figueredo Consults: 04/15/20 19:04 Consult Physician Urgent Consulting Provider: Nicholas Wisdom Consult Reason/Comments: chf, elevated troponin Do you want consulting provider notified?: Yes 04/17/20 12:58 Consult Physician Routine Consulting Provider: Rusty Hui Consult Reason/Comments: tiki Do you want consulting provider notified?: Yes 04/17/20 13:00 Consult Physician Routine Consulting Provider: [place]s Consult Reason/Comments: sob/for BIPAP Do you want consulting provider notified?: Yes Primary care physician: [facility] Course: Chief Complaint: Short of breath History of presenting complaint: This is a pleasant 69-year-old patient of Dr. Everardo Richmond. Chronic stable medical conditions include coronary artery disease with stent and bypass in October 1999, diabetes, hypertension, hyperlipidemia, left paralyzed diaphragm. Patient presents with 5 days of increasing shortness of breath. Slight cough. No sputum. No fever no chills. Some decrease in appetite. No edema. Bowels are okay. baseline uses a walker. Admitted with CHF exacerbation from diastolic dysfunction. Patient IV heparin. Troponin leak felt to be from CHF. Acute kidney injury from diuresis.-Lasix discontinued. Creatinine improved.also treated for right foot cellulitis on the dorsum the foot. With IV Unasyn. Also added Voltarene gel. Creatinine had climbed up to 1.86 did come down to 1.05 Today-breathing stable. Videofluoroscopic swallow done today-normal study. Care was discussed with the patient. Outpatient cardiac catheterization will be considered. Consultation: [facility] Dr. Downs partners from pulmonary Physical examination: VITAL SIGNS: 97.4, 69, 18, 129/65, GENERAL: Sitting up, comfortable EYES: Pupils equal. Conjunctiva normal. NECK: JVD possibly raised masses not palpable. HEART: First and second heart sounds are normal; no edema. LUNGS: Respiratory rate increased; decreased breath sounds ABDOMEN: Soft, nontender, liver spleen not palpable, no masses palpable. PSYCH: Alert and oriented x3; mood and affect normal MUSCULAR skeletal: Evidence of OA Evidence of cellulitis on the right foot dorsum. INVESTIGATIONS, reviewed in the clinical context: potassium 4.7 creatinine 1.05 Previous testing White count 14.9 hemoglobin 11.3 platelets 324 sodium 128 potassium 5.8 bun 31 and creatinine 1.27 Lactic acid 2.1 Troponin I 0.094, 0.132 ProBNP 1950 COVID 19 PCR not detected EKG tracing personally reviewed by me-no sinus rhythm Chest x-ray film personally reviewed by me-cardiomegaly, interstitial edema CTA due to chest-bilateral moderate hazy obesity suggestive of pulmonary edema Doppler ultrasound negative for DVT in the right leg 2-D echocardiogram EF 55-60% Assessment: -Acute congestive heart exacerbation from diastolic dysfunction EF 55-60%-improved -Acute kidney injury with creatinine going from 1.27 up to 1.86, likely prerenal from diuresis-temporarily held. Creatinine now down to 1.05 -Shortness of breath at combination of restrictive lung disease and paralyzed left diaphragm, CHF -Coronary artery disease by history of stent and bypass in 1999, -Troponin leak likely due to underlying CHF -Diabetes mellitus type 2 -Essential hypertension -Hyperlipidemia -Paralyzed left diaphragm -Morbid obesity BMI 47.1 -Hypothyroid -Primary osteoarthritis -Restless leg syndrome -Acute cellulitis right foot-IV Unasyn-changed to to Keflex -Patient does use a CPAP machine at home Disposition: Home with family Patient Condition at Discharge: Stable Plan - Discharge Summary Discharge Rx Participant: Yes New Discharge Prescriptions: New hydrALAZINE HCL [Apresoline] 25 mg PO TID #90 tab Furosemide [Lasix] 20 mg PO 1600 #30 tab Diclofenac Sodium Gel [Voltaren Gel] 4 gm TOPICAL QID #1 tube Ipratropium-Albuterol Nebulize [Duoneb 0.5 mg-3 mg/3 ml Soln] 3 ml INHALATION TID #90 ml Cephalexin [Keflex] 250 mg PO TID #10 cap Continue Glucosam/Chond/Hyalu/Cf Borate [Move Free Joint Health Tablet] 1 tab PO BID Fish Oil/Dha/Epa [Fish Oil 1,200 mg Fish Oil] 1 cap PO HS Cholecalciferol [Vitamin D3 (25 Mcg = 1000 Iu)] 5,000 unit PO DAILY Ascorbic Acid [Vitamin C] 1,000 mg PO BID Nitroglycerin Sl Tabs [Nitrostat] 0.4 mg SUBLINGUAL Q5M PRN PRN Reason: Chest Pain Nitroglycerin 0.4MG/Hr Patch [Nitro-Dur 0.4MG/Hr Patch] 1 patch TRANSDERM DAILY Furosemide [Lasix] 40 mg PO DAILY Baclofen [Lioresal] 20 mg PO HS Ranolazine [Ranexa] 500 mg PO BID Meloxicam 15 mg PO HS Ezetimibe [Zetia] 10 mg PO DAILY rOPINIRole HCL [Requip] 0.5 mg PO HS Pravastatin Sodium [Pravachol] 40 mg PO DAILY Metoprolol Tartrate [Lopressor] 100 mg PO BID Levothyroxine Sodium [Synthroid] 100 mcg PO DAILY Lansoprazole [Prevacid] 30 mg PO BID Aspirin EC [Ecotrin Low Dose] 81 mg PO DAILY Metoclopramide [Reglan] 10 mg PO QID Clopidogrel Bisulfate [Plavix] 75 mg PO DAILY Changed Insulin Lispro [humaLOG] 24 units SQ TID #0 Insulin Glargine [Lantus] 50 unit SQ BID #0 Discontinued Sulfamethox-Tmp 800-160Mg [Bactrim DS 800-160 mg] 1 tab PO BID Fluticasone Nasal [place] [Flonase Nasal [place]] 1 spray EA NOSTRIL DAILY PRN PRN Reason: Allergy Symptoms Niacin 500 mg PO DAILY Losartan [Cozaar] 50 mg PO DAILY Discharge Medication List Ascorbic Acid [Vitamin C] 1,000 mg PO BID 04/15/20 [History] Aspirin EC [Ecotrin Low Dose] 81 mg PO DAILY 04/15/20 [History] Baclofen [Lioresal] 20 mg PO HS 04/15/20 [History] Cholecalciferol [Vitamin D3 (25 Mcg = 1000 Iu)] 5,000 unit PO DAILY 04/15/20 [History] Clopidogrel Bisulfate [Plavix] 75 mg PO DAILY 04/15/20 [History] Ezetimibe [Zetia] 10 mg PO DAILY 04/15/20 [History] Fish Oil/Dha/Epa [Fish Oil 1,200 mg Fish Oil] 1 cap PO HS 04/15/20 [History] Furosemide [Lasix] 40 mg PO DAILY 04/15/20 [History] Glucosam/Chond/Hyalu/Cf Borate [Move Free Joint Health Tablet] 1 tab PO BID 04/15/20 [History] Lansoprazole [Prevacid] 30 mg PO BID 04/15/20 [History] Levothyroxine Sodium [Synthroid] 100 mcg PO DAILY 04/15/20 [History] Meloxicam 15 mg PO HS 04/15/20 [History] Metoclopramide [Reglan] 10 mg PO QID 04/15/20 [History] Metoprolol Tartrate [Lopressor] 100 mg PO BID 04/15/20 [History] Nitroglycerin 0.4MG/Hr Patch [Nitro-Dur 0.4MG/Hr Patch] 1 patch TRANSDERM DAILY 04/15/20 [History] Nitroglycerin Sl Tabs [Nitrostat] 0.4 mg SUBLINGUAL Q5M PRN 04/15/20 [History] Pravastatin Sodium [Pravachol] 40 mg PO DAILY 04/15/20 [History] Ranolazine [Ranexa] 500 mg PO BID 04/15/20 [History] rOPINIRole HCL [Requip] 0.5 mg PO HS 04/15/20 [History] Cephalexin [Keflex] 250 mg PO TID #10 cap 04/23/20 [Rx] Diclofenac Sodium Gel [Voltaren Gel] 4 gm TOPICAL QID #1 tube 04/23/20 [Rx] Furosemide [Lasix] 20 mg PO 1600 #30 tab 04/23/20 [Rx] Insulin Glargine [Lantus] 50 unit SQ BID #0 04/23/20 [Rx] Insulin Lispro [humaLOG] 24 units SQ TID #0 04/23/20 [Rx] Ipratropium-Albuterol Nebulize [Duoneb 0.5 mg-3 mg/3 ml Soln] 3 ml INHALATION TID #90 ml 04/23/20 [Rx] hydrALAZINE HCL [Apresoline] 25 mg PO TID #90 tab 04/23/20 [Rx] Follow up Appointment(s)/Referral(s): [facility], [NON-STAFF] - Equipment & Supplies,[facility] [NON-STAFF] - (Supplier of Home Oxygen) Nabil Prieto MD [STAFF PHYSICIAN] - 2 Weeks Everardo Richmond MD [Primary Care Provider] - 1-2 days Patient Instructions/Handouts: Heart Failure (DC) Activity/Diet/Wound Care/Special Instructions: bmp - 5 days Discharge Disposition: HOME WITH HOME HEALTH SERVICES
[2020-04-24] MEDS ORDERED: COLCHICINE 0.6 MG EACH PO SCH (09:00)
== END 2020-04-23 18:30 | disposition home health service (06) | DRG 280 ==
LOC: EC 15:25 → 3SCARD 19:03 → 5NMEDONC 04-23 06:50
PROVIDERS: ADMIT Hospitalist; ATTEND Hospitalist
DX: I11.0 Hypertensive heart disease with heart failure (principal); I21.A1 Myocardial infarction type 2; J96.21 Acute and chronic respiratory failure with hypoxia; N17.9 Acute kidney failure, unspecified; Z68.42 Body mass index [BMI] 45.0-49.9, adult; E87.1 Hypo-osmolality and hyponatremia; L03.115 Cellulitis of right lower limb; E03.9 Hypothyroidism, unspecified; E11.22 Type 2 diabetes mellitus with diabetic chronic kidney disease; E78.5 Hyperlipidemia, unspecified; I50.33 Acute on chronic diastolic (congestive) heart failure; E66.01 Morbid (severe) obesity due to excess calories; G25.81 Restless legs syndrome; Z20.828 Contact with and (suspected) exposure to other viral communicable diseases; F41.9 Anxiety disorder, unspecified; M19.91 Primary osteoarthritis, unspecified site; J98.6 Disorders of diaphragm; I25.10 Atherosclerotic heart disease of native coronary artery without angina pectoris; T50.8X5A Adverse effect of diagnostic agents, initial encounter; E87.5 Hyperkalemia; G47.33 Obstructive sleep apnea (adult) (pediatric); R13.10 Dysphagia, unspecified; Z90.49 Acquired absence of other specified parts of digestive tract; Z88.5 Allergy status to narcotic agent; Z95.5 Presence of coronary angioplasty implant and graft; Z95.1 Presence of aortocoronary bypass graft; Z79.4 Long term (current) use of insulin; Z79.82 Long term (current) use of aspirin; Z79.890 Hormone replacement therapy; Z79.02 Long term (current) use of antithrombotics/antiplatelets; Z79.899 Other long term (current) drug therapy; Z82.49 Family history of ischemic heart disease and other diseases of the circulatory system
CPT/HCPCS: 36415; 71046; 71275; 74230; 76770; 80048; 80053; 81003; 83605; 83735; 83880; 84132; 84484; 85025; 85379; 85610; 85730; 87040; 87635; 93005; 93306; 94640; 96365; 96368; 96375; 99285

== ENCOUNTER 2020-06-11 09:39 | Inpatient (IN) | payer MEDICARE, BC ==
--- NOTE | 2020-06-11 14:09 | P.HPIM ---
History of Present Illness H&P Date: 06/11/20 Chief Complaint: Chest Pain Patient is a 69-year-old female with a known history of coronary artery disease status post stent placement, history of CABG 2 vessel in 1999, hypothyroidism, hypertension, diabetes type 2 insulin-dependent hyperlipidemia and obstructive sleep apnea on home oxygen at 2 L via nasal cannula and chronic CHF with diastolic dysfunction and recent history of right lower kidney cellulitis in March 2020 and morbid obesity initially presents to [facility] with the complaints of shortness of breath. Patient was also having mid retrost ernal chest pain with radiation to the right arm associated with shortness of breath. Patient says that she was hypoxic with pulse ox in the 60s while at home. Presents to [facility] on 06/09/2020. No headache or dizziness. Patient was nauseated. Not diaphoretic. Denied any complaints of fever or chills. No cough or sputum production. Patient had chest x-ray showed mild pulmonary vascular congestion and interstitial edema and also elevated left hemidiaphragm. Patient was admitted to MICU. Patient had initial troponin level 0.03 and subsequent troponin elevation at 0.38. Creatinine went up to 1.59, Patient was started on heparin drip and nitro drip. ProBNP was 944. Pat ient was also started on Lasix 40 mg IV push twice a day. Patient was also continued on antibiotics in the form of ceftriaxone and azithromycin. Currently patient denied complaints of chest pain. Still having shortness of breath. Due to elevated troponin level and hypoxic respiratory failure requ iring BiPAP, patient was transferred to [facility] for cardiac evaluation and further management. EKG showed sinus tachycardia. Extract chest x-ray showed pulmonary interstitial mild edema that could relate to acute heart failure. Laboratory data showed WBC 19.62, hemoglobin 9.4, MCV 105.1, RDW 13.5 and platelets 251 BUE and 51 and creatinine 1.77, sodium 1:30, potassium 4.7 and chloride 90, magnesium 1.8, alk phos 48 AST 176 and ALT 46, all given 3.0 Lactic acid level was 8.7 on admission which came down to 3.0 Coordinate this Is negative Past Medical History Past Medical History: Coronary Artery Disease (CAD), Diabetes Mellitus, H yperlipidemia, Hypertension Additional Past Medical History / Comment(s): Obesity, coronary artery disease, previous PCI and coronary stenting, hypertension, hyperlipidemia, diabetes mellitus, history of cellulitis of the lower extremity, diastolic heart failure, left paralyzed diaphram, KIM History of Any Multi-Drug Resistant Organisms: None Reported Past Surgical History: Cholecystectomy, Coronary Bypass/CABG, Heart Cat heterization With Stent Additional Past Surgical History / Comment(s): Double bypass October 1999, 2 stents Date of Last Stent Placement:: 03/2019 Past Psychological History: Anxiety Smoking Status: Never smoker Past Alcohol Use History: None Reported Past Drug Use History: None Reported - Past Family History Father Family Medical History: Cancer Mother Family Medical History: Coronary Artery Disease (CAD) Medications and Allergies Home Medications Medication Instructions Recorded Confirmed Type Ascorbic Acid [Vitamin C] 1,000 mg PO BID 04/15/20 06/11/20 History Aspirin EC [Ecotrin Low Dose] 81 mg PO DAILY 04/15/20 06/11/20 History Baclofen [Lioresal] 20 mg PO HS 04/15/20 06/11/20 History Cholecalciferol [Vitamin D3 (25 5,000 unit PO DAILY 04/15/20 06/11/20 History Mcg = 1000 Iu)] Clopidogrel Bisulfate [Plavix] 75 mg PO DAILY 04/15/20 06/11/20 History Ezetimibe [Zetia] 10 mg PO DAILY 04/15/20 06/11/20 History Fish Oil/Dha/Epa [Fish Oil 1,200 1 cap PO HS 04/15/20 06/11/20 History mg Fish Oil] Furosemide [Lasix] 40 mg PO DAILY 04/15/20 06/11/20 History Glucosam/Chond/Hyalu/Cf Borate 1 tab PO BID 04/15/20 06/11/20 History [Move Free Joint Health Tablet] Lansoprazole [Prevacid] 30 mg PO BID 04/15/20 06/11/20 History Levothyroxine Sodium [Synthroid] 100 mcg PO DAILY 04/15/20 06/11/20 History Meloxicam 15 mg PO HS 04/15/20 06/11/20 History Metoclopramide [Reglan] 10 mg PO QID 04/15/20 06/11/20 History Metoprolol Tartrate [Lopressor] 100 mg PO BID 04/15/20 06/11/20 History Nitroglycerin 0.4MG/Hr Patch 1 patch TRANSDERM DAILY 04/15/20 06/11/20 History [Nitro-Dur 0.4MG/Hr Patch] Nitroglycerin Sl Tabs [Nitrostat] 0.4 mg SUBLINGUAL Q5M PRN 04/15/20 06/11/20 History Pravastatin Sodium [Pravachol] 40 mg PO HS 04/15/20 06/11/20 History Ranolazine [Ranexa] 500 mg PO BID 04/15/20 06/11/20 History rOPINIRole HCL [Requip] 0.5 mg PO DAILY@1300 04/15/20 06/11/20 History Insulin Glargine [Lantus] 50 unit SQ BID #0 04/23/20 06/11/20 Rx Insulin Lispro [humaLOG] 24 units SQ TID #0 04/23/20 06/11/20 Rx hydrALAZINE HCL [Apresoline] 25 mg PO TID #90 tab 04/23/20 06/11/20 Rx Alendronate Sodium [Fosamax] 70 mg PO SA 06/11/20 06/11/20 History Furosemide [Lasix] 20 mg PO DAILY@1600 06/11/20 06/11/20 History Ipratropium-Albuterol Nebulize 3 ml INHALATION RT-TID PRN 06/11/20 06/11/20 History [Duoneb 0.5 mg-3 mg/3 ml Soln] Ondansetron [Zofran] 4 mg PO Q8HR PRN 06/11/20 06/11/20 History Allergies Allergy/AdvReac Type Severity Reaction Status Date / Time codeine Allergy Unknown Verified 06/11/20 14:04 Physical Exam Vitals: Intake and Output 06/10/20 06/11/20 06/11/20 22:59 06:59 14:59 Other: Weight 111 kg PHYSICAL EXAMINATION: Patient is lying in the bed comfortably, no acute distress, awake alert and oriented.morbidly obese.. HEENT: Normocephalic. Neck is supple. Pupils reactive. Nostrils clear. Oral cavity is moist. Ears reveal no drainage. Neck reveals no JVD, carotid bruits, or thyromegaly. CHEST EXAMINATION: Trachea is central. Symmetrical expansion. Bilateral crackles and diminished air entry.. CARDIAC: Normal S1, S2 with no gallops. No murmurs ABDOMEN: Soft. Bowel sounds normal. No organomegaly. No abdominal bruits. Extremities:2+ bilateral pedal edema. No clubbing or cyanosis Neurologically awake, alert, oriented x3 with well-coordinated movements. No focal deficits noted Skin: No rash or skin lesions. Psychiatric: Coperative. Nonsuicidal Musculoskeletal: No joint swelling or deformity. Normal range of motion. Results CBC & Chem 7: 06/12/20 03:27 06/12/20 03:27 Assessment and Plan Assessment: Acute non-ST elevated UT Chest pain secondary to above acute on chronic CHF with diastolic dysfunction Acute hypoxic respiratory failure secondary to CHF requiring BiPAP. Currently on nasal cannula oxygen at 3 L Severe lactic acidosis on admission likely due to hypoxia. Acute kidney injury with creatinine 1.77 with possible underlying CK D stage III Coronary artery disease with history of stent placement Coronary artery bypass graft in the year 1999 diabetes type 2 insulin-dependent with hyperglycemia uncontrolled Hypertension Hyperlipidemia Hypothyroidism Morbid obesity with BMI 47.8 Obstructive sleep apnea on CPAP and also on home oxygen at 2 L via nasal cannula Chronic left diaphragmatic elevation GI and DVT prophylaxis. Plan: Patient will be continued on telemetry monitoring. Continued heparin drip and nitro drip. Continue with aspirin statins and beta blockers. Cardiology was consulted. Continue with IV Lasix and repeat chest x-ray today. Continue with insulin regimen with Levemir 40 units at bedtime and NovoLog 8 units 3 times a day before meals along with insulin sliding scale. Continue with home medications and follow closely. cardiology and pulmonary was consulted. Time with Patient: Greater than 30
[2020-06-11 14:35] LABS: Basophils % (A) 0 %; Eosinophils # (A) 0.3 k/uL (0-0.7); Eosinophils % (A) 2 %; HCT 28.2 % (34.0-46.0); HGB 9.3 gm/dL (11.4-16.0); Lymphocytes # (A) 1.9 k/uL (1.0-4.8); Lymphocytes % (A) 12 %; MCHC 32.8 g/dL (31.0-37.0); MCV 103.8 fL (80.0-100.0); Macrocytosis Slight; Monocytes # (A) 1.8 k/uL (0-1.0); Monocytes % (A) 11 %; Neutrophils # (A) 12.4 k/uL (1.3-7.7); Neutrophils % (A) 74 %; Platelet Count 225 k/uL (150-450); RBC 2.72 m/uL (3.80-5.40); RDW 13.7 % (11.5-15.5); WBC 16.6 k/uL (3.8-10.6)
--- NOTE | 2020-06-11 14:52 | XR ---
EXAMINATION TYPE: XR chest 1V portable DATE OF EXAM: 06/11/2020 COMPARISON: 04/17/2020 HISTORY: Shortness of breath TECHNIQUE: Single frontal view of the chest is obtained. FINDINGS: Diffuse patchy interstitial pattern. Elevated left hemidiaphragm with cardiomegaly and pos toperative change. Left-sided PICC line. No pneumothorax. Tiny bilateral pleural effusions. Hypertrop hic change of the spine. IMPRESSION: 1. Patchy bilateral interstitial infiltrates. Correlate for CHF versus interstitial pneumonia.
[2020-06-11 15:02] LABS: Albumin 3.6 g/dL (3.5-5.0); Calcium 8.8 mg/dL (8.4-10.2); Potassium 4.5 mmol/L (3.5-5.1); Total Bilirubin 0.4 mg/dL (0.2-1.3); Total Protein 6.6 g/dL (6.3-8.2)
[2020-06-11] MEDS ORDERED: HEPARIN SODIUM,PORCINE 5,000 UNIT/ML 1 ML VIAL IV PRN (15:09)
[2020-06-11] MEDS ORDERED: ACETAMINOPHEN TAB 325 MG TAB PO PRN (15:50)
[2020-06-11] MEDS: IPRATROPIUM-ALBUTEROL 3 ML NEB INHALATION PRN ×2 (15:51→19:59)
[2020-06-11] MEDS: HEPARIN SOD,PORK IN 0.45% NACL 25,000 UNIT in 0.45% NACL 1 250ML.BAG IV SCH (15:52)
[2020-06-11 15:53] LABS: INR 0.9 (<1.2); Partial Thromboplastin Time 29.9 sec (22.0-30.0); Prothrombin Time 10.1 sec (9.0-12.0)
[2020-06-11] MEDS: NITROGLYCERIN-D5W PMX 50 MG in DEXTROSE/WATER 1 250ML.BAG IV SCH (15:53)
[2020-06-11] MEDS: PANTOPRAZOLE 40 MG TABLET PO SCH ×2 (15:56→18:15)
[2020-06-11 17:29] LABS: Glucose,Whole Blood 260 mg/dL (75-99)
--- NOTE | 2020-06-11 17:44 | P.CRDCN ---
History of Present Illness History of present illness: HISTORY OF PRESENTING ILLNESS This is a pleasant 69-year-old female past medical history significant for coronary artery disease status post PCI in 03/2019 as well as CABG, hypertension, diabetes mellitus, dyslipidemia, hypothyroidism. She previously followed with Dr Machuca however has since followed up with Dr. Prieto. She was recently seen in March for acute on chronic diastolic heart failure with mildly elevated troponins and was diuresed and sent home. At the time her trop onin elevation was thought likely related to her hypoxia and CAD and therefore heart catheterization was deferred. Unfortunately she has been experiencing increased dyspnea over the past [address] Prieto in approximately 2 weeks ago. He ordered a nuclear stress test, the results of which I do not have available right now which apparently she had performed on Wednesday. She admits to also having intermittent chest pain over the last 5-6 days which feels similar to her prior angina. Usually the chest pain only lasted 5-10 minutes and would resolve with nitroglycerin. On Wednesday however the pain persisted and therefore she went to [facility]. She was found to have elevated troponins and thought to be in heart failure and therefore was transferred to [facility] for possible heart catheterization. She states she did have an echocardiogram performed at the hospital this morning however results are not in the chart. She had been placed on a heparin drip however apparently she had some hematuria however this has since improved and therefore her heparin drip was restarted. She denies any hematochezia or melena. She still does have some orthopnea. She apparently had been getting diuretics with Lasix and admits to good urine output. Her creatinine today is 1.5 with prior creatinines from last admission from 1.1 up to 1.8. She admits she had been having some continued chest pain including this morning however it completely resolved with nitroglycerin drip and morphine. She currently denies any chest pain or pressure, arm pain. DIAGNOSTICS Chest xray patchy bilateral interstitial infiltrates, correlate for CHF versus interstitial pneumonia. Laboratory reviewed, white blood cell count 16.6, hemoglobin 9.3, platelets 225, sodium 129, creatinine 1.5, glucose 249, AST 124, ALT 45, first troponin 15.4, proBNP 7000. Current cardiac medications include aspirin 81 mg daily, Lipitor 20 mg daily, Plavix 75 mg daily, Lasix 40 mg IV twice a day, heparin drip, metoprolol 50 mg twice a day, nitroglycerin drip, Ranexa 500 mg twice a day. REVIEW OF SYSTEMS At the time of my exam: CONSTITUTIONAL: Denies fever or chills. CARDIOVASCULAR: + chest pain, +shortness of breath, +orthopnea, no PND or palpitations. RESPIRATORY: Denies cough. GASTROINTESTINAL: Denies abdominal pain, diarrhea, constipation, nausea or vomiting. MUSCULOSKELETAL: Denies myalgias. NEUROLOGIC: Denies numbness, tingling or weakness. ENDOCRINE: Denies fatigue, weight change, polydipsia or polyurina. GENITOURINARY: Denies burning, hematuria or urgency with micturation. HEMATOLOGIC: Denies history of anemia or bleeding. PHYSICAL EXAMINATION Blood pressure 149/88 heart rate 96 afebrile and maintaining oxygen saturation on room air. CONSTITUTIONAL: No apparent distress, sitting somewhat upright in bed, obese, mild increased respiratory rate. HEENT: Head is normocephalic. Pupils are equal, round. Sclerae anicteric. Mucous membranes of the mouth are moist. No JVD. No carotid bruit. CHEST EXAMINATION: + Increased crackles at the bases, no wheeze HEART EXAMINATION: Regular rate and rhythm. S1, S2 heard. No murmurs, gallops or rub. ABDOMEN: Soft, nontender. Positive bowel sounds. EXTREMITIES: 2+ peripheral pulses, no lower extremity edema and no calf tenderness. NEUROLOGIC EXAMINATION: Patient is awake, alert and oriented x3. ASSESSMENT 1. Non-STEMI 2. History of coronary artery disease status post CABG as well as PCI in March 2019 3. Chronic kidney disease 4. Acute on chronic diastolic heart failure 5. Essential hypertension 6. Hyperlipidemia 7. Diabetes mellitus 8. Anemia with apparently mild decrease at [facility] 9. Chest pain related to non-STEMI, currently chest pain-free 10. Hematuria, improved PLAN Patient with non-STEMI and first troponin since admission at 15. She apparently did have ongoing chest pain this morning however currently is chest pain-free on a nitroglycerin drip. Patient appears to still be in heart failure with inability to currently lie flat. We will continue with diuresis with Lasix 40 mg IV twice a day. If patient is able to lie flat and creatinine appears stable as well as hemoglobin, may consider heart catheterization 06/12/[address] Prieto however patient will likely be at some risk of contrast-induced nephropathy. Risks and benefits explained to patient. Continue dual antiplatelets at this time as well as heparin drip. Further recommendations to follow. Attempt to obtain echocardiogram which was performed at [facility]. Past Medical History Past Medical History: Coronary Artery Disease (CAD), Diabetes Mellitus, Hyperlipidemia, Hypertension Additional Past Medical History / Comment(s): Obesity, coronary artery disease, previous PCI and coronary stenting, hypertension, hyperlipidemia, diabetes mellitus, history of cellulitis of the lower extremity, diastolic heart failure, left paralyzed diaphram, KIM History of Any Multi-Drug Resistant Organisms: None Reported Past Surgical History: Cholecystectomy, Coronary Bypass/CABG, Heart Catheterization With Stent Additional Past Surgical History / Comment(s): Double bypass October 1999, 2 stents Date of Last Stent Placement:: 03/2019 Past Psychological History: Anxiety Smoking Status: Never smoker Past Alcohol Use History: None Reported Past Drug Use History: None Reported - Past Family History Father Family Medical History: Cancer Mother Family Medical History: Coronary Artery Disease (CAD) Medications and Allergies Home Medications Medication Instructions Recorded Confirmed Type Ascorbic Acid [Vitamin C] 1,000 mg PO BID 04/15/20 06/11/20 History Aspirin EC [Ecotrin Low Dose] 81 mg PO DAILY 04/15/20 06/11/20 History Baclofen [Lioresal] 20 mg PO HS 04/15/20 06/11/20 History Cholecalciferol [Vitamin D3 (25 5,000 unit PO DAILY 04/15/20 06/11/20 History Mcg = 1000 Iu)] Clopidogrel Bisulfate [Plavix] 75 mg PO DAILY 04/15/20 06/11/20 History Ezetimibe [Zetia] 10 mg PO DAILY 04/15/20 06/11/20 History Fish Oil/Dha/Epa [Fish Oil 1,200 1 cap PO HS 04/15/20 06/11/20 History mg Fish Oil] Furosemide [Lasix] 40 mg PO DAILY 04/15/20 06/11/20 History Glucosam/Chond/Hyalu/Cf Borate 1 tab PO BID 04/15/20 06/11/20 History [[employer] Tablet] Lansoprazole [Prevacid] 30 mg PO BID 04/15/20 06/11/20 History Levothyroxine Sodium [Synthroid] 100 mcg PO DAILY 04/15/20 06/11/20 History Meloxicam 15 mg PO HS 04/15/20 06/11/20 History Metoclopramide [Reglan] 10 mg PO QID 04/15/20 06/11/20 History Metoprolol Tartrate [Lopressor] 100 mg PO BID 04/15/20 06/11/20 History Nitroglycerin 0.4MG/Hr Patch 1 patch TRANSDERM DAILY 04/15/20 06/11/20 History [Nitro-Dur 0.4MG/Hr Patch] Nitroglycerin Sl Tabs [Nitrostat] 0.4 mg SUBLINGUAL Q5M PRN 04/15/20 06/11/20 History Pravastatin Sodium [Pravachol] 40 mg PO HS 04/15/20 06/11/20 History Ranolazine [Ranexa] 500 mg PO BID 04/15/20 06/11/20 History rOPINIRole HCL [Requip] 0.5 mg PO DAILY@1300 04/15/20 06/11/20 History Insulin Glargine [Lantus] 50 unit SQ BID #0 04/23/20 06/11/20 Rx Insulin Lispro [humaLOG] 24 units SQ TID #0 04/23/20 06/11/20 Rx hydrALAZINE HCL [Apresoline] 25 mg PO TID #90 tab 04/23/20 06/11/20 Rx Alendronate Sodium [Fosamax] 70 mg PO SA 06/11/20 06/11/20 History Furosemide [Lasix] 20 mg PO DAILY@1600 06/11/20 06/11/20 History Ipratropium-Albuterol Nebulize 3 ml INHALATION RT-TID PRN 06/11/20 06/11/20 History [Duoneb 0.5 mg-3 mg/3 ml Soln] Ondansetron [Zofran] 4 mg PO Q8HR PRN 06/11/20 06/11/20 History Allergies Allergy/AdvReac Type Severity Reaction Status Date / Time codeine Allergy Unknown Verified 06/11/20 14:04 Physical Exam Vitals: Vital Signs Temp Pulse Resp BP Pulse Ox 06/11/20 16:02 99 06/11/20 15:53 96 06/11/20 15:00 96 24 149/88 96 06/11/20 14:50 101 H 25 H 149/88 95 06/11/20 14:40 98 25 H 157/76 96 06/11/20 14:30 94 26 H 158/80 96 06/11/20 14:20 96 25 H 158/80 96 06/11/20 14:10 93 26 H 143/72 95 06/11/20 14:00 94 26 H 144/70 96 06/11/20 13:50 98 100 H 144/70 96 06/11/20 13:40 96 28 H 92/77 96 06/11/20 13:30 96 26 H 137/73 96 06/11/20 13:20 95 25 H 137/73 96 06/11/20 13:10 94 25 H 137/66 96 06/11/20 13:00 95 28 H 137/66 96 06/11/20 12:50 97 26 H 137/66 96 06/11/20 12:40 97 35 H 114/74 96 06/11/20 12:30 98.8 F 95 27 H 119/97 95 06/11/20 12:24 100 26 H 95 Intake and Output 06/11/20 06/11/20 06/11/20 06:59 14:59 22:59 Output Total 800 75 Balance -800 -75 Output: Urine 800 75 Other: Weight 111 kg Results 06/11/20 14:21 06/11/20 14:21 Cardiac Enzymes 06/11/20 06/11/20 Range/Units 14:21 14:21 AST 124 H (14-36) U/L Troponin I 15.400 H* (0.000-0.034) ng/mL Coagulation 06/11/20 Range/Units 14:21 PT 10.1 (9.0-12.0) sec APTT 29.9 (22.0-30.0) sec CBC 06/11/20 Range/Units 14:21 WBC 16.6 H (3.8-10.6) k/uL RBC 2.72 L (3.80-5.40) m/uL Hgb 9.3 L (11.4-16.0) gm/dL Hct 28.2 L (34.0-46.0) % Plt Count 225 (150-450) k/uL Comprehensive Metabolic Panel 06/11/20 Range/Units 14:21 Sodium 129 L (137-145) mmol/L Potassium 4.5 (3.5-5.1) mmol/L Chloride 90 L (98-107) mmol/L Carbon Dioxide 31 H (22-30) mmol/L BUN 56 H (7-17) mg/dL Creatinine 1.52 H (0.52-1.04) mg/dL Glucose 249 H (74-99) mg/dL Calcium 8.8 (8.4-10.2) mg/dL AST 124 H (14-36) U/L ALT 45 H (4-34) U/L Alkaline Phosphatase 49 (38-126) U/L Total Protein 6.6 (6.3-8.2) g/dL Albumin 3.6 (3.5-5.0) g/dL Current Medications Generic Name Dose Route Start Last Admin Trade Name Freq PRN Reason Stop Dose Admin Acetaminophen 650 mg 06/11/20 15:50 Acetaminophen Tab 325 Mg Tab PO Q4HR PRN Fever and/ or Mild Pain Albuterol/Ipratropium 3 ml 06/11/20 13:47 06/11/20 15:51 Ipratropium-Albuterol 3 Ml Neb INHALATION 3 ml RT-QID PRN Administration Shortness Of Breath Or Wheezing Ascorbic Acid 1,000 mg 06/11/20 21:00 Ascorbic Acid 500 Mg Tab PO BID COUNT INCLUDES THE [facility] Aspirin 81 mg 06/12/20 09:00 Aspirin 81 Mg PO DAILY COUNT INCLUDES THE [facility] Atorvastatin Calcium 20 mg 06/11/20 21:00 Atorvastatin 20 Mg Tab PO HS COUNT INCLUDES THE [facility] Clopidogrel Bisulfate 75 mg 06/12/20 09:00 Clopidogrel 75 Mg Tab PO DAILY COUNT INCLUDES THE [facility] Furosemide 40 mg 06/11/20 21:00 Furosemide 10 Mg/Ml 4 Ml Vial IV Q12HR COUNT INCLUDES THE [facility] Heparin Sodium (Porcine) 0 unit 06/11/20 15:09 Heparin Sodium,Porcine 5,000 Unit/Ml 1 Ml Vial IV PER PROTOCOL PRN Low PTT Protocol Heparin Sodium/Sodium Chloride 250 mls @ 10 mls/hr 06/11/20 15:15 06/11/20 15:52 25,000 unit/ Sodium Chloride IV 9.009 units/kg/hr .Q24H BLANCA 10 mls/hr Administration Protocol 9.009 UNITS/KG/HR Nitroglycerin/Dextrose 50 mg/ 250 mls @ 0 mls/hr 06/11/20 15:15 06/11/20 15:53 IV Solution IV 40 mcg/min .Q0M BLANCA 12 mls/hr Administration Protocol Titrate Insulin Aspart 0 unit 06/11/20 17:30 Insulin Aspart (Novolog) 100 Unit/Ml Vial SQ AC-TID COUNT INCLUDES THE [facility] Protocol Insulin Aspart 8 unit 06/11/20 17:30 Insulin Aspart (Novolog) 100 Unit/Ml Vial SQ AC-TID COUNT INCLUDES THE [facility] Insulin Detemir 40 unit 06/11/20 21:00 Insulin Detemir (Levemir) 100 Unit/Ml Syr SQ HS COUNT INCLUDES THE [facility] Levothyroxine Sodium 100 mcg 06/12/20 06:30 Levothyroxine 100 Mcg Tab PO DAILY@0630 COUNT INCLUDES THE [facility] Metoprolol Tartrate 50 mg 06/11/20 21:00 Metoprolol Tartrate 50 Mg Tab PO BID COUNT INCLUDES THE [facility] Morphine Sulfate 2 mg 06/11/20 15:49 Morphine Sulfate 2 Mg/Ml Syringe IVP Q4H PRN Moderate Pain/Discomfort Ondansetron HCl 4 mg 06/11/20 13:46 Ondansetron 4 Mg/2 Ml Vial IVP Q6HR PRN Nausea And Vomiting Pantoprazole Sodium 40 mg 06/11/20 14:00 06/11/20 15:56 Pantoprazole 40 Mg Tablet PO 40 mg AC-BID COUNT INCLUDES THE [facility] Administration Ranolazine 500 mg 06/11/20 21:00 Ranolazine 500 Mg Tab.Er.12h PO BID COUNT INCLUDES THE [facility] Ropinirole HCl 0.5 mg 06/11/20 21:00 Ropinirole Hcl 0.25 Mg Tab PO [facility] Intake and Output 06/11/20 06/11/20 06/11/20 06:59 14:59 22:59 Output Total 800 75 Balance -800 -75 Output: Urine 800 75 Other: Weight 111 kg Patient Weight 06/12/20 06:59 Weight 111 kg 06/11/20 14:21 06/11/20 14:21
[2020-06-11] MEDS: METOCLOPRAMIDE 10 MG TAB PO SCH ×2 (18:10→22:24)
[2020-06-11] MEDS: INSULIN ASPART (NovoLOG) 100 UNIT/ML VIAL SQ SCH ×2 (18:15)
[2020-06-11] MEDS: MORPHINE SULFATE 2 MG/ML SYRINGE IVP PRN (18:30)
[2020-06-11] MEDS: FUROSEMIDE 10 MG/ML 4 ML VIAL IV SCH (20:00)
[2020-06-11] MEDS: ASCORBIC ACID 500 MG TAB PO SCH (20:00)
[2020-06-11] MEDS: ATORVASTATIN 20 MG TAB PO SCH (20:00)
[2020-06-11] MEDS: METOPROLOL TARTRATE 50 MG TAB PO SCH (20:00)
[2020-06-11] MEDS: RANOLAZINE 500 MG TAB.ER.12H PO SCH (20:01)
[2020-06-11] MEDS: INSULIN DETEMIR (LEVEMIR) 100 UNIT/ML SYR SQ SCH (20:01)
[2020-06-11 21:31] LABS: Glucose,Whole Blood 267 mg/dL (75-99)
[2020-06-11] MEDS: ONDANSETRON 4 MG/2 ML VIAL IVP PRN (23:05)
[2020-06-11] MEDS: MELATONIN 5 MG TABLET PO PRN (23:05)
[2020-06-11] MEDS: FLUTICASONE 50MCG/SPRAY NASAL 16GM EA NOSTRIL PRN (23:13)
[2020-06-12 04:22] LABS: Basophils # (A) 0.1 k/uL (0-0.2); Basophils % (A) 0 %; Eosinophils # (A) 0.1 k/uL (0-0.7); Eosinophils % (A) 1 %; HCT 26.4 % (34.0-46.0); HGB 8.9 gm/dL (11.4-16.0); Lymphocytes # (A) 1.9 k/uL (1.0-4.8); Lymphocytes % (A) 13 %; MCH 35.4 pg (25.0-35.0); MCHC 33.9 g/dL (31.0-37.0); MCV 104.6 fL (80.0-100.0); Macrocytosis Slight; Mean Platelet Volume 8.9; Monocytes # (A) 1.9 k/uL (0-1.0); Monocytes % (A) 14 %; Neutrophils # (A) 10.2 k/uL (1.3-7.7); Neutrophils % (A) 71 %; Platelet Count 252 k/uL (150-450); RBC 2.52 m/uL (3.80-5.40); RDW 13.8 % (11.5-15.5); WBC 14.4 k/uL (3.8-10.6)
[2020-06-12 04:50] LABS: Albumin 3.6 g/dL (3.5-5.0); Calcium 8.9 mg/dL (8.4-10.2); Potassium 4.8 mmol/L (3.5-5.1); Total Bilirubin 0.7 mg/dL (0.2-1.3); Total Protein 6.5 g/dL (6.3-8.2)
[2020-06-12] MEDS: LEVOTHYROXINE 100 MCG TAB PO SCH (06:26)
[2020-06-12] MEDS: INSULIN ASPART (NovoLOG) 100 UNIT/ML VIAL SQ SCH ×7 (06:50→17:19)
[2020-06-12 06:58] LABS: Glucose,Whole Blood 263 mg/dL (75-99)
[2020-06-12] MEDS: ONDANSETRON 4 MG/2 ML VIAL IVP PRN ×3 (06:58→23:08)
[2020-06-12] MEDS: PANTOPRAZOLE 40 MG TABLET PO SCH ×4 (07:00→17:18)
--- NOTE | 2020-06-12 07:06 | XR ---
EXAMINATION TYPE: XR chest 1V portable DATE OF EXAM: 06/12/2020 CLINICAL HISTORY: Difficulty breathing progress study. TECHNIQUE: Single AP portable upright view of the chest is obtained. COMPARISON: Chest x-ray from one day earlier and older studies. CTA chest April 15, 2020. FINDINGS: New left-sided PICC line terminates in SVC. Persistent elevated left hemidiaphragm. Burrows ing sternal wires and mediastinal clips redemonstrated. Persistent cardiomegaly with central vascular congestion. There is alveolar and interstitial opacities bilaterally. Multiple tiny bilateral pleura l effusions. Surgical clips epigastric region noted. IMPRESSION: Findings consistent with CHF exacerbation are thought present. Cardiomegaly with mild to moderate alveolar and interstitial edema is felt present bilaterally along with small to tiny bilater al pleural effusions. Correlate clinically. No significant change from one day earlier.
[2020-06-12] MEDS: NITROGLYCERIN-D5W PMX 50 MG in DEXTROSE/WATER 1 250ML.BAG IV SCH ×2 (07:12→21:49)
[2020-06-12] MEDS: IPRATROPIUM-ALBUTEROL 3 ML NEB INHALATION PRN ×4 (07:30→20:19)
[2020-06-12] MEDS: ASPIRIN 81 MG PO SCH (08:36)
[2020-06-12] MEDS: RANOLAZINE 500 MG TAB.ER.12H PO SCH ×2 (08:36→20:40)
[2020-06-12] MEDS: METOCLOPRAMIDE 10 MG TAB PO SCH ×3 (08:36→21:49)
[2020-06-12] MEDS: ASCORBIC ACID 500 MG TAB PO SCH ×2 (08:36→20:40)
[2020-06-12] MEDS: METOPROLOL TARTRATE 50 MG TAB PO SCH ×2 (08:37→20:39)
[2020-06-12] MEDS: FUROSEMIDE 10 MG/ML 4 ML VIAL IV SCH ×2 (08:37→20:39)
[2020-06-12] MEDS: CLOPIDOGREL 75 MG TAB PO SCH (08:37)
--- NOTE | 2020-06-12 10:16 | P.CNPUL ---
History of Present Illness Consult date: 06/12/20 Requesting physician: Clarke Holden Reason for consult: other (Critical care management) Chief complaint: Chest pain History of present illness: This is a 69-year-old female patient who follows with Dr. Richmond as her primary care provider. She has a history of coronary artery disease with previous coronary artery bypass grafting in 1999, previous stenting, hyperlipidemia, hypertension, diastolic congestive heart failure, hypothyroidism, cellulitis of the right lower extremity treated here in March 2020, left paralyzed diaphragm, obstructive sleep apnea, morbid obesity. She presented to [facility] on 06/09/2020 with complaints of chest pain, low pulse ox readings at home, shortness of breath. Positive for non-ST segment elevation myocardial infarction. She had been seen and evaluated yesterday by Dr. Downs there and was subsequently transferred here for possible cardiac catheterization. She is seen today in follow-up in the ICU. She is awake and alert in no acute distress. Sitting up in bed. She is dyspneic with minimal exertion. No current chest pain. She is on a heparin drip per weight base protocol. She is on a nitroglycerin drip at 55 mcg/m. No other IV fluids. She is maintaining O2 saturation in the 90s on 3.5 L/m per nasal cannula. Pr eviously on BiPAP. She had been seen and evaluated by cardiology. She may have issues laying flat for procedure today. Chest x-rays consistent with congestive heart failure. Cardiomegaly. Mild to moderate alveolar interstitial edema. Tiny bilateral effusions. White count 14.4. Hemoglobin 8.9. Sodium 127. Potassium 4.8. Creatinine 1.42. Troponin 15.4, 9.74. Currently being diuresed with Lasix 40 mg IV every 12 hours. In a negative balance. Remains on bronchodilators. Review of Systems REVIEW OF SYSTEMS: CONSTITUTIONAL: Denies any recent significant weight loss or weight gain. EYES: Denies change in vision. EARS, NOSE, MOUTH, THROAT: Denies headaches, denies sore throat. CARDIOVASCULAR: Positive for chest pain, palpitations no syncopal episodes. RESPIRATORY: Positive for shortness of breath, cough, congestion no hemoptysis. GASTROINTESTINAL: Denies change in appetite, denies abdominal pain GENITOURINARY: Denies hematuria, denies infections. MUSKULOSKELETAL: Denies pain, denies swelling. INTEGUMENTARY: Denies rash, denies eczema. NEUROLOGICAL: Denies recent memory loss, no recent seizure activity. PSYCHIATRIC: Denies anxiety, denies depression. HEMATOLOGIC/LYMPHATIC: Denies anemia, denies enlarged lymph nodes. Past Medical History Past Medical History: Coronary Artery Disease (CAD), Diabetes Mellitus, Hyperlipidemia, Hypertension Additional Past Medical History / Comment(s): Obesity, coronary artery disease, previous PCI and coronary stenting, hypertension, hyperlipidemia, diabetes mellitus, history of cellulitis of the lower extremity, diastolic heart failure, left paralyzed diaphram, KIM History of Any Multi-Drug Resistant Organisms: None Reported Past Surgical History: Cholecystectomy, Coronary Bypass/CABG, Heart Catheterization With Stent Additional Past Surgical History / Comment(s): Double bypass October 1999, 2 stents Date of Last Stent Placement:: 03/2019 Past Psychological History: Anxiety Smoking Status: Never smoker Past Alcohol Use History: None Reported Past Drug Use History: None Reported - Past Family History Father Family Medical History: Cancer Mother Family Medical History: Coronary Artery Disease (CAD) Medications and Allergies Home Medications Medication Instructions Recorded Confirmed Type Ascorbic Acid [Vitamin C] 1,000 mg PO BID 04/15/20 06/11/20 History Aspirin EC [Ecotrin Low Dose] 81 mg PO DAILY 04/15/20 06/11/20 History Baclofen [Lioresal] 20 mg PO HS 04/15/20 06/11/20 History Cholecalciferol [Vitamin D3 (25 5,000 unit PO DAILY 04/15/20 06/11/20 History Mcg = 1000 Iu)] Clopidogrel Bisulfate [Plavix] 75 mg PO DAILY 04/15/20 06/11/20 History Ezetimibe [Zetia] 10 mg PO DAILY 04/15/20 06/11/20 History Fish Oil/Dha/Epa [Fish Oil 1,200 1 cap PO HS 04/15/20 06/11/20 History mg Fish Oil] Furosemide [Lasix] 40 mg PO DAILY 04/15/20 06/11/20 History Glucosam/Chond/Hyalu/Cf Borate 1 tab PO BID 04/15/20 06/11/20 History [[facility] [employer] Tablet] Lansoprazole [Prevacid] 30 mg PO BID 04/15/20 06/11/20 History Levothyroxine Sodium [Synthroid] 100 mcg PO DAILY 04/15/20 06/11/20 History Meloxicam 15 mg PO HS 04/15/20 06/11/20 History Metoclopramide [Reglan] 10 mg PO QID 04/15/20 06/11/20 History Metoprolol Tartrate [Lopressor] 100 mg PO BID 04/15/20 06/11/20 History Nitroglycerin 0.4MG/Hr Patch 1 patch TRANSDERM DAILY 04/15/20 06/11/20 History [Nitro-Dur 0.4MG/Hr Patch] Nitroglycerin Sl Tabs [Nitrostat] 0.4 mg SUBLINGUAL Q5M PRN 04/15/20 06/11/20 History Pravastatin Sodium [Pravachol] 40 mg PO HS 04/15/20 06/11/20 History Ranolazine [Ranexa] 500 mg PO BID 04/15/20 06/11/20 History rOPINIRole HCL [Requip] 0.5 mg PO DAILY@1300 04/15/20 06/11/20 History Insulin Glargine [Lantus] 50 unit SQ BID #0 04/23/20 06/11/20 Rx Insulin Lispro [humaLOG] 24 units SQ TID #0 04/23/20 06/11/20 Rx hydrALAZINE HCL [Apresoline] 25 mg PO TID #90 tab 04/23/20 06/11/20 Rx Alendronate Sodium [Fosamax] 70 mg PO SA 06/11/20 06/11/20 History Furosemide [Lasix] 20 mg PO DAILY@1600 06/11/20 06/11/20 History Ipratropium-Albuterol Nebulize 3 ml INHALATION RT-TID PRN 06/11/20 06/11/20 History [Duoneb 0.5 mg-3 mg/3 ml Soln] Ondansetron [Zofran] 4 mg PO Q8HR PRN 06/11/20 06/11/20 History Allergies Allergy/AdvReac Type Severity Reaction Status Date / Time codeine Allergy Unknown Verified 06/11/20 14:04 Physical Exam Vitals: Vital Signs Temp Pulse Resp BP Pulse Ox 06/12/20 09:00 107 H 23 139/66 92 L 06/12/20 08:00 100 22 142/69 96 06/12/20 07:36 96 01/13/21 07:30 94 06/12/20 07:00 96 24 139/73 97 06/12/20 06:00 102 H 24 144/75 96 06/12/20 05:00 99 22 143/74 95 06/12/20 04:00 99 F 96 22 143/72 96 06/12/20 03:58 22 06/12/20 03:00 98 22 131/73 95 06/12/20 02:00 109 H 21 127/65 94 L 06/12/20 01:00 108 H 24 138/64 95 06/12/20 00:00 98.4 F 109 H 24 132/71 94 L 06/11/20 23:57 105 H 25 H 94 L 06/11/20 23:00 105 H 25 H 123/78 95 06/11/20 22:00 107 H 26 H 136/84 94 L 06/11/20 21:00 117 H 25 H 147/81 94 L 06/11/20 20:30 108 H 06/11/20 20:00 98.9 F 105 H 31 H 148/86 95 06/11/20 19:00 113 H 35 H 146/77 94 L 06/11/20 18:00 122 H 30 H 148/71 94 L 06/11/20 17:00 97 25 H 140/72 96 06/11/20 16:02 99 06/11/20 16:00 98 31 H 147/70 98 06/11/20 15:53 96 06/11/20 15:00 96 24 149/88 96 06/11/20 14:50 101 H 25 H 149/88 95 06/11/20 14:40 98 25 H 157/76 96 06/11/20 14:30 94 26 H 158/80 96 06/11/20 14:20 96 25 H 158/80 96 06/11/20 14:10 93 26 H 143/72 95 06/11/20 14:00 94 26 H 144/70 96 06/11/20 13:50 98 100 H 144/70 96 06/11/20 13:40 96 28 H 92/77 96 06/11/20 13:30 96 26 H 137/73 96 06/11/20 13:20 95 25 H 137/73 96 06/11/20 13:10 94 25 H 137/66 96 06/11/20 13:00 95 28 H 137/66 96 06/11/20 12:50 97 26 H 137/66 96 06/11/20 12:40 97 35 H 114/74 96 06/11/20 12:30 98.8 F 95 27 H 119/97 95 06/11/20 12:24 100 26 H 95 Intake and Output 06/11/20 06/12/20 06/12/20 22:59 06:59 14:59 Intake Total 301.5 125.667 177.1 Output Total 890 685 50 Balance -588.5 -559.333 127.1 Intake: Intake, IV Titration 61.5 75.667 177.1 Amount Heparin Sod,Pork in 0.45% 75.667 NaCl 25,000 unit In 0.45 % NaCl 1 250ml.bag @ 9. 009 UNITS/KG/HR 10 mls/hr IV .Q24H [facility] Rx#: [id number] Nitroglycerin-D5w Pmx 50 61.5 177.1 mg In Dextrose/Water 1 250ml.bag @ Titrate IV . Q0M [facility] Rx#:[id number] Oral 240 50 Output: Urine 890 685 50 Other: Voiding Method Indwelling Catheter Indwelling Catheter Indwelling Catheter Weight 113 kg GENERAL EXAM: Alert, morbidly obese 69-year-old female patient, on 3.5 L nasal cannula, currently comfortable in no apparent distress. HEAD: Normocephalic. EYES: Normal reaction of pupils, equal size. NOSE: Clear with pink turbinates. THROAT: Crowding of the posterior pharynx. No erythema or exudates. NECK: Short. No masses, no JVD. CHEST: No chest wall deformity. LUNGS: Equal air entry with bibasilar crackles, diminished more so on the left. CVS: S1 and S2 normal with no audible murmur, regular rhythm. ABDOMEN: Morbidly obese unable to appreciate organomegaly, normal bowel sounds, no guarding or rigidity. SPINE: No scoliosis or deformity SKIN: No rashes CENTRAL NERVOUS SYSTEM: No focal deficits, tone is normal in all 4 extremities. EXTREMITIES: Changes of chronic venous stasis. There is 1-2+ peripheral edema. No clubbing, no cyanosis. Peripheral pulses are intact. Results - Laboratory Findings CBC and BMP: 06/12/20 03:27 06/12/20 03:27 PT/INR, D-dimer PT 10.1 sec (9.0-12.0) 06/11/20 14:21 INR 0.9 (<1.2) 06/11/20 14:21 Abnormal lab findings: Abnormal Labs 06/11/20 06/11/20 06/11/20 14:21 14:21 14:21 WBC 16.6 H RBC 2.72 L Hgb 9.3 L Hct 28.2 L MCV 103.8 H MCH Neutrophils # 12.4 H Monocytes # 1.8 H APTT Sodium 129 L Chloride 90 L Carbon Dioxide 31 H BUN 56 H Creatinine 1.52 H Glucose 249 H POC Glucose (mg/dL) AST 124 H ALT 45 H Troponin I 15.400 H* 06/11/20 06/11/20 06/12/20 17:28 21:30 03:27 WBC 14.4 H RBC 2.52 L Hgb 8.9 L Hct 26.4 L MCV 104.6 H MCH 35.4 H Neutrophils # 10.2 H Monocytes # 1.9 H APTT Sodium Chloride Carbon Dioxide BUN Creatinine Glucose POC Glucose (mg/dL) 260 H 267 H AST ALT Troponin I 06/12/20 06/12/20 06/12/20 03:27 03:27 03:27 WBC RBC Hgb Hct MCV MCH Neutrophils # Monocytes # APTT 57.7 H Sodium 127 L Chloride 90 L Carbon Dioxide BUN 56 H Creatinine 1.42 H Glucose 252 H POC Glucose (mg/dL) AST 94 H ALT 42 H Troponin I 9.740 H* 06/12/20 06:46 WBC RBC Hgb Hct MCV MCH Neutrophils # Monocytes # APTT Sodium Chloride Carbon Dioxide BUN Creatinine Glucose POC Glucose (mg/dL) 263 H AST ALT Troponin I - Diagnostic Findings Chest x-ray: image reviewed Assessment and Plan Assessment: 1 Acute non-ST segment elevation myocardial infarction. Remains on heparin drip. Remains on nitroglycerin drip. 2 Acute on chronic hypoxemic respiratory failure secondary to diastolic congestive heart failure. Preserved left ventricular systolic function with ejection fraction 55-60% 3 Morbid obesity with BMI of 48 4 Coronary artery disease with previous coronary artery bypass grafting in 1999 and previous stent placements 5 Acute renal failure 6 Hyponatremia 7 Acute on chronic anemia 8 Previous admission with cellulitis of the right lower extremity 9 Hypertension 10 Hyperlipidemia 11 Hypothyroidism 12 Diabetes mellitus 13 Obstructive sleep apnea maintained on CPAP in the outpatient setting 14 Chronic left hemidiaphragmatic elevation Plan: The patient was seen and evaluated by Dr. Anderson Chest x-ray and labs reviewed Remains on heparin drip, nitroglycerin drip Plan is for cardiac catheterization once more stable from the pulmonary standpoint Continue IV diuretics, bronchodilators Continue BiPAP as needed, titrate FiO2 as tolerated We will continue to follow and make further recommendations based on her clinical status I, the cosigning physician, performed a history & physical examination of the patient. Lungs sounds with bilateral basilar crackles, diminished more so on the left. Maintaining good O2 saturations in the 90s on 3.5 L/m per nasal cannula. I discussed the assessment and plan of care with my nurse practitioner, Torie Shi. I attest to the above consultation as dictated by her.
[2020-06-12 11:45] LABS: Glucose,Whole Blood 252 mg/dL (75-99)
[2020-06-12] MEDS: HEPARIN SOD,PORK IN 0.45% NACL 25,000 UNIT in 0.45% NACL 1 250ML.BAG IV SCH (11:54)
--- NOTE | 2020-06-12 13:43 | P.PN ---
Subjective HISTORY OF PRESENTING ILLNESS This is a pleasant 69-year-old female past medical history significant for coronary artery disease status post PCI in 03/2019 as well as CABG, hypertension, diabetes mellitus, dyslipidemia, hypothyroidism. She previously followed with Dr Machuca however has since followed up with Dr. Prieto. She was recently seen in March for acute on chronic diastolic heart failure with mildly elevated troponins and was diuresed and sent home. At the time her troponin elevation was thought likely related to her hypoxia and CAD and therefore heart catheterization was deferred. Unfortunately she has been experiencing increased dyspnea over the past [address] Prieto in approximately 2 weeks ago. He ordered a nuclear stress test, the results of which I do not have available right now which apparently she had performed on Wednesday. She admits to also having intermittent chest pain over the last 5-6 days which feels similar to her prior angina. Usually the chest pain only lasted 5-10 minutes and would resolve with nitroglycerin. On Wednesday however the pain persisted and therefore she went to [facility]. She was found to have elevated troponins and thought to be in heart failure and therefore was transferred to [facility] for possible heart catheterization. She states she did have an echocardiogram performed at the hospital this morning however results are not in the chart. She had been placed on a heparin drip however apparently she had some hematuria however this has since improved and therefore her heparin drip was restarted. She denies any hematochezia or melena. She still does have some orthopnea. She apparently had been getting diuretics with Lasix and admits to good urine output. Her creatinine today is 1.5 with prior creatinines from last admission from 1.1 up to 1.8. She admits she had been having some continued chest pain including this morning however it completely resolved with nitroglycerin drip and morphine. She currently denies any chest pain or pressure, arm pain. 06/12/20 Patient seen and examined. We did receive echocardiogram from yesterday at [facility] which showed ejection fraction 40-45% with report of g lobal hypokinesis and grade 2 diastolic dysfunction with mild mitral regurgitation. Patient still does have some shortness breath and orthopnea. She cannot lie flat without becoming short of breath. She admits she normally does wear a CPAP for her sleep apnea. She did have a recurrent episode of chest pain which lasted approximately 10-15 minutes and improved with narcotics as well as increasing her nitroglycerin up to 55. She admits to good urine output with the Lasix and her creatinine continues to be stable and mildly improved at 1.4. Her sodium is noted to be somewhat lower at 127 today however her glucose is also 252. REVIEW OF SYSTEMS At the time of my exam: CONSTITUTIONAL: Denies fever or chills. CARDIOVASCULAR: + chest pain, +shortness of breath, +orthopnea, no PND or palpi tations. RESPIRATORY: Denies cough. GASTROINTESTINAL: Denies abdominal pain, diarrhea, constipation, nausea or vomiting. MUSCULOSKELETAL: Denies myalgias. NEUROLOGIC: Denies numbness, tingling or weakness. ENDOCRINE: Denies fatigue, weight change, polydipsia or polyurina. GENITOURINARY: Denies burning, hematuria or urgency with micturation. HEMATOLOGIC: Denies history of anemia or bleeding. PHYSICAL EXAMINATION Blood pressure 135/71 heart rate 93 afebrile and maintaining oxygen saturation on 3.5 L nasal cannula CONSTITUTIONAL: No apparent distress, sitting somewhat upright in bed, obese, m ild increased respiratory rate. HEENT: Head is normocephalic. Pupils are equal, round. Sclerae anicteric. Mucous membranes of the mouth are moist. No JVD. No carotid bruit. CHEST EXAMINATION: + Increased crackles at the bases, no wheeze HEART EXAMINATION: Regular rate and rhythm. S1, S2 heard. No murmurs, gallops or rub. ABDOMEN: Soft, nontender. Positive bowel sounds. EXTREMITIES: 2+ peripheral pulses, no lower extremity edema and no calf tenderness. NEUROLOGIC EXAMINATION: Patient is awake, alert and oriented x3. ASSESSMENT 1. Non-STEMI 2. History of coronary artery disease status post CABG as well as PCI in March 2019 3. Chronic kidney disease 4. Acute on chronic systolic heart failure with ejection fraction 40-45% 5. Essential hypertension 6. Hyperlipidemia 7. Diabetes mellitus 8. Anemia with apparently mild decrease at [facility] 9. Chest pain related to non-STEMI, currently chest pain-free 10. Hematuria, improved PLAN Ideally we would take patient to the catheterization lab however patient still unable lie flat and still in heart failure. Overall she has been fairly well- controlled on the nitroglycerin drip with only brief episodes of chest pain and her troponins are trending down. We would like to continue to try to treat medically with the aspirin, Plavix and heparin drip as well as nitroglycerin and beta roselia. We will continue diuresis and hopeful for heart catheterization tomorrow. She denies any hematochezia or melena and has been tolerating aspirin and Plavix for some time at home. Although she does have anemia, no sign of bleed and I do believe she will be able to tolerate stent placement. If chest pain is persistent or more frequent, may consider taking patient urgently and try to get her through with BiPAP during the procedure. Echocardiogram from [facility] obtained with ejection fraction 40-45%. . Objective - Vital Signs Vital signs: Vital Signs Temp 99 F 06/12/20 04:00 Pulse 100 06/12/20 10:46 Resp 25 H 06/12/20 10:00 BP 135/71 06/12/20 10:00 Pulse Ox 93 L 06/12/20 10:00 Intake & Output 06/11/20 06/12/20 06/12/20 18:59 06:59 18:59 Intake Total 269 158.167 583.156 Output Total 1130 1245 560 Balance -861 -1086.833 23.156 Weight 111 kg 113 kg Intake: Intake, IV Titration 29 108.167 343.156 Amount Heparin Sod,Pork in 0.45% 75.667 166.056 NaCl 25,000 unit In 0.45 % NaCl 1 250ml.bag @ 9. 009 UNITS/KG/HR 10 mls/hr IV .Q24H [facility] Rx#: [id number] Nitroglycerin-D5w Pmx 50 29 32.5 177.1 mg In Dextrose/Water 1 250ml.bag @ Titrate IV . Q0M [facility] Rx#:[id number] Oral 240 50 240 Output: Urine 1130 1245 560 Other: Voiding Method Indwelling Catheter Indwelling Catheter Indwelling Catheter - Labs CBC & Chem 7: 06/12/20 03:27 06/12/20 03:27 Labs: Abnormal Lab Results - Last 24 Hours (Table) 06/11/20 06/11/20 06/11/20 Range/Units 14:21 14:21 14:21 WBC 16.6 H (3.8-10.6) k/uL RBC 2.72 L (3.80-5.40) m/uL Hgb 9.3 L (11.4-16.0) gm/dL Hct 28.2 L (34.0-46.0) % MCV 103.8 H (80.0-100.0) fL MCH (25.0-35.0) pg Neutrophils # 12.4 H (1.3-7.7) k/uL Monocytes # 1.8 H (0-1.0) k/uL APTT (22.0-30.0) sec Sodium 129 L (137-145) mmol/L Chloride 90 L (98-107) mmol/L Carbon Dioxide 31 H (22-30) mmol/L BUN 56 H (7-17) mg/dL Creatinine 1.52 H (0.52-1.04) mg/dL Glucose 249 H (74-99) mg/dL POC Glucose (mg/dL) (75-99) mg/dL AST 124 H (14-36) U/L ALT 45 H (4-34) U/L Troponin I 15.400 H* (0.000-0.034) ng/mL 06/11/20 06/11/20 06/12/20 Range/Units 17:28 21:30 03:27 WBC 14.4 H (3.8-10.6) k/uL RBC 2.52 L (3.80-5.40) m/uL Hgb 8.9 L (11.4-16.0) gm/dL Hct 26.4 L (34.0-46.0) % MCV 104.6 H (80.0-100.0) fL MCH 35.4 H (25.0-35.0) pg Neutrophils # 10.2 H (1.3-7.7) k/uL Monocytes # 1.9 H (0-1.0) k/uL APTT (22.0-30.0) sec Sodium (137-145) mmol/L Chloride (98-107) mmol/L Carbon Dioxide (22-30) mmol/L BUN (7-17) mg/dL Creatinine (0.52-1.04) mg/dL Glucose (74-99) mg/dL POC Glucose (mg/dL) 260 H 267 H (75-99) mg/dL AST (14-36) U/L ALT (4-34) U/L Troponin I (0.000-0.034) ng/mL 06/12/20 06/12/20 06/12/20 Range/Units 03:27 03:27 03:27 WBC (3.8-10.6) k/uL RBC (3.80-5.40) m/uL Hgb (11.4-16.0) gm/dL Hct (34.0-46.0) % MCV (80.0-100.0) fL MCH (25.0-35.0) pg Neutrophils # (1.3-7.7) k/uL Monocytes # (0-1.0) k/uL APTT 57.7 H (22.0-30.0) sec Sodium 127 L (137-145) mmol/L Chloride 90 L (98-107) mmol/L Carbon Dioxide (22-30) mmol/L BUN 56 H (7-17) mg/dL Creatinine 1.42 H (0.52-1.04) mg/dL Glucose 252 H (74-99) mg/dL POC Glucose (mg/dL) (75-99) mg/dL AST 94 H (14-36) U/L ALT 42 H (4-34) U/L Troponin I 9.740 H* (0.000-0.034) ng/mL 06/12/20 06/12/20 Range/Units 06:46 11:44 WBC (3.8-10.6) k/uL RBC (3.80-5.40) m/uL Hgb (11.4-16.0) gm/dL Hct (34.0-46.0) % MCV (80.0-100.0) fL MCH (25.0-35.0) pg Neutrophils # (1.3-7.7) k/uL Monocytes # (0-1.0) k/uL APTT (22.0-30.0) sec Sodium (137-145) mmol/L Chloride (98-107) mmol/L Carbon Dioxide (22-30) mmol/L BUN (7-17) mg/dL Creatinine (0.52-1.04) mg/dL Glucose (74-99) mg/dL POC Glucose (mg/dL) 263 H 252 H (75-99) mg/dL AST (14-36) U/L ALT (4-34) U/L Troponin I (0.000-0.034) ng/mL
[2020-06-12 16:34] LABS: Glucose,Whole Blood 275 mg/dL (75-99)
[2020-06-12 20:37] LABS: Glucose,Whole Blood 218 mg/dL (75-99)
[2020-06-12] MEDS: INSULIN DETEMIR (LEVEMIR) 100 UNIT/ML SYR SQ SCH (20:39)
[2020-06-12] MEDS: ATORVASTATIN 20 MG TAB PO SCH (20:40)
[2020-06-12] MEDS: MORPHINE SULFATE 2 MG/ML SYRINGE IVP PRN (20:59)
[2020-06-12] MEDS ORDERED: INSULIN DETEMIR (LEVEMIR) 100 UNIT/ML SYR SQ STA (21:37)
--- NOTE | 2020-06-12 21:41 | P.PN ---
Subjective Progress Note Date: 06/12/20 Principal diagnosis: Acute non-ST elevated MN Acute on chronic CHF with diastolic function Patient is a 69-year-old female with a known history of coronary artery disease status post stent placement, history of CABG 2 vessel in 1999, hypothyroidism, hypertension, diabetes type 2 insulin-dependent hyperlipidemia and obstructive sleep apnea on home oxygen at 2 L via nasal cannula and chronic CHF with diastolic dysfunction and recent history of right lower kidney cellulitis in March 2020 and morbid obesity initially presents to [facility] with the complaints of shortness of breath. Patient was also having mid retrosternal chest pain with radiation to the right arm associated with shortness of breath. Patient says that she was hypoxic with pulse ox in the 60s while at home. Presents to [facility] on 06/09/2020. No headache or dizziness. Patient was nauseated. Not diaphoretic. Denied any complaints of fever or chills. No cough or sputum production. Patient had chest x-ray showed mild pulmonary vascular congestion and interstitial edema and also elevated left hemidiaphragm. Patient was admitted to MICU. Patient had initial troponin level 0.03 and subsequent troponin elevation at 0.38. Creatinine went up to 1.59, Patient was started on heparin drip and nitro drip. ProBNP was 944. Patient was also started on Lasix 40 mg IV push twice a day. Patient was also continued on antibiotics in the form of ceftriaxone and azithromycin. Currently patient denied complaints of chest pain. Still having shortness of breath. Due to elevated troponin level and hypoxic respiratory failure requiring BiPAP, patient was transferred to [facility] for cardiac evaluation and further management. EKG showed sinus tachycardia. Extract chest x-ray showed pulmonary interstitial mild edema that could relate to acute heart failure. Laboratory data showed WBC 19.62, hemoglobin 9.4, MCV 105.1, RDW 13.5 and platelets 251 BUE and 51 and creatinine 1.77, sodium 1:30, potassium 4.7 and chloride 90, magnesium 1.8, alk phos 48 AST 176 and ALT 46, all given 3.0 Lactic acid level was 8.7 on admission which came down to 3.0 Covid PCR Is negative 06/12/2019 Patient is currently lying in the bed and still short of breath. No complaints of chest pain. Patient is being continued on heparin drip. Also on IV Lasix. Patient is tachycardic and tachypneic. No fever. Currently in oxygen at 3 L via nasal cannula and saturating at 95 to 92%. No nausea vomiting or abdominal pain or diarrhea. Bilateral lower extremity swelling is improving. Laboratory data showed WBC 14.4, hemoglobin 8.9 and MCV 104.6 Sodium 127, chloride 90, BUN 56 and creatinine 1.52 Troponin level 9.7 today. Cardiology is planning for catheterization in the next 24 hours. Current medications reviewed. Objective - Vital Signs Vital signs: Vital Signs Temp 98.4 F 06/12/20 16:00 Pulse 101 H 06/12/20 17:00 Resp 25 H 06/12/20 17:00 BP 123/78 06/12/20 17:00 Pulse Ox 94 L 06/12/20 17:00 Intake & Output 06/11/20 06/12/20 06/12/20 18:59 06:59 18:59 Intake Total 269 753.341 8974.156 Output Total 1130 1245 1335 Balance -861 -1086.833 -151.844 Weight 111 kg 113 kg Intake: Intake, IV Titration 29 108.167 343.156 Amount Heparin Sod,Pork in 0.45% 75.667 166.056 NaCl 25,000 unit In 0.45 % NaCl 1 250ml.bag @ 9. 009 UNITS/KG/HR 10 mls/hr IV .Q24H [facility] Rx#: [id number] Nitroglycerin-D5w Pmx 50 29 32.5 177.1 mg In Dextrose/Water 1 250ml.bag @ Titrate IV . Q0M [facility] Rx#:[id number] Oral 240 50 840 Output: Urine 1130 1245 1335 Other: Voiding Method Indwelling Catheter Indwelling Catheter Indwelling Catheter - Exam PHYSICAL EXAMINATION: Patient is lying in the bed comfortably, no acute distress, awake alert and oriented.morbidly obese.. HEENT: Normocephalic. Neck is supple. Pupils reactive. Nostrils clear. Oral cavity is moist. Ears reveal no drainage. Neck reveals no JVD, carotid bruits, or thyromegaly. CHEST EXAMINATION: Trachea is central. Symmetrical expansion. Bilateral crackles and diminished air entry.. CARDIAC: Normal S1, S2 with no gallops. No murmurs ABDOMEN: Soft. Bowel sounds normal. No organomegaly. No abdominal bruits. Extremities:2+ bilateral pedal edema. No clubbing or cyanosis Neurologically awake, alert, oriented x3 with well-coordinated movements. No focal deficits noted Skin: No rash or skin lesions. Psychiatric: Coperative. Nonsuicidal Musculoskeletal: No joint swelling or deformity. Normal range of motion. - Labs CBC & Chem 7: 06/12/20 03:27 06/12/20 03:27 Labs: Abnormal Lab Results - Last 24 Hours (Table) 06/11/20 06/12/20 06/12/20 Range/Units 21:30 03:27 03:27 WBC 14.4 H (3.8-10.6) k/uL RBC 2.52 L (3.80-5.40) m/uL Hgb 8.9 L (11.4-16.0) gm/dL Hct 26.4 L (34.0-46.0) % MCV 104.6 H (80.0-100.0) fL MCH 35.4 H (25.0-35.0) pg Neutrophils # 10.2 H (1.3-7.7) k/uL Monocytes # 1.9 H (0-1.0) k/uL APTT (22.0-30.0) sec Sodium 127 L (137-145) mmol/L Chloride 90 L (98-107) mmol/L BUN 56 H (7-17) mg/dL Creatinine 1.42 H (0.52-1.04) mg/dL Glucose 252 H (74-99) mg/dL POC Glucose (mg/dL) 267 H (75-99) mg/dL AST 94 H (14-36) U/L ALT 42 H (4-34) U/L Troponin I (0.000-0.034) ng/mL 06/12/20 06/12/20 06/12/20 Range/Units 03:27 03:27 06:46 WBC (3.8-10.6) k/uL RBC (3.80-5.40) m/uL Hgb (11.4-16.0) gm/dL Hct (34.0-46.0) % MCV (80.0-100.0) fL MCH (25.0-35.0) pg Neutrophils # (1.3-7.7) k/uL Monocytes # (0-1.0) k/uL APTT 57.7 H (22.0-30.0) sec Sodium (137-145) mmol/L Chloride (98-107) mmol/L BUN (7-17) mg/dL Creatinine (0.52-1.04) mg/dL Glucose (74-99) mg/dL POC Glucose (mg/dL) 263 H (75-99) mg/dL AST (14-36) U/L ALT (4-34) U/L Troponin I 9.740 H* (0.000-0.034) ng/mL 06/12/20 06/12/20 Range/Units 11:44 16:33 WBC (3.8-10.6) k/uL RBC (3.80-5.40) m/uL Hgb (11.4-16.0) gm/dL Hct (34.0-46.0) % MCV (80.0-100.0) fL MCH (25.0-35.0) pg Neutrophils # (1.3-7.7) k/uL Monocytes # (0-1.0) k/uL APTT (22.0-30.0) sec Sodium (137-145) mmol/L Chloride (98-107) mmol/L BUN (7-17) mg/dL Creatinine (0.52-1.04) mg/dL Glucose (74-99) mg/dL POC Glucose (mg/dL) 252 H 275 H (75-99) mg/dL AST (14-36) U/L ALT (4-34) U/L Troponin I (0.000-0.034) ng/mL Assessment and Plan Assessment: Acute non-ST elevated MN Chest pain secondary to above acute on chronic CHF with diastolic dysfunction Acute hypoxic respiratory failure secondary to CHF requiring BiPAP. Currently on nasal cannula oxygen at 3 L Severe lactic acidosis on admission likely due to hypoxia. Acute kidney injury with creatinine 1.77 with possible underlying CK D stage III Coronary artery disease with history of stent placement Coronary artery bypass graft in the year 1999 diabetes type 2 insulin-dependent with hyperglycemia uncontrolled Hypertension Hyperlipidemia Hypothyroidism Morbid obesity with BMI 47.8 Obstructive sleep apnea on CPAP and also on home oxygen at 2 L via nasal cannula Chronic left diaphragmatic elevation GI and DVT prophylaxis. Plan: Patient will be continued on telemetry monitoring. Continued heparin drip and nitro drip. Continue with aspirin statins and beta blockers. Continue with IV Lasix and repeat chest x-ray. Continue with insulin regimen with Levemir 40-->50 units at bedtime and NovoLog 10 units 3 times a day before meals along with insulin sliding scale. Continue with home medications and follow closely. cardiology and pulmonary is following.. Time with Patient: Greater than 30
[2020-06-12] MEDS: MELATONIN 5 MG TABLET PO PRN (21:49)
[2020-06-13 05:11] LABS: Basophils # (A) 0.1 k/uL (0-0.2); Basophils % (A) 1 %; Eosinophils # (A) 0.3 k/uL (0-0.7); Eosinophils % (A) 2 %; HCT 24.8 % (34.0-46.0); HGB 8.3 gm/dL (11.4-16.0); Lymphocytes # (A) 1.9 k/uL (1.0-4.8); Lymphocytes % (A) 14 %; MCH 34.4 pg (25.0-35.0); MCHC 33.7 g/dL (31.0-37.0); MCV 101.9 fL (80.0-100.0); Macrocytosis Slight; Mean Platelet Volume 8.4; Monocytes # (A) 1.7 k/uL (0-1.0); Monocytes % (A) 12 %; Neutrophils # (A) 9.4 k/uL (1.3-7.7); Neutrophils % (A) 69 %; Platelet Count 192 k/uL (150-450); RBC 2.43 m/uL (3.80-5.40); RDW 13.7 % (11.5-15.5); WBC 13.6 k/uL (3.8-10.6)
[2020-06-13 05:20] LABS: Calcium 8.4 mg/dL (8.4-10.2); Potassium 4.6 mmol/L (3.5-5.1)
[2020-06-13] MEDS: HEPARIN SOD,PORK IN 0.45% NACL 25,000 UNIT in 0.45% NACL 1 250ML.BAG IV SCH (05:27)
[2020-06-13] MEDS: LEVOTHYROXINE 100 MCG TAB PO SCH (06:00)
[2020-06-13] MEDS: ONDANSETRON 4 MG/2 ML VIAL IVP PRN (06:00)
[2020-06-13 06:51] LABS: Glucose,Whole Blood 216 mg/dL (75-99)
[2020-06-13] MEDS: INSULIN ASPART (NovoLOG) 100 UNIT/ML VIAL SQ SCH ×6 (06:56→18:23)
[2020-06-13] MEDS: PANTOPRAZOLE 40 MG TABLET PO SCH ×2 (06:57→18:24)
--- NOTE | 2020-06-13 07:38 | XR ---
EXAMINATION TYPE: XR chest 1V portable DATE OF EXAM: 06/13/2020 CLINICAL HISTORY: Difficulty breathing and CHF progress study. TECHNIQUE: Single AP portable upright view of the chest is obtained. COMPARISON: Chest x-ray from one day earlier and older studies. CT chest April 15, 2020 FINDINGS: Stable left-sided PICC line. Persistent elevated left hemidiaphragm. Overlying sternal wires and mediastinal clips redemonstrated. Persistent cardiomegaly with central vascular congestion. There are alveolar and interstitial opacit ies bilaterally. Tiny bilateral pleural effusions are felt present. Osseous structures are intact. IMPRESSION: Findings consistent with CHF exacerbation are thought present. Cardiomegaly with mild to moderate alveolar and interstitial edema is felt present bilaterally along with tiny bilateral pleura l effusions. Correlate clinically. No significant change from one day earlier. Underlying or developi ng acute infiltrates cannot be excluded.
[2020-06-13] MEDS: ASPIRIN 81 MG PO SCH (07:59)
[2020-06-13] MEDS: ASCORBIC ACID 500 MG TAB PO SCH ×2 (07:59→21:43)
[2020-06-13] MEDS: CLOPIDOGREL 75 MG TAB PO SCH (07:59)
[2020-06-13] MEDS: METOPROLOL TARTRATE 50 MG TAB PO SCH ×2 (07:59→21:22)
[2020-06-13] MEDS: FUROSEMIDE 10 MG/ML 4 ML VIAL IV SCH ×2 (07:59→21:21)
[2020-06-13] MEDS: IPRATROPIUM-ALBUTEROL 3 ML NEB INHALATION PRN ×3 (08:00→15:35)
[2020-06-13] MEDS ORDERED: LORazepam 2 MG/ML INJ IV PRN (08:17)
[2020-06-13] MEDS ORDERED: LIDOCAINE 1% INJ 10MG/ML (20 ML MDV) ONE ×2 (08:29→09:30)
[2020-06-13] MEDS ORDERED: VERAPAMIL 2.5 MG/ML 2 ML AMP ONE (08:29)
--- NOTE | 2020-06-13 08:34 | P.PN ---
Subjective HISTORY OF PRESENTING ILLNESS This is a pleasant 69-year-old female past medical history significant for coronary artery disease status post PCI in 03/2019 as well as CABG, hypertension, diabetes mellitus, dyslipidemia, hypothyroidism. She previously followed with Dr Machuca however has since followed up with Dr. Prieto. She was recently seen in March for acute on chronic diastolic heart failure with mildly elevated troponins and was diuresed and sent home. At the time her troponin elevation was thought likely related to her hypoxia and CAD and therefore heart catheterization was deferred. Unfortunately she has been experiencing increased dyspnea over the past [address] Prieto in approximately 2 weeks ago. He ordered a nuclear stress test, the results of which I do not have available right now which apparently she had performed on Wednesday. She admits to also having intermittent chest pain over the last 5-6 days which feels similar to her prior angina. Usually the chest pain only lasted 5-10 minutes and would resolve with nitroglycerin. On Wednesday however the pain persisted and therefore she went to [facility]. She was found to have elevated troponins and thought to be in heart failure and therefore was transferred to [facility] for possible heart catheterization. She states she did have an echocardiogram performed at the hospital this morning however results are not in the chart. She had been placed on a heparin drip however apparently she had some hematuria however this has since improved and therefore her heparin drip was restarted. She denies any hematochezia or melena. She still does have some orthopnea. She apparently had been getting diuretics with Lasix and admits to good urine output. Her creatinine today is 1.5 with prior creatinines from last admission from 1.1 up to 1.8. She admits she had been having some continued chest pain including this morning however it completely resolved with nitroglycerin drip and morphine. She currently denies any chest pain or pressure, arm pain. 06/13/20 Patient seen and examined. Patient did start to have chest pain approximately 7:00 AM despite increasing doses of nitroglycerin. Patient seen proximally 7:45 and discussed options. Patient agreeable to heart catheterization. She does still have orthopnea and shortness breath. Discussed that heart catheterization may result in patient becoming intubated and we will attempt to help her through with BiPAP. Patient on nitroglycerin drip at 100. States she only had one other episode of approximate 5-10 minutes yesterday of chest pain. REVIEW OF SYSTEMS At the time of my exam: CONSTITUTIONAL: Denies fever or chills. CARDIOVASCULAR: + chest pain, +shortness of breath, +orthopnea, no PND or palpitations. RESPIRATORY: Denies cough. GASTROINTESTINAL: Denies abdominal pain, diarrhea, constipation, nausea or vomiting. MUSCULOSKELETAL: Denies myalgias. NEUROLOGIC: Denies numbness, tingling or weakness. ENDOCRINE: Denies fatigue, weight change, polydipsia or polyurina. GENITOURINARY: Denies burning, hematuria or urgency with micturation. HEMATOLOGIC: Denies history of anemia or bleeding. PHYSICAL EXAMINATION Blood pressure 147/82 heart rate 105 afebrile and maintaining oxygen saturation on 3 L nasal cannula CONSTITUTIONAL: No apparent distress, sitting somewhat upright in bed, obese, mild increased respiratory rate. HEENT: Head is normocephalic. Pupils are equal, round. Sclerae anicteric. Mucous membranes of the mouth are moist. No JVD. No carotid bruit. CHEST EXAMINATION: + Increased crackles at the bases, no wheeze HEART EXAMINATION: Regular rate and rhythm. S1, S2 heard. No murmurs, gallops or rub. ABDOMEN: Soft, nontender. Positive bowel sounds. EXTREMITIES: 2+ peripheral pulses, no lower extremity edema and no calf ten derness. NEUROLOGIC EXAMINATION: Patient is awake, alert and oriented x3. ASSESSMENT 1. Non-STEMI 2. History of coronary artery disease status post CABG as well as PCI in March 2019 3. Chronic kidney disease 4. Acute on chronic systolic heart failure with ejection fraction 40-45% 5. Essential hypertension 6. Hyperlipidemia 7. Diabetes mellitus 8. Anemia with apparently mild decrease at [facility] 9. Chest pain related to non-STEMI, currently chest pain-free 10. Hematuria, improved PLAN Patient with ongoing chest pain and non-STEMI and therefore we recommended heart catheterization. Discussed that this may result in patient becoming intubated and we will attempt to help her through the procedure with BiPAP. Continue nitroglycerin, dual antiplatelets. Operative report not available however recent heart catheterization from 2019 shows only remaining grafts FERGUSON to LAD and SVG to OM. Patient did undergo FERGUSON to LAD stenting at the anastomosis at that time. Repeat troponin this morning noted to be 6.3 however ongoing chest pain. Her hemoglobin appears fairly stable at 8.3 and she has been able to tolerate dual antiplatelets at home. Her hyponatremia has been worsening and we will hopefully perform a right heart catheterization to further assess volume status during heart catheterization. Objective - Vital Signs Vital signs: Vital Signs Temp 98.4 F 06/13/20 04:00 Pulse 103 H 06/13/20 08:10 Resp 26 H 06/13/20 07:00 BP 147/82 06/13/20 07:00 Pulse Ox 93 L 06/13/20 07:00 Intake & Output 06/12/20 06/13/20 06/13/20 18:59 06:59 18:59 Intake Total 1183.156 928.541 34.65 Output Total 1385 1645 60 Balance -201.844 -716.459 -25.35 Weight 112.6 kg Intake: Intake, IV Titration 343.156 628.541 34.65 Amount Heparin Sod,Pork in 0.45% 166.056 233.766 NaCl 25,000 unit In 0.45 % NaCl 1 250ml.bag @ 9. 009 UNITS/KG/HR 10 mls/hr IV .Q24H [facility] Rx#: [id number] Nitroglycerin-D5w Pmx 50 177.1 394.775 34.65 mg In Dextrose/Water 1 250ml.bag @ Titrate IV . Q0M [facility] Rx#:[id number] Oral 840 300 Output: Urine 1385 1645 60 Other: Voiding Method Indwelling Catheter Indwelling Catheter - Labs CBC & Chem 7: 06/13/20 04:37 06/13/20 04:37 Labs: Abnormal Lab Results - Last 24 Hours (Table) 06/12/20 06/12/20 06/12/20 Range/Units 11:44 16:33 20:35 WBC (3.8-10.6) k/uL RBC (3.80-5.40) m/uL Hgb (11.4-16.0) gm/dL Hct (34.0-46.0) % MCV (80.0-100.0) fL Neutrophils # (1.3-7.7) k/uL Monocytes # (0-1.0) k/uL APTT (22.0-30.0) sec Sodium (137-145) mmol/L Chloride (98-107) mmol/L Carbon Dioxide (22-30) mmol/L BUN (7-17) mg/dL Creatinine (0.52-1.04) mg/dL Glucose (74-99) mg/dL POC Glucose (mg/dL) 252 H 275 H 218 H (75-99) mg/dL Troponin I (0.000-0.034) ng/mL 06/13/20 06/13/20 06/13/20 Range/Units 04:37 04:37 04:37 WBC 13.6 H (3.8-10.6) k/uL RBC 2.43 L (3.80-5.40) m/uL Hgb 8.3 L (11.4-16.0) gm/dL Hct 24.8 L (34.0-46.0) % MCV 101.9 H (80.0-100.0) fL Neutrophils # 9.4 H (1.3-7.7) k/uL Monocytes # 1.7 H (0-1.0) k/uL APTT 36.9 H (22.0-30.0) sec Sodium 124 L (137-145) mmol/L Chloride 87 L (98-107) mmol/L Carbon Dioxide 32 H (22-30) mmol/L BUN 50 H (7-17) mg/dL Creatinine 1.45 H (0.52-1.04) mg/dL Glucose 192 H (74-99) mg/dL POC Glucose (mg/dL) (75-99) mg/dL Troponin I (0.000-0.034) ng/mL 06/13/20 06/13/20 Range/Units 04:37 06:48 WBC (3.8-10.6) k/uL RBC (3.80-5.40) m/uL Hgb (11.4-16.0) gm/dL Hct (34.0-46.0) % MCV (80.0-100.0) fL Neutrophils # (1.3-7.7) k/uL Monocytes # (0-1.0) k/uL APTT (22.0-30.0) sec Sodium (137-145) mmol/L Chloride (98-107) mmol/L Carbon Dioxide (22-30) mmol/L BUN (7-17) mg/dL Creatinine (0.52-1.04) mg/dL Glucose (74-99) mg/dL POC Glucose (mg/dL) 216 H (75-99) mg/dL Troponin I 6.320 H* (0.000-0.034) ng/mL
[2020-06-13] MEDS: LIDOCAINE 1% INJ 10MG/ML (20 ML MDV) SQ ONE ×2 (08:48→09:27)
[2020-06-13] MEDS ORDERED: VERAPAMIL SYRINGE (5 MG/10 ML) INTRAARTER ONE (08:50)
[2020-06-13] MEDS: MIDAZOLAM 2 MG/2 ML VIAL IV ONE ×3 (08:50→10:38)
[2020-06-13] MEDS ORDERED: SODIUM CHLORIDE 0.9% 1,000 ML IV ONE (08:59)
[2020-06-13] MEDS ORDERED: HEPARIN SODIUM 1,000 UN/ML (10ML VL) ONE (09:03)
[2020-06-13] MEDS ORDERED: IOPAMIDOL-370 50ML BTL INJ ONE (09:18)
[2020-06-13] MEDS ORDERED: IOPAMIDOL-370 125ML BTL INJ ONE (09:18)
[2020-06-13] MEDS ORDERED: IOPAMIDOL-370 100ML BTL INJ ONE ×2 (09:54→11:00)
--- NOTE | 2020-06-13 10:10 | P.PN ---
Subjective Progress Note Date: 06/13/20 Principal diagnosis: Non-ST segment elevation myocardial infarction This is a pleasant 57-year-old gentleman who follows with Dr. Mcguire as his primary care provider. He has a history of diabetes mellitus, gastroesophageal reflux disease, hyperlipidemia, hypertension, chronic back pain, diabetic neuropathy throat cancer status post surgery, depression, chronic and ongoing tobacco dependence, occasional marijuana use. He presented here to the emergency room yesterday with complaints of chest tightness, shortness of breath, weakness with nausea, vomiting, diarrhea. He had recently been initiated on prednisone for shoulder pain. He also states his insulin pump had been beeping often. He had not taken any insulin for 2 days prior to his arrival. Initial labs revealed white count 33.6. Hemoglobin 17.7. Sodium 133. Potassium 5.4. Bicarb less than 5. Anion gap 22. Creatinine 1.9. Lactic acid 5.4. Acetone positive. Johnson virus not detected. He was admitted to the intensive care unit with diabetic ketoacidosis. He is seen today in consultation in the ICU. He is currently awake and alert in no acute distress. White count 25.9. Hemoglobin 13.1. Sodium 132. Potassium 3.8. Creatinine 0.7. Bicarb 19. He is currently on D5.45 with 20 of KCl at 150 MLS per hour. Insulin drip at 10 units per hour. He is on 2 L/m per nasal cannula. Chest x- ray reveals no acute process. The patient is seen today 06/13/2020 in follow-up in the intensive care unit. She is currently sitting up in bed. Placed on BiPAP 05/04 is 60% FiO2. She remains on a heparin drip per weight-based protocol. Continued on nitroglycerin drip at 100 mcg/m. The plan is for cardiac catheterization today. She remains on Lasix 40 mg IV every 12 hours, bronchodilators. Chest x-rays consistent with congestive heart failure. Cardiomegaly with mild to moderate alveolar and int erstitial edema bilaterally with tiny bilateral pleural effusions. No significant change compared to yesterday. White count 13.6. Hemoglobin 8.3. Sodium 124. Potassium 4.6. Creatinine 1.45. Troponin 6.320. Objective - Vital Signs Vital signs: Vital Signs Temp 98.4 F 06/13/20 04:00 Pulse 101 H 06/13/20 08:20 Resp 19 06/13/20 08:00 BP 150/92 06/13/20 08:00 Pulse Ox 94 L 06/13/20 08:00 Intake & Output 06/12/20 06/13/20 06/13/20 18:59 06:59 18:59 Intake Total 1183.156 928.541 34.65 Output Total 1385 1645 60 Balance -201.844 -716.459 -25.35 Weight 112.6 kg Intake: Intake, IV Titration 343.156 628.541 34.65 Amount Heparin Sod,Pork in 0.45% 166.056 233.766 NaCl 25,000 unit In 0.45 % NaCl 1 250ml.bag @ 9. 009 UNITS/KG/HR 10 mls/hr IV .Q24H [facility] Rx#: [id number] Nitroglycerin-D5w Pmx 50 177.1 394.775 34.65 mg In Dextrose/Water 1 250ml.bag @ Titrate IV . Q0M [facility] Rx#:[id number] Oral 840 300 Output: Urine 1385 1645 60 Other: Voiding Method Indwelling Catheter Indwelling Catheter Indwelling Catheter - Exam GENERAL EXAM: Alert, morbidly obese 69-year-old female patient, on BiPAP 12/5 and 60% FiO2, currently comfortable in no apparent distress. HEAD: Normocephalic. EYES: Normal reaction of pupils, equal size. NOSE: Clear with pink turbinates. THROAT: Crowding of the posterior pharynx. No erythema or exudates. NECK: Short. No masses, no JVD. CHEST: No chest wall deformity. LUNGS: Equal air entry with bibasilar crackles, diminished more so on the left. CVS: S1 and S2 normal with no audible murmur, regular rhythm. ABDOMEN: Morbidly obese unable to appreciate organomegaly, normal bowel sounds, no guarding or rigidity. SPINE: No scoliosis or deformity SKIN: No rashes CENTRAL NERVOUS SYSTEM: No focal deficits, tone is normal in all 4 extremities. EXTREMITIES: Changes of chronic venous stasis. There is 1-2+ peripheral edema. No clubbing, no cyanosis. Peripheral pulses are intact. - Labs CBC & Chem 7: 06/13/20 04:37 06/13/20 04:37 Labs: Abnormal Lab Results - Last 24 Hours (Table) 06/12/20 06/12/20 06/12/20 Range/Units 11:44 16:33 20:35 WBC (3.8-10.6) k/uL RBC (3.80-5.40) m/uL Hgb (11.4-16.0) gm/dL Hct (34.0-46.0) % MCV (80.0-100.0) fL Neutrophils # (1.3-7.7) k/uL Monocytes # (0-1.0) k/uL APTT (22.0-30.0) sec Sodium (137-145) mmol/L Chloride (98-107) mmol/L Carbon Dioxide (22-30) mmol/L BUN (7-17) mg/dL Creatinine (0.52-1.04) mg/dL Glucose (74-99) mg/dL POC Glucose (mg/dL) 252 H 275 H 218 H (75-99) mg/dL Troponin I (0.000-0.034) ng/mL 06/13/20 06/13/20 06/13/20 Range/Units 04:37 04:37 04:37 WBC 13.6 H (3.8-10.6) k/uL RBC 2.43 L (3.80-5.40) m/uL Hgb 8.3 L (11.4-16.0) gm/dL Hct 24.8 L (34.0-46.0) % MCV 101.9 H (80.0-100.0) fL Neutrophils # 9.4 H (1.3-7.7) k/uL Monocytes # 1.7 H (0-1.0) k/uL APTT 36.9 H (22.0-30.0) sec Sodium 124 L (137-145) mmol/L Chloride 87 L (98-107) mmol/L Carbon Dioxide 32 H (22-30) mmol/L BUN 50 H (7-17) mg/dL Creatinine 1.45 H (0.52-1.04) mg/dL Glucose 192 H (74-99) mg/dL POC Glucose (mg/dL) (75-99) mg/dL Troponin I (0.000-0.034) ng/mL 06/13/20 06/13/20 Range/Units 04:37 06:48 WBC (3.8-10.6) k/uL RBC (3.80-5.40) m/uL Hgb (11.4-16.0) gm/dL Hct (34.0-46.0) % MCV (80.0-100.0) fL Neutrophils # (1.3-7.7) k/uL Monocytes # (0-1.0) k/uL APTT (22.0-30.0) sec Sodium (137-145) mmol/L Chloride (98-107) mmol/L Carbon Dioxide (22-30) mmol/L BUN (7-17) mg/dL Creatinine (0.52-1.04) mg/dL Glucose (74-99) mg/dL POC Glucose (mg/dL) 216 H (75-99) mg/dL Troponin I 6.320 H* (0.000-0.034) ng/mL Assessment and Plan Assessment: 1 Acute non-ST segment elevation myocardial infarction. Remains on heparin drip. Remains on nitroglycerin drip. Plan is for cardiac catheterization today. 2 Acute on chronic hypoxemic respiratory failure secondary to diastolic congestive heart failure. Preserved left ventricular systolic function with ejection fraction 55-60% 3 Morbid obesity with BMI of 48 4 Coronary artery disease with previous coronary artery bypass grafting in 1999 and previous stent placements 5 Acute renal failure 6 Hyponatremia 7 Acute on chronic anemia 8 Previous admission with cellulitis of the right lower extremity 9 Hypertension 10 Hyperlipidemia 11 Hypothyroidism 12 Diabetes mellitus 13 Obstructive sleep apnea maintained on CPAP in the outpatient setting 14 Chronic left hemidiaphragmatic elevation Plan: The patient was seen and evaluated by Dr. Anderson Chest x-ray and labs reviewed Continue BiPAP as needed, titrate FiO2 as tolerated, Ativan ordered Continue IV diuretics, bronchodilators Remains on heparin drip, nitroglycerin drip Plan is for cardiac catheterization today We will continue to follow and make further recommendations based on her clinical status I, the cosigning physician, performed a history & physical examination of the patient. Lungs sounds with bilateral basilar crackles, diminished more so on the left. Maintaining good O2 saturations in the 90s on BiPAP 12/5 and 60% FiO2. I discussed the assessment and plan of care with my nurse practitioner, Torie Shi. I attest to the above note as dictated by her.
[2020-06-13 10:32] LABS: Ferritin 121.2 ng/mL (10.0-291.0)
[2020-06-13] MEDS ORDERED: ONDANSETRON 4 MG/2 ML VIAL ONE (10:34)
[2020-06-13] MEDS ORDERED: ONDANSETRON 4 MG/2 ML VIAL IVP ONE (10:35)
[2020-06-13 10:46] LABS: % Iron Saturation 10.03 (12.00-45.00)
[2020-06-13] MEDS: NITROGLYCERIN-D5W PMX 50 MG in DEXTROSE/WATER 1 250ML.BAG IV SCH ×2 (11:07→16:37)
[2020-06-13 11:27] LABS: O2 Sat Blood Gas 61.2 %
[2020-06-13 11:27] LABS: O2 Sat Blood Gas 59.9 %
[2020-06-13] MEDS ORDERED: NITROGLYCERIN SL TABS 0.4 MG TAB SUBLINGUAL PRN (11:30)
[2020-06-13] MEDS ORDERED: MAG HYDROX/AL HYDROX/SIMETH 30 ML CUP PO PRN (11:30)
[2020-06-13] MEDS ORDERED: ZOLPIDEM 5 MG TAB PO PRN (11:30)
[2020-06-13] MEDS ORDERED: SODIUM CHLORIDE 0.9% 1,000 ML IV SCH (11:30)
[2020-06-13] MEDS ORDERED: ATROPINE SULFATE 0.1 MG/ML 10ML SYRINGE IV PRN (11:30)
[2020-06-13] MEDS ORDERED: RX INFO: IV CONTRAST WAS GIVEN 1 EACH MISC MISCELLANE PRN (11:30)
[2020-06-13 11:56] LABS: Glucose,Whole Blood 259 mg/dL (75-99)
[2020-06-13] MEDS: hydrALAZINE HCL 25 MG TAB PO SCH ×2 (12:41→21:43)
[2020-06-13] MEDS: METOCLOPRAMIDE 10 MG TAB PO SCH ×4 (12:42→21:44)
[2020-06-13] MEDS: RANOLAZINE 500 MG TAB.ER.12H PO SCH ×2 (12:42→21:43)
--- NOTE | 2020-06-13 14:18 | CC ---
CARDIAC CATHETERIZATION REPORT Mrs. Cavanaugh is a 69-year-old female with a known history of coronary artery disease, status post coronary artery bypass grafting in 2000, history of percutaneous revascularization in 2019, history of hypertension, hyperlipidemia, diabetes mellitus as well as chronic kidney disease, who presented to [facility] with chest discomfort and was diagnosed with non STEMI as well as congestive heart failure. She was transferred to [facility] and continued to have chest discomfort. She was evaluated by Dr. Roldan and recommendation was made regarding cardiac catheterization. The procedure as well as the risks and the complications were discussed with the patient who is in full understanding and agreement. PROCEDURE: The patient was brought to the ship laborer in a fasting semi-sedated state after receiving fentanyl and Benadryl and achieving moderate conscious sedated state. Using Xylocaine anesthesia and Seldinger technique, a 6-Martiniquais sheath was introduced in the left radial artery. Selective right and left coronary angiography performed using 5-Martiniquais 4 bend right and left Hudson catheter. Multiple views of the carotid including him x-rays obtained, the 5-Martiniquais right Hudson was used to cannulate the FERGUSON to LAD. Images of the grafts were obtained. The aortic valve was crossed and left ventricular end- diastolic pressure was calculated. Multiple attempts to cannulate the saphenous vein graft to the obtuse marginal branch were unsuccessful. The right Hudson catheter was removed and 6-Martiniquais left coronary bypass catheter and an AL2 catheter were introduced that were unsuccessful in cannulating the graft. A 6-Martiniquais tight pigtail catheter was introduced in the ascending aorta and left aortogram was performed that showed the graft, but there was inability to cannulate at that time. Using Xylocaine anesthesia and Seldinger technique, a 6-Martiniquais sheath was introduced in the right femoral vein and a 6-Martiniquais sheath in the right femoral artery. Cannulization of the saphenous vein graft to the obtuse marginal branch was done using the 6-Martiniquais left coronary bypass catheter. Images of the grafts were obtained. Following that, catheter was removed. Images were reviewed. Of note, the patient received 4000 units of intravenous heparin as well as intra-arterial verapamil. FINDINGS: FLUOROSCOPY: There was calcification involving all the coronary arteries. LEFT MAIN: This is a large-sized vessel, bifurcating into left circumflex, left anterior descending artery. Left main coronary artery has a 10% to 20% plaque distally. LEFT ANTERIOR DESCENDING ARTERY: The proximal stented segment of the LAD has an 80% intimal diffuse disease and subsequently gives rise to a small diagonal branch and beyond that the vessel is totally occluded with no significant antegrade flow. LEFT CIRCUMFLEX: This vessel is subtotally occluded proximally with 99% stenosis and the takeoff of the first diagonal branch is totally occluded with no antegrade flow. RIGHT CORONARY ARTERY: This is a large dominant vessel bifurcating distally PDA and posterolateral segment and branches calcified. The proximal right coronary artery has a 95% to 99% stenosis eccentric and the mid distal segment has another area of stenosis of about 90%. The rest of the vessel has diffuse intimal disease without any evidence of high-grade stenosis. FERGUSON to LAD: The distal anastomotic site is patent. The flow into the LAD is brisk. There is no evidence of high-grade stenosis. The stented segment is patent. SAPHENOUS VEIN GRAFT TO THE OBTUSE MARGINAL BRANCH: The proximal and distal anastomotic sites are patent. The flow into the diagonal branch is brisk. AORTOGRAM: Aortogram was performed in the ITALIAN view and revealed a tricuspid aortic valve with no aortic regurgitation. LEFT VENTRICULOGRAM: Left ventriculogram was not performed. HEMODYNAMICS: There was no gradient across the aortic valve. The left ventricular end-diastolic pressure was calculated at 40 to 45 mmHg. CONCLUSION: 1. Chronic occluded LAD and left circumflex. 2. Patent FERGUSON to LAD. 3. Patent saphenous vein graft to the obtuse marginal branch. 4. Critical stenosis in the right coronary artery proximally and in mid distal segment in calcified area. 5. Elevated left ventricular end-diastolic pressure. 6. Normal appearance of the ascending aorta. RECOMMENDATION: In view of finding anatomy, I recommend proceeding with angioplasty and stenting of the right coronary artery. The procedure as well as risks and the complications were discussed with the patient who is in full understanding and agreement. MMODL / IJN: [id number] /
[2020-06-13] MEDS: FLUTICASONE 50MCG/SPRAY NASAL 16GM EA NOSTRIL PRN (14:21)
--- NOTE | 2020-06-13 15:47 | PTCA ---
PERCUTANEOUSTRANS CORORONARY ANGIOGRAPHY DATE OF SERVICE: 06/13/2020 Mrs. Cavanaugh is a 69-year-old female with known history of coronary artery disease who presented with woe-PE-fagvrqu-elevation myocardial infarction and continued chest pain. In view of that, she underwent cardiac catheterization and was found to have critical stenosis involving the right coronary artery. Recommendation was made regarding angioplasty and stenting. The procedure, its risks and complications were discussed with the patient, who was in full understanding and agreement. PROCEDURE DESCRIPTION: A 6-Romanian FR4 guiding catheter was introduced into the system. After stenting the left main, a 0.014 balanced medium weight J-wire with the help of a straight Super Cross was advanced across the lesion and positioned distally. Following that, attempts to advance a 2.5 x 12 mm NC Emerge balloon were unsuccessful. That balloon was removed and a 2.5 x 8 mm Trek balloon was introduced into the system but unable to cross the proximal lesion. That balloon was removed and a Sapphire I, 1.0 x 8 mm, was unsuccessful in crossing the lesion as well. At that point a GuideLiner was introduced into the system, and in spite of the GuideLiner there was inability to advance the balloon. The GuideLiner was removed and a Whisper J-wire was advanced with a SuperCross microcatheter and subsequently exchanged through the microcatheter to another 0.014 balanced medium weight J-wire. After removing the microcatheter, the Sapphire 1.0 x 8 mm balloon was advanced and multiple inflations were done at maximum of 12 atmospheres. Following that, the balloon was removed, and attempts to advance a 2.5 x 12 mm NC balloon were unsuccessful. That balloon was removed and a 2.0 x 8 mm Trek balloon was advanced and inflations were done at the proximal and mid distal segments at maximum of 10 atmospheres. Subsequently the balloon was removed and a 2.5 x 8 mm Trek balloon was advanced, and multiple inflations were done in the proximal and mid segments. Subsequently the 2.5 x 12 mm NC Emerge balloon was advanced and inflations were done proximally and in the mid distal at 12 atmospheres. Following that, a 2.5 x 12 mm Xience stent was advanced distally, deployed and post-dilated at 18 atmospheres. Following that, the balloon was removed and a 3.0 x 15 mm Xience Gabrielle stent was advanced proximally and post-dilated at 18 atmospheres. Following that, a 3.25 x 12 mm NC Emerge balloon was advanced in the proximal stent and one inflation at 12 atmospheres was done. After the last inflation, after appropriate wait, the balloon and the guidewire were withdrawn back into the guiding catheter. Images were obtained and repeated. Those images reveal stable successful stenting. At that point, the guiding catheter, the balloon and the guidewire were removed. A Ralph-Glenis catheter was introduced. Right heart catheterization was performed. Following that, the Ralph-Glenis was removed. The venous sheath was sutured in place. The right femoral sheath was removed and hemostasis was obtained with deployment of an Angio-Seal. The left radial artery sheath was removed and hemostasis was obtained by deployment of a TR band. At the end the procedure, the patient was pain-free and hemodynamically stable. She was continued on Plavix and her ACT was monitored. She received a total of 12,000 units of intravenous heparin throughout the procedure. HEMODYNAMICS: Cardiac output by thermodilution 9.6 L/minute. PA systolic pressure running 70 to 80 with diastolic 42. Pulmonary capillary wedge pressure A-wave 42 to 45. Right ventricular systolic pressure 80 mmHg. Right atrium 20 mmHg. CONCLUSION: 1. Successful stenting of the proximal and mid right coronary artery with reduction of stenosis from 90% to 0%. 2. Elevated left ventricular end-diastolic pressure. RECOMMENDATIONS: In view of findings and anatomy, I have recommended dual anti-platelet treatment with aggressive treatment of her fluid overload and congestion with close followup to her renal function. The prognosis remains guarded. Those findings and recommendations were discussed with the patient and her daughter, and they are in full understanding and agreement. Duration of sedation 150 minutes. MMEDWARD / NELDAN: [id number] / PETRA
--- NOTE | 2020-06-13 15:53 | PTCA ---
PERCUTANEOUSTRANS CORORONARY ANGIOGRAPHY June 13, 2020 To: Dr. Everardo Richmond Re: Kathi Cavanaugh (50) Dear Dr. Richmond, I had the pleasure of performing cardiac catheterization and coronary angioplasty and stenting on Mrs. Cavanaugh at [facility] on June 13, 2020. A full copy of the procedure note will be forwarded to you. In brief, she was found to have critical stenosis involving the right coronary artery in two different segments. She underwent successful stenting of that vessel. I am hopeful that this procedure will stabilize her status. I will keep you updated on her progress. Thank you again for allowing me to participate in her care. Please feel free to call with any questions. Sincerely yours, Nabli Prieto M.D. MORENITA / JAD: [id number] /
[2020-06-13] MEDS: DEXMEDETOMIDINE/0.9% NACL(PMX) 400 MCG in EMPTY BAG 1 BAG IV SCH ×2 (16:08→20:17)
[2020-06-13 18:05] LABS: Glucose,Whole Blood 172 mg/dL (75-99)
[2020-06-13 21:04] LABS: Potassium 5.4 mmol/L (3.5-5.1)
[2020-06-13 21:05] LABS: Albumin 3.5 g/dL (3.5-5.0); Calcium 8.5 mg/dL (8.4-10.2); Total Bilirubin 0.7 mg/dL (0.2-1.3); Total Protein 6.6 g/dL (6.3-8.2)
[2020-06-13 21:07] LABS: ABG Base Excess 5.1 mmol/L; ABG HCO3 30 mmol/L (21-25); ABG Oxygen Saturation 99.3 % (94-97); ABG PCO2 48 mmHg (35-45); ABG PH 7.41 (7.35-7.45); ABG PO2 142 mmHg (83-108); ABG TCO2 31 mmol/L (19-24); Allen Test Performed? Yes
[2020-06-13 21:12] LABS: Glucose,Whole Blood 130 mg/dL (75-99)
[2020-06-13] MEDS: INSULIN DETEMIR (LEVEMIR) 100 UNIT/ML SYR SQ SCH (21:22)
[2020-06-13] MEDS: ATORVASTATIN 80 MG TAB PO SCH (21:43)
[2020-06-14] MEDS ORDERED: propofoL 100 ML IV ONE (00:53)
[2020-06-14] MEDS ORDERED: CALCIUM GLUCONATE 1 GM in SODIUM CHLORIDE 0.9% 100 ML IVPB ONE (00:53)
[2020-06-14] MEDS ORDERED: ROCURONIUM 10 MG/ML (10 ML VIAL) IV ONE (00:58)
[2020-06-14] MEDS ORDERED: DEXTROSE 50% SYRINGE 50 ML IVP STA ×2 (01:05→05:20)
[2020-06-14] MEDS ORDERED: INSULIN REGULAR 100 UNIT/ML VIAL IV ONE ×2 (01:05→05:20)
[2020-06-14] MEDS ORDERED: SODIUM BICARB 8.4% 50 ML SYR (1 MEQ/ML) IV STA ×2 (01:05→05:20)
[2020-06-14 01:16] LABS: Glucose,Whole Blood 204 mg/dL (75-99)
--- NOTE | 2020-06-14 01:42 | P.PN ---
Progress Note - Text Progress Note Date: 06/14/20 Code Blue Team Note Activated at 0045. Arrived on the scene shortly after. Discussed the case with the RN and reviewed the chart. As per the RN, the patient was on BiPAP when she was noted to have bradycardia and subsequently went into asystole and lost pulse. The patient had received Epi x 1 IVP and had ROSC with subsequent V-tach on the monitor for which a synchronized cardioversion at 100 J was performed. Total downtime estimated to be 5-6 minutes. The patient reverted to sinus rhythm with adequate BPs. She was intubated by DYSLEXIA TEACHER. 1 g of Calcium gluconate, 10 U IVP insulin, and 50 g D50 were ordered for hyperkalemia. Stat labs were ordered. Collator Hand, Cardiology, and Primary teams were notified by the RN. Family was also notified by the RN. Please refer to Code sheet for further details.
[2020-06-14 01:51] LABS: Albumin 3.5 g/dL (3.5-5.0); Calcium 8.1 mg/dL (8.4-10.2); Magnesium 2.4 mg/dL (1.6-2.3); Phosphorus 7.6 mg/dL (2.5-4.5); Total Bilirubin 1.4 mg/dL (0.2-1.3); Total Protein 6.6 g/dL (6.3-8.2)
[2020-06-14 01:55] LABS: Potassium 6.3 mmol/L (3.5-5.1)
[2020-06-14 01:59] LABS: ABG Base Excess -2.2 mmol/L; ABG HCO3 24 mmol/L (21-25); ABG Oxygen Saturation 99.3 % (94-97); ABG PCO2 50 mmHg (35-45); ABG PH 7.29 (7.35-7.45); ABG PO2 189 mmHg (83-108); ABG TCO2 26 mmol/L (19-24); Allen Test Performed? Yes
--- NOTE | 2020-06-14 01:59 | XR ---
EXAM: XR Chest, 1 View CLINICAL HISTORY: ITS.REASON XR Reason: intubation TECHNIQUE: Frontal view of the chest. COMPARISON: Chest x-ray dated 06/13/2020 FINDINGS: Lungs: Diffuse airspace opacities. Pleural space: Unremarkable. Heart: Unremarkable. Mediastinum: Unremarkable. Bones/joints: Evidence of prior median sternotomy. Tubes, lines and devices: Enteric tube with tip in the gastric body. Endotracheal tube within the thoracic inlet. Left upper extremity PICC with tip in the cavoatrial junction. IMPRESSION: 1. Diffuse airspace opacities. 2. Support devices are in appropriate position.
[2020-06-14 02:10] LABS: HCT 22.9 % (34.0-46.0); HGB 7.6 gm/dL (11.4-16.0); MCH 34.7 pg (25.0-35.0); Macrocytosis Slight; Mean Platelet Volume 8.4; Platelet Count 181 k/uL (150-450); RBC 2.19 m/uL (3.80-5.40); RDW 13.8 % (11.5-15.5)
[2020-06-14] MEDS: NOREPINEPHRINE 4 MG in SODIUM CHLORIDE 0.9% 250 ML IV SCH ×2 (04:53→17:39)
[2020-06-14] MEDS: CHLORHEXIDINE GLUCONATE 15 ML CUP MUCOUS MEM SCH ×3 (04:53→21:31)
[2020-06-14 04:57] LABS: Basophils % (A) 0 %; Eosinophils % (A) 0 %; HGB 7.8 gm/dL (11.4-16.0); Lymphocytes % (A) 8 %; MCH 35.1 pg (25.0-35.0); MCHC 33.9 g/dL (31.0-37.0); MCV 103.5 fL (80.0-100.0); Macrocytosis Slight; Mean Platelet Volume 8.6; Monocytes # (A) 1.7 k/uL (0-1.0); Monocytes % (A) 13 %; Neutrophils # (A) 10.1 k/uL (1.3-7.7); Neutrophils % (A) 78 %; Platelet Count 191 k/uL (150-450); RBC 2.23 m/uL (3.80-5.40); WBC 13.1 k/uL (3.8-10.6)
[2020-06-14 05:11] LABS: Potassium 6.3 mmol/L (3.5-5.1)
[2020-06-14] MEDS ORDERED: FUROSEMIDE 10 MG/ML 10 ML VIAL IV STA ×2 (05:20→12:48)
[2020-06-14] MEDS: LEVOTHYROXINE 100 MCG TAB PO SCH (06:27)
[2020-06-14] MEDS: PANTOPRAZOLE 40 MG TABLET PO SCH (06:27)
[2020-06-14 06:30] LABS: Glucose,Whole Blood 215 mg/dL (75-99)
[2020-06-14] MEDS: INSULIN ASPART (NovoLOG) 100 UNIT/ML VIAL SQ SCH ×7 (06:35→23:56)
[2020-06-14] MEDS: IPRATROPIUM-ALBUTEROL 3 ML NEB INHALATION PRN (07:42)
[2020-06-14] MEDS: RANOLAZINE 500 MG TAB.ER.12H PO SCH ×2 (08:49→21:32)
[2020-06-14] MEDS: CLOPIDOGREL 75 MG TAB PO SCH (08:50)
[2020-06-14] MEDS: ASCORBIC ACID 500 MG TAB PO SCH ×2 (08:50→21:31)
[2020-06-14] MEDS: ASPIRIN 81 MG PO SCH (08:50)
[2020-06-14] MEDS: FUROSEMIDE 10 MG/ML 4 ML VIAL IV SCH (08:50)
[2020-06-14] MEDS: hydrALAZINE HCL 25 MG TAB PO SCH ×2 (08:51→21:31)
[2020-06-14] MEDS: METOPROLOL TARTRATE 50 MG TAB PO SCH ×2 (08:51→21:31)
[2020-06-14] MEDS: METOCLOPRAMIDE 10 MG TAB PO SCH ×4 (08:51→21:33)
[2020-06-14] MEDS ORDERED: CISATRACURIUM 2 MG/ML 5 ML VIAL IV ONE ×2 (09:12→10:15)
--- NOTE | 2020-06-14 09:25 | ECHOF ---
Referral Reason:re: NSTEMI MEASUREMENTS -------- HEIGHT: 152.4 cm WEIGHT: 107.5 kg BP: 131/48 RVIDd: 3.8 cm (< 3.3) IVSd: 1.4 cm (0.6 - 1.1) LVIDd: 4.3 cm (3.9 - 5.3) LVPWd: 1.2 cm (0.6 - 1.1) IVSs: 1.8 cm LVIDs: 3.7 cm LVPWs: 1.5 cm LAESV Index (A-L): 29.59 ml/m IVSd: 1.2 cm (0.6 - 1.1) LVIDd: 6.2 cm (3.9 - 5.3) LVPWd: 1.2 cm (0.6 - 1.1) IVSs: 1.7 cm LVIDs: 5.0 cm LVPWs: 1.5 cm EDV(Teich): 192 ml ESV(Teich): 117 ml EF(Teich): 39 % %FS: 19 % SV(Teich): 74 ml Ao Diam: 2.8 cm (2.0 - 3.7) AV Cusp: 1.8 cm (1.5 - 2.6) LA Diam: 4.3 cm (2.7 - 3.8) MV E Herbie: 1.03 m/s MV DecT: 188 ms MV A Herbie: 0.48 m/s MV E/A Ratio: 2.15 RAP: 5.00 mmHg RVSP: 43.10 mmHg FINDINGS -------- Sinus rhythm. This was a technically difficult study with suboptimal views. Pt. on a vent. Patient is post card iac catheterization and cannot be in left lateral position. The left ventricular size is normal. There is moderate concentric left ventricular hypertrophy. O verall left ventricular systolic function is moderately impaired with, an EF between 35 - 40 %. [facility]zad [facility] Doppler inflow pattern suggests diastolic filling abnormality {E/E'}. Septal wall motion is del ayed and consistent with prior cardiac surgery. Apical anterior LV wall motion is hypokinetic. A pical lateral LV wall motion is hypokinetic. Apical inferior LV wall motion is hypokinetic. Api lake septum LV wall motion is hypokinetic. Lateral hypokinesis Inferiorlateral Hypokinesis Ante rior Hypokinesis The right ventricle is mild to moderately enlarged. LA is midly dilated 29-33ml/m2. The right atrial size is normal. 5.0mg of Lumason was utilized for enhancement of images Interatrial and interventricular septum intact. The aortic valve is trileaflet and appears structurally normal. There is no evidence of aortic regu rgitation. There is no evidence of aortic stenosis. Moderate mitral regurgitation is present. Moderate tricuspid regurgitation present. There is moderate pulmonary hypertension. The right hayden tricular systolic pressure, as measured by Doppler, is 43.10mmHg. Trace/mild (physiologic) pulmonic regurgitation. The aortic root size is normal. IVC Not well visulized. There is no pericardial effusion. CONCLUSIONS -------- 1. This was a technically difficult study with suboptimal views. 2. The left ventricular size is normal. 3. There is moderate concentric left ventricular hypertrophy. 4. Overall left ventricular systolic function is moderately impaired with, an EF between 35 - 40 %. 5. Mitral Doppler inflow pattern suggest diastolic filling abnormality {E/E'}. 6. Apical anterior LV wall motion is hypokinetic. 7. Apical lateral LV wall motion is hypokinetic. 8. Apical inferior LV wall motion is hypokinetic. 9. Apical septum LV wall motion is hypokinetic. 10. Lateral hypokinesis 11. Inferiorlateral Hypokinesis 12. Anterior Hypokinesis 13. The right ventricle is mild to moderately enlarged. 14. Moderate mitral regurgitation is present. 15. Moderate tricuspid regurgitation present. 16. There is moderate pulmonary hypertension. 17. The right ventricular systolic pressure, as measured by Doppler, is 43.10mmHg. 18. Trace/mild (physiologic) pulmonic regurgitation. MIXING PAN TENDER: Lily Abreu RDCS
--- NOTE | 2020-06-14 10:13 | XR ---
EXAMINATION TYPE: XR chest 1V portable DATE OF EXAM: 06/14/2020 CLINICAL HISTORY: Line placement. TECHNIQUE: Single AP portable upright view of the chest is obtained. COMPARISON: Chest x-ray from earlier today an older studies FINDINGS: New Left internal jugular central venous catheter terminates at the cavoatrial junction. No left-sided pneumothorax noted. Stable left-sided PICC line, endotracheal tube, and orogastric tube. Persistent elevated left hemidiaphragm. Overlying sternal wires and mediastinal clips redemonstrated. Persistent cardiomegaly with central vascular congestion. There are alveolar and interstitial opacit ies bilaterally redemonstrated with most dense consolidation in the right lung base again seen. Multi level spurring in the thoracolumbar spine redemonstrated. IMPRESSION: New left internal jugular central venous catheter terminating at cavoatrial junction. No pneumothorax seen. Other findings stable with low lung volumes and cardiomegaly with persistent bilat eral multifocal edema and/or infiltrates.
[2020-06-14 10:24] LABS: ABG HCO3 29 mmol/L (21-25); ABG Oxygen Saturation 99.7 % (94-97); ABG PCO2 48 mmHg (35-45); ABG PH 7.39 (7.35-7.45); ABG PO2 287 mmHg (83-108); ABG TCO2 31 mmol/L (19-24)
--- NOTE | 2020-06-14 10:24 | PCN ---
PROCEDURE NOTE PROCEDURE: Left internal jugular triple-lumen catheter. PREOPERATIVE DIAGNOSIS: Administration of fluids and pressors. POSTOPERATIVE DIAGNOSIS: Administration of fluids and pressors. There was informed consent and universal timeout. OPERATORS: Dr. Anderson and Dr. Shi. TRIPLE LUMEN CATHETER PLACEMENT: Indication: Hemodynamic monitoring/Intravenous access. A time-out was completed verifying correct patient, procedure, site, positioning, and implant(s) or special equipment if applicable. The patient was placed in a dependent position appropriate for triple lumen catheter placement based on the vein to be cannulated. The patient's left neck was prepped and draped in sterile fashion. 1% Lidocaine was used to anesthetize the surrounding skin area. A triple lumen 9F Cordis catheter was introduced into the left internal jugular vein using Seldinger technique. The catheter was threaded smoothly over the guide wire and appropriate blood return was obtained. Each lumen of the catheter was evacuated of air and flushed with sterile saline. The catheter was then sutured in place to the skin and a sterile dressing applied. Perfusion to the extremity distal to the point of catheter insertion was checked and found to be adequate. We used the left internal jugular vein. We went via the posterior approach. There was no immediate complication. There was good blood return from all 3 ports. The catheter was sutured in place. Sterile dressing was applied by the nurse. The tip of the catheter was noted to be in the right atrium. A chest x-ray was ordered. There was no immediate complication. MMODL / IJN: [id number] /
[2020-06-14 10:26] LABS: Allen Test Performed? no
--- NOTE | 2020-06-14 10:27 | PCN ---
PROCEDURE NOTE PROCEDURE: Right brachial arterial line insertion. PREOPERATIVE DIAGNOSIS: Hypotension, hemodynamic monitoring. POSTOPERATIVE DIAGNOSIS: Hypotension, hemodynamic monitoring. ARTERIAL LINE PLACEMENT: Indications: Hemodynamic monitoring. A time-out was completed verifying correct patient, procedure, site, positioning, and implant(s) or special equipment if applicable. Jesus's test was performed to ensure adequate perfusion. The patient's right brachial site was prepped and draped in sterile fashion. 1% Lidocaine was used to anesthetize the area. An 18G Arrow arterial line was introduced into the right brachial artery. The catheter was threaded over the guide wire and the needle was removed with appropriate pulsatile blood return. Blood loss was minimal. The catheter was then sutured in place to the skin and a sterile dressing applied. Perfusion to the extremity distal to the point of catheter insertion was checked and found to be adequate. The patient tolerated the procedure well and there were no complications. MMODL / IJN: [id number] / MTDD
--- NOTE | 2020-06-14 11:07 | P.PN ---
Subjective Progress Note Date: 06/14/20 Principal diagnosis: Non-ST segment elevation myocardial infarction This is a pleasant 57-year-old gentleman who follows with Dr. Mcguire as his primary care provider. He has a history of diabetes mellitus, gastroesophageal reflux disease, hyperlipidemia, hypertension, chronic back pain, diabetic neuropathy throat cancer status post surgery, depression, chronic and ongoing tobacco dependence, occasional marijuana use. He presented here to the emergency room yesterday with complaints of chest tightness, shortness of breath, weakness with nausea, vomiting, diarrhea. He had recently been initiated on prednisone for shoulder pain. He also states his insulin pump had been beeping often. He had not taken any insulin for 2 days prior to his arrival. Initial labs revealed white count 33.6. Hemoglobin 17.7. Sodium 133. Potassium 5.4. Bicarb less than 5. Anion gap 22. Creatinine 1.9. Lactic acid 5.4. Acetone positive. Johs[place] virus not detected. He was admitted to the intensive care unit with diabetic ketoacidosis. He is seen today in consultation in the ICU. He is currently awake and alert in no acute distress. White count 25.9. Hemoglobin 13.1. Sodium 132. Potassium 3.8. Creatinine 0.7. Bicarb 19. He is currently on D5.45 with 20 of KCl at 150 MLS per hour. Insulin drip at 10 units per hour. He is on 2 L/m per nasal cannula. Chest x- ray reveals no acute process. The patient is seen today 06/13/2020 in follow-up in the intensive care unit. She is currently sitting up in bed. Placed on BiPAP / is 60% FiO2. She remains on a heparin drip per weight-based protocol. Continued on nitroglycerin drip at 100 mcg/m. The plan is for cardiac catheterization today. She remains on Lasix 40 mg IV every 12 hours, bronchodilators. Chest x-rays consistent with congestive heart failure. Cardiomegaly with mild to moderate alveolar and int erstitial edema bilaterally with tiny bilateral pleural effusions. No significant change compared to yesterday. White count 13.6. Hemoglobin 8.3. Sodium 124. Potassium 4.6. Creatinine 1.45. Troponin 6.320. The patient is seen today 06/14/2020 follow-up in the intensive care unit. She did undergo cardiac catheterization yesterday and subsequent stenting of the right coronary artery in 2 different segments. She was returned to the ICU on BiPAP. She had been doing fairly well until just after midnight this morning. She developed bradycardia and subsequent asystole. LETY MONTES was called and she was given epi with return of spontaneous circulation and subsequent ventricular tachycardia with cardioversion. Since that time she remains intubated on mechanical ventilator. Current settings assist-control rate of 20, tidal on 350, FiO2 70% and a PEEP of 5. Arterial blood gases reveal a P O2 of 189, pCO2 of 50 and a pH is 7.29. She has 0.9 normal saline at 20 miles per hour. She sedated on propofol at 30 mcg/kg/m. She's currently on norepinephrine at 4 mcg/m. White count 13.1. Hemoglobin 7.8. Sodium 124. Potassium 6.3. Creatinine 3.17. Glucose 155. Troponin 12.1. Chest x-ray reveals diffuse airspace opacities. She is on DuoNeb inhalations every 4 hours, Lasix 40 mg IV every 12 hours. Objective - Vital Signs Vital signs: Vital Signs Temp 99.7 F H 06/14/20 08:00 Pulse 71 06/14/20 10:00 Resp 20 06/14/20 10:00 BP 111/31 06/14/20 10:00 Pulse Ox 98 06/14/20 10:00 Intake & Output 06/13/20 06/14/20 06/14/20 18:59 06:59 18:59 Intake Total 698.597 354.547 224.215 Output Total 1610 125 5 Balance -911.403 229.547 219.215 Weight 112.6 kg 107.6 kg Intake: IV 135 92 .9 120 80 Pressure bag 15 12 Intake, IV Titration 458.597 219.547 72.215 Amount Calcium Gluconate 1 gm In 100 Sodium Chloride 0.9% 100 ml @ 100 mls/hr IVPB ONCE ONE Rx#:[id number] Dexmedetomidine/0.9% NaCl 38.097 31.528 (Pmx) 400 mcg In Empty Bag 1 bag @ Titrate IV . Q0M [facility] Rx#:[id number] Nitroglycerin-D5w Pmx 50 120.50 5.3 mg In Dextrose/Water 1 250ml.bag @ Titrate IV . Q0M [facility] Rx#:[id number] Norepinephrine 4 mg In 72.215 Sodium Chloride 0.9% 250 ml @ 0.05 MCG/KG/MIN 21. 45 mls/hr IV .[id number] [facility] Rx#:[id number] Sodium Chloride 0.9% 1, 300 20 000 ml @ 75 mls/hr IV . [id number] [facility] Rx#:[id number] propofoL 1,000 mg In 62.719 Empty Bag 1 bag @ Titrate IV .Q0M [facility] Rx#: [id number] Oral 240 Other 60 Output: Urine 1610 125 5 Other: Voiding Method Indwelling Catheter Indwelling Catheter ABP, PAP, CO, CI - Last Documented Arterial Blood Pressure 106/55 - Exam GENERAL EXAM: Intubated, sedated, morbidly obese 69-year-old female patient, on 70 % FiO2, comfortable in no apparent distress. HEAD: Normocephalic. EYES: Sluggish reaction of pupils, equal size. NOSE: Oral endotracheal gastric tube secured in place. Clear with pink tur binates. THROAT: Crowding of the posterior pharynx. No erythema or exudates. NECK: Short. No masses, no JVD. CHEST: No chest wall deformity. LUNGS: Equal air entry with bibasilar crackles, diminished more so on the left. CVS: S1 and S2 normal with no audible murmur, regular rhythm. ABDOMEN: Morbidly obese unable to appreciate organomegaly, normal bowel sounds, no guarding or rigidity. SPINE: No scoliosis or deformity SKIN: No rashes CENTRAL NERVOUS SYSTEM: No focal deficits, tone is normal in all 4 extremities. EXTREMITIES: Changes of chronic deformities of the toes on the right foot. There is 1-2+ peripheral edema. No clubbing, no cyanosis. Peripheral pulses are intact. - Labs CBC & Chem 7: 06/14/20 04:45 06/14/20 04:45 Labs: Abnormal Lab Results - Last 24 Hours (Table) 06/13/20 06/13/20 06/13/20 Range/Units 04:37 11:54 18:03 WBC (3.8-10.6) k/uL RBC (3.80-5.40) m/uL Hgb (11.4-16.0) gm/dL Hct (34.0-46.0) % MCV (80.0-100.0) fL MCH (25.0-35.0) pg Neutrophils # (1.3-7.7) k/uL Monocytes # (0-1.0) k/uL ABG pH (7.35-7.45) ABG pCO2 (35-45) mmHg ABG pO2 (83-108) mmHg ABG HCO3 (21-25) mmol/L ABG Total CO2 (19-24) mmol/L ABG O2 Saturation (94-97) % Sodium (137-145) mmol/L Potassium (3.5-5.1) mmol/L Chloride (98-107) mmol/L BUN (7-17) mg/dL Creatinine (0.52-1.04) mg/dL Glucose (74-99) mg/dL POC Glucose (mg/dL) 259 H 172 H (75-99) mg/dL Calcium (8.4-10.2) mg/dL Phosphorus (2.5-4.5) mg/dL Magnesium (1.6-2.3) mg/dL Iron 30 L (50-170) ug/dL % Saturation 10.03 L (12.00-45.00) Total Bilirubin (0.2-1.3) mg/dL AST (14-36) U/L ALT (4-34) U/L Troponin I (0.000-0.034) ng/mL 06/13/20 06/13/20 06/13/20 Range/Units 20:32 21:03 21:10 WBC (3.8-10.6) k/uL RBC (3.80-5.40) m/uL Hgb (11.4-16.0) gm/dL Hct (34.0-46.0) % MCV (80.0-100.0) fL MCH (25.0-35.0) pg Neutrophils # (1.3-7.7) k/uL Monocytes # (0-1.0) k/uL ABG pH (7.35-7.45) ABG pCO2 48 H (35-45) mmHg ABG pO2 142 H (83-108) mmHg ABG HCO3 30 H (21-25) mmol/L ABG Total CO2 31 H (19-24) mmol/L ABG O2 Saturation 99.3 H (94-97) % Sodium 126 L (137-145) mmol/L Potassium 5.4 H (3.5-5.1) mmol/L Chloride 88 L (98-107) mmol/L BUN 52 H (7-17) mg/dL Creatinine 2.26 H (0.52-1.04) mg/dL Glucose 124 H (74-99) mg/dL POC Glucose (mg/dL) 130 H (75-99) mg/dL Calcium (8.4-10.2) mg/dL Phosphorus (2.5-4.5) mg/dL Magnesium (1.6-2.3) mg/dL Iron (50-170) ug/dL % Saturation (12.00-45.00) Total Bilirubin (0.2-1.3) mg/dL AST 57 H (14-36) U/L ALT 36 H (4-34) U/L Troponin I (0.000-0.034) ng/mL 06/14/20 06/14/20 06/14/20 Range/Units 01:05 01:13 01:55 WBC (3.8-10.6) k/uL RBC (3.80-5.40) m/uL Hgb (11.4-16.0) gm/dL Hct (34.0-46.0) % MCV (80.0-100.0) fL MCH (25.0-35.0) pg Neutrophils # (1.3-7.7) k/uL Monocytes # (0-1.0) k/uL ABG pH 7.29 L (7.35-7.45) ABG pCO2 50 H (35-45) mmHg ABG pO2 189 H (83-108) mmHg ABG HCO3 (21-25) mmol/L ABG Total CO2 26 H (19-24) mmol/L ABG O2 Saturation 99.3 H (94-97) % Sodium 125 L (137-145) mmol/L Potassium 6.3 H* (3.5-5.1) mmol/L Chloride 89 L (98-107) mmol/L BUN 54 H (7-17) mg/dL Creatinine 2.62 H (0.52-1.04) mg/dL Glucose 146 H (74-99) mg/dL POC Glucose (mg/dL) 204 H (75-99) mg/dL Calcium 8.1 L (8.4-10.2) mg/dL Phosphorus 7.6 H (2.5-4.5) mg/dL Magnesium 2.4 H (1.6-2.3) mg/dL Iron (50-170) ug/dL % Saturation (12.00-45.00) Total Bilirubin 1.4 H (0.2-1.3) mg/dL AST 259 H (14-36) U/L ALT 180 H (4-34) U/L Troponin I (0.000-0.034) ng/mL 06/14/20 06/14/20 06/14/20 Range/Units 02:00 02:00 04:45 WBC 11.0 H 13.1 H (3.8-10.6) k/uL RBC 2.19 L 2.23 L (3.80-5.40) m/uL Hgb 7.6 L 7.8 L (11.4-16.0) gm/dL Hct 22.9 L 23.0 L (34.0-46.0) % MCV 105.0 H 103.5 H (80.0-100.0) fL MCH 35.1 H (25.0-35.0) pg Neutrophils # 10.1 H (1.3-7.7) k/uL Monocytes # 1.7 H (0-1.0) k/uL ABG pH (7.35-7.45) ABG pCO2 (35-45) mmHg ABG pO2 (83-108) mmHg ABG HCO3 (21-25) mmol/L ABG Total CO2 (19-24) mmol/L ABG O2 Saturation (94-97) % Sodium (137-145) mmol/L Potassium (3.5-5.1) mmol/L Chloride (98-107) mmol/L BUN (7-17) mg/dL Creatinine (0.52-1.04) mg/dL Glucose (74-99) mg/dL POC Glucose (mg/dL) (75-99) mg/dL Calcium (8.4-10.2) mg/dL Phosphorus (2.5-4.5) mg/dL Magnesium (1.6-2.3) mg/dL Iron (50-170) ug/dL % Saturation (12.00-45.00) Total Bilirubin (0.2-1.3) mg/dL AST (14-36) U/L ALT (4-34) U/L Troponin I 12.100 H* (0.000-0.034) ng/mL 06/14/20 06/14/20 06/14/20 Range/Units 04:45 06:29 10:22 WBC (3.8-10.6) k/uL RBC (3.80-5.40) m/uL Hgb (11.4-16.0) gm/dL Hct (34.0-46.0) % MCV (80.0-100.0) fL MCH (25.0-35.0) pg Neutrophils # (1.3-7.7) k/uL Monocytes # (0-1.0) k/uL ABG pH (7.35-7.45) ABG pCO2 48 H (35-45) mmHg ABG pO2 287 H (83-108) mmHg ABG HCO3 29 H (21-25) mmol/L ABG Total CO2 31 H (19-24) mmol/L ABG O2 Saturation 99.7 H (94-97) % Sodium 124 L (137-145) mmol/L Potassium 6.3 H* (3.5-5.1) mmol/L Chloride 88 L (98-107) mmol/L BUN 59 H (7-17) mg/dL Creatinine 3.17 H (0.52-1.04) mg/dL Glucose 155 H (74-99) mg/dL POC Glucose (mg/dL) 215 H (75-99) mg/dL Calcium 8.0 L (8.4-10.2) mg/dL Phosphorus (2.5-4.5) mg/dL Magnesium (1.6-2.3) mg/dL Iron (50-170) ug/dL % Saturation (12.00-45.00) Total Bilirubin (0.2-1.3) mg/dL AST (14-36) U/L ALT (4-34) U/L Troponin I (0.000-0.034) ng/mL Assessment and Plan Assessment: 1 Acute non-ST segment elevation myocardial infarction. Status post cardiac catheterization with subsequent stenting 2 days and RCA on 06/13/2020 2 Cardiac arrest early this a.m. 06/14/2020 with asystole, CPR approximately 6 minutes with return of spontaneous circulation, ventricular tachycardia requ iring synchronous cardioversion 1 3 Acute hypoxic respiratory failure secondary to above requiring intubation mechanical ventilation on 06/14/2020 4 Chronic hypoxemic respiratory failure secondary to diastolic congestive heart failure. Preserved left ventricular systolic function with ejection fraction 55-60% 5 Coronary artery disease with previous coronary artery bypass grafting in 1999 and previous stent placements 6 Acute renal failure 7 Hyponatremia 8 Acute on chronic anemia 9 Hypertension 10 Hyperlipidemia 11 Hypothyroidism 12 Diabetes mellitus 13 Obstructive sleep apnea maintained on CPAP in the outpatient setting 14 Chronic left hemidiaphragmatic elevation 15 Morbid obesity with BMI of 48 16 Previous admission with cellulitis of the right lower extremity, deformity of toes on the right foot 17 Poor overall functional performance based on the above-mentioned multiple comorbidities Plan: The patient was seen and evaluated by Dr. Anderson Chest x-ray, ABGs and labs reviewed Titrate down the FiO2 Continue IV diuretics, bronchodilators Lovenox for DVT prophylaxis, Protonix for GI prophylaxis Initiate tube feedings Left internal jugular triple-lumen catheter placed, right brachial arterial line placed We will continue to follow and make further recommendations based on her clinical status Critical care time, not including procedures, 38 minutes I, the cosigning physician, performed a history & physical examination of the patient. Lungs sounds with bilateral basilar crackles, diminished more so on the left. Maintaining good O2 saturations in the 90s on 70% FiO2 via the mechanical ventilator. I discussed the assessment and plan of care with my nurse practitioner, Torie Shi. I attest to the above note as dictated by her.
[2020-06-14 11:18] LABS: Calcium 7.8 mg/dL (8.4-10.2); Potassium 5.3 mmol/L (3.5-5.1)
[2020-06-14] MEDS: IPRATROPIUM-ALBUTEROL 3 ML NEB INHALATION SCH ×4 (11:27→23:57)
[2020-06-14 11:38] LABS: Glucose,Whole Blood 135 mg/dL (75-99)
--- NOTE | 2020-06-14 14:38 | P.PN ---
Subjective HISTORY OF PRESENTING ILLNESS This is a pleasant 69-year-old female past medical history significant for coronary artery disease status post PCI in 03/2019 as well as CABG, hypertension, diabetes mellitus, dyslipidemia, hypothyroidism. She previously followed with Dr Machuca however has since followed up with Dr. Prieto. She was recently seen in March for acute on chronic diastolic heart failure with mildly elevated troponins and was diuresed and sent home. At the time her troponin elevation was thought likely related to her hypoxia and CAD and therefore heart catheterization was deferred. Unfortunately she has been experiencing increased dyspnea over the past [address] Prieto in approximately 2 weeks ago. He ordered a nuclear stress test, the results of which I do not have available right now which apparently she had performed on Wednesday. She admits to also having intermittent chest pain over the last 5-6 days which feels similar to her prior angina. Usually the chest pain only lasted 5-10 minutes and would resolve with nitroglycerin. On Wednesday however the pain persisted and therefore she went to [facility]. She was found to have elevated troponins and thought to be in heart failure and therefore was transferred to [facility] for possible heart catheterization. She states she did have an echocardiogram performed at the hospital this morning however results are not in the chart. She had been placed on a heparin drip however apparently she had some hematuria however this has since improved and therefore her heparin drip was restarted. She denies any hematochezia or melena. She still does have some orthopnea. She apparently had been getting diuretics with Lasix and admits to good urine output. Her creatinine today is 1.5 with prior creatinines from last admission from 1.1 up to 1.8. She admits she had been having some continued chest pain including this morning however it completely resolved with nitroglycerin drip and morphine. She currently denies any chest pain or pressure, arm pain. 06/14/20 Patient seen and examined. Patient did have heart catheterization performed yesterday where she had 2 stents to the RCA with patent FERGUSON to LAD and SVG to OM. Her chest pain had improved after that point and she had been doing fairly well however still had respiratory failure requiring BiPAP. Her LVEDP was noted to possibly be approximately 40-45. Right heart catheterization was performed as well which showed a cardiac output of 9.6 by thermodilution, PA 70/42, only A wedge 42 with a right atrial pressure of 20. Patient unfortunately had asystole requiring CPR for proximally 6 minutes overnight with intubation. Per nursing she had not had any complaints prior to this however did have continued respiratory issues. Her creatinine has increased from 2.26 to 3.1 up to 3.7. Repeat troponin was drawn earlier this morning which resulted at 12.1. Her hemoglobin is noted be 7.6 as well as morning, stabilized at 7.8. She has required a small dose of levophed. Patient had repeat echocardiogram performed this morning which showed ejection fraction 35-40% with apical hypokinesis. REVIEW OF SYSTEMS Unable to perform review of systems secondary to sedation on ventilator PHYSICAL EXAMINATION Blood pressure 129/41 heart rate 69 afebrile and maintaining oxygen saturation on 45% FiO2 CONSTITUTIONAL: No apparent distress, sedated on ventilator , obese HEENT: Head is normocephalic. Pupils are equal, round. Sclerae anicteric. Mucous membranes of the mouth are moist. No carotid bruit. CHEST EXAMINATION: + Increased crackles at the bases, no wheeze HEART EXAMINATION: Regular rate and rhythm. S1, S2 heard. No murmurs, gallops or rub. ABDOMEN: Soft, nontender. Positive bowel sounds. EXTREMITIES: 2+ peripheral pulses, 1+ lower extremity edema and no calf tenderness. NEUROLOGIC EXAMINATION: Patient is sedated on ventilator ASSESSMENT 1. Non-STEMI, culprit artery suspected to be RCA, patent FERGUSON to LAD and SVG to 1 2. History of coronary artery disease status post CABG as well as PCI in March 2019 3. Chronic kidney disease 4. Acute on chronic systolic heart failure with ejection fraction 40-45% at [facility], decreased to 35-40% after cardiac arrest 5. Essential hypertension 6. Hyperlipidemia 7. Diabetes mellitus 8. Anemia, worsening 9. Cardiopulmonary arrest with initial rhythm of asystole. This is during the time of patient being on BiPAP with worsened respiratory status. May be primary hypoxia and resultant bradycardia, asystole. 10. Hypotension on vasopressors, likely exacerbated by sedation. Less likely cardiogenic shock given normal cardiac output by thermodilution with right heart catheterization. PLAN Patient underwent successful heart catheterization with stenting of the RCA with patent FERGUSON to LAD and SVG to OM. Patient unfortunately had cardiopulmonary arrest with initial rhythm of asystole, questionable if this was a primary pulmonary code. Patient had extremely high LVEDP and left-sided pressures. Repeat echo shows somewhat reduced ejection fraction 35-40% however fairly sim [facility]. Repeat echo shows moderate mitral regurgitation however no significant source of patient's deterioration. Patient apparently had been doing well post catheterization and we will continue with supportive care. Continue dual antiplatelets, monitor hemoglobin. Unfortunately patient has worsening kidney function and nephrology recommendations appreciated. Prognosis guarded. Objective - Vital Signs Vital signs: Vital Signs Temp 99 F 06/14/20 12:00 Pulse 69 06/14/20 14:00 Resp 20 06/14/20 14:00 BP 129/41 06/14/20 14:00 Pulse Ox 97 06/14/20 14:00 Intake & Output 06/13/20 06/14/20 06/14/20 18:59 06:59 18:59 Intake Total 698.597 354.547 446.215 Output Total 1610 125 15 Balance -911.403 229.547 431.215 Weight 112.6 kg 107.6 kg 107.6 kg Intake: IV 135 184 .9 120 160 Pressure bag 15 24 Intake, IV Titration 458.597 219.547 172.215 Amount Calcium Gluconate 1 gm In 100 Sodium Chloride 0.9% 100 ml @ 100 mls/hr IVPB ONCE ONE Rx#:[id number] Dexmedetomidine/0.9% NaCl 38.097 31.528 (Pmx) 400 mcg In Empty Bag 1 bag @ Titrate IV . Q0M [facility] Rx#:[id number] Nitroglycerin-D5w Pmx 50 120.50 5.3 mg In Dextrose/Water 1 250ml.bag @ Titrate IV . Q0M [facility] Rx#:[id number] Norepinephrine 4 mg In 72.215 Sodium Chloride 0.9% 250 ml @ 0.05 MCG/KG/MIN 21. 45 mls/hr IV .[id number] [facility] Rx#:[id number] Sodium Chloride 0.9% 1, 300 20 000 ml @ 75 mls/hr IV . [id number] [facility] Rx#:[id number] propofoL 1,000 mg In 62.719 100.000 Empty Bag 1 bag @ Titrate IV .Q0M [facility] Rx#: [id number] Oral 240 30 Other 60 Output: Urine 1610 125 15 Other: Voiding Method Indwelling Catheter Indwelling Catheter Indwelling Catheter ABP, PAP, CO, CI - Last Documented Arterial Blood Pressure 103/50 - Labs CBC & Chem 7: 06/14/20 04:45 06/14/20 10:45 Labs: Abnormal Lab Results - Last 24 Hours (Table) 06/13/20 06/13/20 06/13/20 Range/Units 04:37 18:03 20:32 WBC (3.8-10.6) k/uL RBC (3.80-5.40) m/uL Hgb (11.4-16.0) gm/dL Hct (34.0-46.0) % MCV (80.0-100.0) fL MCH (25.0-35.0) pg Neutrophils # (1.3-7.7) k/uL Monocytes # (0-1.0) k/uL ABG pH (7.35-7.45) ABG pCO2 (35-45) mmHg ABG pO2 (83-108) mmHg ABG HCO3 (21-25) mmol/L ABG Total CO2 (19-24) mmol/L ABG O2 Saturation (94-97) % Sodium 126 L (137-145) mmol/L Potassium 5.4 H (3.5-5.1) mmol/L Chloride 88 L (98-107) mmol/L BUN 52 H (7-17) mg/dL Creatinine 2.26 H (0.52-1.04) mg/dL Glucose 124 H (74-99) mg/dL POC Glucose (mg/dL) 172 H (75-99) mg/dL Calcium (8.4-10.2) mg/dL Phosphorus (2.5-4.5) mg/dL Magnesium (1.6-2.3) mg/dL Total Bilirubin (0.2-1.3) mg/dL AST 57 H (14-36) U/L ALT 36 H (4-34) U/L Troponin I (0.000-0.034) ng/mL RBC Folate 1,908 H (280 - 791) ng/mL 06/13/20 06/13/20 06/14/20 Range/Units 21:03 21:10 01:05 WBC (3.8-10.6) k/uL RBC (3.80-5.40) m/uL Hgb (11.4-16.0) gm/dL Hct (34.0-46.0) % MCV (80.0-100.0) fL MCH (25.0-35.0) pg Neutrophils # (1.3-7.7) k/uL Monocytes # (0-1.0) k/uL ABG pH (7.35-7.45) ABG pCO2 48 H (35-45) mmHg ABG pO2 142 H (83-108) mmHg ABG HCO3 30 H (21-25) mmol/L ABG Total CO2 31 H (19-24) mmol/L ABG O2 Saturation 99.3 H (94-97) % Sodium 125 L (137-145) mmol/L Potassium 6.3 H* (3.5-5.1) mmol/L Chloride 89 L (98-107) mmol/L BUN 54 H (7-17) mg/dL Creatinine 2.62 H (0.52-1.04) mg/dL Glucose 146 H (74-99) mg/dL POC Glucose (mg/dL) 130 H (75-99) mg/dL Calcium 8.1 L (8.4-10.2) mg/dL Phosphorus 7.6 H (2.5-4.5) mg/dL Magnesium 2.4 H (1.6-2.3) mg/dL Total Bilirubin 1.4 H (0.2-1.3) mg/dL AST 259 H (14-36) U/L ALT 180 H (4-34) U/L Troponin I (0.000-0.034) ng/mL RBC Folate (280 - 791) ng/mL 06/14/20 06/14/20 06/14/20 Range/Units 01:13 01:55 02:00 WBC 11.0 H (3.8-10.6) k/uL RBC 2.19 L (3.80-5.40) m/uL Hgb 7.6 L (11.4-16.0) gm/dL Hct 22.9 L (34.0-46.0) % MCV 105.0 H (80.0-100.0) fL MCH (25.0-35.0) pg Neutrophils # (1.3-7.7) k/uL Monocytes # (0-1.0) k/uL ABG pH 7.29 L (7.35-7.45) ABG pCO2 50 H (35-45) mmHg ABG pO2 189 H (83-108) mmHg ABG HCO3 (21-25) mmol/L ABG Total CO2 26 H (19-24) mmol/L ABG O2 Saturation 99.3 H (94-97) % Sodium (137-145) mmol/L Potassium (3.5-5.1) mmol/L Chloride (98-107) mmol/L BUN (7-17) mg/dL Creatinine (0.52-1.04) mg/dL Glucose (74-99) mg/dL POC Glucose (mg/dL) 204 H (75-99) mg/dL Calcium (8.4-10.2) mg/dL Phosphorus (2.5-4.5) mg/dL Magnesium (1.6-2.3) mg/dL Total Bilirubin (0.2-1.3) mg/dL AST (14-36) U/L ALT (4-34) U/L Troponin I (0.000-0.034) ng/mL RBC Folate (280 - 791) ng/mL 06/14/20 06/14/20 06/14/20 Range/Units 02:00 04:45 04:45 WBC 13.1 H (3.8-10.6) k/uL RBC 2.23 L (3.80-5.40) m/uL Hgb 7.8 L (11.4-16.0) gm/dL Hct 23.0 L (34.0-46.0) % MCV 103.5 H (80.0-100.0) fL MCH 35.1 H (25.0-35.0) pg Neutrophils # 10.1 H (1.3-7.7) k/uL Monocytes # 1.7 H (0-1.0) k/uL ABG pH (7.35-7.45) ABG pCO2 (35-45) mmHg ABG pO2 (83-108) mmHg ABG HCO3 (21-25) mmol/L ABG Total CO2 (19-24) mmol/L ABG O2 Saturation (94-97) % Sodium 124 L (137-145) mmol/L Potassium 6.3 H* (3.5-5.1) mmol/L Chloride 88 L (98-107) mmol/L BUN 59 H (7-17) mg/dL Creatinine 3.17 H (0.52-1.04) mg/dL Glucose 155 H (74-99) mg/dL POC Glucose (mg/dL) (75-99) mg/dL Calcium 8.0 L (8.4-10.2) mg/dL Phosphorus (2.5-4.5) mg/dL Magnesium (1.6-2.3) mg/dL Total Bilirubin (0.2-1.3) mg/dL AST (14-36) U/L ALT (4-34) U/L Troponin I 12.100 H* (0.000-0.034) ng/mL RBC Folate (280 - 791) ng/mL 06/14/20 06/14/20 06/14/20 Range/Units 06:29 10:22 10:45 WBC (3.8-10.6) k/uL RBC (3.80-5.40) m/uL Hgb (11.4-16.0) gm/dL Hct (34.0-46.0) % MCV (80.0-100.0) fL MCH (25.0-35.0) pg Neutrophils # (1.3-7.7) k/uL Monocytes # (0-1.0) k/uL ABG pH (7.35-7.45) ABG pCO2 48 H (35-45) mmHg ABG pO2 287 H (83-108) mmHg ABG HCO3 29 H (21-25) mmol/L ABG Total CO2 31 H (19-24) mmol/L ABG O2 Saturation 99.7 H (94-97) % Sodium 125 L (137-145) mmol/L Potassium 5.3 H (3.5-5.1) mmol/L Chloride 87 L (98-107) mmol/L BUN 64 H (7-17) mg/dL Creatinine 3.71 H (0.52-1.04) mg/dL Glucose 112 H (74-99) mg/dL POC Glucose (mg/dL) 215 H (75-99) mg/dL Calcium 7.8 L (8.4-10.2) mg/dL Phosphorus (2.5-4.5) mg/dL Magnesium (1.6-2.3) mg/dL Total Bilirubin (0.2-1.3) mg/dL AST (14-36) U/L ALT (4-34) U/L Troponin I (0.000-0.034) ng/mL RBC Folate (280 - 791) ng/mL 06/14/20 Range/Units 11:37 WBC (3.8-10.6) k/uL RBC (3.80-5.40) m/uL Hgb (11.4-16.0) gm/dL Hct (34.0-46.0) % MCV (80.0-100.0) fL MCH (25.0-35.0) pg Neutrophils # (1.3-7.7) k/uL Monocytes # (0-1.0) k/uL ABG pH (7.35-7.45) ABG pCO2 (35-45) mmHg ABG pO2 (83-108) mmHg ABG HCO3 (21-25) mmol/L ABG Total CO2 (19-24) mmol/L ABG O2 Saturation (94-97) % Sodium (137-145) mmol/L Potassium (3.5-5.1) mmol/L Chloride (98-107) mmol/L BUN (7-17) mg/dL Creatinine (0.52-1.04) mg/dL Glucose (74-99) mg/dL POC Glucose (mg/dL) 135 H (75-99) mg/dL Calcium (8.4-10.2) mg/dL Phosphorus (2.5-4.5) mg/dL Magnesium (1.6-2.3) mg/dL Total Bilirubin (0.2-1.3) mg/dL AST (14-36) U/L ALT (4-34) U/L Troponin I (0.000-0.034) ng/mL RBC Folate (280 - 791) ng/mL Microbiology - Last 24 Hours (Table) 06/14/20 04:16 Sputum Culture - Preliminary Sputum
--- NOTE | 2020-06-14 15:02 | CONS ---
CONSULTATION REASON FOR CONSULT: Renal failure, hyperkalemia. HISTORY OF PRESENT ILLNESS: The patient is a 69-year-old female who was admitted to the hospital on 06/11/2020 with complaints of chest pain. She ruled in for acute HI and patient was taken for cardiac catheterization yesterday. The patient had critical stenosis in the right coronary artery and subsequently angioplasty and stenting of the right coronary artery was performed yesterday. Postprocedure patient developed cardiac arrest later on in the night. It was bradycardia followed by asystole, subsequent ventricular tachycardia. The patient has been intubated. She was on small dose of Levophed which is now decreasing. The patient has not had any significant urine output since yesterday. We have had only about 0-5 mL/hour, mostly zero. Potassium was elevated at 6.3 early this morning. Patient received IV treatment for the potassium and this morning it is down to 5.3. Currently patient is stable on the vent. FiO2 is being decreased. Creatinine was 1.5 on initial admission on 06/11 and increased to 3.7 today. PAST MEDICAL HISTORY: Significant for hypertension coronary artery disease, type 2 diabetes, hyperlipidemia, history of diastolic heart failure, history of paralyzed left diaphragm. PAST SURGICAL HISTORY: Cholecystectomy, coronary artery bypass surgery, cardiac catheterization, coronary stent placement. SOCIAL HISTORY: Negative for smoking, drug abuse or alcohol abuse. MEDICATIONS: Medications prior to admission were multiple including vitamin C, vitamin D3, Plavix, Lasix, Prevacid, Synthroid, meloxicam, Reglan, Lopressor, Pravachol, Ranexa, Requip, insulin, hydralazine, Zofran, Fosamax. ALLERGIES: Allergies include CODEINE. REVIEW OF SYSTEMS: Review of systems cannot be obtained from the patient. Upon chart review, there is no active bleeding noted. The patient is mildly hypotensive, maintained on Levophed. She is on the vent. PHYSICAL EXAMINATION: On examination today, blood pressure this morning was 132/42, heart rate 68 per minute. She is afebrile. EXAMINATION OF THE HEART: S1, S2. EXAMINATION OF LUNGS: Breath sounds are heard bilaterally. Abdomen is soft, nontender. Examination of lower extremities shows no significant edema. TECHNICAL PROJECT MANAGER exam cannot be performed. LABS: Labs show sodium 125, potassium 5.3, chloride 87, BUN 64, serum creatinine 3.7, hemoglobin of 7.8 g/dL. Chest x-ray shows persistent bilateral multifocal edema and/or infiltrates. Echocardiogram shows ejection fraction 35% to 40%. Mildly dilated left atrium. Moderate pulmonary hypertension is also noted. ASSESSMENT: 1. Acute kidney injury, acute tubular necrosis, currently oliguric secondary to hypotension and acute myocardial infarction. The patient received IV contrast for cardiac catheterization. This will further worsen her acute kidney injury over the next few days. It is noted that patient was on meloxicam prior to admission. At this time since there is no urine output and potassium remains elevated, patient will need to start dialysis. I will recheck a serum potassium and if it is further elevated, we will proceed with renal replacement therapy given the severe oliguria. The patient also appears volume overloaded. However, she is currently on the vent and a FiO2 is decreasing. 2. Status post acute myocardial infarction, status post cardiac catheterization and coronary stent placement to right coronary artery. 3. Status post cardiac arrest. 4. History of hypertension, currently hypotensive. PLAN: Lasix 80 mg IV x1. Repeat potassium later on tonight. I will add a Lasix drip and if her serum potassium is increasing, I will proceed with dialysis today. This is discussed with her family and they are agreeable. MMODL / IJN: [id number] /
[2020-06-14 17:36] LABS: Glucose,Whole Blood 135 mg/dL (75-99)
[2020-06-14] MEDS: FUROSEMIDE 100 MG in SODIUM CHLORIDE 0.9% 90 ML IV SCH (18:27)
[2020-06-14] MEDS ORDERED: FUROSEMIDE 10 MG/ML 10 ML VIAL IV SCH (21:00)
[2020-06-14] MEDS: INSULIN DETEMIR (LEVEMIR) 100 UNIT/ML SYR SQ SCH (21:31)
[2020-06-14] MEDS: ATORVASTATIN 80 MG TAB PO SCH (21:31)
[2020-06-14] MEDS: PANTOPRAZOLE 40 MG/10 ML VIAL IVP SCH (21:32)
[2020-06-14 23:46] LABS: Glucose,Whole Blood 179 mg/dL (75-99)
[2020-06-15 00:44] LABS: Hepatitis B Surface AB- Quant 3.5 mIU/mL; Hepatitis B Surface Antibody Non-Reactive (Non-Reactive); Hepatitis B Surface Antigen Non-Reactive (Non-Reactive)
[2020-06-15] MEDS: FUROSEMIDE 100 MG in SODIUM CHLORIDE 0.9% 90 ML IV SCH (01:16)
[2020-06-15] MEDS: IPRATROPIUM-ALBUTEROL 3 ML NEB INHALATION SCH ×6 (03:38→23:19)
[2020-06-15 04:13] LABS: Basophils # (A) 0.1 k/uL (0-0.2); Basophils % (A) 1 %; Eosinophils # (A) 0.1 k/uL (0-0.7); Eosinophils % (A) 1 %; HGB 7.5 gm/dL (11.4-16.0); Lymphocytes # (A) 1.3 k/uL (1.0-4.8); Lymphocytes % (A) 10 %; MCH 34.6 pg (25.0-35.0); MCHC 34.1 g/dL (31.0-37.0); MCV 101.4 fL (80.0-100.0); Macrocytosis Slight; Mean Platelet Volume 10.4; Monocytes # (A) 1.5 k/uL (0-1.0); Monocytes % (A) 11 %; Neutrophils % (A) 76 %; Platelet Count 161 k/uL (150-450); RBC 2.17 m/uL (3.80-5.40); WBC 13.1 k/uL (3.8-10.6)
[2020-06-15 04:42] LABS: Calcium 7.6 mg/dL (8.4-10.2); Potassium 5.6 mmol/L (3.5-5.1); Total Bilirubin 0.6 mg/dL (0.2-1.3); Total Protein 5.7 g/dL (6.3-8.2)
[2020-06-15] MEDS: NOREPINEPHRINE 4 MG in SODIUM CHLORIDE 0.9% 250 ML IV SCH ×2 (04:54→16:31)
[2020-06-15 05:23] LABS: ABG Base Excess -1.3 mmol/L; ABG HCO3 25 mmol/L (21-25); ABG Oxygen Saturation 98.1 % (94-97); ABG PCO2 46 mmHg (35-45); ABG PH 7.34 (7.35-7.45); ABG PO2 123 mmHg (83-108); ABG TCO2 26 mmol/L (19-24); Allen Test Performed? Yes
[2020-06-15 05:39] LABS: Glucose,Whole Blood 157 mg/dL (75-99)
[2020-06-15] MEDS: INSULIN ASPART (NovoLOG) 100 UNIT/ML VIAL SQ SCH ×4 (05:41→23:33)
[2020-06-15] MEDS: LEVOTHYROXINE 100 MCG TAB PO SCH (05:41)
--- NOTE | 2020-06-15 07:31 | XR ---
EXAMINATION TYPE: XR chest 1V portable DATE OF EXAM: 06/15/2020 COMPARISON: Chest x-ray 06/14/2020 HISTORY: Intubated TECHNIQUE: Single frontal view of the chest is obtained. FINDINGS: Endotracheal tube, orogastric tube, left jugular central venous catheter are overlying skyler ropriate positions in stable. No evident pneumothorax. Bilateral airspace disease persists. Patient i s post median sternotomy. Heart is obscured but may be enlarged, patient is rotated. Hemidiaphragms a re obscured. IMPRESSION: Extensive bilateral airspace disease persists, correlate for pneumonia, ARDS, pulmonary edema, difficult to exclude effusion.
[2020-06-15] MEDS: RANOLAZINE 500 MG TAB.ER.12H PO SCH ×2 (07:51→21:39)
[2020-06-15] MEDS ORDERED: INSULIN REGULAR 100 UNIT/ML VIAL IV ONE (08:03)
[2020-06-15] MEDS ORDERED: DEXTROSE 50% SYRINGE 50 ML IVP STA (08:04)
[2020-06-15] MEDS: ASCORBIC ACID 500 MG TAB PO SCH ×2 (08:19→21:38)
[2020-06-15] MEDS: ASPIRIN 81 MG PO SCH (08:19)
[2020-06-15] MEDS: METOPROLOL TARTRATE 50 MG TAB PO SCH ×2 (08:19→21:38)
[2020-06-15] MEDS: CHLORHEXIDINE GLUCONATE 15 ML CUP MUCOUS MEM SCH ×2 (08:19→21:38)
[2020-06-15] MEDS: PANTOPRAZOLE 40 MG/10 ML VIAL IVP SCH ×2 (08:20→21:39)
[2020-06-15] MEDS: METOCLOPRAMIDE 10 MG TAB PO SCH ×4 (08:20→21:56)
[2020-06-15] MEDS: CLOPIDOGREL 75 MG TAB PO SCH (08:20)
--- NOTE | 2020-06-15 08:36 | P.PN ---
Subjective Patient is seen in follow for acute kidney injury. Renal function worsening. Oliguric despite Lasix drip. Sodium level down to 123 and potassium level at 5.6. Off vasopressors. Receiving tube feeding. Intubated. On 40% FiO2. Vital signs are stable. General: The patient appeared well nourished and normally developed. HEENT: Intubated. LUNGS: Breath sounds decreased. HEART: Rate and Rhythm are regular. \ ABDOMEN: Soft, obese. EXTREMITITES: 1+ edema. Objective - Vital Signs Vital signs: Vital Signs Temp 97.6 F 06/15/20 04:00 Pulse 91 06/15/20 07:32 Resp 23 06/15/20 07:00 BP 154/58 06/15/20 07:00 Pulse Ox 95 06/15/20 07:00 Intake & Output 06/14/20 06/15/20 06/15/20 18:59 06:59 18:59 Intake Total 836.896 995.511 78.36 Output Total 25 15 5 Balance 811.896 980.511 73.36 Weight 107.6 kg 110.4 kg Intake: IV 276 276 23 .9 240 240 20 Pressure bag 36 36 3 Intake, IV Titration 380.896 394.511 30.36 Amount Furosemide 100 mg In 78.167 Sodium Chloride 0.9% 90 ml @ 10 MG/HR 10 mls/hr IV .Q10H [facility] Rx#: [id number] Norepinephrine 4 mg In 180.896 Sodium Chloride 0.9% 250 ml @ 0.05 MCG/KG/MIN 21. 45 mls/hr IV .[id number] [facility] Rx#:[id number] propofoL 1,000 mg In 200.000 316.344 30.36 Empty Bag 1 bag @ Titrate IV .Q0M [facility] Rx#: [id number] Oral 30 Tube Feeding 40 235 25 Other 110 90 Output: Urine 25 15 5 Other: Voiding Method Indwelling Catheter Indwelling Catheter ABP, PAP, CO, CI - Last Documented Arterial Blood Pressure 167/56 - Labs CBC & Chem 7: 06/15/20 04:05 06/15/20 04:05 Labs: Abnormal Lab Results - Last 24 Hours (Table) 06/13/20 06/14/20 06/14/20 Range/Units 04:37 10:22 10:45 WBC (3.8-10.6) k/uL RBC (3.80-5.40) m/uL Hgb (11.4-16.0) gm/dL Hct (34.0-46.0) % MCV (80.0-100.0) fL Neutrophils # (1.3-7.7) k/uL Monocytes # (0-1.0) k/uL ABG pH (7.35-7.45) ABG pCO2 48 H (35-45) mmHg ABG pO2 287 H (83-108) mmHg ABG HCO3 29 H (21-25) mmol/L ABG Total CO2 31 H (19-24) mmol/L ABG O2 Saturation 99.7 H (94-97) % Sodium 125 L (137-145) mmol/L Potassium 5.3 H (3.5-5.1) mmol/L Chloride 87 L (98-107) mmol/L BUN 64 H (7-17) mg/dL Creatinine 3.71 H (0.52-1.04) mg/dL Glucose 112 H (74-99) mg/dL POC Glucose (mg/dL) (75-99) mg/dL Calcium 7.8 L (8.4-10.2) mg/dL AST (14-36) U/L ALT (4-34) U/L Total Protein (6.3-8.2) g/dL Albumin (3.5-5.0) g/dL RBC Folate 1,908 H (280 - 791) ng/mL 06/14/20 06/14/20 06/14/20 Range/Units 11:37 16:14 17:35 WBC (3.8-10.6) k/uL RBC (3.80-5.40) m/uL Hgb (11.4-16.0) gm/dL Hct (34.0-46.0) % MCV (80.0-100.0) fL Neutrophils # (1.3-7.7) k/uL Monocytes # (0-1.0) k/uL ABG pH (7.35-7.45) ABG pCO2 (35-45) mmHg ABG pO2 (83-108) mmHg ABG HCO3 (21-25) mmol/L ABG Total CO2 (19-24) mmol/L ABG O2 Saturation (94-97) % Sodium (137-145) mmol/L Potassium 5.2 H (3.5-5.1) mmol/L Chloride (98-107) mmol/L BUN (7-17) mg/dL Creatinine (0.52-1.04) mg/dL Glucose (74-99) mg/dL POC Glucose (mg/dL) 135 H 135 H (75-99) mg/dL Calcium (8.4-10.2) mg/dL AST (14-36) U/L ALT (4-34) U/L Total Protein (6.3-8.2) g/dL Albumin (3.5-5.0) g/dL RBC Folate (280 - 791) ng/mL 06/14/20 06/15/20 06/15/20 Range/Units 23:45 04:05 04:05 WBC 13.1 H (3.8-10.6) k/uL RBC 2.17 L (3.80-5.40) m/uL Hgb 7.5 L (11.4-16.0) gm/dL Hct 22.0 L (34.0-46.0) % MCV 101.4 H (80.0-100.0) fL Neutrophils # 10.0 H (1.3-7.7) k/uL Monocytes # 1.5 H (0-1.0) k/uL ABG pH (7.35-7.45) ABG pCO2 (35-45) mmHg ABG pO2 (83-108) mmHg ABG HCO3 (21-25) mmol/L ABG Total CO2 (19-24) mmol/L ABG O2 Saturation (94-97) % Sodium 123 L (137-145) mmol/L Potassium 5.6 H (3.5-5.1) mmol/L Chloride 87 L (98-107) mmol/L BUN 79 H (7-17) mg/dL Creatinine 5.42 H (0.52-1.04) mg/dL Glucose 136 H (74-99) mg/dL POC Glucose (mg/dL) 179 H (75-99) mg/dL Calcium 7.6 L (8.4-10.2) mg/dL AST 714 H (14-36) U/L ALT 726 H (4-34) U/L Total Protein 5.7 L (6.3-8.2) g/dL Albumin 3.0 L (3.5-5.0) g/dL RBC Folate (280 - 791) ng/mL 06/15/20 06/15/20 Range/Units 05:15 05:37 WBC (3.8-10.6) k/uL RBC (3.80-5.40) m/uL Hgb (11.4-16.0) gm/dL Hct (34.0-46.0) % MCV (80.0-100.0) fL Neutrophils # (1.3-7.7) k/uL Monocytes # (0-1.0) k/uL ABG pH 7.34 L (7.35-7.45) ABG pCO2 46 H (35-45) mmHg ABG pO2 123 H (83-108) mmHg ABG HCO3 (21-25) mmol/L ABG Total CO2 26 H (19-24) mmol/L ABG O2 Saturation 98.1 H (94-97) % Sodium (137-145) mmol/L Potassium (3.5-5.1) mmol/L Chloride (98-107) mmol/L BUN (7-17) mg/dL Creatinine (0.52-1.04) mg/dL Glucose (74-99) mg/dL POC Glucose (mg/dL) 157 H (75-99) mg/dL Calcium (8.4-10.2) mg/dL AST (14-36) U/L ALT (4-34) U/L Total Protein (6.3-8.2) g/dL Albumin (3.5-5.0) g/dL RBC Folate (280 - 791) ng/mL Microbiology - Last 24 Hours (Table) 06/14/20 04:16 Gram Stain - Preliminary Sputum Sputum Culture - Preliminary Assessment and Plan Plan: Assessment: 1. Acute kidney injury secondary to ATN secondary to cardiopulmonary arrest. Renal function worsening. Creatinine 5.4 today. 2. Rule out chronic kidney disease. Creatinine was as low as 1.05 as of 04/22/2020. 3. Hyponatremia secondary to acute kidney injury. Hypervolemic. 4. Hyperkalemia secondary to acute kidney injury. 5. Acute on chronic systolic CHF with ejection fraction of 35-40% with moderate mitral regurgitation, tricuspid regurgitation and pulmonary hypertension. 6. Status post cardiopulmonary arrest on June 14. 7. Acute MA status post cardiac catheterization with RCA stenting. 8. Diabetes mellitus. Plan: 10 units IV regular insulin with an amp of D50 now. With worsening renal failure, oliguria and volume overload, initiate renal replacement therapy. Consult vascular surgery for dialysis catheter placement. First treatment of hemodialysis today. Maintain tube feeding. Change to Nepro. Wean FiO2. Continue to monitor renal function and urine output. Check renal ultrasound. Repeat potassium level 2 hours after dialysis. Stop Lasix drip.
[2020-06-15] MEDS ORDERED: CISATRACURIUM 2 MG/ML 5 ML VIAL IV ONE ×2 (08:49→09:00)
[2020-06-15] MEDS ORDERED: ENOXAPARIN 40 MG/0.4 ML SYRINGE SQ SCH (09:00)
--- NOTE | 2020-06-15 09:47 | P.PN ---
Subjective Progress Note Date: 06/13/20 Principal diagnosis: Acute non-ST elevated [facility] Acute on chronic CHF with diastolic function Patient is a 69-year-old female with a known history of coronary artery disease status post stent placement, history of CABG 2 vessel in 1999, hypothyroidism, hypertension, diabetes type 2 insulin-dependent hyperlipidemia and obstructive sleep apnea on home oxygen at 2 L via nasal cannula and chronic CHF with diastolic dysfunction and recent history of right lower kidney cellulitis in March 2020 and morbid obesity initially presents to [facility] with the complaints of shortness of breath. Patient was also having mid retrosternal chest pain with radiation to the right arm associated with shortness of breath. Patient says that she was hypoxic with pulse ox in the 60s while at home. Presents to [facility] on 06/09/2020. No headache or dizziness. Patient was nauseated. Not diaphoretic. Denied any complaints of fever or chills. No cough or sputum production. Patient had chest x-ray showed mild pulmonary vascular congestion and interstitial edema and also elevated left hemidiaphragm. Patient was admitted to MICU. Patient had initial troponin level 0.03 and subsequent troponin elevation at 0.38. Creatinine went up to 1.59, Patient was started on heparin drip and nitro drip. ProBNP was 944. Patient was also started on Lasix 40 mg IV push twice a day. Patient was also continued on antibiotics in the form of ceftriaxone and azithromycin. Currently patient denied complaints of chest pain. Still having shortness of breath. Due to elevated troponin level and hypoxic respiratory failure requiring BiPAP, patient was transferred to [facility] for cardiac evaluation and further management. EKG showed sinus tachycardia. Extract chest x-ray showed pulmonary interstitial mild edema that could relate to acute heart failure. Laboratory data showed WBC 19.62, hemoglobin 9.4, MCV 105.1, RDW 13.5 and platelets 251 BUE and 51 and creatinine 1.77, sodium 1:30, potassium 4.7 and chloride 90, magnesium 1.8, alk phos 48 AST 176 and ALT 46, all given 3.0 Lactic acid level was 8.7 on admission which came down to 3.0 Covid PCR Is negative 06/12/2019 Patient is currently lying in the bed and still short of breath. No complaints of chest pain. Patient is being continued on heparin drip. Also on IV Lasix. Patient is tachycardic and tachypneic. No fever. Currently in oxygen at 3 L via nasal cannula and saturating at 95 to 92%. No nausea vomiting or abdominal pain or diarrhea. Bilateral lower extremity swelling is improving. Laboratory data showed WBC 14.4, hemoglobin 8.9 and MCV 104.6 Sodium 127, chloride 90, BUN 56 and creatinine 1.52 Troponin level 9.7 today. Cardiology is planning for catheterization in the next 24 hours. 06/13/2020 Patient is currently lying in the bed still having shortness of breath with lying flat. patient underwent cardiac catheterization today and stent placement. Patient is being continued on Lasix and breathing treatments. Blood sugar is elevated and her insulin dose will be increased to 50 units at bedtime along with preprandial aspart. cardiology and pulmonary is on board. Current medications reviewed. Objective - Vital Signs Vital signs: Vital Signs Temp 99.6 F 06/13/20 16:00 Pulse 112 H 06/13/20 17:00 Resp 18 06/13/20 17:00 BP 174/51 06/13/20 17:00 Pulse Ox 95 06/13/20 17:00 Intake & Output 06/12/20 06/13/20 06/13/20 18:59 06:59 18:59 Intake Total 1183.156 928.541 647.572 Output Total 1385 1645 1560 Balance -201.844 -716.459 -912.428 Weight 112.6 kg 112.6 kg Intake: Intake, IV Titration 343.156 628.541 407.572 Amount Dexmedetomidine/0.9% NaCl 7.272 (Pmx) 400 mcg In Empty Bag 1 bag @ Titrate IV . Q0M [facility] Rx#:[id number] Heparin Sod,Pork in 0.45% 166.056 233.766 NaCl 25,000 unit In 0.45 % NaCl 1 250ml.bag @ 9. 009 UNITS/KG/HR 10 mls/hr IV .Q24H [facility] Rx#: [id number] Nitroglycerin-D5w Pmx 50 177.1 394.775 100.30 mg In Dextrose/Water 1 250ml.bag @ Titrate IV . Q0M [facility] Rx#:[id number] Sodium Chloride 0.9% 1, 300 000 ml @ 75 mls/hr IV . [id number] [facility] Rx#:[id number] Oral 840 300 240 Output: Urine 1385 1645 1560 Other: Voiding Method Indwelling Catheter Indwelling Catheter Indwelling Catheter - Exam PHYSICAL EXAMINATION: Patient is lying in the bed comfortably, no acute distress, awake alert and oriented.morbidly obese.. HEENT: Normocephalic. Neck is supple. Pupils reactive. Nostrils clear. Oral cavity is moist. Ears reveal no drainage. Neck reveals no JVD, carotid bruits, or thyromegaly. CHEST EXAMINATION: Trachea is central. Symmetrical expansion. Bilateral crackles and diminished air entry.. CARDIAC: Normal S1, S2 with no gallops. No murmurs ABDOMEN: Soft. Bowel sounds normal. No organomegaly. No abdominal bruits. Extremities:2+ bilateral pedal edema. No clubbing or cyanosis Neurologically awake, alert, oriented x3 with well-coordinated movements. No focal deficits noted Skin: No rash or skin lesions. Psychiatric: Coperative. Nonsuicidal Musculoskeletal: No joint swelling or deformity. Normal range of motion. - Labs CBC & Chem 7: 06/15/20 04:05 06/15/20 04:05 Labs: Abnormal Lab Results - Last 24 Hours (Table) 06/12/20 06/13/20 06/13/20 Range/Units 20:35 04:37 04:37 WBC (3.8-10.6) k/uL RBC (3.80-5.40) m/uL Hgb (11.4-16.0) gm/dL Hct (34.0-46.0) % MCV (80.0-100.0) fL Neutrophils # (1.3-7.7) k/uL Monocytes # (0-1.0) k/uL APTT 36.9 H (22.0-30.0) sec Sodium 124 L (137-145) mmol/L Chloride 87 L (98-107) mmol/L Carbon Dioxide 32 H (22-30) mmol/L BUN 50 H (7-17) mg/dL Creatinine 1.45 H (0.52-1.04) mg/dL Glucose 192 H (74-99) mg/dL POC Glucose (mg/dL) 218 H (75-99) mg/dL Iron 30 L (50-170) ug/dL % Saturation 10.03 L (12.00-45.00) Troponin I (0.000-0.034) ng/mL 06/13/20 06/13/20 06/13/20 Range/Units 04:37 04:37 06:48 WBC 13.6 H (3.8-10.6) k/uL RBC 2.43 L (3.80-5.40) m/uL Hgb 8.3 L (11.4-16.0) gm/dL Hct 24.8 L (34.0-46.0) % MCV 101.9 H (80.0-100.0) fL Neutrophils # 9.4 H (1.3-7.7) k/uL Monocytes # 1.7 H (0-1.0) k/uL APTT (22.0-30.0) sec Sodium (137-145) mmol/L Chloride (98-107) mmol/L Carbon Dioxide (22-30) mmol/L BUN (7-17) mg/dL Creatinine (0.52-1.04) mg/dL Glucose (74-99) mg/dL POC Glucose (mg/dL) 216 H (75-99) mg/dL Iron (50-170) ug/dL % Saturation (12.00-45.00) Troponin I 6.320 H* (0.000-0.034) ng/mL 06/13/20 Range/Units 11:54 WBC (3.8-10.6) k/uL RBC (3.80-5.40) m/uL Hgb (11.4-16.0) gm/dL Hct (34.0-46.0) % MCV (80.0-100.0) fL Neutrophils # (1.3-7.7) k/uL Monocytes # (0-1.0) k/uL APTT (22.0-30.0) sec Sodium (137-145) mmol/L Chloride (98-107) mmol/L Carbon Dioxide (22-30) mmol/L BUN (7-17) mg/dL Creatinine (0.52-1.04) mg/dL Glucose (74-99) mg/dL POC Glucose (mg/dL) 259 H (75-99) mg/dL Iron (50-170) ug/dL % Saturation (12.00-45.00) Troponin I (0.000-0.034) ng/mL Assessment and Plan Assessment: Acute non-ST elevated VA. Status post cardiac catheter patient and stent placement. Chest pain secondary to above acute on chronic CHF with diastolic dysfunction Acute hypoxic respiratory failure secondary to CHF requiring BiPAP. Currently on nasal cannula oxygen at 3 L Severe lactic acidosis on admission likely due to hypoxia. Acute kidney injury with creatinine 1.77 with possible underlying CK D stage III Coronary artery disease with history of stent placement Coronary artery bypass graft in the year 1999 diabetes type 2 insulin-dependent with hyperglycemia uncontrolled Hypertension Hyperlipidemia Hypothyroidism Morbid obesity with BMI 47.8 Obstructive sleep apnea on CPAP and also on home oxygen at 2 L via nasal cannula Chronic left diaphragmatic elevation GI and DVT prophylaxis. Plan: Patient will be continued on telemetry monitoring. Status post cardiac catheterization and stent placement. Continue with aspirin statins and beta blockers. Cardiology was consulted. Continue with IV Lasix and repeat chest x- ray today. Continue with insulin regimen with Levemir 50 units at bedtime and NovoLog 10 units 3 times a day before meals along with insulin sliding scale. Continue with home medications and follow closely. cardiology and pulmonary was consulted. Time with Patient: Greater than 30
--- NOTE | 2020-06-15 09:54 | P.PN ---
Subjective Progress Note Date: 06/14/20 Principal diagnosis: Acute non-ST elevated VA Acute on chronic CHF with diastolic function Patient is a 69-year-old female with a known history of coronary artery disease status post stent placement, history of CABG 2 vessel in 1999, hypothyroidism, hypertension, diabetes type 2 insulin-dependent hyperlipidemia and obstructive sleep apnea on home oxygen at 2 L via nasal cannula and chronic CHF with diastolic dysfunction and recent history of right lower kidney cellulitis in March 2020 and morbid obesity initially presents to [facility] with the complaints of shortness of breath. Patient was also having mid retrosternal chest pain with radiation to the right arm associated with shortness of breath. Patient says that she was hypoxic with pulse ox in the 60s while at home. Presents to [facility] on 06/09/2020. No headache or dizziness. Patient was nauseated. Not diaphoretic. Denied any complaints of fever or chills. No cough or sputum production. Patient had chest x-ray showed mild pulmonary vascular congestion and interstitial edema and also elevated left hemidiaphragm. Patient was admitted to MICU. Patient had initial troponin level 0.03 and subsequent troponin elevation at 0.38. Creatinine went up to 1.59, Patient was started on heparin drip and nitro drip. ProBNP was 944. Patient was also started on Lasix 40 mg IV push twice a day. Patient was also continued on antibiotics in the form of ceftriaxone and azithromycin. Currently patient denied complaints of chest pain. Still having shortness of breath. Due to elevated troponin level and hypoxic respiratory failure requiring BiPAP, patient was transferred to [facility] for cardiac evaluation and further management. EKG showed sinus tachycardia. Extract chest x-ray showed pulmonary interstitial mild edema that could relate to acute heart failure. Laboratory data showed WBC 19.62, hemoglobin 9.4, MCV 105.1, RDW 13.5 and platelets 251 BUE and 51 and creatinine 1.77, sodium 1:30, potassium 4.7 and chloride 90, magnesium 1.8, alk phos 48 AST 176 and ALT 46, all given 3.0 Lactic acid level was 8.7 on admission which came down to 3.0 Covid PCR Is negative 06/12/2020 Patient is currently lying in the bed and still short of breath. No complaints of chest pain. Patient is being continued on heparin drip. Also on IV Lasix. Patient is tachycardic and tachypneic. No fever. Currently in oxygen at 3 L via nasal cannula and saturating at 95 to 92%. No nausea vomiting or abdominal pain or diarrhea. Bilateral lower extremity swelling is improving. Laboratory data showed WBC 14.4, hemoglobin 8.9 and MCV 104.6 Sodium 127, chloride 90, BUN 56 and creatinine 1.52 Troponin level 9.7 today. Cardiology is planning for catheterization in the next 24 hours. 06/13/2020 Patient is currently lying in the bed still having shortness of breath with lying flat. patient underwent cardiac catheterization today and stent placement. Patient is being continued on Lasix and breathing treatments. Blood sugar is elevated and her insulin dose will be increased to 50 units at bedtime along with preprandial aspart. cardiology and pulmonary is on board. 06/14/2020 Patient is currently intubated and on mechanical ventilator. Overnight patient was on BiPAP and found to be bradycardic. Subsequently patient went into asystole and pulseless. Patient received epinephrine and was 1 and had return of spontaneous circulation subsequent V. tach on the monitor for which patient underwent cardioversion. Downtime was about 5-6 minutes and patient converted to sinus rhythm. Patient was subsequently intubated. Patient was found to be hyperkalemic with potassium 6.3 Laboratory data showed sodium 125, potassium 5.3, BUN 64 and creatinine 3.71. Lasix is on hold. Nephrology was consulted. Current medications reviewed. Objective - Vital Signs Vital signs: Vital Signs Temp 99 F 06/14/20 12:00 Pulse 69 06/14/20 14:00 Resp 20 06/14/20 14:00 BP 129/41 06/14/20 14:00 Pulse Ox 97 06/14/20 14:00 Intake & Output 06/13/20 06/14/20 06/14/20 18:59 06:59 18:59 Intake Total 698.597 354.547 446.215 Output Total 1610 125 15 Balance -911.403 229.547 431.215 Weight 112.6 kg 107.6 kg 107.6 kg Intake: IV 135 184 .9 120 160 Pressure bag 15 24 Intake, IV Titration 458.597 219.547 172.215 Amount Calcium Gluconate 1 gm In 100 Sodium Chloride 0.9% 100 ml @ 100 mls/hr IVPB ONCE ONE Rx#:[id number] Dexmedetomidine/0.9% NaCl 38.097 31.528 (Pmx) 400 mcg In Empty Bag 1 bag @ Titrate IV . Q0M [facility] Rx#:[id number] Nitroglycerin-D5w Pmx 50 120.50 5.3 mg In Dextrose/Water 1 250ml.bag @ Titrate IV . Q0M [facility] Rx#:[id number] Norepinephrine 4 mg In 72.215 Sodium Chloride 0.9% 250 ml @ 0.05 MCG/KG/MIN 21. 45 mls/hr IV .[id number] [facility] Rx#:[id number] Sodium Chloride 0.9% 1, 300 20 000 ml @ 75 mls/hr IV . [id number] [facility] Rx#:[id number] propofoL 1,000 mg In 62.719 100.000 Empty Bag 1 bag @ Titrate IV .Q0M [facility] Rx#: [id number] Oral 240 30 Other 60 Output: Urine 1610 125 15 Other: Voiding Method Indwelling Catheter Indwelling Catheter Indwelling Catheter ABP, PAP, CO, CI - Last Documented Arterial Blood Pressure 103/50 - Exam PHYSICAL EXAMINATION: Patient is sedated and on mechanical ventilator... HEENT: Normocephalic. Neck is supple. Pupils reactive. Nostrils clear. Oral cavity is moist. Ears reveal no drainage. Neck reveals no JVD, carotid bruits, or thyromegaly. CHEST EXAMINATION: Trachea is central. Symmetrical expansion. Bilateral crackles and diminished air entry.. CARDIAC: Normal S1, S2 with no gallops. No murmurs ABDOMEN: Soft. Bowel sounds normal. No organomegaly. No abdominal bruits. Extremities:2+ bilateral pedal edema. No clubbing or cyanosis Neurologically on mechanical ventilator, sedated.. No focal deficits noted Skin: No rash or skin lesions. Psychiatric: Could not be assessed at this time. Musculoskeletal: No joint swelling or deformity. - Labs CBC & Chem 7: 06/15/20 04:05 06/15/20 04:05 Labs: Abnormal Lab Results - Last 24 Hours (Table) 06/13/20 06/13/20 06/13/20 Range/Units 04:37 18:03 20:32 WBC (3.8-10.6) k/uL RBC (3.80-5.40) m/uL Hgb (11.4-16.0) gm/dL Hct (34.0-46.0) % MCV (80.0-100.0) fL MCH (25.0-35.0) pg Neutrophils # (1.3-7.7) k/uL Monocytes # (0-1.0) k/uL ABG pH (7.35-7.45) ABG pCO2 (35-45) mmHg ABG pO2 (83-108) mmHg ABG HCO3 (21-25) mmol/L ABG Total CO2 (19-24) mmol/L ABG O2 Saturation (94-97) % Sodium 126 L (137-145) mmol/L Potassium 5.4 H (3.5-5.1) mmol/L Chloride 88 L (98-107) mmol/L BUN 52 H (7-17) mg/dL Creatinine 2.26 H (0.52-1.04) mg/dL Glucose 124 H (74-99) mg/dL POC Glucose (mg/dL) 172 H (75-99) mg/dL Calcium (8.4-10.2) mg/dL Phosphorus (2.5-4.5) mg/dL Magnesium (1.6-2.3) mg/dL Total Bilirubin (0.2-1.3) mg/dL AST 57 H (14-36) U/L ALT 36 H (4-34) U/L Troponin I (0.000-0.034) ng/mL RBC Folate 1,908 H (280 - 791) ng/mL 06/13/20 06/13/20 06/14/20 Range/Units 21:03 21:10 01:05 WBC (3.8-10.6) k/uL RBC (3.80-5.40) m/uL Hgb (11.4-16.0) gm/dL Hct (34.0-46.0) % MCV (80.0-100.0) fL MCH (25.0-35.0) pg Neutrophils # (1.3-7.7) k/uL Monocytes # (0-1.0) k/uL ABG pH (7.35-7.45) ABG pCO2 48 H (35-45) mmHg ABG pO2 142 H (83-108) mmHg ABG HCO3 30 H (21-25) mmol/L ABG Total CO2 31 H (19-24) mmol/L ABG O2 Saturation 99.3 H (94-97) % Sodium 125 L (137-145) mmol/L Potassium 6.3 H* (3.5-5.1) mmol/L Chloride 89 L (98-107) mmol/L BUN 54 H (7-17) mg/dL Creatinine 2.62 H (0.52-1.04) mg/dL Glucose 146 H (74-99) mg/dL POC Glucose (mg/dL) 130 H (75-99) mg/dL Calcium 8.1 L (8.4-10.2) mg/dL Phosphorus 7.6 H (2.5-4.5) mg/dL Magnesium 2.4 H (1.6-2.3) mg/dL Total Bilirubin 1.4 H (0.2-1.3) mg/dL AST 259 H (14-36) U/L ALT 180 H (4-34) U/L Troponin I (0.000-0.034) ng/mL RBC Folate (280 - 791) ng/mL 06/14/20 06/14/20 06/14/20 Range/Units 01:13 01:55 02:00 WBC 11.0 H (3.8-10.6) k/uL RBC 2.19 L (3.80-5.40) m/uL Hgb 7.6 L (11.4-16.0) gm/dL Hct 22.9 L (34.0-46.0) % MCV 105.0 H (80.0-100.0) fL MCH (25.0-35.0) pg Neutrophils # (1.3-7.7) k/uL Monocytes # (0-1.0) k/uL ABG pH 7.29 L (7.35-7.45) ABG pCO2 50 H (35-45) mmHg ABG pO2 189 H (83-108) mmHg ABG HCO3 (21-25) mmol/L ABG Total CO2 26 H (19-24) mmol/L ABG O2 Saturation 99.3 H (94-97) % Sodium (137-145) mmol/L Potassium (3.5-5.1) mmol/L Chloride (98-107) mmol/L BUN (7-17) mg/dL Creatinine (0.52-1.04) mg/dL Glucose (74-99) mg/dL POC Glucose (mg/dL) 204 H (75-99) mg/dL Calcium (8.4-10.2) mg/dL Phosphorus (2.5-4.5) mg/dL Magnesium (1.6-2.3) mg/dL Total Bilirubin (0.2-1.3) mg/dL AST (14-36) U/L ALT (4-34) U/L Troponin I (0.000-0.034) ng/mL RBC Folate (280 - 791) ng/mL 06/14/20 06/14/20 06/14/20 Range/Units 02:00 04:45 04:45 WBC 13.1 H (3.8-10.6) k/uL RBC 2.23 L (3.80-5.40) m/uL Hgb 7.8 L (11.4-16.0) gm/dL Hct 23.0 L (34.0-46.0) % MCV 103.5 H (80.0-100.0) fL MCH 35.1 H (25.0-35.0) pg Neutrophils # 10.1 H (1.3-7.7) k/uL Monocytes # 1.7 H (0-1.0) k/uL ABG pH (7.35-7.45) ABG pCO2 (35-45) mmHg ABG pO2 (83-108) mmHg ABG HCO3 (21-25) mmol/L ABG Total CO2 (19-24) mmol/L ABG O2 Saturation (94-97) % Sodium 124 L (137-145) mmol/L Potassium 6.3 H* (3.5-5.1) mmol/L Chloride 88 L (98-107) mmol/L BUN 59 H (7-17) mg/dL Creatinine 3.17 H (0.52-1.04) mg/dL Glucose 155 H (74-99) mg/dL POC Glucose (mg/dL) (75-99) mg/dL Calcium 8.0 L (8.4-10.2) mg/dL Phosphorus (2.5-4.5) mg/dL Magnesium (1.6-2.3) mg/dL Total Bilirubin (0.2-1.3) mg/dL AST (14-36) U/L ALT (4-34) U/L Troponin I 12.100 H* (0.000-0.034) ng/mL RBC Folate (280 - 791) ng/mL 06/14/20 06/14/20 06/14/20 Range/Units 06:29 10:22 10:45 WBC (3.8-10.6) k/uL RBC (3.80-5.40) m/uL Hgb (11.4-16.0) gm/dL Hct (34.0-46.0) % MCV (80.0-100.0) fL MCH (25.0-35.0) pg Neutrophils # (1.3-7.7) k/uL Monocytes # (0-1.0) k/uL ABG pH (7.35-7.45) ABG pCO2 48 H (35-45) mmHg ABG pO2 287 H (83-108) mmHg ABG HCO3 29 H (21-25) mmol/L ABG Total CO2 31 H (19-24) mmol/L ABG O2 Saturation 99.7 H (94-97) % Sodium 125 L (137-145) mmol/L Potassium 5.3 H (3.5-5.1) mmol/L Chloride 87 L (98-107) mmol/L BUN 64 H (7-17) mg/dL Creatinine 3.71 H (0.52-1.04) mg/dL Glucose 112 H (74-99) mg/dL POC Glucose (mg/dL) 215 H (75-99) mg/dL Calcium 7.8 L (8.4-10.2) mg/dL Phosphorus (2.5-4.5) mg/dL Magnesium (1.6-2.3) mg/dL Total Bilirubin (0.2-1.3) mg/dL AST (14-36) U/L ALT (4-34) U/L Troponin I (0.000-0.034) ng/mL RBC Folate (280 - 791) ng/mL 06/14/20 Range/Units 11:37 WBC (3.8-10.6) k/uL RBC (3.80-5.40) m/uL Hgb (11.4-16.0) gm/dL Hct (34.0-46.0) % MCV (80.0-100.0) fL MCH (25.0-35.0) pg Neutrophils # (1.3-7.7) k/uL Monocytes # (0-1.0) k/uL ABG pH (7.35-7.45) ABG pCO2 (35-45) mmHg ABG pO2 (83-108) mmHg ABG HCO3 (21-25) mmol/L ABG Total CO2 (19-24) mmol/L ABG O2 Saturation (94-97) % Sodium (137-145) mmol/L Potassium (3.5-5.1) mmol/L Chloride (98-107) mmol/L BUN (7-17) mg/dL Creatinine (0.52-1.04) mg/dL Glucose (74-99) mg/dL POC Glucose (mg/dL) 135 H (75-99) mg/dL Calcium (8.4-10.2) mg/dL Phosphorus (2.5-4.5) mg/dL Magnesium (1.6-2.3) mg/dL Total Bilirubin (0.2-1.3) mg/dL AST (14-36) U/L ALT (4-34) U/L Troponin I (0.000-0.034) ng/mL RBC Folate (280 - 791) ng/mL Microbiology - Last 24 Hours (Table) 06/14/20 04:16 Gram Stain - Preliminary Sputum Sputum Culture - Preliminary Assessment and Plan Assessment: Chest pain due to Acute non-ST elevated VA. Status post cardiac catheter patient and stent placement. Cardiac arrest, asystole status post CPR with down time of 6 minutes and ROSC. Cardioversion 1 Currently on mechanical ventilator. acute on chronic CHF with diastolic dysfunction Acute hypoxic respiratory failure secondary to CHF requiring BiPAP. Currently on mechanical ventilator. Severe lactic acidosis on admission likely due to hypoxia. Acute kidney injury with creatinine 1.77--3.4 with possible underlying CK D stage III. Coronary artery disease with history of stent placement Coronary artery bypass graft in the year 1999 diabetes type 2 insulin-dependent with hyperglycemia uncontrolled Hypertension Hyperlipidemia Hypothyroidism Morbid obesity with BMI 47.8 Obstructive sleep apnea on CPAP and also on home oxygen at 2 L via nasal cannula Chronic left diaphragmatic elevation GI and DVT prophylaxis. Plan: Patient is on mechanical ventilator. Patient will be continued on telemetry monitoring. Status post cardiac catheterization and stent placement. Continue with aspirin statins and beta blockers. Lasix on hold. Nephrology is on board. Continue with insulin regimen with Levemir 50 units at bedtime and NovoLog 10 units 3 times a day before meals along with insulin sliding scale. Continue with home medications and follow closely. Pulmonary and cardiology is is following. Time with Patient: Greater than 30
[2020-06-15] MEDS ORDERED: LIDOCAINE 1% INJ 10MG/ML (20 ML MDV) ONE (10:00)
[2020-06-15] MEDS ORDERED: HEPARIN SODIUM 1,000 UN/ML (10ML VL) ONE (10:00)
--- NOTE | 2020-06-15 11:04 | PCN ---
PROCEDURE NOTE PROCEDURE PERFORMED: Attempted arterial line placement. OPERATORS: Dr. Anderson. DESCRIPTION OF PROCEDURE: The art line was attempted to be placed in multiple sites including the left radial artery, the right radial artery, the right and left dorsalis pedis artery. Each time, we could get blood return in the introducer needle, but had a difficult time placing in the guidewire. Both in the right and left the radial art line, the guidewire would go in, but unfortunately when the catheter was placed over the guidewire and the guide was removed, there was no blood flow. Hence, the procedure was aborted. Again attempted arterial line placement, right radial artery, left radial artery, and right and left dorsalis pedis artery and also attempted placement of the art line in the left femoral space. Each time, there was blood return, but we could not thread the catheter. Hence, the procedure was aborted. MMEVERARDOL / NELDAN: [id number] /
[2020-06-15] MEDS: hydrALAZINE HCL 25 MG TAB PO SCH ×2 (11:09→21:38)
--- NOTE | 2020-06-15 11:47 | P.PN ---
Subjective Progress Note Date: 06/15/20 Principal diagnosis: Non-ST segment elevation myocardial infarction This is a pleasant 57-year-old gentleman who follows with Dr. Mcguire as his primary care provider. He has a history of diabetes mellitus, gastroesophageal reflux disease, hyperlipidemia, hypertension, chronic back pain, diabetic neuropathy throat cancer status post surgery, depression, chronic and ongoing tobacco dependence, occasional marijuana use. He presented here to the emergency room yesterday with complaints of chest tightness, shortness of breath, weakness with nausea, vomiting, diarrhea. He had recently been initiated on prednisone for shoulder pain. He also states his insulin pump had been beeping often. He had not taken any insulin for 2 days prior to his arrival. Initial labs revealed white count 33.6. Hemoglobin 17.7. Sodium 133. Potassium 5.4. Bicarb less than 5. Anion gap 22. Creatinine 1.9. Lactic acid 5.4. Acetone positive. Johnson virus not detected. He was admitted to the intensive care unit with diabetic ketoacidosis. He is seen today in consultation in the ICU. He is currently awake and alert in no acute distress. White count 25.9. Hemoglobin 13.1. Sodium 132. Potassium 3.8. Creatinine 0.7. Bicarb 19. He is currently on D5.45 with 20 of KCl at 150 MLS per hour. Insulin drip at 10 units per hour. He is on 2 L/m per nasal cannula. Chest x- ray reveals no acute process. The patient is seen today 06/13/2020 in follow-up in the intensive care unit. She is currently sitting up in bed. Placed on BiPAP / is 60% FiO2. She remains on a heparin drip per weight-based protocol. Continued on nitroglycerin drip at 100 mcg/m. The plan is for cardiac catheterization today. She remains on Lasix 40 mg IV every 12 hours, bronchodilators. Chest x-rays consistent with congestive heart failure. Cardiomegaly with mild to moderate alveolar and int erstitial edema bilaterally with tiny bilateral pleural effusions. No significant change compared to yesterday. White count 13.6. Hemoglobin 8.3. Sodium 124. Potassium 4.6. Creatinine 1.45. Troponin 6.320. The patient is seen today 06/14/2020 follow-up in the intensive care unit. She did undergo cardiac catheterization yesterday and subsequent stenting of the right coronary artery in 2 different segments. She was returned to the ICU on BiPAP. She had been doing fairly well until just after midnight this morning. She developed bradycardia and subsequent asystole. LETY MONTES was called and she was given epi with return of spontaneous circulation and subsequent ventricular tachycardia with cardioversion. Since that time she remains intubated on mechanical ventilator. Current settings assist-control rate of 20, tidal on 350, FiO2 70% and a PEEP of 5. Arterial blood gases reveal a P O2 of 189, pCO2 of 50 and a pH is 7.29. She has 0.9 normal saline at 20 miles per hour. She sedated on propofol at 30 mcg/kg/m. She's currently on norepinephrine at 4 mcg/m. White count 13.1. Hemoglobin 7.8. Sodium 124. Potassium 6.3. Creatinine 3.17. Glucose 155. Troponin 12.1. Chest x-ray reveals diffuse airspace opacities. She is on DuoNeb inhalations every 4 hours, Lasix 40 mg IV every 12 hours. The patient is seen today 06/15/2020 in follow-up in the intensive care unit. Xenia intubated on the mechanical ventilator current settings assist-control with a rate of 20, tidal volume 350, FiO2 40% and a PEEP of 5. Morning blood gases revealed pO2 123. PCO2 46. PH 7.34. She remains sedated on propofol at 50 mcg/kg/m. 0.9 normal saline at 20 ML's per hour. Lasix drip at 10 mg per hour. Being nourished with vital HPI 25 ML's per hour which is goal. Sputum culture pending. White count 13.1. Hemoglobin 7.5. Sodium 123. Potassium 5.6. Chloride 87. BUN 79. Creatinine 5.42. AST 714. ALT 726. Albumin 3.0. The plan is for hemodialysis catheter insertion today with hemodialysis to begin today. Objective - Vital Signs Vital signs: Vital Signs Temp 99.6 F 06/15/20 08:00 Pulse 99 06/15/20 11:18 Resp 20 06/15/20 11:00 BP 203/75 06/15/20 11:00 Pulse Ox 99 06/15/20 11:00 Intake & Output 06/14/20 06/15/20 06/15/20 18:59 06:59 18:59 Intake Total 836.896 995.511 424.36 Output Total 25 15 5 Balance 811.896 980.511 419.36 Weight 107.6 kg 110.4 kg Intake: IV 276 276 109 .9 240 240 100 Pressure bag 36 36 9 Intake, IV Titration 380.896 394.511 130.36 Amount Furosemide 100 mg In 78.167 Sodium Chloride 0.9% 90 ml @ 10 MG/HR 10 mls/hr IV .Q10H [facility] Rx#: [id number] Norepinephrine 4 mg In 180.896 Sodium Chloride 0.9% 250 ml @ 0.05 MCG/KG/MIN 21. 45 mls/hr IV .[id number] [facility] Rx#:[id number] propofoL 1,000 mg In 200.000 316.344 130.36 Empty Bag 1 bag @ Titrate IV .Q0M [facility] Rx#: [id number] Oral 30 Tube Feeding 40 235 125 Other 110 90 60 Output: Urine 25 15 5 Other: Voiding Method Indwelling Catheter Indwelling Catheter ABP, PAP, CO, CI - Last Documented Arterial Blood Pressure 164/56 - Exam GENERAL EXAM: Intubated, sedated, morbidly obese 69-year-old female patient, on 40 % FiO2, comfortable in no apparent distress. HEAD: Normocephalic. EYES: Sluggish reaction of pupils, equal size. NOSE: Oral endotracheal, gastric tube secured in place. Clear with pink turbinat es. THROAT: Crowding of the posterior pharynx. No erythema or exudates. NECK: Short. No masses, no JVD. CHEST: No chest wall deformity. LUNGS: Equal air entry with bibasilar crackles, diminished more so on the left. CVS: S1 and S2 normal with no audible murmur, regular rhythm. ABDOMEN: Morbidly obese unable to appreciate organomegaly, normal bowel sounds, no guarding or rigidity. SPINE: No scoliosis or deformity SKIN: No rashes CENTRAL NERVOUS SYSTEM: No focal deficits, tone is normal in all 4 extremities. EXTREMITIES: Changes of chronic deformities of the toes on the right foot. There is 1-2+ peripheral edema. No clubbing, no cyanosis. Peripheral pulses are intact. - Labs CBC & Chem 7: 06/15/20 04:05 06/15/20 04:05 Labs: Abnormal Lab Results - Last 24 Hours (Table) 06/13/20 06/14/20 06/14/20 Range/Units 04:37 11:37 16:14 WBC (3.8-10.6) k/uL RBC (3.80-5.40) m/uL Hgb (11.4-16.0) gm/dL Hct (34.0-46.0) % MCV (80.0-100.0) fL Neutrophils # (1.3-7.7) k/uL Monocytes # (0-1.0) k/uL ABG pH (7.35-7.45) ABG pCO2 (35-45) mmHg ABG pO2 (83-108) mmHg ABG Total CO2 (19-24) mmol/L ABG O2 Saturation (94-97) % Sodium (137-145) mmol/L Potassium 5.2 H (3.5-5.1) mmol/L Chloride (98-107) mmol/L BUN (7-17) mg/dL Creatinine (0.52-1.04) mg/dL Glucose (74-99) mg/dL POC Glucose (mg/dL) 135 H (75-99) mg/dL Calcium (8.4-10.2) mg/dL AST (14-36) U/L ALT (4-34) U/L Total Protein (6.3-8.2) g/dL Albumin (3.5-5.0) g/dL RBC Folate 1,908 H (280 - 791) ng/mL 06/14/20 06/14/20 06/15/20 Range/Units 17:35 23:45 04:05 WBC 13.1 H (3.8-10.6) k/uL RBC 2.17 L (3.80-5.40) m/uL Hgb 7.5 L (11.4-16.0) gm/dL Hct 22.0 L (34.0-46.0) % MCV 101.4 H (80.0-100.0) fL Neutrophils # 10.0 H (1.3-7.7) k/uL Monocytes # 1.5 H (0-1.0) k/uL ABG pH (7.35-7.45) ABG pCO2 (35-45) mmHg ABG pO2 (83-108) mmHg ABG Total CO2 (19-24) mmol/L ABG O2 Saturation (94-97) % Sodium (137-145) mmol/L Potassium (3.5-5.1) mmol/L Chloride (98-107) mmol/L BUN (7-17) mg/dL Creatinine (0.52-1.04) mg/dL Glucose (74-99) mg/dL POC Glucose (mg/dL) 135 H 179 H (75-99) mg/dL Calcium (8.4-10.2) mg/dL AST (14-36) U/L ALT (4-34) U/L Total Protein (6.3-8.2) g/dL Albumin (3.5-5.0) g/dL RBC Folate (280 - 791) ng/mL 06/15/20 06/15/20 06/15/20 Range/Units 04:05 05:15 05:37 WBC (3.8-10.6) k/uL RBC (3.80-5.40) m/uL Hgb (11.4-16.0) gm/dL Hct (34.0-46.0) % MCV (80.0-100.0) fL Neutrophils # (1.3-7.7) k/uL Monocytes # (0-1.0) k/uL ABG pH 7.34 L (7.35-7.45) ABG pCO2 46 H (35-45) mmHg ABG pO2 123 H (83-108) mmHg ABG Total CO2 26 H (19-24) mmol/L ABG O2 Saturation 98.1 H (94-97) % Sodium 123 L (137-145) mmol/L Potassium 5.6 H (3.5-5.1) mmol/L Chloride 87 L (98-107) mmol/L BUN 79 H (7-17) mg/dL Creatinine 5.42 H (0.52-1.04) mg/dL Glucose 136 H (74-99) mg/dL POC Glucose (mg/dL) 157 H (75-99) mg/dL Calcium 7.6 L (8.4-10.2) mg/dL AST 714 H (14-36) U/L ALT 726 H (4-34) U/L Total Protein 5.7 L (6.3-8.2) g/dL Albumin 3.0 L (3.5-5.0) g/dL RBC Folate (280 - 791) ng/mL Microbiology - Last 24 Hours (Table) 06/14/20 04:16 Gram Stain - Preliminary Sputum Sputum Culture - Preliminary Assessment and Plan Assessment: 1 Acute non-ST segment elevation myocardial infarction. Status post cardiac catheterization with subsequent stenting 2 segments of the RCA on 06/13/2020 2 Cardiac arrest early a.m. 06/14/2020 with asystole, CPR approximately 6 minutes with return of spontaneous circulation, ventricular tachycardia requiring synchronous cardioversion 1 3 Acute hypoxic respiratory failure secondary to above requiring intubation mechanical ventilation on 06/14/2020 4 Chronic hypoxemic respiratory failure secondary to diastolic congestive heart failure. Preserved left ventricular systolic function with ejection fraction 55-60% 5 Coronary artery disease with previous coronary artery bypass grafting in 1999 and previous stent placements 6 Acute renal failure with worsening renal function and current creatinine 5.42. Hemodialysis catheter placement today 06/15/2020 with hemodialysis to follow 7 Hyponatremia, current sodium 123 8 Acute on chronic anemia, current hemoglobin 7.5 9 Hypertension 10 Hyperlipidemia 11 Hypothyroidism 12 Diabetes mellitus 13 Obstructive sleep apnea maintained on CPAP in the outpatient setting 14 Chronic left hemidiaphragmatic elevation 15 Morbid obesity with BMI of 48 16 Previous admission with cellulitis of the right lower extremity, deformity of toes on the right foot 17 Poor overall functional performance based on the above-mentioned multiple comorbidities Plan: The patient was seen and evaluated by Dr. Anderson Chest x-ray, ABGs and labs reviewed Titrate down the FiO2 to 30%, continue bronchodilators Continue Lasix drip per nephrology HD catheter placement and HD to start today Lovenox for DVT prophylaxis, Protonix for GI prophylaxis Continue tube feedings We will continue to follow and make further recommendations based on her clinical status Critical care time, not including procedures, 36 minutes I, the cosigning physician, performed a history & physical examination of the patient. Lungs sounds with bilateral basilar crackles, diminished more so on the left. Maintaining good O2 saturations in the 90s on 40% FiO2 via the mechanical ventilator. I discussed the assessment and plan of care with my nurse practitioner, Torie Shi. I attest to the above note as dictated by her.
[2020-06-15 11:49] LABS: Glucose,Whole Blood 270 mg/dL (75-99)
--- NOTE | 2020-06-15 12:02 | US ---
EXAMINATION TYPE: US kidneys/renal and bladder DATE OF EXAM: 06/15/2020 COMPARISON: Exam 04/18/2020 CLINICAL HISTORY: tiki. EXAM MEASUREMENTS: Right Kidney: 10.6 x 4.2 x 4.3 cm Left Kidney: 9.6 x 4.9 x 4.7cm Post Void Residual Volume: mL Morbidly obese patient, supine, on a vent. Technically difficult, limited study, especially on left. Right Kidney: appears wnl as seen Left Kidney: not well visualized Bladder: not seen Bilateral Jets seen: Normal Post Void Residual: No evident hydronephrosis. IMPRESSION: Some limitations in evaluation of the left kidney
--- NOTE | 2020-06-15 12:15 | P.GSCN ---
History of Present Illness History of present illness: 69-year-old white female, I was consulted for high potassium acute chronic renal failure for placement of the dialysis catheter. Patient had a heart catheterization and also patient has been intubated. Her potassium is high and began curetted him in plan is a placement of the dialysis catheter Patient went seen in the room patient has been intubated Chest patient has a crackles bilateral Abdomen protuberant nontender Vascular femorals are 1+ on the right side left side is not palpable Plan is placement of the dialysis catheter risk and complication discussed Past Medical History Past Medical History: Coronary Artery Disease (CAD), Diabetes Mellitus, Hyperlipidemia, Hypertension Additional Past Medical History / Comment(s): Obesity, coronary artery disease, previous PCI and coronary stenting, hypertension, hyperlipidemia, diabetes mellitus, history of cellulitis of the lower extremity, diastolic heart failure, left paralyzed diaphram, KIM History of Any Multi-Drug Resistant Organisms: None Reported Past Surgical History: Cholecystectomy, Coronary Bypass/CABG, Heart Catheterization With Stent Additional Past Surgical History / Comment(s): Double bypass October 1999, 2 stents Date of Last Stent Placement:: 03/2019 Past Psychological History: Anxiety Smoking Status: Never smoker Past Alcohol Use History: None Reported Past Drug Use History: None Reported - Past Family History Father Family Medical History: Cancer Mother Family Medical History: Coronary Artery Disease (CAD) Medications and Allergies Home Medications Medication Instructions Recorded Confirmed Type Ascorbic Acid [Vitamin C] 1,000 mg PO BID 04/15/20 06/11/20 History Aspirin EC [Ecotrin Low Dose] 81 mg PO DAILY 04/15/20 06/11/20 History Baclofen [Lioresal] 20 mg PO HS 04/15/20 06/11/20 History Cholecalciferol [Vitamin D3 (25 5,000 unit PO DAILY 04/15/20 06/11/20 History Mcg = 1000 Iu)] Clopidogrel Bisulfate [Plavix] 75 mg PO DAILY 04/15/20 06/11/20 History Ezetimibe [Zetia] 10 mg PO DAILY 04/15/20 06/11/20 History Fish Oil/Dha/Epa [Fish Oil 1,200 1 cap PO HS 04/15/20 06/11/20 History mg Fish Oil] Furosemide [Lasix] 40 mg PO DAILY 04/15/20 06/11/20 History Glucosam/Chond/Hyalu/Cf Borate 1 tab PO BID 04/15/20 06/11/20 History [[employer] Tablet] Lansoprazole [Prevacid] 30 mg PO BID 04/15/20 06/11/20 History Levothyroxine Sodium [Synthroid] 100 mcg PO DAILY 04/15/20 06/11/20 History Meloxicam 15 mg PO HS 04/15/20 06/11/20 History Metoclopramide [Reglan] 10 mg PO QID 04/15/20 06/11/20 History Metoprolol Tartrate [Lopressor] 100 mg PO BID 04/15/20 06/11/20 History Nitroglycerin 0.4MG/Hr Patch 1 patch TRANSDERM DAILY 04/15/20 06/11/20 History [Nitro-Dur 0.4MG/Hr Patch] Nitroglycerin Sl Tabs [Nitrostat] 0.4 mg SUBLINGUAL Q5M PRN 04/15/20 06/11/20 History Pravastatin Sodium [Pravachol] 40 mg PO HS 04/15/20 06/11/20 History Ranolazine [Ranexa] 500 mg PO BID 04/15/20 06/11/20 History rOPINIRole HCL [Requip] 0.5 mg PO DAILY@1300 04/15/20 06/11/20 History Insulin Glargine [Lantus] 50 unit SQ BID #0 04/23/20 06/11/20 Rx Insulin Lispro [humaLOG] 24 units SQ TID #0 04/23/20 06/11/20 Rx hydrALAZINE HCL [Apresoline] 25 mg PO TID #90 tab 04/23/20 06/11/20 Rx Alendronate Sodium [Fosamax] 70 mg PO SA 06/11/20 06/11/20 History Furosemide [Lasix] 20 mg PO DAILY@1600 06/11/20 06/11/20 History Ipratropium-Albuterol Nebulize 3 ml INHALATION RT-TID PRN 06/11/20 06/11/20 History [Duoneb 0.5 mg-3 mg/3 ml Soln] Ondansetron [Zofran] 4 mg PO Q8HR PRN 06/11/20 06/11/20 History Allergies Allergy/AdvReac Type Severity Reaction Status Date / Time codeine Allergy Unknown Verified 06/11/20 14:04 Surgical - Exam Vital Signs Pulse Resp Pulse Ox 100 26 H 95 06/11/20 12:24 06/11/20 12:24 06/11/20 12:24 Results - Labs 06/15/20 04:05 06/15/20 04:05 Abnormal Lab Results - Last 24 Hours (Table) 06/13/20 06/14/20 06/14/20 Range/Units 04:37 16:14 17:35 WBC (3.8-10.6) k/uL RBC (3.80-5.40) m/uL Hgb (11.4-16.0) gm/dL Hct (34.0-46.0) % MCV (80.0-100.0) fL Neutrophils # (1.3-7.7) k/uL Monocytes # (0-1.0) k/uL ABG pH (7.35-7.45) ABG pCO2 (35-45) mmHg ABG pO2 (83-108) mmHg ABG Total CO2 (19-24) mmol/L ABG O2 Saturation (94-97) % Sodium (137-145) mmol/L Potassium 5.2 H (3.5-5.1) mmol/L Chloride (98-107) mmol/L BUN (7-17) mg/dL Creatinine (0.52-1.04) mg/dL Glucose (74-99) mg/dL POC Glucose (mg/dL) 135 H (75-99) mg/dL Calcium (8.4-10.2) mg/dL AST (14-36) U/L ALT (4-34) U/L Total Protein (6.3-8.2) g/dL Albumin (3.5-5.0) g/dL RBC Folate 1,908 H (280 - 791) ng/mL 06/14/20 06/15/20 06/15/20 Range/Units 23:45 04:05 04:05 WBC 13.1 H (3.8-10.6) k/uL RBC 2.17 L (3.80-5.40) m/uL Hgb 7.5 L (11.4-16.0) gm/dL Hct 22.0 L (34.0-46.0) % MCV 101.4 H (80.0-100.0) fL Neutrophils # 10.0 H (1.3-7.7) k/uL Monocytes # 1.5 H (0-1.0) k/uL ABG pH (7.35-7.45) ABG pCO2 (35-45) mmHg ABG pO2 (83-108) mmHg ABG Total CO2 (19-24) mmol/L ABG O2 Saturation (94-97) % Sodium 123 L (137-145) mmol/L Potassium 5.6 H (3.5-5.1) mmol/L Chloride 87 L (98-107) mmol/L BUN 79 H (7-17) mg/dL Creatinine 5.42 H (0.52-1.04) mg/dL Glucose 136 H (74-99) mg/dL POC Glucose (mg/dL) 179 H (75-99) mg/dL Calcium 7.6 L (8.4-10.2) mg/dL AST 714 H (14-36) U/L ALT 726 H (4-34) U/L Total Protein 5.7 L (6.3-8.2) g/dL Albumin 3.0 L (3.5-5.0) g/dL RBC Folate (280 - 791) ng/mL 06/15/20 06/15/20 06/15/20 Range/Units 05:15 05:37 11:48 WBC (3.8-10.6) k/uL RBC (3.80-5.40) m/uL Hgb (11.4-16.0) gm/dL Hct (34.0-46.0) % MCV (80.0-100.0) fL Neutrophils # (1.3-7.7) k/uL Monocytes # (0-1.0) k/uL ABG pH 7.34 L (7.35-7.45) ABG pCO2 46 H (35-45) mmHg ABG pO2 123 H (83-108) mmHg ABG Total CO2 26 H (19-24) mmol/L ABG O2 Saturation 98.1 H (94-97) % Sodium (137-145) mmol/L Potassium (3.5-5.1) mmol/L Chloride (98-107) mmol/L BUN (7-17) mg/dL Creatinine (0.52-1.04) mg/dL Glucose (74-99) mg/dL POC Glucose (mg/dL) 157 H 270 H (75-99) mg/dL Calcium (8.4-10.2) mg/dL AST (14-36) U/L ALT (4-34) U/L Total Protein (6.3-8.2) g/dL Albumin (3.5-5.0) g/dL RBC Folate (280 - 791) ng/mL Microbiology - Last 24 Hours (Table) 06/14/20 04:16 Gram Stain - Preliminary Sputum Sputum Culture - Preliminary Diabetes panel 06/14/20 06/15/20 Range/Units 16:14 04:05 Sodium 123 L (137-145) mmol/L Potassium 5.2 H 5.6 H (3.5-5.1) mmol/L Chloride 87 L (98-107) mmol/L Carbon Dioxide 25 (22-30) mmol/L BUN 79 H (7-17) mg/dL Creatinine 5.42 H (0.52-1.04) mg/dL Glucose 136 H (74-99) mg/dL Calcium 7.6 L (8.4-10.2) mg/dL AST 714 H (14-36) U/L ALT 726 H (4-34) U/L Alkaline Phosphatase 64 (38-126) U/L Total Protein 5.7 L (6.3-8.2) g/dL Albumin 3.0 L (3.5-5.0) g/dL Calcium panel 06/15/20 Range/Units 04:05 Calcium 7.6 L (8.4-10.2) mg/dL Albumin 3.0 L (3.5-5.0) g/dL Pituitary panel 06/14/20 06/15/20 Range/Units 16:14 04:05 Sodium 123 L (137-145) mmol/L Potassium 5.2 H 5.6 H (3.5-5.1) mmol/L Chloride 87 L (98-107) mmol/L Carbon Dioxide 25 (22-30) mmol/L BUN 79 H (7-17) mg/dL Creatinine 5.42 H (0.52-1.04) mg/dL Glucose 136 H (74-99) mg/dL Calcium 7.6 L (8.4-10.2) mg/dL Adrenal panel 06/14/20 06/15/20 Range/Units 16:14 04:05 Sodium 123 L (137-145) mmol/L Potassium 5.2 H 5.6 H (3.5-5.1) mmol/L Chloride 87 L (98-107) mmol/L Carbon Dioxide 25 (22-30) mmol/L BUN 79 H (7-17) mg/dL Creatinine 5.42 H (0.52-1.04) mg/dL Glucose 136 H (74-99) mg/dL Calcium 7.6 L (8.4-10.2) mg/dL Total Bilirubin 0.6 (0.2-1.3) mg/dL AST 714 H (14-36) U/L ALT 726 H (4-34) U/L Alkaline Phosphatase 64 (38-126) U/L Total Protein 5.7 L (6.3-8.2) g/dL Albumin 3.0 L (3.5-5.0) g/dL
--- NOTE | 2020-06-15 12:49 | PCN ---
PROCEDURE NOTE PREOPERATIVE DIAGNOSIS: Acute on chronic renal failure. POSTOPERATIVE DIAGNOSIS: Acute on chronic renal failure. PROCEDURE PERFORMED: Ultrasound-guided dialysis catheter placed in the right femoral approach. DESCRIPTION OF PROCEDURE: The right groin was prepped and drapes applied in a sterile manner. 1% lidocaine were infiltrated. Micropuncture introduced to the common femoral vein. Micropuncture guidewire was passed and 4-[place] dilator advanced on top of the guidewire. A guidewire was passed and the dilator was advanced and a 20 cm dialysis catheter placed on the top of the guidewire, flushed with heparin saline and hep-locked and secured with 3-0 nylon. Patient tolerated the procedure well. MMODL / IJN: [id number] /
--- NOTE | 2020-06-15 15:29 | P.PN ---
Subjective HISTORY OF PRESENTING ILLNESS This is a pleasant 69-year-old female past medical history significant for coronary artery disease status post PCI in 03/2019 as well as CABG, hypertension, diabetes mellitus, dyslipidemia, hypothyroidism. She previously followed with Dr Machuca however has since followed up with Dr. Prieto. She was recently seen in March for acute on chronic diastolic heart failure with mildly elevated troponins and was diuresed and sent home. At the time her troponin elevation was thought likely related to her hypoxia and CAD and therefore heart catheterization was deferred. Unfortunately she has been experiencing increased dyspnea over the past [address] Prieto in approximately 2 weeks ago. He ordered a nuclear stress test, the results of which I do not have available right now which apparently she had performed on Wednesday. She admits to also having intermittent chest pain over the last 5-6 days which feels similar to her prior angina. Usually the chest pain only lasted 5-10 minutes and would resolve with nitroglycerin. On Wednesday however the pain persisted and therefore she went to [facility]. She was found to have elevated troponins and thought to be in heart failure and therefore was transferred to [facility] for possible heart catheterization. She states she did have an echocardiogram performed at the hospital this morning however results are not in the chart. She had been placed on a heparin drip however apparently she had some hematuria however this has since improved and therefore her heparin drip was restarted. She denies any hematochezia or melena. She still does have some orthopnea. She apparently had been getting diuretics with Lasix and admits to good urine output. Her creatinine today is 1.5 with prior creatinines from last admission from 1.1 up to 1.8. She admits she had been having some continued chest pain including this morning however it completely resolved with nitroglycerin drip and morphine. She currently denies any chest pain or pressure, arm pain. 06/15/20 Patient seen and examined. Patient remains sedated on ventilator. She did have his issues with arterial line which is being replaced. Hemoglobin continues to have mild decrease at 7.5. Her creatinine has increased to over 5 and patient is being evaluated for possible hemodialysis. Sodium continues to decrease at 123 today. REVIEW OF SYSTEMS Unable to perform review of systems secondary to sedation on ventilator PHYSICAL EXAMINATION Blood pressure 134/52 heart rate 82 afebrile and maintaining oxygen saturation on 40% FiO2 CONSTITUTIONAL: No apparent distress, sedated on ventilator , obese HEENT: Head is normocephalic. Pupils are equal, round. Sclerae anicteric. Mucous membranes of the mouth are moist. No carotid bruit. CHEST EXAMINATION: + Increased crackles at the bases, no wheeze HEART EXAMINATION: Regular rate and rhythm. S1, S2 heard. No murmurs, gallops or rub. ABDOMEN: Soft, nontender. Positive bowel sounds. EXTREMITIES: 2+ peripheral pulses, 1+ lower extremity edema and no calf tenderness. NEUROLOGIC EXAMINATION: Patient is sedated on ventilator ASSESSMENT 1. Non-STEMI, culprit artery suspected to be RCA, patent FERGUSON to LAD and SVG to 1 2. History of coronary artery disease status post CABG as well as PCI in March 2019 3. Chronic kidney disease 4. Acute on chronic systolic heart failure with ejection fraction 40-45% at [facility], decreased to 35-40% after cardiac arrest 5. Essential hypertension 6. Hyperlipidemia 7. Diabetes mellitus 8. Anemia, worsening 9. Cardiopulmonary arrest with initial rhythm of asystole. This is during the time of patient being on BiPAP with worsened respiratory status. May be primary hypoxia and resultant bradycardia, asystole. 10. Hypotension on vasopressors, likely exacerbated by sedation. Less likely cardiogenic shock given normal cardiac output by thermodilution with right heart catheterization. PLAN Status post stenting of the RCA with patent FERGUSON to LAD and SVG to OM, and PCI of RCA. Patient with worsening kidney function requiring dialysis and volume overload. Continue with supportive care. Continue dual antiplatelets. Prognosis guarded. Objective - Vital Signs Vital signs: Vital Signs Temp 99.1 F 06/15/20 12:00 Pulse 82 06/15/20 14:00 Resp 21 06/15/20 14:00 BP 134/52 06/15/20 14:00 Pulse Ox 93 L 06/15/20 14:00 Intake & Output 06/14/20 06/15/20 06/15/20 18:59 06:59 18:59 Intake Total 836.896 995.511 689.598 Output Total 25 15 5 Balance 811.896 980.511 684.598 Weight 107.6 kg 110.4 kg Intake: IV 276 276 169 .9 240 240 160 Pressure bag 36 36 9 Intake, IV Titration 380.896 394.511 205.598 Amount Furosemide 100 mg In 78.167 Sodium Chloride 0.9% 90 ml @ 10 MG/HR 10 mls/hr IV .Q10H [facility] Rx#: [id number] Norepinephrine 4 mg In 180.896 Sodium Chloride 0.9% 250 ml @ 0.05 MCG/KG/MIN 21. 45 mls/hr IV .[id number] [facility] Rx#:[id number] propofoL 1,000 mg In 200.000 316.344 205.598 Empty Bag 1 bag @ Titrate IV .Q0M [facility] Rx#: [id number] Oral 30 Tube Feeding 40 235 225 Other 110 90 90 Output: Urine 25 15 5 Other: Voiding Method Indwelling Catheter Indwelling Catheter Indwelling Catheter ABP, PAP, CO, CI - Last Documented Arterial Blood Pressure 164/56 - Labs CBC & Chem 7: 06/15/20 04:05 06/15/20 04:05 Labs: Abnormal Lab Results - Last 24 Hours (Table) 06/14/20 06/14/20 06/14/20 Range/Units 16:14 17:35 23:45 WBC (3.8-10.6) k/uL RBC (3.80-5.40) m/uL Hgb (11.4-16.0) gm/dL Hct (34.0-46.0) % MCV (80.0-100.0) fL Neutrophils # (1.3-7.7) k/uL Monocytes # (0-1.0) k/uL ABG pH (7.35-7.45) ABG pCO2 (35-45) mmHg ABG pO2 (83-108) mmHg ABG Total CO2 (19-24) mmol/L ABG O2 Saturation (94-97) % Sodium (137-145) mmol/L Potassium 5.2 H (3.5-5.1) mmol/L Chloride (98-107) mmol/L BUN (7-17) mg/dL Creatinine (0.52-1.04) mg/dL Glucose (74-99) mg/dL POC Glucose (mg/dL) 135 H 179 H (75-99) mg/dL Calcium (8.4-10.2) mg/dL AST (14-36) U/L ALT (4-34) U/L Total Protein (6.3-8.2) g/dL Albumin (3.5-5.0) g/dL 06/15/20 06/15/20 06/15/20 Range/Units 04:05 04:05 05:15 WBC 13.1 H (3.8-10.6) k/uL RBC 2.17 L (3.80-5.40) m/uL Hgb 7.5 L (11.4-16.0) gm/dL Hct 22.0 L (34.0-46.0) % MCV 101.4 H (80.0-100.0) fL Neutrophils # 10.0 H (1.3-7.7) k/uL Monocytes # 1.5 H (0-1.0) k/uL ABG pH 7.34 L (7.35-7.45) ABG pCO2 46 H (35-45) mmHg ABG pO2 123 H (83-108) mmHg ABG Total CO2 26 H (19-24) mmol/L ABG O2 Saturation 98.1 H (94-97) % Sodium 123 L (137-145) mmol/L Potassium 5.6 H (3.5-5.1) mmol/L Chloride 87 L (98-107) mmol/L BUN 79 H (7-17) mg/dL Creatinine 5.42 H (0.52-1.04) mg/dL Glucose 136 H (74-99) mg/dL POC Glucose (mg/dL) (75-99) mg/dL Calcium 7.6 L (8.4-10.2) mg/dL AST 714 H (14-36) U/L ALT 726 H (4-34) U/L Total Protein 5.7 L (6.3-8.2) g/dL Albumin 3.0 L (3.5-5.0) g/dL 06/15/20 06/15/20 Range/Units 05:37 11:48 WBC (3.8-10.6) k/uL RBC (3.80-5.40) m/uL Hgb (11.4-16.0) gm/dL Hct (34.0-46.0) % MCV (80.0-100.0) fL Neutrophils # (1.3-7.7) k/uL Monocytes # (0-1.0) k/uL ABG pH (7.35-7.45) ABG pCO2 (35-45) mmHg ABG pO2 (83-108) mmHg ABG Total CO2 (19-24) mmol/L ABG O2 Saturation (94-97) % Sodium (137-145) mmol/L Potassium (3.5-5.1) mmol/L Chloride (98-107) mmol/L BUN (7-17) mg/dL Creatinine (0.52-1.04) mg/dL Glucose (74-99) mg/dL POC Glucose (mg/dL) 157 H 270 H (75-99) mg/dL Calcium (8.4-10.2) mg/dL AST (14-36) U/L ALT (4-34) U/L Total Protein (6.3-8.2) g/dL Albumin (3.5-5.0) g/dL Microbiology - Last 24 Hours (Table) 06/14/20 04:16 Gram Stain - Preliminary Sputum Sputum Culture - Preliminary
[2020-06-15 18:12] LABS: Glucose,Whole Blood 269 mg/dL (75-99)
[2020-06-15] MEDS: ATORVASTATIN 80 MG TAB PO SCH (21:38)
[2020-06-15] MEDS: INSULIN DETEMIR (LEVEMIR) 100 UNIT/ML SYR SQ SCH (21:38)
[2020-06-15 23:30] LABS: Glucose,Whole Blood 263 mg/dL (75-99)
[2020-06-16] MEDS: IPRATROPIUM-ALBUTEROL 3 ML NEB INHALATION SCH ×6 (03:47→23:23)
[2020-06-16] MEDS: NOREPINEPHRINE 4 MG in SODIUM CHLORIDE 0.9% 250 ML IV SCH ×2 (04:31→14:43)
[2020-06-16 05:17] LABS: Albumin 2.8 g/dL (3.5-5.0); Potassium 5.5 mmol/L (3.5-5.1); Total Bilirubin 0.5 mg/dL (0.2-1.3); Total Protein 5.5 g/dL (6.3-8.2)
[2020-06-16 05:59] LABS: Glucose,Whole Blood 232 mg/dL (75-99)
[2020-06-16] MEDS: INSULIN ASPART (NovoLOG) 100 UNIT/ML VIAL SQ SCH ×4 (06:02→23:28)
[2020-06-16] MEDS: LEVOTHYROXINE 100 MCG TAB PO SCH (06:03)
[2020-06-16 06:54] LABS: HCT 20.9 % (34.0-46.0); HGB 7.1 gm/dL (11.4-16.0); MCH 35.5 pg (25.0-35.0); MCHC 34.2 g/dL (31.0-37.0); MCV 103.8 fL (80.0-100.0); Macrocytosis Slight; Mean Platelet Volume 9.5; Platelet Count 181 k/uL (150-450); RBC 2.02 m/uL (3.80-5.40); RDW 14.3 % (11.5-15.5)
[2020-06-16 07:26] LABS: Band Neutrophils % 1 %; Eosinophils # (M) 0.14 k/uL (0-0.7); Lymphocytes # (M) 1.26 k/uL (1.0-4.8); Monocytes # (M) 1.68 k/uL (0-1.0); Myelocytes # (M) 0.14 k/uL (0); Myelocytes % 1 %; Neutrophils % (M) 78 %; Nucleated Red Blood Cells 4 /100 WBC (0-0); Total Cells Counted 200
[2020-06-16 07:28] LABS: Large Platelets Present; Polychromasia Present
--- NOTE | 2020-06-16 07:52 | XR ---
EXAMINATION TYPE: XR chest 1V portable DATE OF EXAM: 06/16/2020 COMPARISON: Chest x-ray 06/15/2020 HISTORY: Intubated TECHNIQUE: Single frontal view of the chest is obtained. FINDINGS: Endotracheal tube and NG tube, left jugular central venous catheter are overlying appropri ate positions. Patient is rotated. Heart is enlarged. There is prominence of the mediastinum. Patchy bilateral airspace disease is present. There is no evident pneumothorax. Hemidiaphragms are partially obscured, patient is post median sternotomy. No evident pneumothorax. IMPRESSION: Correlate for edema, pneumonia, ARDS
--- NOTE | 2020-06-16 08:29 | P.PN ---
Subjective Patient is seen in follow for acute kidney injury. Started on hemodialysis June 15 due to volume overload and oliguria. 2 L ultrafiltration done yesterday. Remains off vasopressors. Receiving tube feeding. Intubated. On 40% FiO2. Vital signs are stable. General: The patient appeared well nourished and normally developed. HEENT: Intubated. LUNGS: Breath sounds decreased. HEART: Rate and Rhythm are regular. \ ABDOMEN: Soft, obese. EXTREMITITES: 1+ edema. Objective - Vital Signs Vital signs: Vital Signs Temp 98.0 F 06/16/20 04:00 Pulse 88 06/16/20 07:55 Resp 20 06/16/20 07:00 BP 144/66 06/16/20 07:00 Pulse Ox 94 L 06/16/20 07:00 Intake & Output 06/15/20 06/16/20 06/16/20 18:59 06:59 18:59 Intake Total 1154.598 977.587 45 Output Total 2004 10 0 Balance -850.402 967.587 45 Weight 109.9 kg Intake: IV 249 220 20 .9 240 220 20 Pressure bag 9 Intake, IV Titration 405.598 367.587 Amount propofoL 1,000 mg In 405.598 367.587 Empty Bag 1 bag @ Titrate IV .Q0M [facility] Rx#: [id number] Tube Feeding 350 300 25 Other 150 90 Output: Urine 5 10 0 Hemodialysis 1999 Other: Voiding Method Indwelling Catheter Indwelling Catheter ABP, PAP, CO, CI - Last Documented Arterial Blood Pressure 164/56 - Labs CBC & Chem 7: 06/16/20 04:45 06/16/20 04:45 Labs: Abnormal Lab Results - Last 24 Hours (Table) 06/15/20 06/15/20 06/15/20 Range/Units 11:48 18:00 18:10 WBC (3.8-10.6) k/uL RBC (3.80-5.40) m/uL Hgb (11.4-16.0) gm/dL Hct (34.0-46.0) % MCV (80.0-100.0) fL MCH (25.0-35.0) pg Neutrophils # (Manual) (1.3-7.7) k/uL Monocytes # (Manual) (0-1.0) k/uL Myelocytes # (Manual) (0) k/uL Nucleated RBCs (0-0) /100 WBC Sodium (137-145) mmol/L Potassium 5.3 H (3.5-5.1) mmol/L Chloride (98-107) mmol/L BUN (7-17) mg/dL Creatinine (0.52-1.04) mg/dL Glucose (74-99) mg/dL POC Glucose (mg/dL) 270 H 269 H (75-99) mg/dL Calcium (8.4-10.2) mg/dL AST (14-36) U/L ALT (4-34) U/L Total Protein (6.3-8.2) g/dL Albumin (3.5-5.0) g/dL 06/15/20 06/16/20 06/16/20 Range/Units 23:29 04:45 04:45 WBC 14.0 H (3.8-10.6) k/uL RBC 2.02 L (3.80-5.40) m/uL Hgb 7.1 L (11.4-16.0) gm/dL Hct 20.9 L (34.0-46.0) % MCV 103.8 H (80.0-100.0) fL MCH 35.5 H (25.0-35.0) pg Neutrophils # (Manual) 11.00 H (1.3-7.7) k/uL Monocytes # (Manual) 1.68 H (0-1.0) k/uL Myelocytes # (Manual) 0.14 H (0) k/uL Nucleated RBCs 4 H (0-0) /100 WBC Sodium 126 L (137-145) mmol/L Potassium 5.5 H (3.5-5.1) mmol/L Chloride 90 L (98-107) mmol/L BUN 68 H (7-17) mg/dL Creatinine 5.40 H (0.52-1.04) mg/dL Glucose 190 H (74-99) mg/dL POC Glucose (mg/dL) 263 H (75-99) mg/dL Calcium 7.0 L (8.4-10.2) mg/dL AST 506 H (14-36) U/L ALT 590 H (4-34) U/L Total Protein 5.5 L (6.3-8.2) g/dL Albumin 2.8 L (3.5-5.0) g/dL 06/16/20 Range/Units 05:57 WBC (3.8-10.6) k/uL RBC (3.80-5.40) m/uL Hgb (11.4-16.0) gm/dL Hct (34.0-46.0) % MCV (80.0-100.0) fL MCH (25.0-35.0) pg Neutrophils # (Manual) (1.3-7.7) k/uL Monocytes # (Manual) (0-1.0) k/uL Myelocytes # (Manual) (0) k/uL Nucleated RBCs (0-0) /100 WBC Sodium (137-145) mmol/L Potassium (3.5-5.1) mmol/L Chloride (98-107) mmol/L BUN (7-17) mg/dL Creatinine (0.52-1.04) mg/dL Glucose (74-99) mg/dL POC Glucose (mg/dL) 232 H (75-99) mg/dL Calcium (8.4-10.2) mg/dL AST (14-36) U/L ALT (4-34) U/L Total Protein (6.3-8.2) g/dL Albumin (3.5-5.0) g/dL Assessment and Plan Plan: Assessment: 1. Acute kidney injury secondary to ATN secondary to cardiopulmonary arrest. Started on hemodialysis June 15 for oliguria and volume overload. No hydronephrosis noted on kidney ultrasound. 2. Rule out chronic kidney disease. Creatinine was as low as 1.05 as of 04/22/2020. 3. Hyponatremia secondary to acute kidney injury. Hypervolemic. Better post dialysis. 4. Hyperkalemia secondary to acute kidney injury. Expect improvement post dialysis. 5. Acute on chronic systolic CHF with ejection fraction of 35-40% with moderate mitral regurgitation, tricuspid regurgitation and pulmonary hypertension. 6. Status post cardiopulmonary arrest on June 14. 7. Acute PA status post cardiac catheterization with RCA stenting. 8. Diabetes mellitus. 9. Volume overload. Status post Lasix drip. 10. Anemia. Iron deficiency present. Plan: Currently seen while undergoing hemodialysis. Another treatment tomorrow. Maintain tube feeding. Change to Nepro. Dietitian aware. Wean FiO2. Continue to monitor renal function and urine output. Repeat potassium level this evening. IV iron 3 doses. First dose today.
[2020-06-16] MEDS: ASPIRIN 81 MG PO SCH (09:00)
[2020-06-16] MEDS: hydrALAZINE HCL 25 MG TAB PO SCH ×3 (09:00→20:05)
[2020-06-16] MEDS: PANTOPRAZOLE 40 MG/10 ML VIAL IVP SCH ×2 (09:00→20:06)
[2020-06-16] MEDS: CLOPIDOGREL 75 MG TAB PO SCH (09:00)
[2020-06-16] MEDS: CHLORHEXIDINE GLUCONATE 15 ML CUP MUCOUS MEM SCH ×2 (09:01→20:06)
[2020-06-16] MEDS: METOPROLOL TARTRATE 50 MG TAB PO SCH ×2 (09:01→20:06)
[2020-06-16] MEDS: ENOXAPARIN 30 MG/0.3 ML SYRINGE SQ SCH (09:01)
[2020-06-16] MEDS: ASCORBIC ACID 500 MG TAB PO SCH ×2 (09:01→20:05)
[2020-06-16] MEDS: SODIUM FERRIC GLUCONAT-SUCROSE 125 MG in SODIUM CHLORIDE 0.9% 100 ML IVPB SCH (09:01)
[2020-06-16] MEDS: METOCLOPRAMIDE 10 MG TAB PO SCH ×4 (09:01→20:07)
[2020-06-16] MEDS: RANOLAZINE 500 MG TAB.ER.12H PO SCH ×2 (09:20→20:06)
[2020-06-16 12:15] LABS: Glucose,Whole Blood 220 mg/dL (75-99)
[2020-06-16 12:26] VITALS: BMI 47.3
[2020-06-16] MEDS ORDERED: INSULIN DETEMIR (LEVEMIR) 100 UNIT/ML SYR SQ STA (12:32)
--- NOTE | 2020-06-16 12:51 | P.PN ---
Subjective Progress Note Date: 06/16/20 Principal diagnosis: Non-ST segment elevation myocardial infarction This is a pleasant 57-year-old gentleman who follows with Dr. Mcguire as his primary care provider. He has a history of diabetes mellitus, gastroesophageal reflux disease, hyperlipidemia, hypertension, chronic back pain, diabetic neuropathy throat cancer status post surgery, depression, chronic and ongoing tobacco dependence, occasional marijuana use. He presented here to the emergency room yesterday with complaints of chest tightness, shortness of breath, weakness with nausea, vomiting, diarrhea. He had recently been initiated on prednisone for shoulder pain. He also states his insulin pump had been beeping often. He had not taken any insulin for 2 days prior to his arrival. Initial labs revealed white count 33.6. Hemoglobin 17.7. Sodium 133. Potassium 5.4. Bicarb less than 5. Anion gap 22. Creatinine 1.9. Lactic acid 5.4. Acetone positive. Johnson virus not detected. He was admitted to the intensive care unit with diabetic ketoacidosis. He is seen today in consultation in the ICU. He is currently awake and alert in no acute distress. White count 25.9. Hemoglobin 13.1. Sodium 132. Potassium 3.8. Creatinine 0.7. Bicarb 19. He is currently on D5.45 with 20 of KCl at 150 MLS per hour. Insulin drip at 10 units per hour. He is on 2 L/m per nasal cannula. Chest x- ray reveals no acute process. The patient is seen today 06/13/2020 in follow-up in the intensive care unit. She is currently sitting up in bed. Placed on BiPAP / is 60% FiO2. She remains on a heparin drip per weight-based protocol. Continued on nitroglycerin drip at 100 mcg/m. The plan is for cardiac catheterization today. She remains on Lasix 40 mg IV every 12 hours, bronchodilators. Chest x-rays consistent with congestive heart failure. Cardiomegaly with mild to moderate alveolar and int erstitial edema bilaterally with tiny bilateral pleural effusions. No significant change compared to yesterday. White count 13.6. Hemoglobin 8.3. Sodium 124. Potassium 4.6. Creatinine 1.45. Troponin 6.320. The patient is seen today 06/14/2020 follow-up in the intensive care unit. She did undergo cardiac catheterization yesterday and subsequent stenting of the right coronary artery in 2 different segments. She was returned to the ICU on BiPAP. She had been doing fairly well until just after midnight this morning. She developed bradycardia and subsequent asystole. LETY MONTES was called and she was given epi with return of spontaneous circulation and subsequent ventricular tachycardia with cardioversion. Since that time she remains intubated on mechanical ventilator. Current settings assist-control rate of 20, tidal on 350, FiO2 70% and a PEEP of 5. Arterial blood gases reveal a P O2 of 189, pCO2 of 50 and a pH is 7.29. She has 0.9 normal saline at 20 miles per hour. She sedated on propofol at 30 mcg/kg/m. She's currently on norepinephrine at 4 mcg/m. White count 13.1. Hemoglobin 7.8. Sodium 124. Potassium 6.3. Creatinine 3.17. Glucose 155. Troponin 12.1. Chest x-ray reveals diffuse airspace opacities. She is on DuoNeb inhalations every 4 hours, Lasix 40 mg IV every 12 hours. The patient is seen today 06/15/2020 in follow-up in the intensive care unit. Xenia intubated on the mechanical ventilator current settings assist-control with a rate of 20, tidal volume 350, FiO2 40% and a PEEP of 5. Morning blood gases revealed pO2 123. PCO2 46. PH 7.34. She remains sedated on propofol at 50 mcg/kg/m. 0.9 normal saline at 20 ML's per hour. Lasix drip at 10 mg per hour. Being nourished with vital HPI 25 ML's per hour which is goal. Sputum culture pending. White count 13.1. Hemoglobin 7.5. Sodium 123. Potassium 5.6. Chloride 87. BUN 79. Creatinine 5.42. AST 714. ALT 726. Albumin 3.0. The plan is for hemodialysis catheter insertion today with hemodialysis to begin today. The patient is seen today 06/16/2020 follow-up in the intensive care unit. She remains intubated, sedated on the mechanical ventilator. Assist-control rate of 20, tidal volume 350, FiO2 40% and PEEP of 5. Chest x-ray continues to reveal patchy bilateral airspace disease with mild central venous congestion. No evidence of pneumothorax. Unable to obtain any blood gases despite multiple attempts by respiratory therapy today and multiple attempts at arterial line insertion by both pulmonary and vascular physicians. She remains on 0.9 normal saline at 20 ML's per hour. Propofol at 60 mcg/kg. Vital HPI at 25 ML's per hour which is goal. He temporary hemodialysis catheter was placed yesterday and she received hemodialysis with 2 L removed and receiving hemodialysis again today. Sputum culture reveals no growth. White count 14.0. Hemoglobin 7.1. Sodium 126 potassium 5.5. Creatinine 5.4. AST 506. ALT 590. Albumin 2.8. Objective - Vital Signs Vital signs: Vital Signs Temp 98.9 F 06/16/20 09:53 Pulse 81 06/16/20 11:23 Resp 27 H 06/16/20 10:00 BP 115/59 06/16/20 10:00 Pulse Ox 92 L 06/16/20 10:00 Intake & Output 06/15/20 06/16/20 06/16/20 18:59 06:59 18:59 Intake Total 1154.598 977.587 971.048 Output Total 2004 10 5300 Balance -850.402 967.587 -4328.952 Weight 109.9 kg 109.9 kg Intake: IV 249 220 80 .9 240 220 80 Pressure bag 9 Intake, IV Titration 405.598 367.587 396.048 Amount Sodium Ferric Gluconat- 100 Sucrose 125 mg In Sodium Chloride 0.9% 100 ml @ 100 mls/hr IVPB DAILY [facility] Rx#:[id number] propofoL 1,000 mg In 405.598 367.587 296.048 Empty Bag 1 bag @ Titrate IV .Q0M [facility] Rx#: [id number] Tube Feeding 350 300 125 Hemodialysis 300 Other 150 90 70 Output: Urine 5 10 0 Hemodialysis 2000 2800 Other 2500 Other: Voiding Method Indwelling Catheter Indwelling Catheter Indwelling Catheter ABP, PAP, CO, CI - Last Documented Arterial Blood Pressure 164/56 - Exam GENERAL EXAM: Intubated, sedated, morbidly obese 69-year-old female patient, on 40 % FiO2, comfortable in no apparent distress. HEAD: Normocephalic. EYES: Sluggish reaction of pupils, equal size. NOSE: Oral endotracheal, gastric tube secured in place. Clear with pink turbinates. THROAT: Crowding of the posterior pharynx. No erythema or exudates. NECK: Short. Left triple-lumen catheter in place. No masses, no JVD. CHEST: No chest wall deformity. LUNGS: Equal air entry with bibasilar crackles, diminished more so on the left. CVS: S1 and S2 normal with no audible murmur, regular rhythm. ABDOMEN: Morbidly obese unable to appreciate organomegaly, normal bowel sounds, no guarding or rigidity. SPINE: No scoliosis or deformity SKIN: No rashes CENTRAL NERVOUS SYSTEM: No focal deficits, tone is normal in all 4 extremities. EXTREMITIES: Right groin hemodialysis catheter in place. Changes of chronic deformities of the toes on the right foot. There is 1-2+ peripheral edema. No clubbing, no cyanosis. Peripheral pulses are intact. - Labs CBC & Chem 7: 06/16/20 04:45 06/16/20 04:45 Labs: Abnormal Lab Results - Last 24 Hours (Table) 06/15/20 06/15/20 06/15/20 Range/Units 18:00 18:10 23:29 WBC (3.8-10.6) k/uL RBC (3.80-5.40) m/uL Hgb (11.4-16.0) gm/dL Hct (34.0-46.0) % MCV (80.0-100.0) fL MCH (25.0-35.0) pg Neutrophils # (Manual) (1.3-7.7) k/uL Monocytes # (Manual) (0-1.0) k/uL Myelocytes # (Manual) (0) k/uL Nucleated RBCs (0-0) /100 WBC Sodium (137-145) mmol/L Potassium 5.3 H (3.5-5.1) mmol/L Chloride (98-107) mmol/L BUN (7-17) mg/dL Creatinine (0.52-1.04) mg/dL Glucose (74-99) mg/dL POC Glucose (mg/dL) 269 H 263 H (75-99) mg/dL Calcium (8.4-10.2) mg/dL AST (14-36) U/L ALT (4-34) U/L Total Protein (6.3-8.2) g/dL Albumin (3.5-5.0) g/dL 06/16/20 06/16/20 06/16/20 Range/Units 04:45 04:45 05:57 WBC 14.0 H (3.8-10.6) k/uL RBC 2.02 L (3.80-5.40) m/uL Hgb 7.1 L (11.4-16.0) gm/dL Hct 20.9 L (34.0-46.0) % MCV 103.8 H (80.0-100.0) fL MCH 35.5 H (25.0-35.0) pg Neutrophils # (Manual) 11.00 H (1.3-7.7) k/uL Monocytes # (Manual) 1.68 H (0-1.0) k/uL Myelocytes # (Manual) 0.14 H (0) k/uL Nucleated RBCs 4 H (0-0) /100 WBC Sodium 126 L (137-145) mmol/L Potassium 5.5 H (3.5-5.1) mmol/L Chloride 90 L (98-107) mmol/L BUN 68 H (7-17) mg/dL Creatinine 5.40 H (0.52-1.04) mg/dL Glucose 190 H (74-99) mg/dL POC Glucose (mg/dL) 232 H (75-99) mg/dL Calcium 7.0 L (8.4-10.2) mg/dL AST 506 H (14-36) U/L ALT 590 H (4-34) U/L Total Protein 5.5 L (6.3-8.2) g/dL Albumin 2.8 L (3.5-5.0) g/dL 06/16/20 Range/Units 12:13 WBC (3.8-10.6) k/uL RBC (3.80-5.40) m/uL Hgb (11.4-16.0) gm/dL Hct (34.0-46.0) % MCV (80.0-100.0) fL MCH (25.0-35.0) pg Neutrophils # (Manual) (1.3-7.7) k/uL Monocytes # (Manual) (0-1.0) k/uL Myelocytes # (Manual) (0) k/uL Nucleated RBCs (0-0) /100 WBC Sodium (137-145) mmol/L Potassium (3.5-5.1) mmol/L Chloride (98-107) mmol/L BUN (7-17) mg/dL Creatinine (0.52-1.04) mg/dL Glucose (74-99) mg/dL POC Glucose (mg/dL) 220 H (75-99) mg/dL Calcium (8.4-10.2) mg/dL AST (14-36) U/L ALT (4-34) U/L Total Protein (6.3-8.2) g/dL Albumin (3.5-5.0) g/dL Microbiology - Last 24 Hours (Table) 06/14/20 04:16 Gram Stain - Final Sputum Sputum Culture - Final Assessment and Plan Assessment: 1 Acute non-ST segment elevation myocardial infarction. Status post cardiac catheterization with subsequent stenting 2 segments of the RCA on 06/13/2020 2 Cardiac arrest early a.m. 06/14/2020 with asystole, CPR approximately 6 minutes with return of spontaneous circulation, ventricular tachycardia requiring synchronous cardioversion 1 3 Acute hypoxic respiratory failure secondary to above requiring intubation mechanical ventilation on 06/14/2020 4 Chronic hypoxemic respiratory failure secondary to diastolic congestive heart failure. Preserved left ventricular systolic function with ejection fraction 55-60% 5 Coronary artery disease with previous coronary artery bypass grafting in 1999 and previous stent placements 6 Acute renal failure with worsening renal function and current creatinine 5.40. Hemodialysis catheter placement 06/15/2020 with hemodialysis to follow 7 Hyponatremia, current sodium 126 8 Acute on chronic anemia, current hemoglobin 7.1 9 Hypertension 10 Hyperlipidemia 11 Hypothyroidism 12 Diabetes mellitus 13 Obstructive sleep apnea maintained on CPAP in the outpatient setting 14 Chronic left hemidiaphragmatic elevation 15 Morbid obesity with BMI of 48 16 Previous admission with cellulitis of the right lower extremity, deformity of toes on the right foot 17 Poor overall functional performance based on the above-mentioned multiple comorbidities Plan: The patient was seen and evaluated by Dr. Anderson Chest x-ray, labs reviewed Continue with the current treatment plan Hemodialysis yesterday and again today Lovenox for DVT prophylaxis, Protonix for GI prophylaxis Continue tube feedings We will continue to follow and make further recommendations based on her clinical status Critical care time, not including procedures, 36 minutes I, the cosigning physician, performed a history & physical examination of the patient. Lungs sounds with bilateral basilar crackles, diminished more so on the left. Maintaining good O2 saturations in the 90s on 40% FiO2 via the mechanical ventilator. I discussed the assessment and plan of care with my nurse practitioner, Torie Shi. I attest to the above note as dictated by her.
--- NOTE | 2020-06-16 17:35 | P.PN ---
Subjective HISTORY OF PRESENTING ILLNESS This is a pleasant 69-year-old female past medical history significant for coronary artery disease status post PCI in 03/2019 as well as CABG, hypertension, diabetes mellitus, dyslipidemia, hypothyroidism. She previously followed with Dr Machuca however has since followed up with Dr. Prieto. She was recently seen in March for acute on chronic diastolic heart failure with mildly elevated troponins and was diuresed and sent home. At the time her troponin elevation was thought likely related to her hypoxia and CAD and therefore heart catheterization was deferred. Unfortunately she has been experiencing increased dyspnea over the past [address] Prieto in approximately 2 weeks ago. He ordered a nuclear stress test, the results of which I do not have available right now which apparently she had performed on Wednesday. She admits to also having intermittent chest pain over the last 5-6 days which feels similar to her prior angina. Usually the chest pain only lasted 5-10 minutes and would resolve with nitroglycerin. On Wednesday however the pain persisted and therefore she went to [facility]. She was found to have elevated troponins and thought to be in heart failure and therefore was transferred to [facility] for possible heart catheterization. She states she did have an echocardiogram performed at the hospital this morning however results are not in the chart. She had been placed on a heparin drip however apparently she had some hematuria however this has since improved and therefore her heparin drip was restarted. She denies any hematochezia or melena. She still does have some orthopnea. She apparently had been getting diuretics with Lasix and admits to good urine output. Her creatinine today is 1.5 with prior creatinines from last admission from 1.1 up to 1.8. She admits she had been having some continued chest pain including this morning however it completely resolved with nitroglycerin drip and morphine. She currently denies any chest pain or pressure, arm pain. 06/16/20 Patient seen and examined. Patient remains sedated on ventilator. Patient remains on ventilator with 40% FiO2 and a PEEP of 5. Patient's creatinine con tinues to increase, 5.4 today. Patient received dialysis yesterday with 2 L removed and plan for dialysis today. Hemoglobin still trending mildly down, currently 7.1 today. REVIEW OF SYSTEMS Unable to perform review of systems secondary to sedation on ventilator PHYSICAL EXAMINATION Blood pressure 137/62 heart rate 100 afebrile and maintaining oxygen saturation on 40% FiO2 CONSTITUTIONAL: No apparent distress, sedated on ventilator , obese HEENT: Head is normocephalic. Pupils are equal, round. Sclerae anicteric. Mucous membranes of the mouth are moist. No carotid bruit. CHEST EXAMINATION: + Increased crackles at the bases, no wheeze HEART EXAMINATION: Regular rate and rhythm. S1, S2 heard. No murmurs, gallops or rub. ABDOMEN: Soft, nontender. Positive bowel sounds. EXTREMITIES: 2+ peripheral pulses, 1+ lower extremity edema and no calf tenderness. NEUROLOGIC EXAMINATION: Patient is sedated on ventilator ASSESSMENT 1. Non-STEMI, culprit artery suspected to be RCA, patent FERGUSON to LAD and SVG to 1 2. History of coronary artery disease status post CABG as well as PCI in March 2019 3. Acute on chronic kidney disease, status post hemodialysis initiation 06/15 4. Acute on chronic systolic heart failure with ejection fraction 40-45% at [facility], decreased to 35-40% after cardiac arrest 5. Essential hypertension 6. Hyperlipidemia 7. Diabetes mellitus 8. Anemia, worsening 9. Cardiopulmonary arrest with initial rhythm of asystole. This is during the time of patient being on BiPAP with worsened respiratory status. May be primary hypoxia and resultant bradycardia, asystole. 10. Hypotension on vasopressors, likely exacerbated by sedation. Less likely cardiogenic shock given normal cardiac output by thermodilution with right heart catheterization. PLAN Status post stenting of the RCA with patent FERGUSON to LAD and SVG to OM, and PCI of RCA. Patient underwent hemodialysis yesterday and plan for hemodialysis again today. Patient with grossly elevated filling pressures by heart catheterization previously and attempt to take fluid off as able. Continue with supportive care. Continue dual antiplatelets. Prognosis guarded. Objective - Vital Signs Vital signs: Vital Signs Temp 99.7 F H 06/16/20 16:00 Pulse 100 06/16/20 17:00 Resp 18 06/16/20 17:00 BP 137/62 06/16/20 17:00 Pulse Ox 91 L 06/16/20 17:00 Intake & Output 06/15/20 06/16/20 06/16/20 18:59 06:59 18:59 Intake Total 1154.598 643.730 1858.210 Output Total 2004 10 7910 Balance -850.402 964.584 -5289.790 Weight 109.9 kg 109.9 kg Intake: IV 249 220 220 .9 240 220 220 Pressure bag 9 Intake, IV Titration 405.598 367.587 618.210 Amount Sodium Ferric Gluconat- 100 Sucrose 125 mg In Sodium Chloride 0.9% 100 ml @ 100 mls/hr IVPB DAILY [facility] Rx#:[id number] propofoL 1,000 mg In 405.598 367.587 518.210 Empty Bag 1 bag @ Titrate IV .Q0M [facility] Rx#: [id number] Tube Feeding 350 300 225 Hemodialysis 300 Other 150 90 130 Output: Urine 5 10 10 Hemodialysis 2000 2800 Other 2500 Other: Voiding Method Indwelling Catheter Indwelling Catheter Indwelling Catheter ABP, PAP, CO, CI - Last Documented Arterial Blood Pressure 164/56 - Labs CBC & Chem 7: 06/16/20 04:45 06/16/20 04:45 Labs: Abnormal Lab Results - Last 24 Hours (Table) 06/15/20 06/15/20 06/15/20 Range/Units 18:00 18:10 23:29 WBC (3.8-10.6) k/uL RBC (3.80-5.40) m/uL Hgb (11.4-16.0) gm/dL Hct (34.0-46.0) % MCV (80.0-100.0) fL MCH (25.0-35.0) pg Neutrophils # (Manual) (1.3-7.7) k/uL Monocytes # (Manual) (0-1.0) k/uL Myelocytes # (Manual) (0) k/uL Nucleated RBCs (0-0) /100 WBC Sodium (137-145) mmol/L Potassium 5.3 H (3.5-5.1) mmol/L Chloride (98-107) mmol/L BUN (7-17) mg/dL Creatinine (0.52-1.04) mg/dL Glucose (74-99) mg/dL POC Glucose (mg/dL) 269 H 263 H (75-99) mg/dL Calcium (8.4-10.2) mg/dL AST (14-36) U/L ALT (4-34) U/L Total Protein (6.3-8.2) g/dL Albumin (3.5-5.0) g/dL 06/16/20 06/16/20 06/16/20 Range/Units 04:45 04:45 05:57 WBC 14.0 H (3.8-10.6) k/uL RBC 2.02 L (3.80-5.40) m/uL Hgb 7.1 L (11.4-16.0) gm/dL Hct 20.9 L (34.0-46.0) % MCV 103.8 H (80.0-100.0) fL MCH 35.5 H (25.0-35.0) pg Neutrophils # (Manual) 11.00 H (1.3-7.7) k/uL Monocytes # (Manual) 1.68 H (0-1.0) k/uL Myelocytes # (Manual) 0.14 H (0) k/uL Nucleated RBCs 4 H (0-0) /100 WBC Sodium 126 L (137-145) mmol/L Potassium 5.5 H (3.5-5.1) mmol/L Chloride 90 L (98-107) mmol/L BUN 68 H (7-17) mg/dL Creatinine 5.40 H (0.52-1.04) mg/dL Glucose 190 H (74-99) mg/dL POC Glucose (mg/dL) 232 H (75-99) mg/dL Calcium 7.0 L (8.4-10.2) mg/dL AST 506 H (14-36) U/L ALT 590 H (4-34) U/L Total Protein 5.5 L (6.3-8.2) g/dL Albumin 2.8 L (3.5-5.0) g/dL 06/16/20 Range/Units 12:13 WBC (3.8-10.6) k/uL RBC (3.80-5.40) m/uL Hgb (11.4-16.0) gm/dL Hct (34.0-46.0) % MCV (80.0-100.0) fL MCH (25.0-35.0) pg Neutrophils # (Manual) (1.3-7.7) k/uL Monocytes # (Manual) (0-1.0) k/uL Myelocytes # (Manual) (0) k/uL Nucleated RBCs (0-0) /100 WBC Sodium (137-145) mmol/L Potassium (3.5-5.1) mmol/L Chloride (98-107) mmol/L BUN (7-17) mg/dL Creatinine (0.52-1.04) mg/dL Glucose (74-99) mg/dL POC Glucose (mg/dL) 220 H (75-99) mg/dL Calcium (8.4-10.2) mg/dL AST (14-36) U/L ALT (4-34) U/L Total Protein (6.3-8.2) g/dL Albumin (3.5-5.0) g/dL Microbiology - Last 24 Hours (Table) 06/14/20 04:16 Gram Stain - Final Sputum Sputum Culture - Final
[2020-06-16 17:53] LABS: Glucose,Whole Blood 222 mg/dL (75-99)
[2020-06-16] MEDS: ATORVASTATIN 80 MG TAB PO SCH (20:06)
--- NOTE | 2020-06-16 20:34 | P.PN ---
Subjective Progress Note Date: 06/15/20 Principal diagnosis: Acute non-ST elevated WI Acute on chronic CHF with diastolic function Patient is a 69-year-old female with a known history of coronary artery disease status post stent placement, history of CABG 2 vessel in 1999, hypothyroidism, hypertension, diabetes type 2 insulin-dependent hyperlipidemia and obstructive sleep apnea on home oxygen at 2 L via nasal cannula and chronic CHF with diastolic dysfunction and recent history of right lower kidney cellulitis in March 2020 and morbid obesity initially presents to [facility] with the complaints of shortness of breath. Patient was also having mid retrosternal chest pain with radiation to the right arm associated with shortness of breath. Patient says that she was hypoxic with pulse ox in the 60s while at home. Presents to [facility] on 06/09/2020. No headache or dizziness. Patient was nauseated. Not diaphoretic. Denied any complaints of fever or chills. No cough or sputum production. Patient had chest x-ray showed mild pulmonary vascular congestion and interstitial edema and also elevated left hemidiaphragm. Patient was admitted to MICU. Patient had initial troponin level 0.03 and subsequent troponin elevation at 0.38. Creatinine went up to 1.59, Patient was started on heparin drip and nitro drip. ProBNP was 944. Patient was also started on Lasix 40 mg IV push twice a day. Patient was also continued on antibiotics in the form of ceftriaxone and azithromycin. Currently patient denied complaints of chest pain. Still having shortness of breath. Due to elevated troponin level and hypoxic respiratory failure requiring BiPAP, patient was transferred to [facility] for cardiac evaluation and further management. EKG showed sinus tachycardia. Extract chest x-ray showed pulmonary interstitial mild edema that could relate to acute heart failure. Laboratory data showed WBC 19.62, hemoglobin 9.4, MCV 105.1, RDW 13.5 and platelets 251 BUE and 51 and creatinine 1.77, sodium 1:30, potassium 4.7 and chloride 90, magnesium 1.8, alk phos 48 AST 176 and ALT 46, all given 3.0 Lactic acid level was 8.7 on admission which came down to 3.0 Covid PCR Is negative 06/12/2020 Patient is currently lying in the bed and still short of breath. No complaints of chest pain. Patient is being continued on heparin drip. Also on IV Lasix. Patient is tachycardic and tachypneic. No fever. Currently in oxygen at 3 L via nasal cannula and saturating at 95 to 92%. No nausea vomiting or abdominal pain or diarrhea. Bilateral lower extremity swelling is improving. Laboratory data showed WBC 14.4, hemoglobin 8.9 and MCV 104.6 Sodium 127, chloride 90, BUN 56 and creatinine 1.52 Troponin level 9.7 today. Cardiology is planning for catheterization in the next 24 hours. 06/13/2020 Patient is currently lying in the bed still having shortness of breath with lying flat. patient underwent cardiac catheterization today and stent placement. Patient is being continued on Lasix and breathing treatments. Blood sugar is elevated and her insulin dose will be increased to 50 units at bedtime along with preprandial aspart. cardiology and pulmonary is on board. 06/14/2020 Patient is currently intubated and on mechanical ventilator. Overnight patient was on BiPAP and found to be bradycardic. Subsequently patient went into asystole and pulseless. Patient received epinephrine and was 1 and had return of spontaneous circulation subsequent V. tach on the monitor for which patient underwent cardioversion. Downtime was about 5-6 minutes and patient converted to sinus rhythm. Patient was subsequently intubated. Patient was found to be hyperkalemic with potassium 6.3 Laboratory data showed sodium 125, potassium 5.3, BUN 64 and creatinine 3.71. Lasix is on hold. Nephrology was consulted. 06/15/2020 Patient is mechanical ventilator. FiO2 40% and PEEP of 5. Patient is being continued on Lasix drip. On tube feeding. Laboratory data showed worsening renal function with BUN 79 creatinine 5.42. Nephrology has seen the patient and is planning for hemodialysis. WBC 13.1, hemoglobin 7.5 and platelets 161, sodium 123, potassium 5.6 and chloride 87 AST 749 ALT 726, Blood sugar is in 200s. Chest x-ray showed extensive bilateral airspace disease versus correlate for pneumonia, ARDS, pulmonary edema difficult to exclude effusion. Current medications reviewed. Objective - Vital Signs Vital signs: Vital Signs Temp 98.2 F 06/15/20 20:00 Pulse 87 06/15/20 22:00 Resp 21 06/15/20 22:00 BP 147/61 06/15/20 22:00 Pulse Ox 97 06/15/20 22:00 Intake & Output 06/15/20 06/15/20 06/16/20 06:59 18:59 06:59 Intake Total 322.151 3206.598 280.214 Output Total 15 2005 5 Balance 980.511 -850.402 275.214 Weight 110.4 kg Intake: IV 276 249 80 .9 240 240 80 Pressure bag 36 9 Intake, IV Titration 394.511 405.598 70.214 Amount Furosemide 100 mg In 78.167 Sodium Chloride 0.9% 90 ml @ 10 MG/HR 10 mls/hr IV .Q10H [facility] Rx#: [id number] propofoL 1,000 mg In 316.344 405.598 70.214 Empty Bag 1 bag @ Titrate IV .Q0M [facility] Rx#: [id number] Tube Feeding 235 350 100 Other 90 150 30 Output: Urine 15 5 5 Hemodialysis 1999 Other: Voiding Method Indwelling Catheter Indwelling Catheter Indwelling Catheter ABP, PAP, CO, CI - Last Documented Arterial Blood Pressure 164/56 - Exam PHYSICAL EXAMINATION: Patient is sedated and on mechanical ventilator... HEENT: Normocephalic. Neck is supple. Pupils reactive. Nostrils clear. Oral cavity is moist. Ears reveal no drainage. Neck reveals no JVD, carotid bruits, or thyromegaly. CHEST EXAMINATION: Trachea is central. Symmetrical expansion. Bilateral crackles and diminished air entry.. CARDIAC: Normal S1, S2 with no gallops. No murmurs ABDOMEN: Soft. Bowel sounds normal. No organomegaly. No abdominal bruits. Extremities:2+ bilateral pedal edema. No clubbing or cyanosis Neurologically on mechanical ventilator, sedated.. No focal deficits noted Skin: No rash or skin lesions. Psychiatric: Could not be assessed at this time. Musculoskeletal: No joint swelling or deformity. - Labs CBC & Chem 7: 06/16/20 04:45 06/16/20 17:30 Labs: Abnormal Lab Results - Last 24 Hours (Table) 06/14/20 06/15/20 06/15/20 Range/Units 23:45 04:05 04:05 WBC 13.1 H (3.8-10.6) k/uL RBC 2.17 L (3.80-5.40) m/uL Hgb 7.5 L (11.4-16.0) gm/dL Hct 22.0 L (34.0-46.0) % MCV 101.4 H (80.0-100.0) fL Neutrophils # 10.0 H (1.3-7.7) k/uL Monocytes # 1.5 H (0-1.0) k/uL ABG pH (7.35-7.45) ABG pCO2 (35-45) mmHg ABG pO2 (83-108) mmHg ABG Total CO2 (19-24) mmol/L ABG O2 Saturation (94-97) % Sodium 123 L (137-145) mmol/L Potassium 5.6 H (3.5-5.1) mmol/L Chloride 87 L (98-107) mmol/L BUN 79 H (7-17) mg/dL Creatinine 5.42 H (0.52-1.04) mg/dL Glucose 136 H (74-99) mg/dL POC Glucose (mg/dL) 179 H (75-99) mg/dL Calcium 7.6 L (8.4-10.2) mg/dL AST 714 H (14-36) U/L ALT 726 H (4-34) U/L Total Protein 5.7 L (6.3-8.2) g/dL Albumin 3.0 L (3.5-5.0) g/dL 06/15/20 06/15/20 06/15/20 Range/Units 05:15 05:37 11:48 WBC (3.8-10.6) k/uL RBC (3.80-5.40) m/uL Hgb (11.4-16.0) gm/dL Hct (34.0-46.0) % MCV (80.0-100.0) fL Neutrophils # (1.3-7.7) k/uL Monocytes # (0-1.0) k/uL ABG pH 7.34 L (7.35-7.45) ABG pCO2 46 H (35-45) mmHg ABG pO2 123 H (83-108) mmHg ABG Total CO2 26 H (19-24) mmol/L ABG O2 Saturation 98.1 H (94-97) % Sodium (137-145) mmol/L Potassium (3.5-5.1) mmol/L Chloride (98-107) mmol/L BUN (7-17) mg/dL Creatinine (0.52-1.04) mg/dL Glucose (74-99) mg/dL POC Glucose (mg/dL) 157 H 270 H (75-99) mg/dL Calcium (8.4-10.2) mg/dL AST (14-36) U/L ALT (4-34) U/L Total Protein (6.3-8.2) g/dL Albumin (3.5-5.0) g/dL 06/15/20 06/15/20 Range/Units 18:00 18:10 WBC (3.8-10.6) k/uL RBC (3.80-5.40) m/uL Hgb (11.4-16.0) gm/dL Hct (34.0-46.0) % MCV (80.0-100.0) fL Neutrophils # (1.3-7.7) k/uL Monocytes # (0-1.0) k/uL ABG pH (7.35-7.45) ABG pCO2 (35-45) mmHg ABG pO2 (83-108) mmHg ABG Total CO2 (19-24) mmol/L ABG O2 Saturation (94-97) % Sodium (137-145) mmol/L Potassium 5.3 H (3.5-5.1) mmol/L Chloride (98-107) mmol/L BUN (7-17) mg/dL Creatinine (0.52-1.04) mg/dL Glucose (74-99) mg/dL POC Glucose (mg/dL) 269 H (75-99) mg/dL Calcium (8.4-10.2) mg/dL AST (14-36) U/L ALT (4-34) U/L Total Protein (6.3-8.2) g/dL Albumin (3.5-5.0) g/dL Assessment and Plan Assessment: Chest pain due to Acute non-ST elevated WI. Status post cardiac catheter patient and stent placement. Cardiac arrest, asystole status post CPR with down time of 6 minutes and ROSC. Cardioversion 1 Currently on mechanical ventilator. acute on chronic CHF with diastolic dysfunction Acute hypoxic respiratory failure secondary to CHF requiring BiPAP. Currently o n mechanical ventilator. Severe lactic acidosis on admission likely due to hypoxia. Acute kidney injury with creatinine 1.77--3.4 with possible underlying CK D stage III. Coronary artery disease with history of stent placement Coronary artery bypass graft in the year 1999 diabetes type 2 insulin-dependent with hyperglycemia uncontrolled Hypertension Hyperlipidemia Hypothyroidism Morbid obesity with BMI 47.8 Obstructive sleep apnea on CPAP and also on home oxygen at 2 L via nasal cannula Chronic left diaphragmatic elevation GI and DVT prophylaxis. Plan: Patient is on mechanical ventilator. Patient will be continued on telemetry monitoring. Status post cardiac catheterization and stent placement. Continue with aspirin statins and beta blockers. on lasix drip. Nephrology is on board. Due to worsening renal function nephrology is planning for hemodialysis. Vascular surgery was consulted for catheter placement. Continue with insulin regimen with Levemir 50 units at bedtime and NovoLog 10 units 3 times a day before meals along with insulin sliding scale. Continue with home medications and follow closely. Pulmonary and cardiology is is following. Time with Patient: Greater than 30
[2020-06-16 20:35] LABS: Glucose,Whole Blood 202 mg/dL (75-99)
--- NOTE | 2020-06-16 20:38 | P.PN ---
Subjective Progress Note Date: 06/16/20 Principal diagnosis: Acute non-ST elevated IA Acute on chronic CHF with diastolic function Patient is a 69-year-old female with a known history of coronary artery disease status post stent placement, history of CABG 2 vessel in 1999, hypothyroidism, hypertension, diabetes type 2 insulin-dependent hyperlipidemia and obstructive sleep apnea on home oxygen at 2 L via nasal cannula and chronic CHF with diastolic dysfunction and recent history of right lower kidney cellulitis in March 2020 and morbid obesity initially presents to [facility] with the complaints of shortness of breath. Patient was also having mid retrosternal chest pain with radiation to the right arm associated with shortness of breath. Patient says that she was hypoxic with pulse ox in the 60s while at home. Presents to [facility] on 06/09/2020. No headache or dizziness. Patient was nauseated. Not diaphoretic. Denied any complaints of fever or chills. No cough or sputum production. Patient had chest x-ray showed mild pulmonary vascular congestion and interstitial edema and also elevated left hemidiaphragm. Patient was admitted to MICU. Patient had initial troponin level 0.03 and subsequent troponin elevation at 0.38. Creatinine went up to 1.59, Patient was started on heparin drip and nitro drip. ProBNP was 944. Patient was also started on Lasix 40 mg IV push twice a day. Patient was also continued on antibiotics in the form of ceftriaxone and azithromycin. Currently patient denied complaints of chest pain. Still having shortness of breath. Due to elevated troponin level and hypoxic respiratory failure requiring BiPAP, patient was transferred to [facility] for cardiac evaluation and further management. EKG showed sinus tachycardia. Extract chest x-ray showed pulmonary interstitial mild edema that could relate to acute heart failure. Laboratory data showed WBC 19.62, hemoglobin 9.4, MCV 105.1, RDW 13.5 and platelets 251 BUE and 51 and creatinine 1.77, sodium 1:30, potassium 4.7 and chloride 90, magnesium 1.8, alk phos 48 AST 176 and ALT 46, all given 3.0 Lactic acid level was 8.7 on admission which came down to 3.0 Covid PCR Is negative 06/12/2020 Patient is currently lying in the bed and still short of breath. No complaints of chest pain. Patient is being continued on heparin drip. Also on IV Lasix. Patient is tachycardic and tachypneic. No fever. Currently in oxygen at 3 L via nasal cannula and saturating at 95 to 92%. No nausea vomiting or abdominal pain or diarrhea. Bilateral lower extremity swelling is improving. Laboratory data showed WBC 14.4, hemoglobin 8.9 and MCV 104.6 Sodium 127, chloride 90, BUN 56 and creatinine 1.52 Troponin level 9.7 today. Cardiology is planning for catheterization in the next 24 hours. 06/13/2020 Patient is currently lying in the bed still having shortness of breath with lying flat. patient underwent cardiac catheterization today and stent placement. Patient is being continued on Lasix and breathing treatments. Blood sugar is elevated and her insulin dose will be increased to 50 units at bedtime along with preprandial aspart. cardiology and pulmonary is on board. 06/14/2020 Patient is currently intubated and on mechanical ventilator. Overnight patient was on BiPAP and found to be bradycardic. Subsequently patient went into asystole and pulseless. Patient received epinephrine and was 1 and had return of spontaneous circulation subsequent V. tach on the monitor for which patient underwent cardioversion. Downtime was about 5-6 minutes and patient converted to sinus rhythm. Patient was subsequently intubated. Patient was found to be hyperkalemic with potassium 6.3 Laboratory data showed sodium 125, potassium 5.3, BUN 64 and creatinine 3.71. Lasix is on hold. Nephrology was consulted. 06/15/2020 Patient is mechanical ventilator. FiO2 40% and PEEP of 5. Patient is being continued on Lasix drip. On tube feeding. Laboratory data showed worsening renal function with BUN 79 creatinine 5.42. Nephrology has seen the patient and is planning for hemodialysis. WBC 13.1, hemoglobin 7.5 and platelets 161, sodium 123, potassium 5.6 and chloride 87 AST 749 ALT 726, Blood sugar is in 200s. Chest x-ray showed extensive bilateral airspace disease versus correlate for pneumonia, ARDS, pulmonary edema difficult to exclude effusion. 06/16/2020 Patient remains in the MICU. Intubated and on mechanical ventilator. Patient has been afebrile. Assist control, tidal volume 350 FiO2 40% and PEEP of 5. Chest x-ray showed patchy bilateral airspace disease with mild central venous congestion. Patient underwent hemodialysis today. Laboratory data showed WBC 14.0, hemoglobin 7.1 and platelets 181 Sodium 126 potassium 5.5 chloride 90 BUN 68, creatinine 5.4, liver enzymes are trending down with AST 506, ALT 590 blood sugar is still elevated in 200s. Continued on tube feeding. Current medications reviewed. Objective - Vital Signs Vital signs: Vital Signs Temp 99 F 06/16/20 12:00 Pulse 89 06/16/20 14:00 Resp 30 H 06/16/20 14:00 BP 140/60 06/16/20 14:00 Pulse Ox 93 L 06/16/20 14:00 Intake & Output 06/15/20 06/16/20 06/16/20 18:59 06:59 18:59 Intake Total 1154.598 153.841 6161.743 Output Total 2004 10 5310 Balance -850.402 967.587 -4131.257 Weight 109.9 kg 109.9 kg Intake: IV 249 220 160 .9 240 220 160 Pressure bag 9 Intake, IV Titration 405.598 367.587 423.743 Amount Sodium Ferric Gluconat- 100 Sucrose 125 mg In Sodium Chloride 0.9% 100 ml @ 100 mls/hr IVPB DAILY [facility] Rx#:[id number] propofoL 1,000 mg In 405.598 367.587 323.743 Empty Bag 1 bag @ Titrate IV .Q0M [facility] Rx#: [id number] Tube Feeding 350 300 195 Hemodialysis 300 Other 150 90 100 Output: Urine 5 10 10 Hemodialysis 2000 2800 Other 2500 Other: Voiding Method Indwelling Catheter Indwelling Catheter Indwelling Catheter ABP, PAP, CO, CI - Last Documented Arterial Blood Pressure 164/56 - Exam PHYSICAL EXAMINATION: Patient is sedated and on mechanical ventilator... HEENT: Normocephalic. Neck is supple. Pupils reactive. Nostrils clear. Oral cavity is moist. Ears reveal no drainage. Neck reveals no JVD, carotid bruits, or thyromegaly. CHEST EXAMINATION: Trachea is central. Symmetrical expansion. Bilateral crackles and diminished air entry.. CARDIAC: Normal S1, S2 with no gallops. No murmurs ABDOMEN: Soft. Bowel sounds normal. No organomegaly. No abdominal bruits. Extremities:2+ bilateral pedal edema. No clubbing or cyanosis Neurologically on mechanical ventilator, sedated.. No focal deficits noted Skin: No rash or skin lesions. Psychiatric: Could not be assessed at this time. Musculoskeletal: No joint swelling or deformity. - Labs CBC & Chem 7: 06/16/20 04:45 06/16/20 17:30 Labs: Abnormal Lab Results - Last 24 Hours (Table) 06/15/20 06/15/20 06/15/20 Range/Units 18:00 18:10 23:29 WBC (3.8-10.6) k/uL RBC (3.80-5.40) m/uL Hgb (11.4-16.0) gm/dL Hct (34.0-46.0) % MCV (80.0-100.0) fL MCH (25.0-35.0) pg Neutrophils # (Manual) (1.3-7.7) k/uL Monocytes # (Manual) (0-1.0) k/uL Myelocytes # (Manual) (0) k/uL Nucleated RBCs (0-0) /100 WBC Sodium (137-145) mmol/L Potassium 5.3 H (3.5-5.1) mmol/L Chloride (98-107) mmol/L BUN (7-17) mg/dL Creatinine (0.52-1.04) mg/dL Glucose (74-99) mg/dL POC Glucose (mg/dL) 269 H 263 H (75-99) mg/dL Calcium (8.4-10.2) mg/dL AST (14-36) U/L ALT (4-34) U/L Total Protein (6.3-8.2) g/dL Albumin (3.5-5.0) g/dL 06/16/20 06/16/20 06/16/20 Range/Units 04:45 04:45 05:57 WBC 14.0 H (3.8-10.6) k/uL RBC 2.02 L (3.80-5.40) m/uL Hgb 7.1 L (11.4-16.0) gm/dL Hct 20.9 L (34.0-46.0) % MCV 103.8 H (80.0-100.0) fL MCH 35.5 H (25.0-35.0) pg Neutrophils # (Manual) 11.00 H (1.3-7.7) k/uL Monocytes # (Manual) 1.68 H (0-1.0) k/uL Myelocytes # (Manual) 0.14 H (0) k/uL Nucleated RBCs 4 H (0-0) /100 WBC Sodium 126 L (137-145) mmol/L Potassium 5.5 H (3.5-5.1) mmol/L Chloride 90 L (98-107) mmol/L BUN 68 H (7-17) mg/dL Creatinine 5.40 H (0.52-1.04) mg/dL Glucose 190 H (74-99) mg/dL POC Glucose (mg/dL) 232 H (75-99) mg/dL Calcium 7.0 L (8.4-10.2) mg/dL AST 506 H (14-36) U/L ALT 590 H (4-34) U/L Total Protein 5.5 L (6.3-8.2) g/dL Albumin 2.8 L (3.5-5.0) g/dL 06/16/20 Range/Units 12:13 WBC (3.8-10.6) k/uL RBC (3.80-5.40) m/uL Hgb (11.4-16.0) gm/dL Hct (34.0-46.0) % MCV (80.0-100.0) fL MCH (25.0-35.0) pg Neutrophils # (Manual) (1.3-7.7) k/uL Monocytes # (Manual) (0-1.0) k/uL Myelocytes # (Manual) (0) k/uL Nucleated RBCs (0-0) /100 WBC Sodium (137-145) mmol/L Potassium (3.5-5.1) mmol/L Chloride (98-107) mmol/L BUN (7-17) mg/dL Creatinine (0.52-1.04) mg/dL Glucose (74-99) mg/dL POC Glucose (mg/dL) 220 H (75-99) mg/dL Calcium (8.4-10.2) mg/dL AST (14-36) U/L ALT (4-34) U/L Total Protein (6.3-8.2) g/dL Albumin (3.5-5.0) g/dL Microbiology - Last 24 Hours (Table) 01/15/21 04:16 Gram Stain - Final Sputum Sputum Culture - Final Assessment and Plan Assessment: Chest pain due to Acute non-ST elevated IA. Status post cardiac catheter patient and stent placement. Cardiac arrest, asystole status post CPR with down time of 6 minutes and ROSC. Cardioversion 1 Currently on mechanical ventilator. acute on chronic CHF with diastolic dysfunction Acute hypoxic respiratory failure secondary to CHF requiring BiPAP. Currently o n mechanical ventilator. Severe lactic acidosis on admission likely due to hypoxia. Acute kidney injury with creatinine 1.77--3.4 with possible underlying CK D stage III. Coronary artery disease with history of stent placement Coronary artery bypass graft in the year 1999 diabetes type 2 insulin-dependent with hyperglycemia uncontrolled Hypertension Hyperlipidemia Hypothyroidism Morbid obesity with BMI 47.8 Obstructive sleep apnea on CPAP and also on home oxygen at 2 L via nasal cannula Chronic left diaphragmatic elevation GI and DVT prophylaxis. Plan: Patient is on mechanical ventilator. Patient will be continued on telemetry monitoring. Status post cardiac catheterization and stent placement. Continue with aspirin statins and beta blockers. on lasix drip. Nephrology is on board. Due to worsening renal function nephrology started on hemodialysis 0n 06/16. Vascular surgery was consulted for catheter placement. Continue with insulin regimen with Levemir 50--56 units at bedtime and NovoLog 10 units 3 times a day before meals along with insulin sliding scale. Continue with home medications and follow closely. Pulmonary and cardiology is following. Time with Patient: Greater than 30
[2020-06-16] MEDS: INSULIN DETEMIR (LEVEMIR) 100 UNIT/ML SYR SQ SCH (21:17)
[2020-06-16] MEDS: MORPHINE SULFATE 2 MG/ML SYRINGE IVP PRN (21:20)
[2020-06-16 23:26] LABS: Glucose,Whole Blood 208 mg/dL (75-99)
[2020-06-17 01:50] LABS: HGB 7.3 gm/dL (11.4-16.0); MCH 35.2 pg (25.0-35.0); MCHC 33.3 g/dL (31.0-37.0); MCV 105.7 fL (80.0-100.0); Macrocytosis Moderate; Mean Platelet Volume 8.9; Platelet Count 220 k/uL (150-450); RBC 2.08 m/uL (3.80-5.40); RDW 14.8 % (11.5-15.5)
[2020-06-17] MEDS ORDERED: SODIUM BICARB 8.4% 50 ML SYR (1 MEQ/ML) ONE (01:56)
[2020-06-17 01:57] LABS: Albumin 2.8 g/dL (3.5-5.0); Calcium 6.6 mg/dL (8.4-10.2); Total Bilirubin 0.9 mg/dL (0.2-1.3); Total Protein 5.6 g/dL (6.3-8.2)
[2020-06-17] MEDS ORDERED: CALCIUM GLUCONATE 1 GM in SODIUM CHLORIDE 0.9% 100 ML IVPB ONE (01:59)
[2020-06-17] MEDS ORDERED: AMIODARONE 360 MG in DEXTROSE 5% IN WATER 200 ML IV ONE ×4 (01:59)
[2020-06-17] MEDS ORDERED: DEXTROSE 5% IN WATER 100 ML with AMIODARONE 150 MG IV ONE ×2 (01:59→02:08)
[2020-06-17 02:02] LABS: Potassium 7.5 mmol/L (3.5-5.1)
[2020-06-17] MEDS ORDERED: SODIUM BICARB 8.4% 50 ML SYR (1 MEQ/ML) IV STA ×5 (02:07→19:29)
[2020-06-17] MEDS ORDERED: CALCIUM GLUCONATE 2 GM in SODIUM CHLORIDE 0.9% 100 ML IVPB ONE ×2 (02:16→03:27)
[2020-06-17] MEDS ORDERED: INSULIN REGULAR 100 UNIT/ML VIAL IV ONE ×2 (02:18→19:30)
[2020-06-17] MEDS ORDERED: DEXTROSE 50% SYRINGE 50 ML IVP STA ×3 (02:19→19:30)
[2020-06-17] MEDS ORDERED: INSULIN REGULAR 100 UNIT/ML VIAL IV STA (02:19)
[2020-06-17 02:25] LABS: Band Neutrophils % 9 %; Large Platelets Present; Lymphocytes # (M) 1.88 k/uL (1.0-4.8); Metamyelocytes # (M) 1.57 k/uL (0); Metamyelocytes % 5 %; Monocytes # (M) 2.19 k/uL (0-1.0); Myelocytes # (M) 0.63 k/uL (0); Myelocytes % 2 %; Neutrophils % (M) 71 %; Nucleated Red Blood Cells 3 /100 WBC (0-0); Total Cells Counted 200; WBC 31.3 k/uL (3.8-10.6)
[2020-06-17 02:26] LABS: Polychromasia Present
[2020-06-17] MEDS: IPRATROPIUM-ALBUTEROL 3 ML NEB INHALATION SCH ×5 (03:24→19:11)
[2020-06-17] MEDS ORDERED: PIPERACILLIN-TAZOBACTAM 3.375 GM in SODIUM CHLORIDE 0.9% 100 ML IVPB STA (05:40)
[2020-06-17] MEDS: NOREPINEPHRINE 4 MG in SODIUM CHLORIDE 0.9% 250 ML IV SCH (05:41)
[2020-06-17 05:56] LABS: Glucose,Whole Blood 115 mg/dL (75-99)
[2020-06-17] MEDS: INSULIN ASPART (NovoLOG) 100 UNIT/ML VIAL SQ SCH ×3 (06:01→17:30)
[2020-06-17] MEDS: LEVOTHYROXINE 100 MCG TAB PO SCH (06:10)
--- NOTE | 2020-06-17 06:52 | P.PN ---
Subjective Progress Note Date: 06/17/20 This is a pleasant 57-year-old gentleman who follows with Dr. Mcguire as his primary care provider. He has a history of diabetes mellitus, gastroesophageal reflux disease, hyperlipidemia, hypertension, chronic back pain, diabetic neuropathy throat cancer status post surgery, depression, chronic and ongoing tobacco dependence, occasional marijuana use. He presented here to the emergency room yesterday with complaints of chest tightness, shortness of breath, weakness with nausea, vomiting, diarrhea. He had recently been initiated on prednisone for shoulder pain. He also states his insulin pump had been beeping often. He had not taken any insulin for 2 days prior to his arrival. Initial labs revealed white count 33.6. Hemoglobin 17.7. Sodium 133. Potassium 5.4. Bicarb less than 5. Anion gap 22. Creatinine 1.9. Lactic acid 5.4. Acetone positive. Johnson virus not detected. He was admitted to the intensive care unit with diabetic ketoacidosis. He is seen in consultation in the ICU. The patient during the ICU stay developed an acute Placed on BiPAP 05/04 is 60% FiO2. She was placed heparin drip per weight-based protocol. Placed on nitroglycerin drip at 100 mcg/m. Given Lasix 40 mg IV every 12 hours, bronchodilators. Chest x-rays consistent with congestive heart failure. Cardiomegaly with mild to moderate alveolar and interstitial edema bilaterally with tiny bilateral pleural effusions. She did undergo cardiac catheterization and subsequent stenting of the right coronary artery in 2 different segments. The culprit artery suspected to be RCA, patent FERGUSON to LAD and SVG to 1. She has a history of coronary artery disease status post CABG as well as PCI in March 2019. She returned to the ICU on BiPAP. She was doing fairly well until She developed bradycardia and subsequent asystole. CODE BLUE was called and she was given epi with return of spontaneous circulation and subsequent ventricular tachycardia with cardioversion. Since that time she remains intubated on mechanical ventilator. She developed an acute on chronic systolic heart failure with ejection fraction 40-45% at [facility], decreased to 35-40% after cardiac arrest and the patient developed an acute on chronic kidney disease, status post hemodialysis initiation 06/15. On 06/17/2019, the patient is being seen in the ICU and the patient is being seen for a FU. She remains intubated, sedated on the mechanical ventilator. Assist-control rate of 20, tidal volume 350, FiO2 100% and PEEP of 5. She has been a difficult call and the patient was not able to get an arterial line attempted by various physicians. As such there is no blood gases obtained. Chest x-ray continues to reveal patchy bilateral airspace disease with mild central venous congestion. No evidence of pneumothorax. She remains on 0.9 normal saline at 20 ML's per hour. Propofol at 50 mcg/kg. the patient is also on pressors in the norepinephrine infusion is running at 0.07 g per KG per minute. Vital HPI at 25 ML's per hour which is goal. A temporary hemodialysis catheter was placed at femoral artery and she is currently receiving hemodialysis. Dialysis was started early this morning as the patient's potassium level was up to 7.7 the sodium was at 128. The patient was having EKG changes with white QRS complexes and based on that, the patient was started immediately on hemodialysis. BUN is a 56. Creatinine is at 5.1. Potassium is at 7.5. Johnson cath is in place. Urine output is minimal at this point. Sputum culture reveals no growth. Her white cell count is up to 31.3 from a baseline of 14. Hemoglobin is at 7.3. Objective - Vital Signs Vital signs: Vital Signs Temp 98.3 F 06/17/20 00:00 Pulse 94 06/17/20 06:00 Resp 21 06/17/20 06:00 BP 86/42 06/17/20 06:00 Pulse Ox 96 06/17/20 06:00 Intake & Output 06/16/20 06/16/20 06/17/20 06:59 18:59 06:59 Intake Total 487.811 7194.894 672.035 Output Total 10 5310 5 Balance 967.587 -3774.106 667.035 Weight 109.9 kg 109.9 kg 104.3 kg Intake: IV 220 240 240 .9 220 240 240 Intake, IV Titration 367.587 620.894 242.035 Amount Amiodarone 360 mg In 5 Dextrose 5% in Water 200 ml @ 1 MG/MIN 33.333 mls/ hr IV .Q6H ONE Rx#: [id number] Norepinephrine 4 mg In 33.463 Sodium Chloride 0.9% 250 ml @ 0.05 MCG/KG/MIN 21. 45 mls/hr IV .[id number] [facility] Rx#:[id number] Sodium Ferric Gluconat- 100 Sucrose 125 mg In Sodium Chloride 0.9% 100 ml @ 100 mls/hr IVPB DAILY [facility] Rx#:[id number] propofoL 1,000 mg In 367.587 520.894 203.572 Empty Bag 1 bag @ Titrate IV .Q0M [facility] Rx#: [id number] Tube Feeding 300 245 100 Hemodialysis 300 Other 90 130 90 Output: Urine 10 10 5 Hemodialysis 2800 Other 2500 Other: Voiding Method Indwelling Catheter Indwelling Catheter Indwelling Catheter ABP, PAP, CO, CI - Last Documented Arterial Blood Pressure 164/56 - Exam GENERAL EXAM: Intubated, sedated, morbidly obese 69-year-old female patient, on 100 % FiO2, comfortable in no apparent distress. HEAD: Normocephalic. EYES: Sluggish reaction of pupils, equal size. NOSE: Oral endotracheal, gastric tube secured in place. Clear with pink turbinates. THROAT: Crowding of the posterior pharynx. No erythema or exudates. NECK: Short. Left triple-lumen catheter in place. No masses, no JVD. CHEST: No chest wall deformity. LUNGS: Equal air entry with bibasilar crackles, diminished more so on the left. CVS: S1 and S2 normal with no audible murmur, regular rhythm. ABDOMEN: Morbidly obese unable to appreciate organomegaly, normal bowel sounds, no guarding or rigidity. The patient has a temporary dialysis catheter in the right femoral SPINE: No scoliosis or deformity SKIN: No rashes CENTRAL NERVOUS SYSTEM: Unable to assess the mental status. The patient is heavily sedated. Not grimacing to any deep painful stimulation. Pupils are equal and reactive to light. The patient has no nystagmus. No facial asymmetry. EXTREMITIES: Right groin hemodialysis catheter in place. Changes of chronic deformities of the toes on the right foot. There is 1-2+ peripheral edema. No clubbing, no cyanosis. Peripheral pulses are intact. - Labs CBC & Chem 7: 06/17/20 01:34 06/17/20 01:34 Labs: Abnormal Lab Results - Last 24 Hours (Table) 06/16/20 06/16/20 06/16/20 Range/Units 04:45 12:13 17:30 WBC 14.0 H (3.8-10.6) k/uL RBC 2.02 L (3.80-5.40) m/uL Hgb 7.1 L (11.4-16.0) gm/dL Hct 20.9 L (34.0-46.0) % MCV 103.8 H (80.0-100.0) fL MCH 35.5 H (25.0-35.0) pg Neutrophils # (Manual) 11.00 H (1.3-7.7) k/uL Monocytes # (Manual) 1.68 H (0-1.0) k/uL Metamyelocytes # (Man) (0) k/uL Myelocytes # (Manual) 0.14 H (0) k/uL Nucleated RBCs 4 H (0-0) /100 WBC Sodium (137-145) mmol/L Potassium 5.4 H (3.5-5.1) mmol/L Chloride (98-107) mmol/L BUN (7-17) mg/dL Creatinine (0.52-1.04) mg/dL Glucose (74-99) mg/dL POC Glucose (mg/dL) 220 H (75-99) mg/dL Calcium (8.4-10.2) mg/dL AST (14-36) U/L ALT (4-34) U/L Troponin I (0.000-0.034) ng/mL Total Protein (6.3-8.2) g/dL Albumin (3.5-5.0) g/dL 06/16/20 06/16/20 06/16/20 Range/Units 17:51 20:34 23:25 WBC (3.8-10.6) k/uL RBC (3.80-5.40) m/uL Hgb (11.4-16.0) gm/dL Hct (34.0-46.0) % MCV (80.0-100.0) fL MCH (25.0-35.0) pg Neutrophils # (Manual) (1.3-7.7) k/uL Monocytes # (Manual) (0-1.0) k/uL Metamyelocytes # (Man) (0) k/uL Myelocytes # (Manual) (0) k/uL Nucleated RBCs (0-0) /100 WBC Sodium (137-145) mmol/L Potassium (3.5-5.1) mmol/L Chloride (98-107) mmol/L BUN (7-17) mg/dL Creatinine (0.52-1.04) mg/dL Glucose (74-99) mg/dL POC Glucose (mg/dL) 222 H 202 H 208 H (75-99) mg/dL Calcium (8.4-10.2) mg/dL AST (14-36) U/L ALT (4-34) U/L Troponin I (0.000-0.034) ng/mL Total Protein (6.3-8.2) g/dL Albumin (3.5-5.0) g/dL 06/17/20 06/17/20 06/17/20 Range/Units 01:34 01:34 03:00 WBC 31.3 H (3.8-10.6) k/uL RBC 2.08 L (3.80-5.40) m/uL Hgb 7.3 L (11.4-16.0) gm/dL Hct 22.0 L (34.0-46.0) % MCV 105.7 H (80.0-100.0) fL MCH 35.2 H (25.0-35.0) pg Neutrophils # (Manual) 25.00 H (1.3-7.7) k/uL Monocytes # (Manual) 2.19 H (0-1.0) k/uL Metamyelocytes # (Man) 1.57 H (0) k/uL Myelocytes # (Manual) 0.63 H (0) k/uL Nucleated RBCs 3 H (0-0) /100 WBC Sodium 128 L (137-145) mmol/L Potassium 7.5 H* (3.5-5.1) mmol/L Chloride 88 L (98-107) mmol/L BUN 56 H (7-17) mg/dL Creatinine 5.13 H (0.52-1.04) mg/dL Glucose 132 H (74-99) mg/dL POC Glucose (mg/dL) (75-99) mg/dL Calcium 6.6 L (8.4-10.2) mg/dL AST 580 H (14-36) U/L ALT 591 H (4-34) U/L Troponin I 11.900 H* (0.000-0.034) ng/mL Total Protein 5.6 L (6.3-8.2) g/dL Albumin 2.8 L (3.5-5.0) g/dL 06/17/20 Range/Units 05:54 WBC (3.8-10.6) k/uL RBC (3.80-5.40) m/uL Hgb (11.4-16.0) gm/dL Hct (34.0-46.0) % MCV (80.0-100.0) fL MCH (25.0-35.0) pg Neutrophils # (Manual) (1.3-7.7) k/uL Monocytes # (Manual) (0-1.0) k/uL Metamyelocytes # (Man) (0) k/uL Myelocytes # (Manual) (0) k/uL Nucleated RBCs (0-0) /100 WBC Sodium (137-145) mmol/L Potassium (3.5-5.1) mmol/L Chloride (98-107) mmol/L BUN (7-17) mg/dL Creatinine (0.52-1.04) mg/dL Glucose (74-99) mg/dL POC Glucose (mg/dL) 115 H (75-99) mg/dL Calcium (8.4-10.2) mg/dL AST (14-36) U/L ALT (4-34) U/L Troponin I (0.000-0.034) ng/mL Total Protein (6.3-8.2) g/dL Albumin (3.5-5.0) g/dL Microbiology - Last 24 Hours (Table) 06/14/20 04:16 Gram Stain - Final Sputum Sputum Culture - Final Assessment and Plan Plan: 1 Acute non-ST segment elevation myocardial infarction. Status post cardiac catheterization with subsequent stenting 2 segments of the RCA on 06/13/2020 2 Cardiac arrest early a.m. 06/14/2020 with asystole, CPR approximately 6 minutes with return of spontaneous circulation, ventricular tachycardia requiring synchronous cardioversion 1 3 Acute hypoxic respiratory failure secondary to above requiring intubation mechanical ventilation on 06/14/2020 4 Chronic hypoxemic respiratory failure secondary to diastolic congestive heart failure. Preserved left ventricular systolic function with ejection fraction 55-60% 5 Coronary artery disease with previous coronary artery bypass grafting in 1999 and previous stent placements 6 Acute renal failure with worsening renal function and current creatinine 5.13. The patient's potassium level is up to 7.5 and the patient is currently undergoing hemodialysis for wide-complex QRS. Urine output is extremely low at this point in time 7 Hyponatremia sodium level is at 128 8 Acute on chronic anemia, current hemoglobin is at 7.3 9 hypotension, likely a combination of cardiogenic and the possibility of septic shock cannot be completely excluded. The patient was advised up to 31. The patient received a dose of 10 Hyperlipidemia 11 Hypothyroidism 12 Diabetes mellitus currently on Levemir 56 units with a scale coverage and the patient is currently receiving enteral feeding for nutritional support with Nepro. 13 Obstructive sleep apnea maintained on CPAP in the outpatient setting 14 Chronic left hemidiaphragmatic elevation 15 Morbid obesity with BMI of 48 16 Previous admission with cellulitis of the right lower extremity, deformity of toes on the right foot 17 Poor overall functional performance based on the above-mentioned multiple comorbidities 18 acute leukocytosis, consider underlying infection/sepsis, and the patient deny percent bandemia. Plan: Attempt to insert a arterial line and monitor the blood gases. If not, we'll obtain a and tidal CO2. Continue IV Zosyn Proceed with hemodialysis today and repeat the potassium. Cardiac rhythm is back to sinus. Obtain sputum Gram stain and culture Continue aspirin, Plavix, and wean off the pressors if possible. Continue Levemir insulin for blood sugar control along with a slight scale coverage Repeat blood cultures Lovenox for DVT prophylaxis, Protonix for GI prophylaxis Continue tube feedings We will continue to follow and make further recommendations based on her clinical status Critical care time, not including procedures, >30 min
[2020-06-17] MEDS ORDERED: AMIODARONE 450 MG in DEXTROSE 5% IN WATER 250 ML IV SCH ×4 (08:00)
--- NOTE | 2020-06-17 08:04 | P.PN ---
Subjective Patient is seen in follow for acute kidney injury. Started on hemodialysis June 15 due to volume overload and oliguria. 2.8 L ultrafiltration done yesterday. Patient went into V. tach last night and potassium level came back at 7.5. She underwent emergent hemodialysis overnight. She also required Levophed while on dialysis. Currently on 100% FiO2. Vital signs are stable. On Levophed. General: The patient appeared well nourished and normally developed. HEENT: Intubated. LUNGS: Breath sounds decreased. HEART: Rate and Rhythm are regular. ABDOMEN: Soft, obese. EXTREMITITES: 1+ edema. Objective - Vital Signs Vital signs: Vital Signs Temp 98.3 F 06/17/20 00:00 Pulse 94 06/17/20 07:00 Resp 20 06/17/20 07:00 BP 97/59 06/17/20 07:00 Pulse Ox 99 06/17/20 07:00 Intake & Output 06/16/20 06/17/20 06/17/20 18:59 06:59 18:59 Intake Total 1535.894 738.524 30 Output Total 5310 5 Balance -3774.106 733.524 30 Weight 109.9 kg 104.3 kg Intake: IV 240 240 20 .9 240 240 20 Intake, IV Titration 620.894 308.524 Amount Amiodarone 360 mg In 5 Dextrose 5% in Water 200 ml @ 1 MG/MIN 33.333 mls/ hr IV .Q6H [facility] Rx#: [id number] Norepinephrine 4 mg In 33.463 Sodium Chloride 0.9% 250 ml @ 0.05 MCG/KG/MIN 21. 45 mls/hr IV .[id number] [facility] Rx#:[id number] Sodium Ferric Gluconat- 100 Sucrose 125 mg In Sodium Chloride 0.9% 100 ml @ 100 mls/hr IVPB DAILY [facility] Rx#:[id number] propofoL 1,000 mg In 520.894 270.061 Empty Bag 1 bag @ Titrate IV .Q0M [facility] Rx#: [id number] Tube Feeding 245 100 10 Hemodialysis 300 Other 130 90 Output: Urine 10 5 Hemodialysis 2800 Other 2500 Other: Voiding Method Indwelling Catheter Indwelling Catheter ABP, PAP, CO, CI - Last Documented Arterial Blood Pressure 164/56 - Labs CBC & Chem 7: 06/17/20 01:34 06/17/20 01:34 Labs: Abnormal Lab Results - Last 24 Hours (Table) 06/16/20 06/16/20 06/16/20 Range/Units 12:13 17:30 17:51 WBC (3.8-10.6) k/uL RBC (3.80-5.40) m/uL Hgb (11.4-16.0) gm/dL Hct (34.0-46.0) % MCV (80.0-100.0) fL MCH (25.0-35.0) pg Neutrophils # (Manual) (1.3-7.7) k/uL Monocytes # (Manual) (0-1.0) k/uL Metamyelocytes # (Man) (0) k/uL Myelocytes # (Manual) (0) k/uL Nucleated RBCs (0-0) /100 WBC Sodium (137-145) mmol/L Potassium 5.4 H (3.5-5.1) mmol/L Chloride (98-107) mmol/L BUN (7-17) mg/dL Creatinine (0.52-1.04) mg/dL Glucose (74-99) mg/dL POC Glucose (mg/dL) 220 H 222 H (75-99) mg/dL Calcium (8.4-10.2) mg/dL AST (14-36) U/L ALT (4-34) U/L Troponin I (0.000-0.034) ng/mL Total Protein (6.3-8.2) g/dL Albumin (3.5-5.0) g/dL 06/16/20 06/16/20 06/17/20 Range/Units 20:34 23:25 01:34 WBC 31.3 H (3.8-10.6) k/uL RBC 2.08 L (3.80-5.40) m/uL Hgb 7.3 L (11.4-16.0) gm/dL Hct 22.0 L (34.0-46.0) % MCV 105.7 H (80.0-100.0) fL MCH 35.2 H (25.0-35.0) pg Neutrophils # (Manual) 25.00 H (1.3-7.7) k/uL Monocytes # (Manual) 2.19 H (0-1.0) k/uL Metamyelocytes # (Man) 1.57 H (0) k/uL Myelocytes # (Manual) 0.63 H (0) k/uL Nucleated RBCs 3 H (0-0) /100 WBC Sodium (137-145) mmol/L Potassium (3.5-5.1) mmol/L Chloride (98-107) mmol/L BUN (7-17) mg/dL Creatinine (0.52-1.04) mg/dL Glucose (74-99) mg/dL POC Glucose (mg/dL) 202 H 208 H (75-99) mg/dL Calcium (8.4-10.2) mg/dL AST (14-36) U/L ALT (4-34) U/L Troponin I (0.000-0.034) ng/mL Total Protein (6.3-8.2) g/dL Albumin (3.5-5.0) g/dL 06/17/20 06/17/20 06/17/20 Range/Units 01:34 03:00 05:54 WBC (3.8-10.6) k/uL RBC (3.80-5.40) m/uL Hgb (11.4-16.0) gm/dL Hct (34.0-46.0) % MCV (80.0-100.0) fL MCH (25.0-35.0) pg Neutrophils # (Manual) (1.3-7.7) k/uL Monocytes # (Manual) (0-1.0) k/uL Metamyelocytes # (Man) (0) k/uL Myelocytes # (Manual) (0) k/uL Nucleated RBCs (0-0) /100 WBC Sodium 128 L (137-145) mmol/L Potassium 7.5 H* (3.5-5.1) mmol/L Chloride 88 L (98-107) mmol/L BUN 56 H (7-17) mg/dL Creatinine 5.13 H (0.52-1.04) mg/dL Glucose 132 H (74-99) mg/dL POC Glucose (mg/dL) 115 H (75-99) mg/dL Calcium 6.6 L (8.4-10.2) mg/dL AST 580 H (14-36) U/L ALT 591 H (4-34) U/L Troponin I 11.900 H* (0.000-0.034) ng/mL Total Protein 5.6 L (6.3-8.2) g/dL Albumin 2.8 L (3.5-5.0) g/dL Microbiology - Last 24 Hours (Table) 06/14/20 04:16 Gram Stain - Final Sputum Sputum Culture - Final Assessment and Plan Plan: Assessment: 1. Acute kidney injury secondary to ATN secondary to cardiopulmonary arrest. Started on hemodialysis June 15 for oliguria and volume overload. No hy dronephrosis noted on kidney ultrasound. 2. Rule out chronic kidney disease. Creatinine was as low as 1.05 as of 04/22/2020. 3. Hyponatremia secondary to acute kidney injury. Hypervolemic. Better post dialysis. 4. Hyperkalemia secondary to acute kidney injury. She was also on tube feeding which was also a contributor factor. Now on Nepro. 5. Acute on chronic systolic CHF with ejection fraction of 35-40% with moderate mitral regurgitation, tricuspid regurgitation and pulmonary hypertension. 6. Status post cardiopulmonary arrest on June 14. 7. Acute OH status post cardiac catheterization with RCA stenting. 8. Diabetes mellitus. 9. Volume overload. Status post Lasix drip. Improving with ultrafiltration. 10. Anemia. Iron deficiency present. 11. A. fib with RVR. On oral amiodarone. Plan: Plan for hemodialysis tomorrow. Lasix 80 mg IV once today. Maintain tube feeding. Changed to Nepro. Wean FiO2. Continue to monitor renal function and urine output. Repeat potassium level this afternoon and evening. IV iron 3 doses. Second dose today.
--- NOTE | 2020-06-17 08:08 | XR ---
EXAMINATION TYPE: XR chest 1V portable DATE OF EXAM: 06/17/2020 CLINICAL HISTORY: Difficulty breathing progress study. TECHNIQUE: Single AP portable upright view of the chest is obtained. COMPARISON: Chest x-ray from one day earlier and older studies FINDINGS: Stable Left internal jugular central venous catheter. Stable left-sided PICC line, endotracheal tube, and orogastric tube. Persistent elevated left hemidiaphragm. Overlying sternal wires and mediastinal clips redemonstrated. Persistent cardiomegaly with central vascular congestion. There are persistent increased opacities i n the mid to lower lungs bilaterally. Multilevel spurring in the thoracolumbar spine redemonstrated. IMPRESSION: Persistent low lung volumes and cardiomegaly with persistent bilateral multifocal edema a nd/or infiltrates greatest in the lung bases. No significant change from one day earlier.
[2020-06-17] MEDS: hydrALAZINE HCL 25 MG TAB PO SCH ×2 (08:53→20:24)
[2020-06-17] MEDS: ASCORBIC ACID 500 MG TAB PO SCH ×2 (09:10→20:23)
[2020-06-17] MEDS: PANTOPRAZOLE 40 MG/10 ML VIAL IVP SCH ×2 (09:11→20:26)
[2020-06-17] MEDS: METOPROLOL TARTRATE 50 MG TAB PO SCH ×2 (09:11→20:25)
[2020-06-17] MEDS: CHLORHEXIDINE GLUCONATE 15 ML CUP MUCOUS MEM SCH ×2 (09:11→20:24)
[2020-06-17] MEDS: ASPIRIN 81 MG PO SCH (09:11)
[2020-06-17] MEDS: ENOXAPARIN 30 MG/0.3 ML SYRINGE SQ SCH (09:11)
[2020-06-17] MEDS: CLOPIDOGREL 75 MG TAB PO SCH (09:11)
[2020-06-17] MEDS: METOCLOPRAMIDE 10 MG TAB PO SCH ×4 (09:14→21:19)
[2020-06-17] MEDS: RANOLAZINE 500 MG TAB.ER.12H PO SCH ×2 (09:14→20:26)
[2020-06-17] MEDS: SODIUM FERRIC GLUCONAT-SUCROSE 125 MG in SODIUM CHLORIDE 0.9% 100 ML IVPB SCH (09:15)
--- NOTE | 2020-06-17 09:37 | P.PN ---
Subjective Progress Note Date: 06/17/20 This is a 69-year-old female with history of ischemic heart disease with previous bypass surgery and recent stent placement of the RCA. Subsequently patient an episode of bradycardia and asystole associated with acute renal failure and hyperkalemia. Patient is also and dysplasia failure and ventilation. Last night patient developed episodes of ventricular tachycardia and arrhythmias. Blood work showed hyperkalemia with potassium of more than 7. Patient underwent hemodialysis with improvement of her cardiac arrhythmias. Patient became hypotensive and is back on Levophed. Patient is getting dialysis today. Patient is intubated and sedated. Apparently she when she wakes up, she is not following commands. For outpatient clinical status seemed to be still critical. Continue current medical therapy. Objective - Vital Signs Vital signs: Vital Signs Temp 98.9 F 06/17/20 07:57 Pulse 84 06/17/20 09:30 Resp 19 06/17/20 08:00 BP 128/69 06/17/20 08:00 Pulse Ox 98 06/17/20 08:00 Intake & Output 06/16/20 06/17/20 06/17/20 18:59 06:59 18:59 Intake Total 1535.894 738.524 452.580 Output Total 5310 5 2800 Balance -3774.106 733.524 -2347.420 Weight 109.9 kg 104.3 kg Intake: IV 240 240 40 .9 240 240 40 Intake, IV Titration 620.894 308.524 102.580 Amount Amiodarone 360 mg In 5 Dextrose 5% in Water 200 ml @ 1 MG/MIN 33.333 mls/ hr IV .Q6H [facility] Rx#: [id number] Norepinephrine 4 mg In 33.463 69.069 Sodium Chloride 0.9% 250 ml @ 0.05 MCG/KG/MIN 21. 45 mls/hr IV .[id number] [facility] Rx#:[id number] Sodium Ferric Gluconat- 100 Sucrose 125 mg In Sodium Chloride 0.9% 100 ml @ 100 mls/hr IVPB DAILY [facility] Rx#:[id number] propofoL 1,000 mg In 520.894 270.061 33.511 Empty Bag 1 bag @ Titrate IV .Q0M [facility] Rx#: [id number] Tube Feeding 245 100 10 Hemodialysis 300 300 Other 130 90 Output: Urine 10 5 0 Hemodialysis 2800 2800 Other 2500 Other: Voiding Method Indwelling Catheter Indwelling Catheter ABP, PAP, CO, CI - Last Documented Arterial Blood Pressure 164/56 - Exam GENERAL EXAM: Patient is intubated and sedated. HEENT: Normocephalic. Sedated NECK: No masses, no nuchal rigidity. CHEST: No chest wall deformity. LUNGS: Equal air entry with no crackles or wheeze. HEART: S1 and S2 normal ABDOMEN: No hepatosplenomegaly, normal bowel sounds, no guarding or rigidity. SKIN: No rashesal deficits. CENTRAL NERVOUS SYSTEM: Deferred EXTREMITIES: No cyanosis, clubbing or edema. - Labs CBC & Chem 7: 06/17/20 01:34 06/17/20 01:34 Labs: Abnormal Lab Results - Last 24 Hours (Table) 06/16/20 06/16/20 06/16/20 Range/Units 12:13 17:30 17:51 WBC (3.8-10.6) k/uL RBC (3.80-5.40) m/uL Hgb (11.4-16.0) gm/dL Hct (34.0-46.0) % MCV (80.0-100.0) fL MCH (25.0-35.0) pg Neutrophils # (Manual) (1.3-7.7) k/uL Monocytes # (Manual) (0-1.0) k/uL Metamyelocytes # (Man) (0) k/uL Myelocytes # (Manual) (0) k/uL Nucleated RBCs (0-0) /100 WBC Sodium (137-145) mmol/L Potassium 5.4 H (3.5-5.1) mmol/L Chloride (98-107) mmol/L BUN (7-17) mg/dL Creatinine (0.52-1.04) mg/dL Glucose (74-99) mg/dL POC Glucose (mg/dL) 220 H 222 H (75-99) mg/dL Calcium (8.4-10.2) mg/dL AST (14-36) U/L ALT (4-34) U/L Troponin I (0.000-0.034) ng/mL Total Protein (6.3-8.2) g/dL Albumin (3.5-5.0) g/dL 06/16/20 06/16/20 06/17/20 Range/Units 20:34 23:25 01:34 WBC 31.3 H (3.8-10.6) k/uL RBC 2.08 L (3.80-5.40) m/uL Hgb 7.3 L (11.4-16.0) gm/dL Hct 22.0 L (34.0-46.0) % MCV 105.7 H (80.0-100.0) fL MCH 35.2 H (25.0-35.0) pg Neutrophils # (Manual) 25.00 H (1.3-7.7) k/uL Monocytes # (Manual) 2.19 H (0-1.0) k/uL Metamyelocytes # (Man) 1.57 H (0) k/uL Myelocytes # (Manual) 0.63 H (0) k/uL Nucleated RBCs 3 H (0-0) /100 WBC Sodium (137-145) mmol/L Potassium (3.5-5.1) mmol/L Chloride (98-107) mmol/L BUN (7-17) mg/dL Creatinine (0.52-1.04) mg/dL Glucose (74-99) mg/dL POC Glucose (mg/dL) 202 H 208 H (75-99) mg/dL Calcium (8.4-10.2) mg/dL AST (14-36) U/L ALT (4-34) U/L Troponin I (0.000-0.034) ng/mL Total Protein (6.3-8.2) g/dL Albumin (3.5-5.0) g/dL 06/17/20 06/17/20 06/17/20 Range/Units 01:34 03:00 05:54 WBC (3.8-10.6) k/uL RBC (3.80-5.40) m/uL Hgb (11.4-16.0) gm/dL Hct (34.0-46.0) % MCV (80.0-100.0) fL MCH (25.0-35.0) pg Neutrophils # (Manual) (1.3-7.7) k/uL Monocytes # (Manual) (0-1.0) k/uL Metamyelocytes # (Man) (0) k/uL Myelocytes # (Manual) (0) k/uL Nucleated RBCs (0-0) /100 WBC Sodium 128 L (137-145) mmol/L Potassium 7.5 H* (3.5-5.1) mmol/L Chloride 88 L (98-107) mmol/L BUN 56 H (7-17) mg/dL Creatinine 5.13 H (0.52-1.04) mg/dL Glucose 132 H (74-99) mg/dL POC Glucose (mg/dL) 115 H (75-99) mg/dL Calcium 6.6 L (8.4-10.2) mg/dL AST 580 H (14-36) U/L ALT 591 H (4-34) U/L Troponin I 11.900 H* (0.000-0.034) ng/mL Total Protein 5.6 L (6.3-8.2) g/dL Albumin 2.8 L (3.5-5.0) g/dL Microbiology - Last 24 Hours (Table) 06/14/20 04:16 Gram Stain - Final Sputum Sputum Culture - Final Assessment and Plan (1) Acute on chronic renal failure Current Visit: Yes Status: Acute Code(s): N17.9 - ACUTE KIDNEY FAILURE, UNSPECIFIED; N18.9 - CHRONIC KIDNEY DISEASE, UNSPECIFIED SNOMED Code(s): 258773311 (2) NSTEMI (non-ST elevated myocardial infarction) Current Visit: Yes Status: Acute Code(s): I21.4 - NON-ST ELEVATION (NSTEMI) MYOCARDIAL INFARCTION SNOMED Code(s): 70833211 (3) Congestive heart failure Current Visit: No Status: Acute Code(s): I50.9 - HEART FAILURE, UNSPECIFIED SNOMED Code(s): 43000726 (4) Ventricular tachycardia Current Visit: Yes Status: Acute Code(s): I47.2 - VENTRICULAR TACHYCARDIA SNOMED Code(s): 90386151 (5) Hyperkalemia Current Visit: Yes Status: Acute Code(s): E87.5 - HYPERKALEMIA SNOMED Code(s): 13340661 Plan: Continue current management to the dialysis. He is Iv levophed for blood pressu re support. Continue ventilatory support. Overall prognosis is guarded. We'll follow
[2020-06-17 10:31] LABS: HCT 22.3 % (34.0-46.0); HGB 7.6 gm/dL (11.4-16.0); MCH 35.2 pg (25.0-35.0); MCV 103.5 fL (80.0-100.0); Macrocytosis Slight; Mean Platelet Volume 9.3; Platelet Count 203 k/uL (150-450); RBC 2.15 m/uL (3.80-5.40); RDW 14.8 % (11.5-15.5)
[2020-06-17 10:32] LABS: Albumin 2.9 g/dL (3.5-5.0); Calcium 6.9 mg/dL (8.4-10.2); Magnesium 1.9 mg/dL (1.6-2.3); Total Bilirubin 1.7 mg/dL (0.2-1.3); Total Protein 5.9 g/dL (6.3-8.2)
[2020-06-17 10:41] LABS: Phosphorus 9.2 mg/dL (2.5-4.5)
[2020-06-17 10:59] LABS: Band Neutrophils % 10 %; Metamyelocytes % 3 %; Myelocytes % 7 %; Neutrophils % (M) 71 %; Nucleated Red Blood Cells 7 /100 WBC (0-0); Total Cells Counted 200
[2020-06-17 11:00] LABS: Toxic Granulation Present
[2020-06-17] MEDS: NOREPINEPHRINE 8 MG in SODIUM CHLORIDE 0.9% 250 ML IV SCH ×5 (11:49→22:16)
[2020-06-17 11:53] LABS: Glucose,Whole Blood 114 mg/dL (75-99)
[2020-06-17] MEDS ORDERED: FUROSEMIDE 10 MG/ML 10 ML VIAL IV ONE (12:00)
--- NOTE | 2020-06-17 16:47 | P.PCN ---
Date of Procedure: 06/17/20 Preoperative Diagnosis: Acute non-STEMI Postoperative Diagnosis: acute non-STEMI, hypotension Procedure(s) Performed: Insertion of a triple-lumen catheter Anesthesia: local Surgeon: [place] Estimated Blood Loss (ml): 0 Pathology: other Condition: critical Disposition: ICU Operative Findings: Indication: Hemodynamic monitoring. A time-out was completed verifying correct patient, procedure, site, positioning, and implant(s) or special equipment if applicable. The patients left groin was prepped and draped in sterile fashion. 1% Lidocaine was used to anesthetize the area. An 18G Arrow arterial line was introduced into the femoral artery. The catheter was threaded over the guide wire and the needle was removed with appropriate pulsatile blood return. Blood loss was minimal. The catheter was then sutured in place to the skin and a sterile dressing applied. Perfusion to the extremity distal to the point of catheter insertion was checked and found to be adequate. The patient tolerated the procedure well and there were no complications.
[2020-06-17 17:27] LABS: Glucose,Whole Blood 114 mg/dL (75-99)
[2020-06-17] MEDS ORDERED: CALCIUM ACETATE 667 MG TAB PO SCH (17:30)
[2020-06-17 18:02] LABS: ABG Base Excess -13.2 mmol/L; ABG HCO3 17 mmol/L (21-25); ABG Oxygen Saturation 93.1 % (94-97); ABG PCO2 56 mmHg (35-45); ABG PO2 99 mmHg (83-108); ABG TCO2 18 mmol/L (19-24); Allen Test Performed? Yes
[2020-06-17 18:07] LABS: ABG PH 7.09 (7.35-7.45)
[2020-06-17 18:12] LABS: HCT 23.6 % (34.0-46.0); HGB 7.7 gm/dL (11.4-16.0); Hypochromasia Slight; MCH 34.9 pg (25.0-35.0); MCHC 32.8 g/dL (31.0-37.0); MCV 106.6 fL (80.0-100.0); Macrocytosis Moderate; Mean Platelet Volume 11.1; Platelet Count 184 k/uL (150-450); RBC 2.21 m/uL (3.80-5.40); RDW 14.7 % (11.5-15.5)
[2020-06-17 18:37] LABS: Calcium 6.7 mg/dL (8.4-10.2)
[2020-06-17] MEDS ORDERED: DEXTROSE 5% IN WATER 1,000 ML with SODIUM BICARB (1 MEQ/ML) 150 ML IV SCH (19:00)
[2020-06-17 19:08] LABS: Band Neutrophils % 13 %; Metamyelocytes % 1 %; Myelocytes % 1 %; Neutrophils % (M) 71 %; Nucleated Red Blood Cells 4 /100 WBC (0-0); Total Cells Counted 200
[2020-06-17 19:09] LABS: Lymphocytes # (M) 2.76 k/uL (1.0-4.8); Metamyelocytes # (M) 0.28 k/uL (0); Myelocytes # (M) 0.28 k/uL (0); Polychromasia Present; Toxic Vacuolation Present; WBC 27.6 k/uL (3.8-10.6)
[2020-06-17] MEDS: ATORVASTATIN 80 MG TAB PO SCH (20:24)
[2020-06-17] MEDS: INSULIN DETEMIR (LEVEMIR) 100 UNIT/ML SYR SQ SCH (20:25)
[2020-06-17 20:31] LABS: ABG Base Excess -9.7 mmol/L; ABG HCO3 19 mmol/L (21-25); ABG Oxygen Saturation 98.6 % (94-97); ABG PCO2 51 mmHg (35-45); ABG PO2 185 mmHg (83-108); ABG TCO2 20 mmol/L (19-24); Allen Test Performed? Yes
[2020-06-17] MEDS ORDERED: PIPERACILLIN-TAZOBACTAM 3.375 GM in SODIUM CHLORIDE 0.9% 100 ML IVPB SCH (21:00)
[2020-06-17 21:28] VITALS: TEMP 98.2
[2020-06-17] MEDS ORDERED: SCOPOLAMINE 1.5MG/72HR PATCH TRANSDERM SCH (22:45)
[2020-06-17] MEDS ORDERED: MORPHINE SULFATE (100 MG/2 ML) 100 MG in SODIUM CHLORIDE 0.9% 100 ML IV SCH (22:45)
[2020-06-18] MEDS: IPRATROPIUM-ALBUTEROL 3 ML NEB INHALATION SCH (00:07)
[2020-06-18 00:49] VITALS: BP 69/55; PULSE 80; RESP 28
[2020-06-19 13:35] LABS: ABG PH 7.17 (7.35-7.45)
--- NOTE | 2020-06-20 16:29 | CDI ---
Documentation Clarification Form Date: 06/20/2020 04:11:48 PM From: Maribel Campbell CCS, CCDS Admit Date: 06/11/2020 12:45:00 PM Patient Name: Kathi Cavanaugh Visit Number: [id number] Discharge Date: 06/18/2020 03:33:00 AM ATTENTION: The Clinical Documentation Specialists (CDI) and [facility] Coding Staff appreciate your assistance in clarifying documentation. Please respond to the clarification below the line at the bottom and electronically sign. The CDI & [facility] Coding staff will review the response and follow-up if needed. Please note: Queries are made part of the Legal Health Record. If you have any questions, please contact the author of this message via ITS. Dr. Moses Roldan: There is conflicting documentation regarding the type of congestive heart failure: Per the 06/11 History & Physical: Acute on Chronic CHF with Diastolic Dysfunction is documented. Per the 06/11 Cardiology Consult and subsequent Progress Notes: Acute on Chronic Diastolic Heart Failure is documented. Per the 06/12 Progress Note & subsequent Progress Note: Acute on Chronic Systolic Heart Failure with EF 40-45% is documented. History/Risk Factors: Diastolic Heart Failure, CAD with previous bypass & stents, Hypertension, Hypothyroidism, Morbid Obesity w/BMI 47.8, KIM on Home O2, Chronic left diaphragmatic elevation, IDDM II and Anxiety. Clinical Indicators: Patient was transferred from [facility] on 06/11 with hypoxia and elevated troponins, admitted to ICU. Diagnosed with NSTEMI, Acute on Chronic Diastolic CHF, Acute Hypoxic Respiratory Failure, Severe Lactic Acidosis due to hypoxia, DELIA and DM with Hyperglycemia. VS: T 98.8, P 100, R 26 - 35^, BP 119/97, PO 95 3Lnc BNP: 6980 Echocardiogram Results 06/14: EF 35-40% systolic moderately impaired, Mod MR/TR, Moderate pulmonary hypertension. Chest X Ray 06/11: Patchy bilateral interstitial infiltrates. Correlate for CHF vs interstitial pneumonia. Treatment 06/11: INH Duoneb, IV Heparin, IV Nitro, IV Morphine Sulfate, IV Lasix, Insulin sl sc. Procedures 06/13: Left/Right Heart Catheterization, PTCA with stents to proximal and mid RCA. 06/15: Insertion of Hemodialysis Catheter. In your professional opinion, can you please clarify the acuity and type of CHF if known? Systolic Heart Failure: o Acute o Chronic o Acute on Chronic Diastolic Heart Failure: o Acute o Chronic o Acute on Chronic Systolic & Diastolic Heart Failure: o Acute o Chronic o Acute on Chronic Heart Failure Unable to Determine Other, please specify (Last Revision: August 2017) Acute on chronic systolic heart failure [facility]
--- NOTE | 2020-06-24 11:28 | CDI ---
Documentation Clarification Form Date: 06/24/2020 11:25 AM CDS: Maribel HeatonCampbellLAURA bright, CCDS Admit Date: 06/11/2020 12:45 PM Patient Name: Kathi Cavanaugh Discharge Date: 06/18/2020 03:33 ATTENTION: The Clinical Documentation Specialists (CDI) and [facility] Coding Staff appreciate your assistance in clarifying documentation. Please respond to the clarification below the line at the bottom and electronically sign. The CDI & [facility] Coding staff will review the response and follow-up if needed. Please note: Queries are made part of the Legal Health Record. If you have any questions, please contact the author of this message via ITS. Dear Dr. Kylah Negrete: Per the Attending History & Physical on 06/01 and subsequent Progress Notes beginning on 06/12 the following is documented: "Diabetes type 2 insulin- dependent with hyperglycemia uncontrolled Hypertension." Per the Pulmonary Progress Notes beginning on 06/13: "He was admitted to the ICU with Diabetic Ketoacidosis." History/Risk Factors: IDDM II, CAD status post stent, CABG, Hypertension, Hyperlipidemia, Ostructive Sleep Apnea on Home O2 2Lnc, Chronic Diastolic CHF. Clinical Indicators: The patient was transferred to [facility] on 06/11 from [facility] with Hypoxic Respirator Failure requiring BiPAP, Pulmonary Vascular congestion & Interstitial Edema and Sinus Tachycardia. Admitted with NSTEMI and Acute on Chronic Diastolic CHF. VS 06/11: T 98.8, P 100, R 26^, BP 119/97, PO 95 3Lnc BMI: 44.9 LAB 06/11: Hematology: WBC 13.1^, RBC 2.23*, Hgb 7.8*, Hct 23.0*, Neut 10.1^. Coagulation: WNL Chemistry: Na 129*, Cl 90*, CO2 31^, BUN 56^, Cr 1.52^, Glucose 249^, Lactic Acid 1.6, Calcium (8.8), AST 124^, ALT 45^, Troponin 15.400^^. Chemistry 06/13: Na 124*, Cl 87*, CO2 32^, BUN 50^, Cr 1.45^, Glucose 192^. Serum Acetone not done. Treatment 06/11: IV Zofran, INH Duoneb, IV Heparin drip, IV Dextrose, IV Morphine, Insulin sq, IV Lasix. Treatment 06/13: Transfer to ICU, BiPAP, Heparin drip continued, Nitro Drip, IV Lasix, Bronchodilators. In order to capture the severity of Illness and necessary documentation specificity, please clarify: DM II with Ketoacidosis ruled out DM II with Ketoacidosis ruled in o Please specify if present on admission: Yes or No DM II with Hyperglycemia o Please specify if present on admission: Yes or No Other, please specify Unable to Determine (Last Revision: February 2017) DM II with Ketoacidosis ruled out MTDD
== END 2020-06-18 03:33 | disposition expired | DRG 246 ==
LOC: 2SICU 12:45
PROVIDERS: ADMIT Internal Medicine; ATTEND Internal Medicine
PROC: 5A0935A Assistance with Respiratory Ventilation, Less than 24 Consecutive Hours, High Flow/Velocity Cannula (ICD-10-PCS; 2020-06-13)
PROC: 3E033XZ Introduction of Vasopressor into Peripheral Vein, Percutaneous Approach (ICD-10-PCS; 2020-06-13)
PROC: B2181ZZ Fluoroscopy of Left Internal Mammary Bypass Graft using Low Osmolar Contrast (ICD-10-PCS; principal; 2020-06-13 11:25)
PROC: B2121ZZ Fluoroscopy of Single Coronary Artery Bypass Graft using Low Osmolar Contrast (ICD-10-PCS; principal; 2020-06-13 11:25)
PROC: 4A023N8 Measurement of Cardiac Sampling and Pressure, Bilateral, Percutaneous Approach (ICD-10-PCS; principal; 2020-06-13 11:25)
PROC: B2111ZZ Fluoroscopy of Multiple Coronary Arteries using Low Osmolar Contrast (ICD-10-PCS; principal; 2020-06-13 11:25)
PROC: 027035Z Dilation of Coronary Artery, One Artery with Two Drug-eluting Intraluminal Devices, Percutaneous Approach (ICD-10-PCS; principal; 2020-06-13 11:25)
PROC: B4101ZZ Fluoroscopy of Abdominal Aorta using Low Osmolar Contrast (ICD-10-PCS; principal; 2020-06-13 11:25)
PROC: 5A09357 Assistance with Respiratory Ventilation, Less than 24 Consecutive Hours, Continuous Positive Airway Pressure (ICD-10-PCS; 2020-06-13 11:25)
PROC: 5A1945Z Respiratory Ventilation, 24-96 Consecutive Hours (ICD-10-PCS; 2020-06-14)
PROC: 0BH17EZ Insertion of Endotracheal Airway into Trachea, Via Natural or Artificial Opening (ICD-10-PCS; 2020-06-14)
PROC: 03HY32Z Insertion of Monitoring Device into Upper Artery, Percutaneous Approach (ICD-10-PCS; 2020-06-14)
PROC: 4A133J1 Monitoring of Arterial Pulse, Peripheral, Percutaneous Approach (ICD-10-PCS; 2020-06-14)
PROC: 4A133B1 Monitoring of Arterial Pressure, Peripheral, Percutaneous Approach (ICD-10-PCS; 2020-06-14)
PROC: 02H633Z Insertion of Infusion Device into Right Atrium, Percutaneous Approach (ICD-10-PCS; 2020-06-14)
PROC: 5A1D70Z Performance of Urinary Filtration, Intermittent, Less than 6 Hours Per Day (ICD-10-PCS; 2020-06-15)
PROC: 06HM33Z Insertion of Infusion Device into Right Femoral Vein, Percutaneous Approach (ICD-10-PCS; 2020-06-15)
PROC: 3E0G76Z Introduction of Nutritional Substance into Upper GI, Via Natural or Artificial Opening (ICD-10-PCS; 2020-06-15)
PROC: 03JY3ZZ Inspection of Upper Artery, Percutaneous Approach (ICD-10-PCS; 2020-06-15)
PROC: 4A133J1 Monitoring of Arterial Pulse, Peripheral, Percutaneous Approach (ICD-10-PCS; 2020-06-17)
PROC: 04HY32Z Insertion of Monitoring Device into Lower Artery, Percutaneous Approach (ICD-10-PCS; 2020-06-17)
PROC: 4A133B1 Monitoring of Arterial Pressure, Peripheral, Percutaneous Approach (ICD-10-PCS; 2020-06-17)
DX: I21.4 Non-ST elevation (NSTEMI) myocardial infarction (principal); N17.0 Acute kidney failure with tubular necrosis; I50.43 Acute on chronic combined systolic (congestive) and diastolic (congestive) heart failure; J96.21 Acute and chronic respiratory failure with hypoxia; I13.0 Hypertensive heart and chronic kidney disease with heart failure and stage 1 through stage 4 chronic kidney disease, or unspecified chronic kidney disease; E87.1 Hypo-osmolality and hyponatremia; I47.2 Ventricular tachycardia; Z68.42 Body mass index [BMI] 45.0-49.9, adult; T82.855A Stenosis of coronary artery stent, initial encounter; E87.2 Acidosis; E11.22 Type 2 diabetes mellitus with diabetic chronic kidney disease; N18.30 Chronic kidney disease, stage 3 unspecified; D63.1 Anemia in chronic kidney disease; I27.20 Pulmonary hypertension, unspecified; Z20.822 Contact with and (suspected) exposure to COVID-19; J98.6 Disorders of diaphragm; Z99.81 Dependence on supplemental oxygen; E11.40 Type 2 diabetes mellitus with diabetic neuropathy, unspecified; I95.9 Hypotension, unspecified; Z51.5 Encounter for palliative care; Z66 Do not resuscitate; I46.2 Cardiac arrest due to underlying cardiac condition; T50.8X5A Adverse effect of diagnostic agents, initial encounter; F41.9 Anxiety disorder, unspecified; G47.33 Obstructive sleep apnea (adult) (pediatric); Z99.89 Dependence on other enabling machines and devices; D50.9 Iron deficiency anemia, unspecified; E03.9 Hypothyroidism, unspecified; E78.5 Hyperlipidemia, unspecified; E66.01 Morbid (severe) obesity due to excess calories; I25.2 Old myocardial infarction; E87.5 Hyperkalemia; R31.9 Hematuria, unspecified; I25.10 Atherosclerotic heart disease of native coronary artery without angina pectoris; I08.1 Rheumatic disorders of both mitral and tricuspid valves; I48.91 Unspecified atrial fibrillation; Z79.02 Long term (current) use of antithrombotics/antiplatelets; Z79.4 Long term (current) use of insulin; Z79.82 Long term (current) use of aspirin; Z79.83 Long term (current) use of bisphosphonates; Z79.890 Hormone replacement therapy; Z79.899 Other long term (current) drug therapy; Z82.49 Family history of ischemic heart disease and other diseases of the circulatory system; G89.29 Other chronic pain; M54.9 Dorsalgia, unspecified; Z85.819 Personal history of malignant neoplasm of unspecified site of lip, oral cavity, and pharynx; Z87.891 Personal history of nicotine dependence; Z95.5 Presence of coronary angioplasty implant and graft; Z95.1 Presence of aortocoronary bypass graft; Z90.49 Acquired absence of other specified parts of digestive tract; Z88.5 Allergy status to narcotic agent; Z86.19 Personal history of other infectious and parasitic diseases
CPT/HCPCS: 36600; 71045; 76770; 80048; 80053; 82607; 82728; 82747; 82805; 82810; 83540; 83550; 83605; 83735; 83880; 84100; 84132; 84484; 85018; 85025; 85027; 85610; 85730; 86706; 87040; 87070; 87205; 87340; 90935; 93306; 93459; 93567; 94002; 94003; 94640; 94660